=== PATIENT | female | born 1985 | race Caucasian/White ===

== ENCOUNTER 2016-08-28 07:33 | Emergency (ER) | payer BC, MEDICAID, OTHER ==
[2016-08-28] MEDS ORDERED: Sodium Chloride 0.9% 10 ML Syringe FLUSH PRN (08:15)
[2016-08-28] MEDS ORDERED: Pantoprazole 80 MG in Sodium Chloride 0.9% 100 ML IV ONE (08:16)
[2016-08-28] MEDS ORDERED: Ondansetron 4 MG/2 ML SDV IVPUSH ONE (08:20)
--- NOTE | 2016-08-28 08:27 | EDM.PDOC ---
ED HPI GI/ABDOMINAL - General Chief Complaint: Gastrointestinal Problem Stated Complaint: VOMITING BLOOD Time Seen by Provider: 08/28/16 08:00 Source: Reports: Patient, Old records History Limitations: Reports: No limitations - History of Present Illness INITIAL COMMENTS - FREE TEXT/NARRATIVE: Gladis comes in with a week long hx of persistent vomiting, associated with some epigastric pain. She has noted some minor streaks of BRB yesterday, and more BRB this am. There is a PMH of PUD, ETOHism, and smoking. Her last reported ETOH beverages were yesterday, although she smells of ETOH this am. She has been seen at [facility] for similar sxs in the past, most recent visit of June 05, 2016. - Related Data Allergies/ADRs: Allergies Allergy/AdvReac Type Severity Reaction Status Date / Time No Known Allergies Allergy Verified 08/28/16 08:18 Home Meds: Home Meds Pantoprazole Sodium [Protonix] 40 mg PO BID #20 [email or web address] 08/28/16 [Rx] Past Medical History - Past Health History Medical/Surgical History: Denies Medical/Surgical History Gastrointestinal History: Reports: [employer] History: Reports: Psychiatric History: Reports: Addiction, Anxiety - Infectious Disease History Infectious Disease History: Reports: Chicken pox - Past Surgical History GI Surgical History: Reports: Appendectomy Social & Family History - Tobacco Use Smoking Status *Q: Current Every Day Smoker Years of Tobacco use: 15 Packs/Tins Daily: 1 Used Tobacco, but Quit: No Second Hand Smoke Exposure: Yes - Caffeine Use Caffeine Use: Reports: Coffee - Alcohol Use Days Per Week of Alcohol Use: 7 Number of Drinks Per Day: 5 Total Drinks Per Week: 35 - Recreational Drug Use Recreational Drug Use: Yes Drug Use in Last 12 Months: Yes Recreational Drug Type: Reports: Marijuana/Hashish Recreational Drug Use Frequency: Weekly Recreational Drug Last Use: 06/03/16 ED ROS GENERAL - Review of Systems Review Of Systems: See Below Constitutional: Reports: malaise, decreased appetite HEENT: Reports: No symptoms Respiratory: Reports: No Symptoms Cardiovascular: Reports: No symptoms Endocrine: Reports: no symptoms GI/Abdominal: Reports: Abdominal pain, Decreased appetite, Hematemesis, Nausea, Vomiting Musculoskeletal: Reports: no symptoms Skin: Reports: no symptoms Neurological: Reports: No Symptoms Psychiatric: Reports: Anxiety Hematologic/Lymphatic: Reports: no symptoms Immunologic: Reports: no symptoms ED EXAM, GI/ABD - Physical Exam Exam: See Below Exam Limited By: No limitations General Appearance: alert, WD/WN, mild distress Eyes: bilateral: normal appearance, EOMI Ears: normal external exam Nose: normal inspection Throat/Mouth: Normal inspection, Normal oropharynx Head: normocephalic Neck: normal inspection, supple, non-tender, full range of motion Respiratory/Chest: lungs clear, normal breath sounds, no accessory muscle use, chest non-tender Cardiovascular: regular rate, rhythm, no murmur GI/Abdominal: normal bowel sounds, soft, no organomegaly, no distention, no mass , tenderness (epigastrium) (Female) Exam: Deferred Rectal (Female) Exam: Deferred Back Exam: normal inspection Extremities: normal inspection Neurological: alert, oriented, CN II-XII intact, normal cognition, normal gait, no motor/sensory deficits Psychiatric: anxious Skin Exam: Warm, Dry, Intact, Normal color Lymphatic: no adenopathy Course - Vital Signs Text/Narrative:: Following admission to the [facility] ED, an IV was placed in the RUE and 2L of NS was administered, with Protonix 80 mg IV and Zofran 8 mg IV for sx relief. Labs noted: CBC noting Hgb 14.9 gm, WBC 15,500, plts 315,000; amylase 66, se HCG neg , Na 137, K 3.1 Cl 98; BA 0.02, Canabis screen pos. She was markedly improved at time of discharge. Last Recorded V/S: Last Vital Signs Temp 36.6 C 08/28/16 07:35 Pulse 101 H 08/28/16 07:35 Resp 18 08/28/16 07:35 BP 142/95 H 08/28/16 07:35 Pulse Ox 97 08/28/16 07:35 - Orders/Labs/Meds Orders: Active Orders 24 hr Category Date Time Status Sodium Chloride 0.9% [Normal Saline] 1,000 ml Med 08/28/16 08:30 Active IV ASDIRECTED Sodium Chloride 0.9% [Normal Saline] 1,000 ml Med 08/28/16 10:30 Active IV ASDIRECTED Sodium Chloride 0.9% [Saline Flush] Med 08/28/16 08:15 Active 10 ml FLUSH ASDIRECTED PRN Peripheral IV Insertion Adult [OM.PC] Routine Oth 08/28/16 08:15 Ordered Medication Orders Sodium Chloride (Normal Saline) 1,000 mls @ 999 mls/hr IV ASDIRECTED SRINATH Last Admin: 08/28/16 09:14 Dose: 999 mls/hr Sodium Chloride (Normal Saline) 1,000 mls @ 999 mls/hr IV ASDIRECTED SRINATH Last Admin: 08/28/16 10:37 Dose: 999 mls/hr Sodium Chloride (Saline Flush) 10 ml FLUSH ASDIRECTED PRN PRN Reason: Keep Vein Open Labs: Laboratory Tests 08/28/16 08/28/16 08/28/16 Range/Units 08:22 08:22 08:38 WBC 15.5 H (4.5-12.0) X10-3/uL RBC 4.84 (3.23-5.20) x10(6)uL Hgb 14.9 (11.5-15.5) g/dL Hct 44.7 (30.0-51.3) % MCV 92.5 (80-96) fL MCH 30.7 (27.7-33.6) pg MCHC 33.2 (32.2-35.4) g/dL RDW 15.4 (11.5-15.5) % Plt Count 315 (125-369) X10(3)uL MPV 9.3 (7.4-10.4) fL Add Manual Diff Yes Neutrophils % (Manual) 83 H (46-82) % Lymphocytes % (Manual) 9 L (13-37) % Atypical Lymphs % 4 H (0-0) % Monocytes % (Manual) 4 (4-12) % Sodium (135-145) mmol/L Potassium (3.5-5.3) mmol/L Chloride (100-110) mmol/L Carbon Dioxide (23-29) mmol/L BUN (5-20) mg/dL Creatinine (0.6-1.3) mg/dL Est Cr Clr Drug Dosing Estimated GFR (MDRD) (>60) BUN/Creatinine Ratio (9-20) Glucose (80-116) mg/dL Calcium (8.6-10.2) mg/dL Total Bilirubin (0.1-1.3) mg/dL AST (5-27) IU/L ALT (14-26) IU/L Alkaline Phosphatase (56-112) IU/L Total Protein (6.0-8.0) g/dL Albumin (3.5-5.2) g/dL Globulin g/dL Albumin/Globulin Ratio Amylase (28-100) U/L HCG, Quant (2.0 - ) mIU/mL Urine Color Yellow (YELLOW) Urine Appearance Clear (CLEAR) Urine pH 8.0 H (5.0-6.5) Ur Specific [place] 1.015 (1.010-1.025) Urine Protein Negative (NEGATIVE) mg/dL Urine Glucose (UA) Normal (NEGATIVE) mg/dL Urine Ketones 15 H (NEGATIVE) mg/dL Urine Occult Blood Negative (NEGATIVE) Urine Nitrite Negative (NEGATIVE) Urine Bilirubin Negative (NEGATIVE) Urine Urobilinogen Normal (NEGATIVE) mg/dL Ur Leukocyte Esterase Negative (NEGATIVE) Urine RBC Not seen (0) Urine WBC Not seen (0) Ur Squamous Epith Cells Moderate H (NS,R,O) Urine Opiates Screen Negative (NEGATIVE) Ur Oxycodone Screen Negative (NEGATIVE) Ur Propoxyphene Screen Negative (NEGATIVE) Ur Barbituates Screen Negative (NEGATIVE) Ur Tricyclics Screen Negative (NEGATIVE) Ur Phencyclidine Scrn Negative (NEGATIVE) Ur Amphetamine Screen Negative (NEGATIVE) Urine MDMA Screen Negative (NEGATIVE) U Benzodiazepines Scrn Negative (NEGATIVE) U Cocaine Metab Screen Negative (NEGATIVE) U Marijuana (THC) Screen Positive H (NEGATIVE) Ethyl Alcohol (<0.01) % 08/28/16 08/28/16 08/28/16 Range/Units 08:38 08:38 08:38 WBC (4.5-12.0) X10-3/uL RBC (3.23-5.20) x10(6)uL Hgb (11.5-15.5) g/dL Hct (30.0-51.3) % MCV (80-96) fL MCH (27.7-33.6) pg MCHC (32.2-35.4) g/dL RDW (11.5-15.5) % Plt Count (125-369) X10(3)uL MPV (7.4-10.4) fL Add Manual Diff Neutrophils % (Manual) (46-82) % Lymphocytes % (Manual) (13-37) % Atypical Lymphs % (0-0) % Monocytes % (Manual) (4-12) % Sodium 137 (135-145) mmol/L Potassium 3.1 L (3.5-5.3) mmol/L Chloride 98 L D (100-110) mmol/L Carbon Dioxide 28 (23-29) mmol/L BUN 13 (5-20) mg/dL Creatinine 0.7 (0.6-1.3) mg/dL Est Cr Clr Drug Dosing TNP Estimated GFR (MDRD) > 60 (>60) BUN/Creatinine Ratio 18.6 (9-20) Glucose 115 (80-116) mg/dL Calcium 9.4 (8.6-10.2) mg/dL Total Bilirubin 0.2 (0.1-1.3) mg/dL AST 26 D (5-27) IU/L ALT 16 D (14-26) IU/L Alkaline Phosphatase 74 (56-112) IU/L Total Protein 8.3 H (6.0-8.0) g/dL Albumin 4.2 (3.5-5.2) g/dL Globulin 4.1 g/dL Albumin/Globulin Ratio 1.0 Amylase (28-100) U/L HCG, Quant < 2 L (2.0 - ) mIU/mL Urine Color (YELLOW) Urine Appearance (CLEAR) Urine pH (5.0-6.5) Ur Specific [place] (1.010-1.025) Urine Protein (NEGATIVE) mg/dL Urine Glucose (UA) (NEGATIVE) mg/dL Urine Ketones (NEGATIVE) mg/dL Urine Occult Blood (NEGATIVE) Urine Nitrite (NEGATIVE) Urine Bilirubin (NEGATIVE) Urine Urobilinogen (NEGATIVE) mg/dL Ur Leukocyte Esterase (NEGATIVE) Urine RBC (0) Urine WBC (0) Ur Squamous Epith Cells (NS,R,O) Urine Opiates Screen (NEGATIVE) Ur Oxycodone Screen (NEGATIVE) Ur Propoxyphene Screen (NEGATIVE) Ur Barbituates Screen (NEGATIVE) Ur Tricyclics Screen (NEGATIVE) Ur Phencyclidine Scrn (NEGATIVE) Ur Amphetamine Screen (NEGATIVE) Urine MDMA Screen (NEGATIVE) U Benzodiazepines Scrn (NEGATIVE) U Cocaine Metab Screen (NEGATIVE) U Marijuana (THC) Screen (NEGATIVE) Ethyl Alcohol 0.02 H (<0.01) % 08/28/16 Range/Units 08:38 WBC (4.5-12.0) X10-3/uL RBC (3.23-5.20) x10(6)uL Hgb (11.5-15.5) g/dL Hct (30.0-51.3) % MCV (80-96) fL MCH (27.7-33.6) pg MCHC (32.2-35.4) g/dL RDW (11.5-15.5) % Plt Count (125-369) X10(3)uL MPV (7.4-10.4) fL Add Manual Diff Neutrophils % (Manual) (46-82) % Lymphocytes % (Manual) (13-37) % Atypical Lymphs % (0-0) % Monocytes % (Manual) (4-12) % Sodium (135-145) mmol/L Potassium (3.5-5.3) mmol/L Chloride (100-110) mmol/L Carbon Dioxide (23-29) mmol/L BUN (5-20) mg/dL Creatinine (0.6-1.3) mg/dL Est Cr Clr Drug Dosing Estimated GFR (MDRD) (>60) BUN/Creatinine Ratio (9-20) Glucose (80-116) mg/dL Calcium (8.6-10.2) mg/dL Total Bilirubin (0.1-1.3) mg/dL AST (5-27) IU/L ALT (14-26) IU/L Alkaline Phosphatase (56-112) IU/L Total Protein (6.0-8.0) g/dL Albumin (3.5-5.2) g/dL Globulin g/dL Albumin/Globulin Ratio Amylase 66 (28-100) U/L HCG, Quant (2.0 - ) mIU/mL Urine Color (YELLOW) Urine Appearance (CLEAR) Urine pH (5.0-6.5) Ur Specific [place] (1.010-1.025) Urine Protein (NEGATIVE) mg/dL Urine Glucose (UA) (NEGATIVE) mg/dL Urine Ketones (NEGATIVE) mg/dL Urine Occult Blood (NEGATIVE) Urine Nitrite (NEGATIVE) Urine Bilirubin (NEGATIVE) Urine Urobilinogen (NEGATIVE) mg/dL Ur Leukocyte Esterase (NEGATIVE) Urine RBC (0) Urine WBC (0) Ur Squamous Epith Cells (NS,R,O) Urine Opiates Screen (NEGATIVE) Ur Oxycodone Screen (NEGATIVE) Ur Propoxyphene Screen (NEGATIVE) Ur Barbituates Screen (NEGATIVE) Ur Tricyclics Screen (NEGATIVE) Ur Phencyclidine Scrn (NEGATIVE) Ur Amphetamine Screen (NEGATIVE) Urine MDMA Screen (NEGATIVE) U Benzodiazepines Scrn (NEGATIVE) U Cocaine Metab Screen (NEGATIVE) U Marijuana (THC) Screen (NEGATIVE) Ethyl Alcohol (<0.01) % Meds: Medications Generic Name Dose Route Start Last Admin Trade Name Freq PRN Reason Stop Dose Admin Sodium Chloride 1,000 mls @ 999 mls/hr 08/28/16 08:30 08/28/16 09:14 Normal Saline IV 999 mls/hr ASDIRECTED SRINATH Administration Sodium Chloride 1,000 mls @ 999 mls/hr 08/28/16 10:30 08/28/16 10:37 Normal Saline IV 999 mls/hr ASDIRECTED SRINATH Administration Sodium Chloride 10 ml 08/28/16 08:15 Saline Flush FLUSH ASDIRECTED PRN Keep Vein Open Discontinued Medications Generic Name Dose Route Start Last Admin Trade Name Freq PRN Reason Stop Dose Admin Pantoprazole Sodium 80 mg/ 100 mls @ 200 mls/hr 08/28/16 08:16 08/28/16 09:15 Sodium Chloride IV 08/28/16 08:45 200 mls/hr .BOLUS ONE Administration Ondansetron HCl 8 mg 08/28/16 08:20 08/28/16 09:15 Zofran IVPUSH 08/28/16 08:21 8 mg ONETIME ONE Administration Departure - Departure Time of Disposition: 12:00 Disposition: Home, Self-Care 01 Condition: fair Clinical Impression: Acute erosive gastritis Forms: ED Department Discharge - Problem List & Annotations (1) Alcohol dependence SNOMED Code(s): 39162727 Code(s): F10.20 - ALCOHOL DEPENDENCE, UNCOMPLICATED Status: Acute Current Visit: No Annotation/Comment:: Needs outpatient ETOH treatment. Spoke with her about Campral (2) Acute erosive gastritis SNOMED Code(s): 788451344 Code(s): K29.00 - ACUTE GASTRITIS WITHOUT BLEEDING Status: Acute Current Visit: Yes Annotation/Comment:: Gladis would benefit from ETOH treatment. She needs to abstain, and medical complications affecting her health and prospects for healing require attention. I dispensed Protonix 40 mg bid and she will follow up with PCP. - Problem List Review Problem List Initiated/Reviewed/Updated: Yes - My Orders Last 24 Hours: My Active Orders 08/28/16 08:15 Sodium Chloride 0.9% [Saline Flush] 10 ml FLUSH ASDIRECTED PRN Peripheral IV Insertion Adult [OM.PC] Routine 08/28/16 08:30 Sodium Chloride 0.9% [Normal Saline] 1,000 ml IV ASDIRECTED 08/28/16 10:30 Sodium Chloride 0.9% [Normal Saline] 1,000 ml IV ASDIRECTED - Assessment/Plan Last 24 Hours: My Active Orders 08/28/16 08:15 Sodium Chloride 0.9% [Saline Flush] 10 ml FLUSH ASDIRECTED PRN Peripheral IV Insertion Adult [OM.PC] Routine 08/28/16 08:30 Sodium Chloride 0.9% [Normal Saline] 1,000 ml IV ASDIRECTED 08/28/16 10:30 Sodium Chloride 0.9% [Normal Saline] 1,000 ml IV ASDIRECTED Plan: Follow up with PCP, appt. provided for next week.
[2016-08-28] MEDS ORDERED: Sodium Chloride 0.9% 1,000 ML IV SCH ×2 (08:30→10:30)
[2016-08-28 08:32] VITALS: BP 142/95
== END 2016-08-28 12:00 | disposition home or self-care (01) ==
LOC: FB.ED 07:33
DX: K29.00 Acute gastritis without bleeding (principal); F41.9 Anxiety disorder, unspecified; F17.210 Nicotine dependence, cigarettes, uncomplicated; Z90.49 Acquired absence of other specified parts of digestive tract
CPT/HCPCS: 36415; 80053; 80305; 81001; 82150; 84702; 85025; 96361; 96365; 96375; 99284; C9113; G0480; J2405; J7030; J7040

== ENCOUNTER 2016-09-14 06:37 | Day surgery (SDC) | payer BC, MEDICAID, OTHER ==
[2016-09-14] MEDS ORDERED: Sodium Chloride 0.9% 10 ML Syringe FLUSH PRN (06:45)
[2016-09-14] MEDS ORDERED: Lactated Ringers 1,000 ML IV SCH (06:45)
[2016-09-14] MEDS ORDERED: Lidocaine 2% 100 MG/5 ML Syringe IVPUSH ONE (08:00)
[2016-09-14] MEDS ORDERED: Propofol 200 MG/20 ML SDV IV ONE (08:00)
[2016-09-14] MEDS ORDERED: Midazolam 1 MG/ML 2 ML SDV IV ONE (08:00)
--- NOTE | 2016-09-14 08:17 | PCM.OPNOTE ---
- General Post-Op/Procedure Note Date of Surgery/Procedure: 09/14/16 Operative Procedure(s): egd with bx Findings: retained food esophagitis gastritis Pre Op Diagnosis: nausea. hematemasis Post-Op Diagnosis: retained food. esophagitis. gastritis Anesthesia Technique: [facility] [place] Primary Surgeon: Connor Gandhi Anesthesia Provider: Veronique Delgado Pathology: stomach and esophagus Complications: None Condition: Good Free Text/Narrative:: see dictation
[2016-09-14 09:34] VITALS: BP 152/88
--- NOTE | 2016-09-14 20:18 | OR ---
DATE OF OPERATION: 09/14/2016 SURGEON: Connor Gandhi MD PROCEDURE PERFORMED: Esophagogastroduodenoscopy with cold forceps biopsy. PREOPERATIVE DIAGNOSIS: History of nausea and hematemesis. POSTOPERATIVE DIAGNOSIS: Delayed gastric emptying, esophagitis, and gastritis. INDICATIONS FOR PROCEDURE: This is a 31-year-old, white female, who has presented with a complaint of epigastric discomfort and hematemesis. She was offered and accepted an EGD. DESCRIPTION OF PROCEDURE: After an excellent IV sedation was administered, the bite block was inserted. Flexible endoscope was passed without difficulty down the patient's esophagus into the stomach. The stomach was insufflated. Scope was passed through the pylorus to the second portion of the duodenum and slowly withdrawn. The following findings were noted. Duodenum was essentially unremarkable. Stomach demonstrated some retained food. Marked gastritis was noted. The areas to irrigate and clear the food were unsuccessful but we did take some biopsies. GE junction measured approximately 38 cm, and the esophagus demonstrated marked esophagitis just above the GE junction and biopsies were taken as well. The stomach was deflated. The scope was removed. The patient tolerated the procedure well, was taken to recovery room in good condition. /[id number] /MODL
== END 2016-09-14 09:08 | disposition home or self-care (01) ==
LOC: FB.SDS 06:37
PROVIDERS: ATTEND Surgery
DX: K29.30 Chronic superficial gastritis without bleeding (principal); K20.9 Esophagitis, unspecified; K30 Functional dyspepsia; J45.909 Unspecified asthma, uncomplicated; G43.909 Migraine, unspecified, not intractable, without status migrainosus; F10.20 Alcohol dependence, uncomplicated; F17.210 Nicotine dependence, cigarettes, uncomplicated; Z79.899 Other long term (current) drug therapy; Z90.49 Acquired absence of other specified parts of digestive tract
CPT/HCPCS: 00740; 43239; 81025; 88305; 88342; J2250; J2704; J7120

== ENCOUNTER 2016-11-22 13:53 | Observation (INO) | payer BC, MEDICAID, OTHER ==
[2016-11-22] MEDS ORDERED: Sodium Chloride 0.9% 1,000 ML IV ONE (14:00)
[2016-11-22] MEDS ORDERED: Ondansetron 4 MG/2 ML SDV IVPUSH ONE (14:00)
[2016-11-22] MEDS ORDERED: Sodium Chloride 0.9% 10 ML Syringe FLUSH PRN ×2 (14:05→17:53)
[2016-11-22] MEDS ORDERED: Aluminum Hydroxide/Magnesium Hydroxide Susp 30 ML Cup PO STA (14:05)
--- NOTE | 2016-11-22 14:07 | EDM.PDOC ---
ED HPI GENERAL MEDICAL PROBLEM - General Chief Complaint: Gastrointestinal Problem Stated Complaint: VOMITING SINCE WEDNESDAY Time Seen by Provider: 11/22/16 13:53 Source of Information: Reports: Patient History Limitations: Reports: No Limitations - History of Present Illness INITIAL COMMENTS - FREE TEXT/NARRATIVE: 31 years old w f, smoker, found out on 10/10/2016 she is , came to the ed by PC due to N/V in the past few days. P stated, she is 9 weeks AB0. She is complaining of epigastric pain as well. No Dizziness. no C/P No other acute medical issues at this time. Onset: Unknown/Unsure Onset Date: 11/13/16 Onset Time: 08:00 Duration: Day(s):, Getting Worse Location: Reports: Abdomen Quality: Reports: Burning Severity: Moderate Improves with: Reports: Rest Worsens with: Reports: Movement Context: Reports: Other (Pt is , smokes) Associated Symptoms: Reports: Nausea/Vomiting, Weakness, Other (epigastric pain) Abdomen Pain Score (Numeric/FACES): 4 - Related Data Allergies Allergy/AdvReac Type Severity Reaction Status Date / Time No Known Allergies Allergy Verified 11/22/16 18:16 Home Meds: Home Meds Albuterol [Ventolin HFA] 2 puff PO Q4HR PRN 09/11/16 [History] Metoclopramide [Reglan] 5 mg PO TIDAC 11/22/16 [History] Omeprazole 40 mg PO 0730,21 11/22/16 [History] Past Medical History - Past Health History Medical/Surgical History: Denies Medical/Surgical History HEENT History: Reports: Allergic Rhinitis, Other (See Below) Other HEENT History: RHINORRHEA Respiratory History: Reports: Other (See Below) Other Respiratory History: SMOKER Gastrointestinal History: Reports: PUD 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) Other OB/BYN History: CERVICAL LYMPHADENOPATHY Neurological History: Reports: Migraines Psychiatric History: Reports: Addiction, Other (See Below) Other Psychiatric History: FATIGUE Immunologic History: - Infectious Disease History Infectious Disease History: Reports: Chicken Pox - Past Surgical History GI Surgical History: Reports: Appendectomy Social & Family History - Tobacco Use Smoking Status *Q: Current Every Day Smoker Years of Tobacco use: 15 Packs/Tins Daily: 1 Used Tobacco, but Quit: No Second Hand Smoke Exposure: Yes - Caffeine Use Caffeine Use: Reports: Energy Drinks, Soda - Alcohol Use Days Per Week of Alcohol Use: 7 Number of Drinks Per Day: 5 Total Drinks Per Week: 35 - Recreational Drug Use Recreational Drug Use: Yes Drug Use in Last 12 Months: Yes Recreational Drug Type: Reports: Marijuana/Hashish Recreational Drug Use Frequency: Weekly Recreational Drug Last Use: YESTERDAY ED ROS GENERAL - Review of Systems Review Of Systems: See Below Constitutional: Reports: Weakness HEENT: Reports: No Symptoms Respiratory: Reports: No Symptoms Cardiovascular: Reports: No Symptoms Endocrine: Reports: No Symptoms GI/Abdominal: Reports: Abdominal Pain : Reports: No Symptoms Musculoskeletal: Reports: No Symptoms Skin: Reports: No Symptoms Neurological: Reports: No Symptoms Psychiatric: Reports: No Symptoms Hematologic/Lymphatic: Reports: No Symptoms Immunologic: Reports: No Symptoms ED EXAM, GI/ABD - Physical Exam Exam: See Below Exam Limited By: No Limitations General Appearance: Alert, WD/WN, Mild Distress Eyes: Bilateral: Normal Appearance Ears: Normal External Exam Nose: No Blood Throat/Mouth: Normal Lips, Normal Voice, No Airway Compromise, Other (dry mucosal membrans) Head: Atraumatic, Normocephalic Neck: Normal Inspection, Supple, Non-Tender, Full Range of Motion Respiratory/Chest: No Respiratory Distress, Rhonchi Cardiovascular: Normal Peripheral Pulses, Regular Rate, Rhythm GI/Abdominal Exam: Rebound, Tender (epigastric) (Female) Exam: Deferred Rectal (Female) Exam: Deferred Back Exam: Normal Inspection, Full Range of Motion Extremities: Normal Inspection, Normal Range of Motion, Non-Tender, No Pedal Edema Neurological: Alert, Oriented, CN II-XII Intact, Normal Cognition, Normal Gait, No Motor/Sensory Deficits Psychiatric: Normal Affect, Normal Mood Skin Exam: Warm, Dry, Intact, Normal Color, No Rash Lymphatic: No Adenopathy EKG INTERPRETATION EKG Date: 11/22/16 Time: 14:40 Rhythm: NSR Rate (Beats/Min): 78 [place]: Normal P-Wave: Present QRS: Normal ST-T: Normal QT: Normal Comparison: NA - No Prior EKG Course - Vital Signs Text/Narrative:: 31 years old w f, smoker, found out on 10/10/2016 she is , came to the ed by PC due to N/V in the past few days. P stated, she is 9 weeks AB0. She is complaining of epigastric pain as well. No Dizziness. no C/P No other acute medical issues at this time. PE: WNWD wf, N/V epigastric pain. Labs: K 2.4, Mg 1.8, WBC 24k HCG [id number], Na 132 Cr 0.5 BUN 15, Glc 121 ECG: NSR Impression: Hypokalemia, Hyponatremia, Dehydration, New . Tx: K Dur 40meq po, Piotassium 20meq IV, Zofran, GI Cocktail. Reexam: Pt felt better but is still nauseated, Phenegen was given which improved her symptoms. K was 2.8. Plan: Admit to M/S tele. 12/24/2016: Pt received another 20 meq of potassium iv. This morning, her potassium was 3.7, WBC was 14 Last Recorded V/S: Last Vital Signs Temp 36.8 C 11/23/16 03:34 Pulse 70 11/23/16 03:34 Resp 16 11/23/16 03:34 BP 122/81 11/23/16 03:34 Pulse Ox 100 11/23/16 03:34 - Orders/Labs/Meds Orders: Active Orders 24 hr Category Date Time Status CULTURE BLOOD [BC] Urgent Lab 11/22/16 18:30 Received CULTURE BLOOD [BC] Urgent Lab 11/22/16 18:35 Received Sodium Chloride 0.9% [Saline Flush] Med 11/22/16 14:05 Active 10 ml FLUSH ASDIRECTED PRN Blood Culture x2 Reflex Set [OM.PC] Urgent Oth 11/22/16 17:47 Ordered Saline Lock Insert [OM.PC] Routine Oth 11/22/16 14:05 Ordered Medication Orders Albuterol (Ventolin Hfa) 0 gm INH Q4H PRN PRN Reason: Wheezing Potassium Chloride/Sodium Chloride (Normal Saline With 20 Meq Kcl) 1,000 mls @ 150 mls/hr IV ASDIRECTED SRINATH Last Admin: 11/22/16 21:00 Dose: 150 mls/hr Metoclopramide HCl (Reglan) 5 mg PO TIDAC SRINATH Ondansetron HCl (Zofran Odt) 4 mg PO Q6H PRN PRN Reason: Nausea/Vomiting Pantoprazole Sodium (Protonix) 40 mg PO BIDAC SRINATH Sodium Chloride (Saline Flush) 10 ml FLUSH ASDIRECTED PRN PRN Reason: Keep Vein Open Last Admin: 11/22/16 14:19 Dose: 10 ml Sodium Chloride (Saline Flush) 10 ml FLUSH ASDIRECTED PRN PRN Reason: Keep Vein Open Labs: Laboratory Tests 11/22/16 11/22/16 11/22/16 Range/Units 14:10 14:10 14:10 WBC 24.3 H (4.5-12.0) X10-3/uL RBC 4.97 (3.23-5.20) x10(6)uL Hgb 15.4 (11.5-15.5) g/dL Hct 45.3 (30.0-51.3) % MCV 91.1 (80-96) fL MCH 31.0 (27.7-33.6) pg MCHC 34.0 (32.2-35.4) g/dL RDW 14.4 (11.5-15.5) % Plt Count 286 (125-369) X10(3)uL MPV 8.9 (7.4-10.4) fL Add Manual Diff Yes Neutrophils % (Manual) 90 H (46-82) % Lymphocytes % (Manual) 5 L (13-37) % Monocytes % (Manual) 5 (4-12) % Sodium 132 L (135-145) mmol/L Potassium 2.4 L* (3.5-5.3) mmol/L Chloride 86 L* D (100-110) mmol/L Carbon Dioxide 34 H (23-29) mmol/L BUN 15 (5-20) mg/dL Creatinine 0.5 L (0.6-1.3) mg/dL Est Cr Clr Drug Dosing 123.02 mL/min Estimated GFR (MDRD) > 60 (>60) BUN/Creatinine Ratio 30.0 H (9-20) Glucose 121 H (80-116) mg/dL Calcium 9.7 (8.6-10.2) mg/dL Magnesium (1.8-2.5) mg/dL Total Bilirubin 0.7 (0.1-1.3) mg/dL Direct Bilirubin 0.2 (0.1-0.2) mg/dL AST 27 (5-27) IU/L ALT 22 D (14-26) IU/L Alkaline Phosphatase 65 (56-112) IU/L Total Protein 9.0 H (6.0-8.0) g/dL Albumin 4.5 (3.5-5.2) g/dL Amylase (28-100) U/L HCG, Quant 74111 (2.0 - ) mIU/mL Urine Color (YELLOW) Urine Appearance (CLEAR) Urine pH (5.0-6.5) Ur Specific [place] (1.010-1.025) Urine Protein (NEGATIVE) mg/dL Urine Glucose (UA) (NEGATIVE) mg/dL Urine Ketones (NEGATIVE) mg/dL Urine Occult Blood (NEGATIVE) Urine Nitrite (NEGATIVE) Urine Bilirubin (NEGATIVE) Urine Urobilinogen (NEGATIVE) mg/dL Ur Leukocyte Esterase (NEGATIVE) Urine RBC (0) Urine WBC (0) Ur Squamous Epith Cells (NS,R,O) Urine Bacteria (NS) Urine Mucus (NS) 11/22/16 11/22/16 11/22/16 Range/Units 14:10 14:10 17:05 WBC (4.5-12.0) X10-3/uL RBC (3.23-5.20) x10(6)uL Hgb (11.5-15.5) g/dL Hct (30.0-51.3) % MCV (80-96) fL MCH (27.7-33.6) pg MCHC (32.2-35.4) g/dL RDW (11.5-15.5) % Plt Count (125-369) X10(3)uL MPV (7.4-10.4) fL Add Manual Diff Neutrophils % (Manual) (46-82) % Lymphocytes % (Manual) (13-37) % Monocytes % (Manual) (4-12) % Sodium 134 L (135-145) mmol/L Potassium 2.8 L* (3.5-5.3) mmol/L Chloride 95 L D (100-110) mmol/L Carbon Dioxide 30 H (23-29) mmol/L BUN 11 (5-20) mg/dL Creatinine 0.4 L (0.6-1.3) mg/dL Est Cr Clr Drug Dosing 153.77 mL/min Estimated GFR (MDRD) > 60 (>60) BUN/Creatinine Ratio 27.5 H (9-20) Glucose 102 (80-116) mg/dL Calcium 8.1 L (8.6-10.2) mg/dL Magnesium (1.8-2.5) mg/dL Total Bilirubin (0.1-1.3) mg/dL Direct Bilirubin (0.1-0.2) mg/dL AST (5-27) IU/L ALT (14-26) IU/L Alkaline Phosphatase (56-112) IU/L Total Protein (6.0-8.0) g/dL Albumin (3.5-5.2) g/dL Amylase 64 (28-100) U/L HCG, Quant (2.0 - ) mIU/mL Urine Color Yellow (YELLOW) Urine Appearance Slightly cloudy (CLEAR) Urine pH 9.0 H (5.0-6.5) Ur Specific [place] 1.010 (1.010-1.025) Urine Protein Negative (NEGATIVE) mg/dL Urine Glucose (UA) Normal (NEGATIVE) mg/dL Urine Ketones 150 H (NEGATIVE) mg/dL Urine Occult Blood Negative (NEGATIVE) Urine Nitrite Negative (NEGATIVE) Urine Bilirubin Negative (NEGATIVE) Urine Urobilinogen 4 H (NEGATIVE) mg/dL Ur Leukocyte Esterase Small H (NEGATIVE) Urine RBC 0-5 (0) Urine WBC 0-5 (0) Ur Squamous Epith Cells Few H (NS,R,O) Urine Bacteria Few H (NS) Urine Mucus Moderate H (NS) 07/30/17 Range/Units 17:05 WBC (4.5-12.0) X10-3/uL RBC (3.23-5.20) x10(6)uL Hgb (11.5-15.5) g/dL Hct (30.0-51.3) % MCV (80-96) fL MCH (27.7-33.6) pg MCHC (32.2-35.4) g/dL RDW (11.5-15.5) % Plt Count (125-369) X10(3)uL MPV (7.4-10.4) fL Add Manual Diff Neutrophils % (Manual) (46-82) % Lymphocytes % (Manual) (13-37) % Monocytes % (Manual) (4-12) % Sodium (135-145) mmol/L Potassium (3.5-5.3) mmol/L Chloride (100-110) mmol/L Carbon Dioxide (23-29) mmol/L BUN (5-20) mg/dL Creatinine (0.6-1.3) mg/dL Est Cr Clr Drug Dosing mL/min Estimated GFR (MDRD) (>60) BUN/Creatinine Ratio (9-20) Glucose (80-116) mg/dL Calcium (8.6-10.2) mg/dL Magnesium 1.8 (1.8-2.5) mg/dL Total Bilirubin (0.1-1.3) mg/dL Direct Bilirubin (0.1-0.2) mg/dL AST (5-27) IU/L ALT (14-26) IU/L Alkaline Phosphatase (56-112) IU/L Total Protein (6.0-8.0) g/dL Albumin (3.5-5.2) g/dL Amylase (28-100) U/L HCG, Quant (2.0 - ) mIU/mL Urine Color (YELLOW) Urine Appearance (CLEAR) Urine pH (5.0-6.5) Ur Specific [place] (1.010-1.025) Urine Protein (NEGATIVE) mg/dL Urine Glucose (UA) (NEGATIVE) mg/dL Urine Ketones (NEGATIVE) mg/dL Urine Occult Blood (NEGATIVE) Urine Nitrite (NEGATIVE) Urine Bilirubin (NEGATIVE) Urine Urobilinogen (NEGATIVE) mg/dL Ur Leukocyte Esterase (NEGATIVE) Urine RBC (0) Urine WBC (0) Ur Squamous Epith Cells (NS,R,O) Urine Bacteria (NS) Urine Mucus (NS) Meds: Medications Generic Name Dose Route Start Last Admin Trade Name Freq PRN Reason Stop Dose Admin Albuterol 0 gm 11/23/16 08:09 Ventolin Hfa INH Q4H PRN Wheezing Potassium Chloride/Sodium Chloride 1,000 mls @ 150 mls/hr 11/22/16 21:00 21:00 Normal Saline With 20 Meq Kcl IV 150 mls/hr ASDIRECTED SRINATH Administration Metoclopramide HCl 5 mg 11/23/16 08:30 Reglan PO TIDAC SRINATH Ondansetron HCl 4 mg 11/23/16 08:08 Zofran Odt PO Q6H PRN Nausea/Vomiting Pantoprazole Sodium 40 mg 11/23/16 08:33 Protonix PO BIDAC SRINATH Sodium Chloride 10 ml 11/22/16 14:05 11/22/16 14:19 Saline Flush FLUSH 10 ml ASDIRECTED PRN Administration Keep Vein Open Sodium Chloride 10 ml 11/22/16 17:53 Saline Flush FLUSH ASDIRECTED PRN Keep Vein Open Discontinued Medications Generic Name Dose Route Start Last Admin Trade Name Freq PRN Reason Stop Dose Admin Al Hydroxide/Mg Hydroxide 30 ml 11/22/16 14:05 11/22/16 14:36 Mag-Al Susp PO 11/22/16 14:06 30 ml ONETIME STA Administration Sodium Chloride 1,000 mls @ 999 mls/hr 11/22/16 14:00 11/22/16 14:20 Normal Saline IV 11/22/16 15:00 999 mls/hr .BOLUS ONE Administration Potassium Chloride/Sodium Chloride 1,000 mls @ 500 mls/hr 11/22/16 14:45 20:50 Normal Saline With 20 Meq Kcl IV 500 mls/hr ASDIRECTED SRINATH Administration Promethazine HCl 12.5 mg/ 50.5 mls @ 200 mls/hr 11/22/16 17:08 11/22/16 17:30 Sodium Chloride IV 200 mls/hr Q6H PRN Administration Nausea/Vomiting Potassium Chloride 20 meq/ 100 mls @ 50 mls/hr 11/22/16 20:52 11/22/16 21:11 Premix IV 11/22/16 22:51 50 mls/hr ONETIME ONE Administration Nitrofurantoin Macrocrystals 100 mg 11/22/16 21:00 11/22/16 21:15 Macrobid PO 100 mg BID SRINATH Administration Omeprazole 40 mg 11/23/16 08:30 Omeprazole PO BIDAC SRINATH Ondansetron HCl 8 mg 11/22/16 14:00 11/22/16 14:24 Zofran IVPUSH 11/22/16 14:01 8 mg ONETIME ONE Administration Ondansetron HCl 4 mg 11/22/16 17:53 11/23/16 06:43 Zofran IV 4 mg Q4H PRN Administration Nausea/Vomiting Potassium Chloride 40 meq 11/22/16 14:31 11/22/16 14:36 Klor-Con M20 PO 11/22/16 14:32 40 meq ONETIME ONE Administration Departure - Departure Time of Disposition: 17:52 Disposition: Refer to Observation Condition: Fair Clinical Impression: Hypokalemia Leucocytosis Qualifiers: Leukocytosis type: other Qualified Code(s): D72.828 - Other elevated white blood cell count - Discharge Information - My Orders Last 24 Hours: My Active Orders 11/22/16 14:05 Sodium Chloride 0.9% [Saline Flush] 10 ml FLUSH ASDIRECTED PRN Saline Lock Insert [OM.PC] Routine 11/22/16 17:47 Blood Culture x2 Reflex Set [OM.PC] Urgent 11/22/16 18:30 CULTURE BLOOD [BC] Urgent 11/22/16 18:35 CULTURE BLOOD [BC] Urgent - Assessment/Plan Last 24 Hours: My Active Orders 11/22/16 14:05 Sodium Chloride 0.9% [Saline Flush] 10 ml FLUSH ASDIRECTED PRN Saline Lock Insert [OM.PC] Routine 11/22/16 17:47 Blood Culture x2 Reflex Set [OM.PC] Urgent 11/22/16 18:30 CULTURE BLOOD [BC] Urgent 11/22/16 18:35 CULTURE BLOOD [BC] Urgent
[2016-11-22] MEDS ORDERED: Potassium Chloride 20 MEQ Tab.ER PO ONE (14:31)
[2016-11-22] MEDS: NS + KCl 20mEq/L 1,000 ML IV SCH ×4 (14:48→21:00)
[2016-11-22] MEDS ORDERED: Promethazine 12.5 MG in Sodium Chloride 0.9% 50 ML IV PRN (17:08)
[2016-11-22] MEDS ORDERED: Ondansetron 4 MG/2 ML SDV IV PRN (17:53)
[2016-11-22] MEDS ORDERED: Potassium Chloride 20 MEQ in Premix Bag 1 BAG IV ONE (20:52)
[2016-11-22] MEDS ORDERED: Nitrofurantoin Monohydrate/Macrocrystalline 100 MG Cap PO SCH (21:00)
[2016-11-23] MEDS ORDERED: Ondansetron 4 MG Tab.DIS PO PRN (08:08)
[2016-11-23] MEDS ORDERED: Albuterol 8 GM Inhaler INH PRN (08:09)
[2016-11-23] MEDS ORDERED: Pantoprazole 40 MG Tab.CR PO SCH ×2 (08:30→08:33)
[2016-11-23] MEDS ORDERED: Omeprazole 40 MG Cap.CR PO SCH (08:30)
[2016-11-23] MEDS: Metoclopramide 5 MG Tab PO SCH ×2 (09:20→11:10)
--- NOTE | 2016-11-23 09:33 | PCM.HP ---
H&P History of Present Illness - General Date of Service: 11/23/16 Admit Problem/Dx: Admission Diagnosis/Problem Admission Diagnosis/Problem Hypokalemia Source of Information: Patient History Limitations: Reports: No Limitations - History of Present Illness Initial Comments - Free Text/Narative: This is a 31-year-old female patient who is currently 9 weeks comes in vomiting consistently for 5 days 7-8 times. She says she is very tired as fevers and chills. She was found to be hypokalemic and dehydrated and was admitted. She says the last year she's had intestinal issues this had a scope and she's seen people and [facility] in regards to this. She states she had some diarrhea and use some Lomotil and now she is constipated. She denies nasal congestion, ear pain, sore throat, cough, dysuria, pyuria, hematuria Abdomen Pain Score (Numeric/FACES): 4 - Related Data Allergies/Adverse Reactions: Allergies Allergy/AdvReac Type Severity Reaction Status Date / Time No Known Allergies Allergy Verified 11/22/16 18:16 Home Medications: Home Meds Albuterol [Ventolin HFA] 2 puff PO Q4HR PRN 09/11/16 [History] Metoclopramide [Reglan] 5 mg PO TIDAC 11/22/16 [History] Omeprazole 40 mg PO 0730,21 11/22/16 [History] Past Medical History - Past Health History Medical/Surgical History: Denies Medical/Surgical History HEENT History: Reports: Allergic Rhinitis, Other (See Below) Other HEENT History: RHINORRHEA Respiratory History: Reports: Other (See Below) Other Respiratory History: SMOKER Gastrointestinal History: Reports: PUD 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) Other OB/BYN History: CERVICAL LYMPHADENOPATHY Neurological History: Reports: Migraines Psychiatric History: Reports: Addiction, Other (See Below) Other Psychiatric History: FATIGUE Immunologic History: - Infectious Disease History Infectious Disease History: Reports: Chicken Pox - Past Surgical History GI Surgical History: Reports: Appendectomy Social & Family History - Family History Family Medical History: Noncontributory - Tobacco Use Smoking Status *Q: Current Every Day Smoker Years of Tobacco use: 15 Packs/Tins Daily: 1 Used Tobacco, but Quit: No Second Hand Smoke Exposure: Yes - Caffeine Use Caffeine Use: Reports: Energy Drinks, Soda - Alcohol Use Days Per Week of Alcohol Use: 7 Number of Drinks Per Day: 5 Total Drinks Per Week: 35 - Recreational Drug Use Recreational Drug Use: Yes Drug Use in Last 12 Months: Yes Recreational Drug Type: Reports: Marijuana/Hashish Other Recreational Drug Type: marijuana this morning Recreational Drug Use Frequency: Weekly Recreational Drug Last Use: YESTERDAY H&P Review of Systems - Review of Systems: Review Of Systems: See Below General: Reports: Fever, Chills, Malaise, Weakness, Decreased Appetite HEENT: Reports: No Symptoms Pulmonary: Reports: No Symptoms Cardiovascular: Reports: No Symptoms Gastrointestinal: Reports: Abdominal Pain, Diarrhea, Vomiting. Denies: Bloody Stool Genitourinary: Reports: No Symptoms Musculoskeletal: Reports: No Symptoms Skin: Reports: No Symptoms Psychiatric: Reports: No Symptoms Neurological: Reports: No Symptoms Hematologic/Lymphatic: Reports: No Symptoms Immunologic: Reports: No Symptoms Exam - Exam Exam: See Below - Vital Signs Vital Signs: Last Vital Signs Temp 98.3 F 11/23/16 03:34 Pulse 70 11/23/16 03:34 Resp 16 11/23/16 03:34 BP 122/81 11/23/16 03:34 Pulse Ox 100 11/23/16 03:34 Weight: 140 lb 9.6 oz - Exam General: Alert, Oriented, Cooperative HEENT: PERRLA, EACs Clear, EOMI, Hearing Intact, Mucosa Moist & [place], Nares Patent, Normal Nasal Septum, Posterior Pharynx Clear, TMs Clear Neck: Supple, Trachea Midline, 2 Lungs: Clear to Auscultation, Normal Respiratory Effort Cardiovascular: Regular Rate, Regular Rhythm. No: Systolic Murmur GI/Abdominal Exam: Normal Bowel Sounds, Soft, Non-Tender, No Distention, No Mass Back Exam: Normal Inspection Extremities: Normal Inspection, Normal Range of Motion, Non-Tender, No Pedal Edema, Normal Capillary Refill Skin: Warm, Dry, Intact Neuro Extensive - Mental Status: Alert, Oriented x3, Normal Mood/Affect, Normal Cognition - Patient Data Lab Results Last 24 hrs: Laboratory Results - last 24 hr 11/22/16 11/23/16 11/23/16 Range/Units 23:45 06:42 06:42 WBC 14.0 H (4.5-12.0) X10-3/uL RBC 4.05 (3.23-5.20) x10(6)uL Hgb 12.5 (11.5-15.5) g/dL Hct 37.4 (30.0-51.3) % MCV 92.3 (80-96) fL MCH 30.9 (27.7-33.6) pg MCHC 33.5 (32.2-35.4) g/dL RDW 14.4 (11.5-15.5) % Plt Count 221 (125-369) X10(3)uL MPV 9.6 (7.4-10.4) fL Neut % (Auto) 71.5 (46-82) % Lymph % (Auto) 21.8 (13-37) % [place] % (Auto) 5.8 (4-12) % Eos % (Auto) 1 (1.0-5.0) % Baso % (Auto) 0 (0-2) % Neut # (Auto) 10.0 H (1.6-8.3) # Lymph # (Auto) 3.0 (0.6-5.0) # [place] # (Auto) 0.8 (0.0-1.3) # Eos # (Auto) 0.1 (0.0-0.8) # Baso # (Auto) 0.1 (0.0-0.2) # Sodium 134 L 136 (135-145) mmol/L Potassium 3.8 D 3.7 (3.5-5.3) mmol/L Chloride 105 D 108 (100-110) mmol/L Carbon Dioxide 24 23 (23-29) mmol/L BUN 8 8 (5-20) mg/dL Creatinine 0.4 L 0.4 L (0.6-1.3) mg/dL Est Cr Clr Drug Dosing 153.77 153.77 mL/min Estimated GFR (MDRD) > 60 > 60 (>60) BUN/Creatinine Ratio 20.0 20.0 (9-20) Glucose 90 87 (80-116) mg/dL Calcium 7.7 L 7.9 L (8.6-10.2) mg/dL Result Diagrams: 11/23/16 06:42 11/23/16 06:42 *Q Meaningful Use (ADM) - VTE *Q VTE Criteria *Q: - Stroke *Q Stroke Criteria *Q: - AMI *Q AMI Criteria *Q: - Problem List (1) Hyperemesis gravidarum SNOMED Code(s): 95711754 ICD Code: O21.0 - MILD HYPEREMESIS GRAVIDARUM Status: Acute Current Visit : Yes (2) Hypokalemia SNOMED Code(s): 95061448 ICD Code: E87.6 - HYPOKALEMIA Status: Acute Current Visit: Yes (3) Dehydration SNOMED Code(s): 65113114 ICD Code: E86.0 - DEHYDRATION Status: Acute Current Visit: No Problem Details: Heplock IV,encourage oral as tolerated Problem List Initiated/Reviewed/Updated: Yes Orders Last 24hrs: Active Orders 24 hr Category Date Time Status Patient Status [ADT] Routine ADT 11/22/16 17:53 Active Oxygen Therapy [RC] PRN Care 11/22/16 17:53 Active Up With Assistance [RC] ASDIRECTED Care 11/22/16 17:53 Active Vital Signs [RC] 00,04,08,12,16,20 Care 11/22/16 17:53 Active Adult Diet [DIET] Diet 11/23/16 Breakfast Active Albuterol [Ventolin HFA] Med 11/23/16 08:09 Active 0 gm INH Q4H PRN Metoclopramide [Reglan] Med 11/23/16 08:30 Active 5 mg PO TIDAC NS + KCl 20mEq/L [Normal Saline with 20 mEq KCl] 1,000 Med 11/22/16 21:00 Active ml IV ASDIRECTED Ondansetron [Zofran ODT] Med 11/23/16 08:08 Active 4 mg PO Q6H PRN Pantoprazole [ProTONIX] Med 11/23/16 08:30 Active 40 mg PO BIDAC Sodium Chloride 0.9% [Saline Flush] Med 11/22/16 17:53 Active 10 ml FLUSH ASDIRECTED PRN Peripheral IV Insertion Adult [OM.PC] Routine Oth 11/22/16 17:53 Ordered Resuscitation Status Routine Resus Stat 11/22/16 17:53 Ordered Medication Orders Albuterol (Ventolin Hfa) 0 gm INH Q4H PRN PRN Reason: Wheezing Potassium Chloride/Sodium Chloride (Normal Saline With 20 Meq Kcl) 1,000 mls @ 150 mls/hr IV ASDIRECTED SRINATH Last Admin: 11/22/16 21:00 Dose: 150 mls/hr Metoclopramide HCl (Reglan) 5 mg PO TIDAC [facility] Last Admin: 11/23/16 09:20 Dose: 5 mg Ondansetron HCl (Zofran Odt) 4 mg PO Q6H PRN PRN Reason: Nausea/Vomiting Pantoprazole Sodium (Protonix) 40 mg PO BIDAC [facility] Last Admin: 11/23/16 09:23 Dose: 40 mg Sodium Chloride (Saline Flush) 10 ml FLUSH ASDIRECTED PRN PRN Reason: Keep Vein Open Last Admin: 11/22/16 14:19 Dose: 10 ml Sodium Chloride (Saline Flush) 10 ml FLUSH ASDIRECTED PRN PRN Reason: Keep Vein Open Assessment/Plan Comment:: 1. Admit for rehydration and antinausea medication. 2. We'll deficit diet and she seems to tolerate it. 3. Up ad anabela. 4. Labs reviewed and potassium is corrected today. DC potassium.
[2016-11-23] MEDS: NS + KCl 20mEq/L 1,000 ML IV SCH (10:58)
--- NOTE | 2016-11-23 12:46 | PCM.SN ---
- Free Text/Narrative Note: She feels much better. No nausea, vomiting per she tolerated her diet. We'll discharge to home.
--- NOTE | 2016-11-23 12:49 | PCM.DCSUM1 ---
Discharge Summary - Hospital Course Free Text/Narrative:: She was admitted and given Zofran IV fluids. By the morning she was much improved. Started a diet and she tolerated. Will discharge to home to see her primary doctor 1 week. Her potassium was low and was corrected by morning with by mouth and IV potassium. Brief History: This is a 31-year-old female patient who is currently 9 weeks comes in vomiting consistently for 5 days 7-8 times. She says she is very tired as fevers and chills. She was found to be hypokalemic and dehydrated and was admitted. She says the last year she's had intestinal issues this had a scope and she's seen people and [place] in regards to this. She states she had some diarrhea and use some Lomotil and now she is constipated. She denies nasal congestion, ear pain, sore throat, cough, dysuria, pyuria, hematuria - Discharge Data Discharge Date: 11/23/16 Discharge Disposition: Home, Self-Care 01 Condition: Good - Discharge Diagnosis/Problem(s) (1) Hyperemesis gravidarum SNOMED Code(s): 97733328 ICD Code: O21.0 - MILD HYPEREMESIS GRAVIDARUM Status: Acute Current Visit : Yes (2) Hypokalemia SNOMED Code(s): 59578440 ICD Code: E87.6 - HYPOKALEMIA Status: Acute Current Visit: Yes (3) Dehydration SNOMED Code(s): 63509784 ICD Code: E86.0 - DEHYDRATION Status: Acute Current Visit: No Problem Details: Heplock IV,encourage oral as tolerated - Patient Instructions Diet: Regular Diet as Tolerated Activity: As Tolerated Driving: May Drive Today Showering/Bathing: May Shower Notify Provider of: Fever, Increased Pain, Nausea and/or Vomiting Other/Special Instructions: 1. Recheck with Dr. Lynch in 1 week - Discharge Plan Prescriptions/Med Rec: Ondansetron [Zofran] 4 mg PO Q6H #30 tab Home Medications: Home Meds Albuterol [Ventolin HFA] 2 puff PO Q4HR PRN 09/11/16 [History] Metoclopramide [Reglan] 5 mg PO TIDAC 11/22/16 [History] Omeprazole 40 mg PO 0730,21 11/22/16 [History] Ondansetron [Zofran] 4 mg PO Q6H #30 tab 11/23/16 [Rx] Forms: ED Department Discharge Referrals: Ricardo Lynch MD [Primary Care Provider] - - Discharge Summary/Plan Comment DC Time >30 min.: No - Patient Data Vitals - Most Recent: Last Vital Signs Temp 98.3 F 11/23/16 03:34 Pulse 70 11/23/16 03:34 Resp 16 11/23/16 03:34 BP 122/81 11/23/16 03:34 Pulse Ox 100 11/23/16 03:34 Weight - Most Recent: 140 lb 9.6 oz I&O - Last 24 hours: Intake & Output 11/22/16 11/23/16 11/23/16 22:59 06:59 14:59 Intake Total 2618 270 Output Total 400 250 Balance 2218 20 Lab Results - Last 24 hrs: Laboratory Results - last 24 hr 11/22/16 11/23/16 11/23/16 Range/Units 23:45 06:42 06:42 WBC 14.0 H (4.5-12.0) X10-3/uL RBC 4.05 (3.23-5.20) x10(6)uL Hgb 12.5 (11.5-15.5) g/dL Hct 37.4 (30.0-51.3) % MCV 92.3 (80-96) fL MCH 30.9 (27.7-33.6) pg MCHC 33.5 (32.2-35.4) g/dL RDW 14.4 (11.5-15.5) % Plt Count 221 (125-369) X10(3)uL MPV 9.6 (7.4-10.4) fL Neut % (Auto) 71.5 (46-82) % Lymph % (Auto) 21.8 (13-37) % [place] % (Auto) 5.8 (4-12) % Eos % (Auto) 1 (1.0-5.0) % Baso % (Auto) 0 (0-2) % Neut # (Auto) 10.0 H (1.6-8.3) # Lymph # (Auto) 3.0 (0.6-5.0) # [place] # (Auto) 0.8 (0.0-1.3) # Eos # (Auto) 0.1 (0.0-0.8) # Baso # (Auto) 0.1 (0.0-0.2) # Sodium 134 L 136 (135-145) mmol/L Potassium 3.8 D 3.7 (3.5-5.3) mmol/L Chloride 105 D 108 (100-110) mmol/L Carbon Dioxide 24 23 (23-29) mmol/L BUN 8 8 (5-20) mg/dL Creatinine 0.4 L 0.4 L (0.6-1.3) mg/dL Est Cr Clr Drug Dosing 153.77 153.77 mL/min Estimated GFR (MDRD) > 60 > 60 (>60) BUN/Creatinine Ratio 20.0 20.0 (9-20) Glucose 90 87 (80-116) mg/dL Calcium 7.7 L 7.9 L (8.6-10.2) mg/dL Med Orders - Current: Current Medications Albuterol (Ventolin Hfa) 0 gm INH Q4H PRN PRN Reason: Wheezing Potassium Chloride/Sodium Chloride (Normal Saline With 20 Meq Kcl) 1,000 mls @ 150 mls/hr IV ASDIRECTED SRINATH Stop: 11/23/16 17:29 Last Admin: 11/23/16 10:58 Dose: 150 mls/hr Potassium Chloride/Sodium Chloride (Normal Saline With 20 Meq Kcl) 1,000 mls @ 150 mls/hr IV Q6H SRINATH Metoclopramide HCl (Reglan) 5 mg PO TIDAC [facility] Last Admin: 11/23/16 11:10 Dose: 5 mg Ondansetron HCl (Zofran Odt) 4 mg PO Q6H PRN PRN Reason: Nausea/Vomiting Pantoprazole Sodium (Protonix) 40 mg PO BIDAC [facility] Last Admin: 11/23/16 09:23 Dose: 40 mg Sodium Chloride (Saline Flush) 10 ml FLUSH ASDIRECTED PRN PRN Reason: Keep Vein Open Last Admin: 11/22/16 14:19 Dose: 10 ml Sodium Chloride (Saline Flush) 10 ml FLUSH ASDIRECTED PRN PRN Reason: Keep Vein Open Discontinued Medications Al Hydroxide/Mg Hydroxide (Mag-Al Susp) 30 ml PO ONETIME STA Stop: 11/22/16 14:06 Last Admin: 11/22/16 14:36 Dose: 30 ml Sodium Chloride (Normal Saline) 1,000 mls @ 999 mls/hr IV .BOLUS ONE Stop: 11/22/16 15:00 Last Admin: 11/22/16 14:20 Dose: 999 mls/hr Potassium Chloride/Sodium Chloride (Normal Saline With 20 Meq Kcl) 1,000 mls @ 500 mls/hr IV ASDIRECTED [facility] Last Admin: 11/22/16 20:50 Dose: 500 mls/hr Promethazine HCl 12.5 mg/ (Sodium Chloride) 50.5 mls @ 200 mls/hr IV Q6H PRN PRN Reason: Nausea/Vomiting Last Admin: 11/22/16 17:30 Dose: 200 mls/hr Potassium Chloride 20 meq/ (Premix) 100 mls @ 50 mls/hr IV ONETIME ONE Stop: 11/22/16 22:51 Last Admin: 11/22/16 21:11 Dose: 50 mls/hr Nitrofurantoin Macrocrystals (Macrobid) 100 mg PO BID [facility] Last Admin: 11/22/16 21:15 Dose: 100 mg Ondansetron HCl (Zofran) 8 mg IVPUSH ONETIME ONE Stop: 11/22/16 14:01 Last Admin: 11/22/16 14:24 Dose: 8 mg Ondansetron HCl (Zofran) 4 mg IV Q4H PRN PRN Reason: Nausea/Vomiting Last Admin: 11/23/16 06:43 Dose: 4 mg Potassium Chloride (Klor-Con M20) 40 meq PO ONETIME ONE Stop: 11/22/16 14:32 Last Admin: 11/22/16 14:36 Dose: 40 meq *Q Meaningful Use (DIS) - VTE *Q VTE Criteria *Q: - Stroke *Q Stroke Criteria *Q: - AMI *Q AMI Criteria *Q:
[2016-11-23 14:15] VITALS: BP 132/72
[2016-11-23] MEDS ORDERED: NS + KCl 20mEq/L 1,000 ML IV SCH (17:30)
== END 2016-11-23 13:20 | disposition home or self-care (01) ==
LOC: FB.ED 13:53 → FB.MS 17:50 → UNDOADMOB 17:50
PROVIDERS: ADMIT Family Medicine; ATTEND Family Medicine
DX: O21.1 Hyperemesis gravidarum with metabolic disturbance (principal); E86.0 Dehydration; Z79.899 Other long term (current) drug therapy; Z90.49 Acquired absence of other specified parts of digestive tract; F17.210 Nicotine dependence, cigarettes, uncomplicated; Z3A.01 Less than 8 weeks gestation of pregnancy
CPT/HCPCS: 36415; 80048; 80076; 81001; 82150; 83735; 84702; 85025; 87040; 93005; 96361; 96365; 96366; 96375; 99285; A9270; J2405; J2550; J3480; J7040; J7050; 96376; 99219; G0378

== ENCOUNTER 2017-01-14 07:54 | Emergency (ER) | payer BC, MEDICAID ==
--- NOTE | 2017-01-14 07:58 | EDM.PDOC ---
ED HPI GENERAL MEDICAL PROBLEM - General Stated Complaint: VOMITING Time Seen by Provider: 01/14/17 07:54 Source of Information: Reports: Patient History Limitations: Reports: No Limitations - History of Present Illness INITIAL COMMENTS - FREE TEXT/NARRATIVE: 31 years old w f, 17 weeks , came to the ed due N/V for 3 days and weakness. Pt was not abl eto keep any food down. She was taking Zofran, which did not help. Pt smokes, takes opiates and Marihuana. Denies trauma. Denies other acute medical issues. Onset: Unknown/Unsure Onset Date: 01/11/17 Onset Time: 10:00 Duration: Day(s):, Intermittent Location: Reports: Abdomen Quality: Reports: Burning, Throbbing Improves with: Reports: Medication Worsens with: Reports: None Context: Reports: Other (.) Associated Symptoms: Reports: Nausea/Vomiting, Weakness - Related Data Allergies Allergy/AdvReac Type Severity Reaction Status Date / Time No Known Allergies Allergy Verified 01/14/17 08:10 Home Meds: Home Meds Albuterol [Ventolin HFA] 2 puff PO Q4HR PRN 09/11/16 [History] Metoclopramide [Reglan] 5 mg PO TIDAC 11/22/16 [History] Omeprazole 40 mg PO 0730,21 11/22/16 [History] Ondansetron [Zofran] 4 mg PO Q6H #30 tab 11/23/16 [Rx] Past Medical History - Past Health History Medical/Surgical History: Denies Medical/Surgical History HEENT History: Reports: Allergic Rhinitis, Other (See Below) Other HEENT History: RHINORRHEA Respiratory History: Reports: Other (See Below) Other Respiratory History: SMOKER Gastrointestinal History: Reports: [employer] History: Reports: Other (See Below) Other OB/BYN History: CERVICAL LYMPHADENOPATHY Neurological History: Reports: Migraines Psychiatric History: Reports: Addiction, Other (See Below) Other Psychiatric History: FATIGUE Immunologic History: - Infectious Disease History Infectious Disease History: Reports: Chicken Pox - Past Surgical History GI Surgical History: Reports: Appendectomy Social & Family History - Family History Family Medical History: Noncontributory - Tobacco Use Smoking Status *Q: Current Every Day Smoker Years of Tobacco use: 15 Packs/Tins Daily: 1 Used Tobacco, but Quit: No Second Hand Smoke Exposure: Yes - Caffeine Use Caffeine Use: Reports: Energy Drinks, Soda - Alcohol Use Days Per Week of Alcohol Use: 7 Number of Drinks Per Day: 5 Total Drinks Per Week: 35 - Recreational Drug Use Recreational Drug Use: Yes Drug Use in Last 12 Months: Yes Recreational Drug Type: Reports: Marijuana/Hashish Other Recreational Drug Type: marijuana this morning Recreational Drug Use Frequency: Weekly Recreational Drug Last Use: YESTERDAY ED ROS GENERAL - Review of Systems Review Of Systems: See Below Constitutional: Reports: Weakness HEENT: Reports: No Symptoms Respiratory: Reports: No Symptoms Cardiovascular: Reports: No Symptoms Endocrine: Reports: No Symptoms GI/Abdominal: Reports: Nausea, Vomiting : Reports: No Symptoms Musculoskeletal: Reports: No Symptoms Skin: Reports: No Symptoms Neurological: Reports: No Symptoms Psychiatric: Reports: No Symptoms Hematologic/Lymphatic: Reports: No Symptoms Immunologic: Reports: No Symptoms ED EXAM, GI/ABD - Physical Exam Exam: See Below Exam Limited By: No Limitations General Appearance: Alert, WD/WN, Mild Distress, Thin Eyes: Bilateral: Normal Appearance Ears: Normal External Exam, Normal Canal Nose: Normal Inspection, Normal Mucosa, No Blood Throat/Mouth: Normal Lips, Other (dry mucosal membrane) Head: Atraumatic, Normocephalic Neck: Normal Inspection, Supple, Non-Tender, Full Range of Motion Respiratory/Chest: No Respiratory Distress, Lungs Clear, Normal Breath Sounds Cardiovascular: Normal Peripheral Pulses, Regular Rate, Rhythm, No Edema GI/Abdominal Exam: Soft, Tender (epigastric) (Female) Exam: Deferred Rectal (Female) Exam: Deferred Back Exam: Normal Inspection, Full Range of Motion Extremities: Normal Inspection, Normal Range of Motion, Non-Tender, No Pedal Edema Neurological: Alert, Oriented, CN II-XII Intact, Normal Cognition, Normal Gait Psychiatric: Normal Affect Skin Exam: Warm, Dry, Intact, Normal Color, No Rash Lymphatic: No Adenopathy Course - Vital Signs Text/Narrative:: 31 years old w f, 17 weeks , came to the ed due N/V for 3 days and weakness. Pt was not abl eto keep any food down. She was taking Zofran, which did not help. Pt smokes, takes opiates and Marihuana. Denies trauma. Denies other acute medical issues. PE: Thin 31 y.o.w.f, N/V dehydrated Labs: K 3.2 FHT 162 WBC 22K (pregn, N/V) UDS pos for THC and Opioids Impression: Hyperemesis gravidarum. hypokalemia, UDS pos. Dehydration, WBC elevated (Pregnent, N/V) Tx: NS. Zofran, Phenergen and Reglan, Reexam: Improved. pt was able to eat,drink and ambulate on D/C Plan: D/C with instructions. Last Recorded V/S: Last Vital Signs Temp 36.7 C 01/14/17 11:00 Pulse 94 01/14/17 11:00 Resp 16 01/14/17 11:00 BP 113/71 01/14/17 11:00 Pulse Ox 99 01/14/17 11:00 - Orders/Labs/Meds Orders: Active Orders 24 hr Category Date Time Status Blood Culture x2 Reflex Set [OM.PC] Urgent Oth 01/14/17 09:22 Ordered Doppler FHT [Doppler Heart Tones] [WOMSER] Stat Ot 01/14/17 10:49 Ordered Labs: Laboratory Tests 01/14/17 01/14/17 01/14/17 Range/Units 08:05 08:05 08:05 WBC 20.1 H (4.5-12.0) X10-3/uL RBC 4.25 (3.23-5.20) x10(6)uL Hgb 13.4 (11.5-15.5) g/dL Hct 38.8 (30.0-51.3) % MCV 91.2 (80-96) fL MCH 31.4 (27.7-33.6) pg MCHC 34.5 (32.2-35.4) g/dL RDW 14.2 (11.5-15.5) % Plt Count 290 (125-369) X10(3)uL MPV 8.1 (7.4-10.4) fL Add Manual Diff Yes Neutrophils % (Manual) 88 H (46-82) % Lymphocytes % (Manual) 9 L (13-37) % Monocytes % (Manual) 3 L (4-12) % Sodium 137 (135-145) mmol/L Potassium 3.2 L (3.5-5.3) mmol/L Chloride 98 L D (100-110) mmol/L Carbon Dioxide 26 (23-29) mmol/L BUN 10 (5-20) mg/dL Creatinine 0.5 L (0.6-1.3) mg/dL Est Cr Clr Drug Dosing TNP Estimated GFR (MDRD) > 60 (>60) BUN/Creatinine Ratio 20.0 (9-20) Glucose 146 H (80-116) mg/dL Calcium 8.3 L (8.6-10.2) mg/dL Total Bilirubin 0.5 (0.1-1.3) mg/dL Direct Bilirubin 0.2 (0.1-0.2) mg/dL AST 29 H (5-27) IU/L ALT 21 (14-26) IU/L Alkaline Phosphatase 69 (56-112) IU/L Total Protein 7.7 (6.0-8.0) g/dL Albumin 3.8 (3.5-5.2) g/dL Amylase 44 (28-100) U/L HCG, Quant 66798 (2.0 - ) mIU/mL Urine Opiates Screen (NEGATIVE) Ur Oxycodone Screen (NEGATIVE) Ur Propoxyphene Screen (NEGATIVE) Ur Barbituates Screen (NEGATIVE) Ur Tricyclics Screen (NEGATIVE) Ur Phencyclidine Scrn (NEGATIVE) Ur Amphetamine Screen (NEGATIVE) Urine MDMA Screen (NEGATIVE) U Benzodiazepines Scrn (NEGATIVE) U Cocaine Metab Screen (NEGATIVE) U Marijuana (THC) Screen (NEGATIVE) 01/14/17 Range/Units 08:20 WBC (4.5-12.0) X10-3/uL RBC (3.23-5.20) x10(6)uL Hgb (11.5-15.5) g/dL Hct (30.0-51.3) % MCV (80-96) fL MCH (27.7-33.6) pg MCHC (32.2-35.4) g/dL RDW (11.5-15.5) % Plt Count (125-369) X10(3)uL MPV (7.4-10.4) fL Add Manual Diff Neutrophils % (Manual) (46-82) % Lymphocytes % (Manual) (13-37) % Monocytes % (Manual) (4-12) % Sodium (135-145) mmol/L Potassium (3.5-5.3) mmol/L Chloride (100-110) mmol/L Carbon Dioxide (23-29) mmol/L BUN (5-20) mg/dL Creatinine (0.6-1.3) mg/dL Est Cr Clr Drug Dosing Estimated GFR (MDRD) (>60) BUN/Creatinine Ratio (9-20) Glucose (80-116) mg/dL Calcium (8.6-10.2) mg/dL Total Bilirubin (0.1-1.3) mg/dL Direct Bilirubin (0.1-0.2) mg/dL AST (5-27) IU/L ALT (14-26) IU/L Alkaline Phosphatase (56-112) IU/L Total Protein (6.0-8.0) g/dL Albumin (3.5-5.2) g/dL Amylase (28-100) U/L HCG, Quant (2.0 - ) mIU/mL Urine Opiates Screen Positive H (NEGATIVE) Ur Oxycodone Screen Negative (NEGATIVE) Ur Propoxyphene Screen Negative (NEGATIVE) Ur Barbituates Screen Negative (NEGATIVE) Ur Tricyclics Screen Negative (NEGATIVE) Ur Phencyclidine Scrn Negative (NEGATIVE) Ur Amphetamine Screen Negative (NEGATIVE) Urine MDMA Screen Negative (NEGATIVE) U Benzodiazepines Scrn Negative (NEGATIVE) U Cocaine Metab Screen Negative (NEGATIVE) U Marijuana (THC) Screen Positive H (NEGATIVE) Meds: Medications Discontinued Medications Generic Name Dose Route Start Last Admin Trade Name Freq PRN Reason Stop Dose Admin Sodium Chloride 1,000 mls @ 999 mls/hr 01/14/17 08:00 01/14/17 08:33 Normal Saline IV 01/14/17 09:00 999 mls/hr .BOLUS ONE Administration Promethazine HCl 12.5 mg/ 50.5 mls @ 200 mls/hr 01/14/17 09:20 01/14/17 09:47 Sodium Chloride IV 01/14/17 09:35 200 mls/hr ONETIME STA Administration Sodium Chloride 1,000 mls @ 999 mls/hr 01/14/17 09:21 01/14/17 09:45 Normal Saline IV 01/14/17 10:21 999 mls/hr .BOLUS ONE Administration Metoclopramide HCl 10 mg 01/14/17 11:34 01/14/17 11:51 Reglan IM 01/14/17 11:35 10 mg ONETIME ONE Administration Ondansetron HCl 8 mg 01/14/17 08:01 01/14/17 08:34 Zofran IVPUSH 01/14/17 08:02 8 mg ONETIME ONE Administration Potassium Chloride 40 meq 01/14/17 09:31 01/14/17 09:46 Klor-Con M20 PO 01/14/17 09:32 40 meq ONETIME ONE Administration Departure - Departure Time of Disposition: 12:34 Disposition: Home, Self-Care 01 Condition: Good Clinical Impression: Hyperemesis gravidarum, Hypokalemia, Dehydration, Positive urine drug screen - Discharge Information Instructions: Smoking Cessation, Tips for Success, Dehydration, Adult Referrals: Ricardo Lynch MD [Primary Care Provider] - Forms: ED Department Discharge, ED Return to Work/School Form Additional Instructions: Please take nausea meds as recommended, please increase water intake, please do not use any street drugs, please f/u with your PMD. Please come back if your symptoms get worse acutely - My Orders Last 24 Hours: My Active Orders 01/14/17 09:22 Blood Culture x2 Reflex Set [OM.PC] Urgent 01/14/17 10:49 Doppler FHT [Doppler Heart Tones] [WOMSER] Stat - Assessment/Plan Last 24 Hours: My Active Orders 01/14/17 09:22 Blood Culture x2 Reflex Set [OM.PC] Urgent 01/14/17 10:49 Doppler FHT [Doppler Heart Tones] [WOMSER] Stat
[2017-01-14] MEDS ORDERED: Sodium Chloride 0.9% 1,000 ML IV ONE ×2 (08:00→09:21)
[2017-01-14] MEDS ORDERED: Ondansetron 4 MG/2 ML SDV IVPUSH ONE (08:01)
[2017-01-14] MEDS ORDERED: Promethazine 12.5 MG in Sodium Chloride 0.9% 50 ML IV STA (09:20)
[2017-01-14] MEDS ORDERED: Potassium Chloride 20 MEQ Tab.ER PO ONE (09:31)
[2017-01-14] MEDS ORDERED: Metoclopramide 10 MG/2 ML SDV IM ONE (11:34)
[2017-01-14 12:16] VITALS: BP 113/71
== END 2017-01-14 13:06 | disposition home or self-care (01) ==
LOC: FB.ED 07:54
DX: O21.1 Hyperemesis gravidarum with metabolic disturbance (principal); E86.0 Dehydration; E87.6 Hypokalemia; O99.332 Smoking (tobacco) complicating pregnancy, second trimester; F17.210 Nicotine dependence, cigarettes, uncomplicated; Z90.49 Acquired absence of other specified parts of digestive tract; Z3A.17 17 weeks gestation of pregnancy
CPT/HCPCS: 36415; 80048; 80076; 80305; 82150; 84702; 85025; 96361; 96372; 96374; 96375; 99283; A9270; J2405; J2550; J2765; J7040; J7050

== ENCOUNTER 2017-06-01 10:27 | Inpatient (IN) | payer BC ==
[2017-06-01] MEDS ORDERED: Ampicillin 2 GM in Sodium Chloride 0.9% 100 ML IV ONE (10:51)
[2017-06-01] MEDS ORDERED: Ampicillin 2 GM Vial IVPUSH ONE (11:00)
[2017-06-01] MEDS: Lactated Ringers 1,000 ML IV SCH ×2 (11:08→16:17)
--- NOTE | 2017-06-01 14:29 | US ---
INDICATION: Check position of fetus. OB ULTRASOUND LIMITED: Multiple ultrasonic images were obtained 06/01/2017, and revealed a single longitudinally-lying, cephalic-presenting fetus with spine on the maternal left. Regular heart rate of 139 BPM was noted. The amount of amniotic fluid appears to be minimal, compatible with oligohydramnios. Placenta is anterior fundal, grade 1-2, without evidence of previa. MTDD
[2017-06-01] MEDS ORDERED: fentaNYL 100 MCG/2 ML SDV ITHECAL ONE (16:05)
[2017-06-01] MEDS ORDERED: Morphine PF 10 MG/10 ML SDV ONE (16:05)
[2017-06-01] MEDS ORDERED: Scopolamine 1.5 MG Transdermal Patch TRDERM ONE (16:15)
--- NOTE | 2017-06-01 16:28 | PN ---
DATE SEEN: 06/01/2017 SUBJECTIVE: The patient is having a contraction every 20 minute, she feels. The nurses cannot pick them up at all. Group B status is unknown. It was done today, but the results will not be done until tomorrow. OBJECTIVE: The baby's heart rate is 154 and reactive. Cervix is 7 cm, 100% effaced, and about 0 station. ASSESSMENT: [place] 37+ 1 weeks. History of marijuana use. Group B status unknown. In labor. PLAN: She had 1 dose of ampicillin. She will have another one in about 2-1/2 hours, so I am not going to rupture her membranes until I have another dose of ampicillin in, then we will have two. If she goes before that, we will just delivery her. So, vaginal delivery is the plan. /[id number] PE/MODL
[2017-06-01] MEDS ORDERED: Promethazine 12.5 MG in Sodium Chloride 0.9% 50 ML IV PRN (16:39)
[2017-06-01] MEDS ORDERED: diphenhydrAMINE 50 MG/ML SDV IV PRN (16:39)
[2017-06-01] MEDS ORDERED: Naloxone 0.4 MG/ML SDV IVPUSH PRN (16:39)
[2017-06-01] MEDS ORDERED: ePHEDrine 50 MG/ML SDV IVPUSH PRN (16:39)
[2017-06-01] MEDS ORDERED: diphenhydrAMINE 50 MG/ML SDV IVPUSH PRN (16:39)
[2017-06-01] MEDS ORDERED: Ondansetron 4 MG/2 ML SDV IVPUSH PRN (16:39)
[2017-06-01] MEDS ORDERED: Famotidine/Normal Saline 20 MG in Premix Bag 1 BAG IV PRN (16:39)
[2017-06-01] MEDS ORDERED: Naltrexone 50 MG Tab PO PRN (16:39)
[2017-06-01] MEDS ORDERED: Promethazine 6.25 MG in Sodium Chloride 0.9% 50 ML IV PRN (16:39)
[2017-06-01] MEDS ORDERED: Scopolamine 1.5 MG Transdermal Patch TOP ONE (16:39)
[2017-06-01] MEDS ORDERED: Nalbuphine 10 MG/1 ML Vial IVPUSH PRN (16:39)
[2017-06-01] MEDS ORDERED: Oxytocin/Normal Saline 10 UNIT/1,000 ML BAG IV SCH (16:45)
[2017-06-01] MEDS ORDERED: Lactated Ringers 500 ML IV SCH ×2 (16:45)
[2017-06-01] MEDS ORDERED: Lidocaine 1% 20 ML MDV INJECT ONE (17:50)
[2017-06-01] MEDS ORDERED: Acetaminophen/Codeine 300-30 MG Tab PO PRN (18:06)
--- NOTE | 2017-06-01 18:12 | PCM.DEL ---
L & D Note - General Info Date of Service: 06/01/17 - Delivery Note Labor: Augmented by ARM Delivery Outcome: Livebirth Presentation: Left Occiput Anterior (SULEIMAN) Nuchal Cord: None Anesthesia Type: Local, Intrathecal Anesthetic: Lidocaine (Xylocaine) 0.5% Plain Local Anesthetic Volume: 3cc Amniotic Fluid Description: No Fluid Seen Episiotomy Type: None Laceration: 1st Degree Suture type: Vicryl Suture size: 4-0 Placenta: Intact, Spontaneous Cord: 3 Vessels Resuscitation Needed: No [place]: Suctioned - General Info Date of Service: 06/01/17 Admission Dx/Problem (Free Text): 32-year-old 37 weeks and 1 day comes into the clinic and she's for centers comes over and had to be augmented a little and delivered a healthy 4 lbs. 10 oz. baby boy in the SULEIMAN position. - Patient Data Vitals - Most Recent: Last Vital Signs Temp 97.8 F 06/01/17 10:35 Pulse 83 06/01/17 17:10 Resp 20 06/01/17 10:35 BP 116/60 06/01/17 17:10 Pulse Ox 98 06/01/17 17:09 Weight - Most Recent: 167 lb Med Orders - Current: Current Medications Acetaminophen/Codeine Phosphate (Tylenol With Codeine No.3 300mg/30mg) 1 tab PO Q4H PRN PRN Reason: Pain (moderate 4-6) Ampicillin Sodium (Ampicillin) 1,000 mg IVPUSH Q4H SRINATH Last Admin: 06/01/17 14:56 Dose: 1,000 mg Diphenhydramine HCl (Benadryl) 25 mg IVPUSH ASDIRECTED PRN PRN Reason: EXTRAPYRAMIDAL SIDE EFFECTS Diphenhydramine HCl (Benadryl) 25 mg IV ASDIRECTED PRN PRN Reason: PRURITUS Ephedrine Sulfate (Ephedrine Sulfate) 0 mg IVPUSH ASDIRECTED PRN PRN Reason: Hypotension Lactated Ringer's (Ringers, Lactated) 1,000 mls @ 125 mls/hr IV ASDIRECTED SRINATH Last Admin: 06/01/17 16:17 Dose: 125 mls/hr Oxytocin/Sodium Chloride (Pitocin In Ns 10 Units/1,000 Ml) 10 unit in 1,000 mls @ 12 mls/hr IV TITRATE SRINATH; 2 MUNITS/MIN PRN Reason: Protocol Last Titration: 06/01/17 17:21 Dose: 6 munits/min, 36 mls/hr Famotidine 20 mg/ Premix 50 mls @ 100 mls/hr IV ONETIME PRN PRN Reason: PRURITIS Lactated Ringer's (Ringers, Lactated) 500 mls @ 999 mls/hr IV .SEECOMMENT SRINATH Lactated Ringer's (Ringers, Lactated) 500 mls @ 999 mls/hr IV .BOLUS SRINATH Promethazine HCl 6.25 mg/ (Sodium Chloride) 50.25 mls @ 200 mls/hr IV Q4H PRN PRN Reason: Nausea/Vomiting Ibuprofen (Motrin) 800 mg PO Q8H SRINATH Miscellaneous Information (Remove Patch) 1 ea TRDERM ONETIME ONE Stop: 06/04/17 16:31 Nalbuphine HCl (Nubain) 10 mg IVPUSH Q1H PRN PRN Reason: PRURITUS Naloxone HCl (Narcan) 0.1 mg IVPUSH ASDIRECTED PRN PRN Reason: Respiratory Depression Naltrexone HCl (Naltrexone) 25 mg PO ASDIRECTED PRN PRN Reason: REVERSAL Ondansetron HCl (Zofran) 4 mg IVPUSH Q4H PRN PRN Reason: Nausea/Vomiting Multivit/Folic Acid/Iron (-U) 1 each PO DAILY SRINATH Discontinued Medications Ampicillin Sodium (Ampicillin) 2 gm IVPUSH ONETIME ONE Stop: 06/01/17 11:01 Last Admin: 06/01/17 11:16 Dose: 2 gm Ampicillin Sodium 2 gm/ Sodium (Chloride) 100 mls @ 200 mls/hr IV ONETIME ONE Stop: 06/01/17 11:20 Scopolamine (Transderm-Scop) 1.5 mg TRDERM Q72H ONE Stop: 06/01/17 16:16 Scopolamine (Transderm-Scop) 1.5 mg TOP ONETIME ONE Stop: 06/01/17 16:40 - Problem List Review Problem List Initiated/Reviewed/Updated: Yes - My Orders Last 24 Hours: My Active Orders 06/01/17 11:00 Admission Status [Patient Status] [ADT] Routine Lactated Ringers [Ringers, Lactated] 1,000 ml IV ASDIRECTED 06/01/17 15:30 Ampicillin 1,000 mg IVPUSH Q4H 06/01/17 16:35 Communication Order [RC] ASDIRECTED Communication Order [RC] ASDIRECTED Communication Order [RC] ASDIRECTED Communication Order [RC] ASDIRECTED Notify Provider [RC] PRN Notify Provider [RC] STAT Vital Signs [RC] PER UNIT ROUTINE 06/01/17 16:45 Oxytocin/Normal Saline [Pitocin in NS 10 UNITS/1,000 ML] 10 unit in 1,000 ml IV TITRATE 06/01/17 18:06 Patient Status [ADT] Routine May Shower [RC] ASDIRECTED Up ad Vani [RC] ASDIRECTED Vital Signs [RC] PFP Acetaminophen/Codeine [Tylenol with Codeine No.3 300MG/30MG] 1 tab PO Q4H PRN Assess Lochia [WOMSER] Per Unit Routine Assess Uterine Involution [WOMSER] Per Unit Routine Breast Pump [WOMSER] Per Unit Routine Resuscitation Status Routine 06/01/17 18:07 Ice Therapy [OM.PC] Per Unit Routine Perineal Care [OM.PC] Per Unit Routine Peripheral IV Discontinue [OM.PC] Routine Sitz Bath [OM.PC] Per Unit Routine 06/01/17 18:15 Ibuprofen [Motrin] 800 mg PO Q8H 06/01/17 21:00 Ranitidine HCl [Ranitidine] 150 mg PO BID 06/01/17 Dinner Regular Diet [DIET] 06/02/17 05:11 HEMOGLOBIN/HEMATOCRIT,HH [HEME] AM 06/02/17 07:30 Metoclopramide [Reglan] 5 mg PO TIDAC 06/02/17 09:00 Vit/FA/Fe Fumarate [-U] 1 each PO DAILY - Plan Plan:: Patient's beta strep was unknown and the patient got 2 doses of ampicillin. Not sure when she rupture membranes is she had not intact here. Baby is small for gestational age there is a history of marijuana use. We will check the baby in I gave her morning of this and she is okay with it. Regular care.
[2017-06-01] MEDS: Ibuprofen 800 MG Tab PO SCH (19:28)
[2017-06-01] MEDS: Famotidine 20 MG Tab PO SCH (20:46)
[2017-06-02] MEDS: Ibuprofen 800 MG Tab PO SCH ×3 (03:42→19:14)
[2017-06-02] MEDS: Metoclopramide 5 MG Tab PO SCH ×3 (08:27→19:14)
[2017-06-02] MEDS: Famotidine 20 MG Tab PO SCH ×2 (08:27→21:27)
[2017-06-02] MEDS: Prenatal Multivitamin with Calcium/Folic Acid/Fe Fumarate Cap PO SCH (08:27)
--- NOTE | 2017-06-02 09:48 | PN ---
DATE SEEN: 06/02/2017 SUBJECTIVE: The patient is day one, doing well. Minimal bleeding. Pain is under control. No abdominal pain or leg swelling. OBJECTIVE: VITAL SIGNS: Stable. Afebrile. ABDOMEN: Uterus is gravid. EXTREMITIES: Legs, no swelling. LABORATORY DATA: Hemoglobin is 11.6, hematocrit is 33.9. ASSESSMENT: day 1. PLAN: Continue current cares. /[id number] PE/MODL
[2017-06-02 17:46] VITALS: BP 133/71
[2017-06-03] MEDS: Ibuprofen 800 MG Tab PO SCH ×2 (04:12→11:02)
[2017-06-03] MEDS: Famotidine 20 MG Tab PO SCH (10:30)
[2017-06-03] MEDS: Metoclopramide 5 MG Tab PO SCH ×2 (10:32→12:29)
[2017-06-03] MEDS: Prenatal Multivitamin with Calcium/Folic Acid/Fe Fumarate Cap PO SCH (10:33)
--- NOTE | 2017-06-03 11:25 | PN ---
DATE SEEN: 06/03/2017 SUBJECTIVE: The patient without concern. Bleeding is slowing. No abdominal pain. She is not using any pain medicine at this time. OBJECTIVE: VITAL SIGNS: Stable and afebrile. ABDOMEN: Fundus is firm. EXTREMITIES: Legs with no edema. ASSESSMENT: day #2. PLAN: Discharge to home. Recheck in 6 weeks for check. /[id number] PE/MODL
--- NOTE | 2017-06-04 00:52 | DISCH ---
DISCHARGE DATE: 06/03/2017 ADMITTING DIAGNOSES: A 37-week multip, G2, P1, in labor with a history of marijuana use, group B strep status unknown. DISCHARGE DIAGNOSES: Vaginal delivery, group B status unknown but treated, and history of marijuana use. REASON FOR HOSPITALIZATION: A 32-year-old, G2, P1, at 37 and 1 weeks, comes into the clinic. Cervix was 4 to 5 cm and then she was cb and sent over here. Beta strep was done there, but had not been done, so we put her in for observation to see if she has any change of cervix which she did. We gave her ampicillin, when she had 2 doses and delivered a healthy 4 pounds 10 ounces baby boy. HOSPITAL COURSE: See delivery note. Day #2, vital signs were stable. Afebrile. Hemoglobin of 11.6. Postop day #3, vital signs were stable. Afebrile. No complaints. Not using any pain medications. DISCHARGE INSTRUCTIONS: 1. Discharged to home. 2. Diet regular. 3. Recheck in 6 weeks. MEDICINES: 1. Reglan 5 mg t.i.d. p.r.n. 2. Loratadine 150 mg b.i.d. 3. Albuterol 2 puffs q.4 hours p.r.n. /[id number] CLEMENT/MODL
[2017-06-04] MEDS ORDERED: Remove TRANSDERM SCOP Patch TRDERM ONE (16:30)
== END 2017-06-03 16:30 | disposition home or self-care (01) | DRG 560 ==
LOC: FB.OB 10:27 → FB.OBCHECK 10:27 → FB.OB 11:00
PROVIDERS: ADMIT Family Medicine; ATTEND Family Medicine
PROC: 10E0XZZ Delivery of Products of Conception, External Approach (ICD-10-PCS; principal; 2017-06-01)
PROC: 0HQ9XZZ Repair Perineum Skin, External Approach (ICD-10-PCS; 2017-06-01)
PROC: 00HU33Z Insertion of Infusion Device into Spinal Canal, Percutaneous Approach (ICD-10-PCS; 2017-06-01)
DX: O36.5930 Maternal care for other known or suspected poor fetal growth, third trimester, not applicable or unspecified (principal); O70.0 First degree perineal laceration during delivery; O99.824 Streptococcus B carrier state complicating childbirth; O99.324 Drug use complicating childbirth; F12.90 Cannabis use, unspecified, uncomplicated; Z3A.37 37 weeks gestation of pregnancy; Z37.0 Single live birth
CPT/HCPCS: 36415; 59300; 59409; 76815; 85014; 85018; A9270-GY; J0290; J2270; J2590; J3010; J7120

== ENCOUNTER 2019-02-16 06:14 | Day surgery (SDC) | payer BC ==
[2019-02-16] MEDS ORDERED: Sugammadex Sodium 200 MG/2 ML VIAL IV ONE (06:15)
[2019-02-16] MEDS ORDERED: diphenhydrAMINE 50 MG/ML SDV IVPUSH ONE (06:15)
[2019-02-16] MEDS ORDERED: Midazolam 1 MG/ML 2 ML SDV IV ONE (06:15)
[2019-02-16] MEDS ORDERED: Rocuronium 100 MG/10 ML MDV IV ONE (06:15)
[2019-02-16] MEDS ORDERED: fentaNYL 100 MCG/2 ML SDV IV ONE (06:15)
[2019-02-16] MEDS ORDERED: Succinylcholine 200 MG/10 ML MDV IV ONE (06:15)
[2019-02-16] MEDS ORDERED: Ondansetron 4 MG/2 ML SDV IVPUSH ONE (06:15)
[2019-02-16] MEDS ORDERED: Dexmedetomidine 200 MCG/2 ML SDV IV ONE (06:15)
[2019-02-16] MEDS ORDERED: Ketorolac 30 MG/ML SDV IVPUSH ONE (06:15)
[2019-02-16] MEDS ORDERED: Lactated Ringers 1,000 ML IV ONE (06:15)
[2019-02-16] MEDS ORDERED: Propofol 200 MG/20 ML SDV IV ONE (06:15)
[2019-02-16] MEDS ORDERED: Labetalol 100 MG/20 ML MDV IV ONE (06:15)
[2019-02-16] MEDS ORDERED: Sodium Chloride 0.9% 10 ML Syringe FLUSH PRN (06:30)
[2019-02-16] MEDS ORDERED: Lactated Ringers 1,000 ML IV SCH (06:30)
--- NOTE | 2019-02-16 09:26 | PCM.HPR ---
H & P Addendum review - H & P Addendum Review Date of Original H & P: 02/02/19 Date Reviewed: 02/16/19 Time Reviewed: 08:00 Patient was Examined: No Changes
--- NOTE | 2019-02-16 09:28 | PCM.OPNOTE ---
- General Post-Op/Procedure Note Date of Surgery/Procedure: 02/16/19 Operative Procedure(s): Lap Petra Findings: Chronic cholecystitis Pre Op Diagnosis: Chronic cholecystitis Post-Op Diagnosis: Same Anesthesia Technique: General ET Tube Primary Surgeon: Alli Fowler Anesthesia Provider: Veronique Delgado EBL in mLs: 5 Complications: None Condition: Good
[2019-02-16 10:32] VITALS: BP 142/92; PULSE 79
--- NOTE | 2019-02-16 11:51 | OR ---
DATE OF OPERATION: 02/16/2019 SURGEON: Alli Fowler MD PREOPERATIVE DIAGNOSIS: Chronic cholecystitis. POSTOPERATIVE DIAGNOSIS: Chronic cholecystitis. PROCEDURE: Laparoscopic cholecystectomy. ANESTHESIA: General. PROCEDURE: Patient was brought to the operating room, where general endotracheal anesthesia was administered. The abdomen was prepped with ChloraPrep and draped sterilely. Time-out was performed. An infraumbilical incision was made and extended into the peritoneal cavity without difficulty. The Antoine cannulator was introduced and pneumoperitoneum obtained. The stomach was somewhat distended, so an orogastric tube was placed to decompress this. The remaining three 5 mm ports were placed in the usual positions. The patient was placed in reverse Trendelenburg position and rotated to the left. General exploration revealed the surface of the stomach, liver, peritoneum, omentum, and bowel surfaces to be normal. The gallbladder had omental adhesions to its undersurface. These were taken down with blunt dissection and electrocautery to completely expose the gallbladder. Cystic duct and cystic artery were dissected free without difficulty. The cystic artery was doubly clipped proximally and once distally and then transected. The cystic duct was further dissected and the lower portion of the gallbladder was clearly visualized and extending down to the common bile duct. Cystic duct was then doubly clipped proximally and once distally and then transected. The gallbladder was removed from the bed of the liver with minimal difficulty. There were some small vessels present that were clipped and cauterized along the way. Once the gallbladder was completely freed up, it was brought out through the umbilical incision and sent for pathology review. The right upper quadrant was inspected and irrigated and return was clear and hemostasis assured. The umbilical fascia was closed with [id number] #0 Vicryl. Skin was closed with #4-0 Vicryl subcuticular sutures. Benzoin and Steri-Strips were placed and Band-Aids applied. The patient tolerated the procedure well and returned to recovery in stable condition. ESTIMATED BLOOD LOSS: 5 mL. /[id number] JOSIANE/LEO
== END 2019-02-16 10:44 | disposition home or self-care (01) ==
LOC: FB.SDS 06:14
PROVIDERS: ATTEND Surgery
DX: K81.1 Chronic cholecystitis (principal); K82.8 Other specified diseases of gallbladder
CPT/HCPCS: 81025; 88304; 94150; J0330; J1200; J1885; J2250; J2405; J2704; J3010; J3490; J7120

== ENCOUNTER 2019-03-14 14:22 | Emergency (ER) | payer BC ==
[2019-03-14] MEDS ORDERED: Ondansetron 4 MG Tab.DIS PO ONE (14:23)
[2019-03-14] MEDS ORDERED: Acetaminophen/oxyCODONE 325-5 MG Tab PO ONE (14:23)
[2019-03-14] MEDS ORDERED: Sulfamethoxazole/Trimethoprim 800-160 MG Tab PO ONE (14:23)
[2019-03-14] MEDS ORDERED: Sodium Chloride 0.9% 1,000 ML IV ONE (15:01)
[2019-03-14] MEDS ORDERED: Ondansetron 4 MG/2 ML SDV IVPUSH ONE ×2 (15:01→17:49)
[2019-03-14] MEDS ORDERED: Morphine 2 MG/ML Syringe IVPUSH ONE ×2 (15:02→17:47)
[2019-03-14] MEDS ORDERED: Iopamidol 755 Mg/ML 100 ML Bottle IV ONE (15:55)
[2019-03-14] MEDS ORDERED: Ketorolac 30 MG/ML SDV IVPUSH ONE (17:48)
--- NOTE | 2019-03-14 17:54 | EDM.PDOC ---
ED HPI GENERAL MEDICAL PROBLEM - General Chief Complaint: Abdominal Pain Stated Complaint: ABD PAIN Time Seen by Provider: 03/14/19 14:30 Source of Information: Reports: Patient History Limitations: Reports: No Limitations - History of Present Illness INITIAL COMMENTS - FREE TEXT/NARRATIVE: Patient presented to the ED because of 1 week history of abdominal pain, RUQ, epigastric and LUQ area,11/02 with associated N/V. There is no associated fever or chills. Yesterday she started to have diarrhea,mostly watery. She had a cholecystectomy 1 month ago and had a recent follow up with her surgeon. Abdominal Pain Score (Numeric/FACES): 7 - Related Data Allergies Allergy/AdvReac Type Severity Reaction Status Date / Time No Known Allergies Allergy Verified 03/14/19 14:35 Home Meds: Home Meds Acetaminophen/oxyCODONE [Percocet 325-5 MG] 1 - 2 tab PO Q4H #15 tab 03/14/19 [ Rx] Omeprazole Magnesium [Prilosec Otc] 20 mg PO DAILY 03/14/19 [History] Past Medical History - Past Health History Medical/Surgical History: Denies Medical/Surgical History HEENT History: Reports: Allergic Rhinitis, Other (See Below) Other HEENT History: RHINORRHEA Respiratory History: Reports: Asthma, Other (See Below) Other Respiratory History: SMOKER Gastrointestinal History: Reports: PUD 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: , Other (See Below) Other VOUCHER CLERK History: CERVICAL LYMPHADENOPATHY, Musculoskeletal History: Reports: Fracture Other Musculoskeletal History: hx fx bilat rib fx Neurological History: Reports: Migraines Psychiatric History: Reports: Addiction, Other (See Below) Other Psychiatric History: FATIGUE Endocrine/Metabolic History: Reports: Obesity/BMI 30+ Hematologic History: Reports: None Immunologic History: Oncologic (Cancer) History: Reports: None Dermatologic History: Reports: None - Infectious Disease History Infectious Disease History: Reports: Chicken Pox - Past Surgical History Head Surgeries/Procedures: Reports: None HEENT Surgical History: Reports: None GI Surgical History: Reports: Appendectomy, Cholecystectomy Musculoskeletal Surgical History: Reports: None Social & Family History - Family History Family Medical History: Noncontributory - Tobacco Use Smoking Status *Q: Current Every Day Smoker Years of Tobacco use: 15 Packs/Tins Daily: 0.5 - Caffeine Use Caffeine Use: Reports: Soda - Alcohol Use Days Per Week of Alcohol Use: 4 Number of Drinks Per Day: 4 Total Drinks Per Week: 16 - Recreational Drug Use Recreational Drug Use: Yes Recreational Drug Type: Reports: Marijuana/Hashish Recreational Drug Use Frequency: Daily ED ROS GENERAL - Review of Systems Review Of Systems: See Below Constitutional: Reports: No Symptoms HEENT: Reports: No Symptoms Respiratory: Reports: No Symptoms Cardiovascular: Reports: No Symptoms Endocrine: Reports: No Symptoms GI/Abdominal: Reports: Abdominal Pain, Diarrhea, Nausea, Vomiting : Reports: No Symptoms Musculoskeletal: Reports: No Symptoms Skin: Reports: No Symptoms Neurological: Reports: No Symptoms Psychiatric: Reports: No Symptoms ED EXAM, GI/ABD - Physical Exam Exam: See Below Exam Limited By: No Limitations General Appearance: Alert, WD/WN, No Apparent Distress Ears: Normal External Exam, Normal Canal, Hearing Grossly Normal Nose: Normal Inspection, Normal Mucosa, No Blood Throat/Mouth: Normal Inspection, Normal Lips, Normal Teeth, Normal Gums Head: Atraumatic, Normocephalic Neck: Normal Inspection, Supple, Non-Tender, Full Range of Motion Respiratory/Chest: No Respiratory Distress Cardiovascular: Normal Peripheral Pulses, Regular Rate, Rhythm, No Edema, No Gallop, No JVD, No Murmur GI/Abdominal Exam: Tender, Abnormal Bowel Sounds Course - Vital Signs Text/Narrative:: labs,CT abd/pelvis results discussed with patient with full understanding NS 1 L bolus zofran 4 mg IV x1 dose Morphine 4 mg IV x1 dose Consult done with Dr Newton's and agreed for the patient to be discharge to home with non-fat diet,percocet,zofran and a follow up with him next week. Last Recorded V/S: Last Vital Signs Temp 36.4 C 03/14/19 18:52 Pulse 104 H 03/14/19 18:52 Resp 18 03/14/19 18:52 BP 148/88 H 03/14/19 18:52 Pulse Ox 99 03/14/19 18:52 - Orders/Labs/Meds Orders: Active Orders 24 hr Category Date Time Status Abdomen Pelvis w Cont [CT] Stat Exams 03/14/19 14:58 Taken CULTURE URINE [RM] Stat Lab 03/14/19 15:15 Received Saline Lock Insert [OM.PC] Routine Oth 03/14/19 14:58 Ordered Labs: Laboratory Tests 03/14/19 03/14/19 03/14/19 Range/Units 14:40 14:40 14:40 WBC 15.9 H (4.5-12.0) X10-3/uL RBC 5.08 (3.23-5.20) x10(6)uL Hgb 16.9 H (11.5-15.5) g/dL Hct 50.5 (30.0-51.3) % MCV 99.5 H (80-96) fL MCH 33.2 (27.7-33.6) pg MCHC 33.4 (32.2-35.4) g/dL RDW 16.4 H (11.5-15.5) % Plt Count 302 (125-369) X10(3)uL MPV 9.2 (7.4-10.4) fL Neut % (Auto) 77.6 (46-82) % Lymph % (Auto) 16.0 (13-37) % [place] % (Auto) 4.5 (4-12) % Eos % (Auto) 0 L (1.0-5.0) % Baso % (Auto) 2 (0-2) % Neut # (Auto) 12.4 H (1.6-8.3) # Lymph # (Auto) 2.5 (0.6-5.0) # Thayer # (Auto) 0.7 (0.0-1.3) # Eos # (Auto) 0.0 (0.0-0.8) # Baso # (Auto) 0.3 H (0.0-0.2) # Sodium 141 (135-145) mmol/L Potassium 3.4 L (3.5-5.3) mmol/L Chloride 103 (100-110) mmol/L Carbon Dioxide 29 (21-32) mmol/L BUN 10 (7-18) mg/dL Creatinine 0.6 (0.55-1.02) mg/dL Est Cr Clr Drug Dosing 100.63 mL/min Estimated GFR (MDRD) > 60 (>60) BUN/Creatinine Ratio 16.7 (9-20) Glucose 120 H (80-116) mg/dL Calcium 9.5 (8.6-10.2) mg/dL Total Bilirubin 0.8 (0.1-1.3) mg/dL AST 58 H D (5-25) IU/L ALT 53 H D (12-36) U/L Alkaline Phosphatase 113 H (56-112) IU/L Total Protein 7.5 (6.0-8.0) g/dL Albumin 3.4 L (3.5-5.2) g/dL Globulin 4.1 g/dL Albumin/Globulin Ratio 0.8 Amylase 94 (25-115) U/L Lipase 455 H (73-393) U/L HCG, Quant (<5) mIU/mL Urine Color (YELLOW) Urine Appearance (CLEAR) Urine pH (5.0-6.5) Ur Specific [place] (1.010-1.025) Urine Protein (NEGATIVE) mg/dL Urine Glucose (UA) (NORMAL) mg/dL Urine Ketones (NEGATIVE) mg/dL Urine Occult Blood (NEGATIVE) Urine Nitrite (NEGATIVE) Urine Bilirubin (NEGATIVE) Urine Urobilinogen (NEGATIVE) mg/dL Ur Leukocyte Esterase (NEGATIVE) Urine RBC (0-5) Urine WBC (0-5) Ur Squamous Epith Cells (NS,R,O) Urine Bacteria (NS) Urine Mucus (NS) Urine Opiates Screen (NEGATIVE) Ur Oxycodone Screen (NEGATIVE) Ur Propoxyphene Screen (NEGATIVE) Ur Barbituates Screen (NEGATIVE) Ur Tricyclics Screen (NEGATIVE) Ur Phencyclidine Scrn (NEGATIVE) Ur Amphetamine Screen (NEGATIVE) Urine MDMA Screen (NEGATIVE) U Benzodiazepines Scrn (NEGATIVE) U Cocaine Metab Screen (NEGATIVE) U Marijuana (THC) Screen (NEGATIVE) Ethyl Alcohol (<0.03) % 03/14/19 03/14/19 03/14/19 Range/Units 14:40 14:40 15:15 WBC (4.5-12.0) X10-3/uL RBC (3.23-5.20) x10(6)uL Hgb (11.5-15.5) g/dL Hct (30.0-51.3) % MCV (80-96) fL MCH (27.7-33.6) pg MCHC (32.2-35.4) g/dL RDW (11.5-15.5) % Plt Count (125-369) X10(3)uL MPV (7.4-10.4) fL Neut % (Auto) (46-82) % Lymph % (Auto) (13-37) % [place]ayer % (Auto) (4-12) % Eos % (Auto) (1.0-5.0) % Baso % (Auto) (0-2) % Neut # (Auto) (1.6-8.3) # Lymph # (Auto) (0.6-5.0) # Thayer # (Auto) (0.0-1.3) # Eos # (Auto) (0.0-0.8) # Baso # (Auto) (0.0-0.2) # Sodium (135-145) mmol/L Potassium (3.5-5.3) mmol/L Chloride (100-110) mmol/L Carbon Dioxide (21-32) mmol/L BUN (7-18) mg/dL Creatinine (0.55-1.02) mg/dL Est Cr Clr Drug Dosing mL/min Estimated GFR (MDRD) (>60) BUN/Creatinine Ratio (9-20) Glucose (80-116) mg/dL Calcium (8.6-10.2) mg/dL Total Bilirubin (0.1-1.3) mg/dL AST (5-25) IU/L ALT (12-36) U/L Alkaline Phosphatase (56-112) IU/L Total Protein (6.0-8.0) g/dL Albumin (3.5-5.2) g/dL Globulin g/dL Albumin/Globulin Ratio Amylase (25-115) U/L Lipase (73-393) U/L HCG, Quant < 5 L (<5) mIU/mL Urine Color Yellow (YELLOW) Urine Appearance Slightly cloudy (CLEAR) Urine pH 9.0 H (5.0-6.5) Ur Specific [place] 1.010 (1.010-1.025) Urine Protein Trace (NEGATIVE) mg/dL Urine Glucose (UA) Normal (NORMAL) mg/dL Urine Ketones 15 H (NEGATIVE) mg/dL Urine Occult Blood Moderate H (NEGATIVE) Urine Nitrite Negative (NEGATIVE) Urine Bilirubin Negative (NEGATIVE) Urine Urobilinogen Normal (NEGATIVE) mg/dL Ur Leukocyte Esterase Small H (NEGATIVE) Urine RBC 5-10 H (0-5) Urine WBC 0-5 (0-5) Ur Squamous Epith Cells Few H (NS,R,O) Urine Bacteria Many H (NS) Urine Mucus Few H (NS) Urine Opiates Screen (NEGATIVE) Ur Oxycodone Screen (NEGATIVE) Ur Propoxyphene Screen (NEGATIVE) Ur Barbituates Screen (NEGATIVE) Ur Tricyclics Screen (NEGATIVE) Ur Phencyclidine Scrn (NEGATIVE) Ur Amphetamine Screen (NEGATIVE) Urine MDMA Screen (NEGATIVE) U Benzodiazepines Scrn (NEGATIVE) U Cocaine Metab Screen (NEGATIVE) U Marijuana (THC) Screen (NEGATIVE) Ethyl Alcohol < 0.03 (<0.03) % 03/14/19 Range/Units 15:15 WBC (4.5-12.0) X10-3/uL RBC (3.23-5.20) x10(6)uL Hgb (11.5-15.5) g/dL Hct (30.0-51.3) % MCV (80-96) fL MCH (27.7-33.6) pg MCHC (32.2-35.4) g/dL RDW (11.5-15.5) % Plt Count (125-369) X10(3)uL MPV (7.4-10.4) fL Neut % (Auto) (46-82) % Lymph % (Auto) (13-37) % [place] % (Auto) (4-12) % Eos % (Auto) (1.0-5.0) % Baso % (Auto) (0-2) % Neut # (Auto) (1.6-8.3) # Lymph # (Auto) (0.6-5.0) # [place]ayer # (Auto) (0.0-1.3) # Eos # (Auto) (0.0-0.8) # Baso # (Auto) (0.0-0.2) # Sodium (135-145) mmol/L Potassium (3.5-5.3) mmol/L Chloride (100-110) mmol/L Carbon Dioxide (21-32) mmol/L BUN (7-18) mg/dL Creatinine (0.55-1.02) mg/dL Est Cr Clr Drug Dosing mL/min Estimated GFR (MDRD) (>60) BUN/Creatinine Ratio (9-20) Glucose (80-116) mg/dL Calcium (8.6-10.2) mg/dL Total Bilirubin (0.1-1.3) mg/dL AST (5-25) IU/L ALT (12-36) U/L Alkaline Phosphatase (56-112) IU/L Total Protein (6.0-8.0) g/dL Albumin (3.5-5.2) g/dL Globulin g/dL Albumin/Globulin Ratio Amylase (25-115) U/L Lipase (73-393) U/L HCG, Quant (<5) mIU/mL Urine Color (YELLOW) Urine Appearance (CLEAR) Urine pH (5.0-6.5) Ur Specific [place] (1.010-1.025) Urine Protein (NEGATIVE) mg/dL Urine Glucose (UA) (NORMAL) mg/dL Urine Ketones (NEGATIVE) mg/dL Urine Occult Blood (NEGATIVE) Urine Nitrite (NEGATIVE) Urine Bilirubin (NEGATIVE) Urine Urobilinogen (NEGATIVE) mg/dL Ur Leukocyte Esterase (NEGATIVE) Urine RBC (0-5) Urine WBC (0-5) Ur Squamous Epith Cells (NS,R,O) Urine Bacteria (NS) Urine Mucus (NS) Urine Opiates Screen Negative (NEGATIVE) Ur Oxycodone Screen Negative (NEGATIVE) Ur Propoxyphene Screen Negative (NEGATIVE) Ur Barbituates Screen Negative (NEGATIVE) Ur Tricyclics Screen Negative (NEGATIVE) Ur Phencyclidine Scrn Negative (NEGATIVE) Ur Amphetamine Screen Negative (NEGATIVE) Urine MDMA Screen Negative (NEGATIVE) U Benzodiazepines Scrn Negative (NEGATIVE) U Cocaine Metab Screen Negative (NEGATIVE) U Marijuana (THC) Screen Positive H (NEGATIVE) Ethyl Alcohol (<0.03) % Meds: Medications Discontinued Medications Generic Name Dose Route Start Last Admin Trade Name Mitesh PRN Reason Stop Dose Admin Sodium Chloride 1,000 mls @ 999 mls/hr 03/14/19 15:01 03/14/19 15:58 Normal Saline IV 03/14/19 16:01 999 mls/hr .BOLUS ONE Administration Iopamidol 87 ml 03/14/19 15:55 03/14/19 16:08 Isovue-370 (76%) IV 03/14/19 15:56 87 ml . DIRECTED ONE Administration Ketorolac Tromethamine 30 mg 03/14/19 17:48 03/14/19 18:04 Toradol IVPUSH 03/14/19 17:49 30 mg ONETIME ONE Administration Morphine Sulfate 2 mg 03/14/19 15:02 03/14/19 16:03 Morphine IVPUSH 03/14/19 15:03 2 mg ONETIME ONE Administration Morphine Sulfate 2 mg 03/14/19 17:47 03/14/19 18:09 Morphine IVPUSH 03/14/19 17:48 2 mg ONETIME ONE Administration Ondansetron HCl 4 mg 03/14/19 15:01 03/14/19 15:58 Zofran IVPUSH 03/14/19 15:02 4 mg ONETIME ONE Administration Ondansetron HCl 4 mg 03/14/19 17:49 03/14/19 18:00 Zofran IVPUSH 03/14/19 17:50 4 mg ONETIME ONE Administration Sodium Chloride 10 ml 03/14/19 14:58 03/14/19 18:10 Saline Flush FLUSH 10 ml ASDIRECTED PRN Administration Keep Vein Open Departure - Departure Time of Disposition: 15:50 Disposition: Home, Self-Care 01 Condition: Good Clinical Impression: Acute pancreatitis - Discharge Information Prescriptions: Acetaminophen/oxyCODONE [Percocet 325-5 MG] 1 - 2 tab PO Q4H #15 tab Instructions: Acetaminophen; Oxycodone capsules, Ketorolac injection, Acute Pancreatitis, [id number], Ondansetron injection, Urinary Tract Infection, Adult, Sulfamethoxazole; Trimethoprim, SMX-TMP tablets, Morphine injection solution Referrals: Harvey Simons MD [Primary Care Provider] - Forms: ED Department Discharge Additional Instructions: Please read discharge instructions on acute pancreatitis ( Inflammation of your pancreas) and UTI(bladder infection) Avoid greasy foods zofran ODT 4 mg every 4 hours as needed for nausea percocet 5/325, take 1-2 tablets every 4-6 hours as needed for pain Bactrim DS, take 1 tablet twice daily for 3 days follow up with Dr Fowler after a week - My Orders Last 24 Hours: My Active Orders 03/14/19 14:58 Abdomen Pelvis w Cont [CT] Stat Saline Lock Insert [OM.PC] Routine 03/14/19 15:15 CULTURE URINE [RM] Stat - Assessment/Plan Last 24 Hours: My Active Orders 03/14/19 14:58 Abdomen Pelvis w Cont [CT] Stat Saline Lock Insert [OM.PC] Routine 03/14/19 15:15 CULTURE URINE [RM] Stat
[2019-03-14] MEDS: Sodium Chloride 0.9% 10 ML Syringe FLUSH PRN ×4 (18:00→18:10)
[2019-03-14 18:53] VITALS: BP 148/88; PULSE 104
== END 2019-03-14 18:58 | disposition home or self-care (01) ==
LOC: FB.ED 14:22
DX: K85.90 Acute pancreatitis without necrosis or infection, unspecified (principal); J45.909 Unspecified asthma, uncomplicated; E66.9 Obesity, unspecified; Z68.32 Body mass index [BMI] 32.0-32.9, adult; F17.210 Nicotine dependence, cigarettes, uncomplicated
CPT/HCPCS: 36415; 74177; 80053; 80305; 80320; 81001; 82150; 83690; 84702; 85025; 87086; 96361; 96374; 96375; 96376; 99284; A9270; J1885; J2270; J2405; J7030; Q9967; G0480

== ENCOUNTER 2019-06-02 12:58 | Emergency (ER) | payer BC, OTHER ==
--- NOTE | 2019-06-02 13:31 | EDM.PDOC ---
ED HPI GENERAL MEDICAL PROBLEM - General Chief Complaint: Abdominal Pain Stated Complaint: ABD PAIN BACK PAIN Time Seen by Provider: 06/02/19 13:25 Source of Information: Reports: Patient History Limitations: Reports: No Limitations - History of Present Illness INITIAL COMMENTS - FREE TEXT/NARRATIVE: 34-year-old female with abdominal pain, diarrhea and vomiting. The abdominal pain and diarrhea began on 05/29/2019, Wednesday night and vomiting began Wednesday morning. Initially the abdominal pain was remittent and now it has become constant and steady. The pain is in her upper abdomen more on the right than the left and seems to radiate through to her back. The symptoms have progressively worsened with time. She has had vomiting 4 today with diarrhea 6. There is been no blood in either the vomiting or the diarrhea. She has not had much PO intake. The pain is currently a 6/10 but it has sharp spikes they go up to a 9-10/10. The pain now is an aching and throbbing pain. She is having persisting nausea. Beginning last evening she developed left flank and left lower quadrant abdominal pain with burning with urination. She has had no fevers or chills. She has had a history of recurring upper quadrant abdominal pain with vomiting and diarrhea. She had a cholecystectomy the end of this last year and that did not seem to stop her from having these episodes of abdominal pain and diarrhea and vomiting. She does intermittently smoke marijuana and she does drink half a pint or more of vodka every day. The abdominal pains are made worse with palpation. They are better at rest. There are no other associated signs or symptoms. There are no other modifying factors. 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) Right Upper Abdomen Pain Score (Numeric/FACES): 9 - Related Data Allergies Allergy/AdvReac Type Severity Reaction Status Date / Time No Known Allergies Allergy Verified 03/14/19 14:35 Home Meds: Home Meds Omeprazole Magnesium [Prilosec Otc] 20 mg PO DAILY 03/14/19 [History] Norgestimate-Ethinyl Estradiol [Mea-Ci-Vxzpxrxhn Tablet] 1 tab PO DAILY [History] Ondansetron [Zofran ODT] 4 mg PO Q6H PRN #10 tab.dis 06/02/19 [Rx] Sulfamethoxazole/Trimethoprim [Bactrim Ds Tablet] 1 each PO BID 7 Days #14 tablet 06/02/19 [Rx] predniSONE [Prednisone] 40 mg PO QAM 4 Days #8 tablet 06/02/19 [Rx] Past Medical History HEENT History: Reports: Allergic Rhinitis, Impaired Vision (Wears glasses) Respiratory History: Reports: Asthma Gastrointestinal History: Reports: PUD 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 (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 Below) 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 History: Musculoskeletal History: Reports: Fracture Other Musculoskeletal History: hx fx bilat rib fx Neurological History: Reports: Migraines Psychiatric History: Reports: Addiction (Alcohol abuse) Endocrine/Metabolic History: Reports: Obesity/BMI 30+ - Infectious Disease History Infectious Disease History: Reports: Chicken Pox - Past Surgical History GI Surgical History: Reports: Appendectomy, Cholecystectomy Musculoskeletal Surgical History: Reports: None Social & Family History - Tobacco Use Smoking Status *Q: Current Every Day Smoker Years of Tobacco use: 15 Packs/Tins Daily: 0.5 - Caffeine Use Caffeine Use: Reports: None - Alcohol Use Days Per Week of Alcohol Use: 7 Number of Drinks Per Day: 1 Total Drinks Per Week: 7 - Recreational Drug Use Recreational Drug Use: Yes Recreational Drug Type: Reports: Marijuana/Hashish - Living Situation & Occupation Occupation: Employed ED ROS GENERAL - Review of Systems Review Of Systems: See Below Constitutional: Reports: No Symptoms HEENT: Reports: No Symptoms Respiratory: Reports: No Symptoms Cardiovascular: Reports: No Symptoms GI/Abdominal: Reports: Abdominal Pain, Diarrhea, Nausea, Vomiting : Reports: Dysuria, Flank Pain, Other (Left lower quadrant) Musculoskeletal: Reports: Back Pain Skin: Reports: No Symptoms Neurological: Reports: No Symptoms Hematologic/Lymphatic: Reports: No Symptoms Immunologic: Reports: No Symptoms ED EXAM, GI/ABD - Physical Exam Exam: See Below Exam Limited By: No Limitations General Appearance: Alert, WD/WN, Moderate Distress Eyes: Bilateral: Normal Appearance, EOMI Ears: Normal External Exam, Hearing Grossly Normal Nose: Normal Inspection, Normal Mucosa, No Blood Throat/Mouth: Normal Voice, No Airway Compromise, Other (Dry mucous membranes) Head: Atraumatic, Normocephalic Neck: Normal Inspection, Supple, Non-Tender, Full Range of Motion Respiratory/Chest: No Respiratory Distress, Lungs Clear, Normal Breath Sounds, No Accessory Muscle Use, Chest Non-Tender Cardiovascular: Normal Peripheral Pulses, Regular Rate, Rhythm, No JVD GI/Abdominal Exam: Normal Bowel Sounds, Soft, No Organomegaly, No Mass, Tender ( Tender in the upper quadrant bilaterally with right greater than left also in the left lower quadrant and flank area.). No: Guarding, Rigid, Rebound Back Exam: Normal Inspection. No: CVA Tenderness (R), CVA Tenderness (L) Extremities: Normal Inspection, Normal Range of Motion, Non-Tender, No Pedal Edema, Normal Capillary Refill Neurological: Alert, Oriented, CN II-XII Intact, Normal Cognition, No Motor/ Sensory Deficits Skin Exam: Warm, Dry, Intact, Normal Color, No Rash Course - Vital Signs Last Recorded V/S: Last Vital Signs Temp 36.7 C 06/02/19 15:58 Pulse 92 06/02/19 15:58 Resp 16 06/02/19 15:58 BP 126/80 06/02/19 15:58 Pulse Ox 95 06/02/19 15:58 - Orders/Labs/Meds Orders: Active Orders 24 hr Category Date Time Status Abdomen Pelvis wo Cont [CT] Stat Exams 06/02/19 15:06 Taken CULTURE URINE [RM] Stat Lab 06/02/19 14:38 Received Sodium Chloride 0.9% [Normal Saline] 1,000 ml Med 06/02/19 13:45 Active IV ASDIRECTED Sodium Chloride 0.9% [Saline Flush] Med 06/02/19 13:43 Active 10 ml FLUSH ASDIRECTED PRN Peripheral IV Insertion Adult [OM.PC] Routine Oth 06/02/19 13:43 Ordered Medication Orders Sodium Chloride (Normal Saline) 1,000 mls @ 150 mls/hr IV ASDIRECTED SRINATH Last Admin: 06/02/19 15:26 Dose: 150 mls/hr Sodium Chloride (Saline Flush) 10 ml FLUSH ASDIRECTED PRN PRN Reason: Keep Vein Open Last Admin: 06/02/19 14:00 Dose: 10 ml Labs: Laboratory Tests 06/02/19 06/02/19 06/02/19 Range/Units 14:05 14:05 14:05 WBC 15.1 H (4.5-12.0) X10-3/uL RBC 5.07 (3.23-5.20) x10(6)uL Hgb 17.1 H (11.5-15.5) g/dL Hct 50.6 (30.0-51.3) % MCV 99.8 H (80-96) fL MCH 33.8 H (27.7-33.6) pg MCHC 33.8 (32.2-35.4) g/dL RDW 14.1 (11.5-15.5) % Plt Count 271 (125-369) X10(3)uL MPV 8.9 (7.4-10.4) fL Neut % (Auto) 74.8 (46-82) % Lymph % (Auto) 18.4 (13-37) % [place] % (Auto) 5.0 (4-12) % Eos % (Auto) 1 (1.0-5.0) % Baso % (Auto) 1 (0-2) % Neut # (Auto) 11.2 H (1.6-8.3) # Lymph # (Auto) 2.8 (0.6-5.0) # [place] # (Auto) 0.8 (0.0-1.3) # Eos # (Auto) 0.1 (0.0-0.8) # Baso # (Auto) 0.2 (0.0-0.2) # Sodium 143 (135-145) mmol/L Potassium 3.2 L (3.5-5.3) mmol/L Chloride 101 (100-110) mmol/L Carbon Dioxide 30 (21-32) mmol/L BUN 10 (7-18) mg/dL Creatinine 0.8 (0.55-1.02) mg/dL Est Cr Clr Drug Dosing 74.77 mL/min Estimated GFR (MDRD) > 60 (>60) BUN/Creatinine Ratio 12.5 (9-20) Glucose 97 (80-116) mg/dL Calcium 9.0 (8.6-10.2) mg/dL Magnesium 1.6 L (1.8-2.5) mg/dL Total Bilirubin 0.7 (0.1-1.3) mg/dL AST 39 H D (5-25) IU/L ALT 36 D (12-36) U/L Alkaline Phosphatase 103 (56-112) IU/L C-Reactive Protein < 0.2 L (0.5-0.9) mg/dL Total Protein 7.7 (6.0-8.0) g/dL Albumin 3.4 L (3.5-5.2) g/dL Globulin 4.3 g/dL Albumin/Globulin Ratio 0.8 Lipase 173 (73-393) U/L Urine Color (YELLOW) Urine Appearance (CLEAR) Urine pH (5.0-6.5) Ur Specific [place] (1.010-1.025) Urine Protein (NEGATIVE) mg/dL Urine Glucose (UA) (NORMAL) mg/dL Urine Ketones (NEGATIVE) mg/dL Urine Occult Blood (NEGATIVE) Urine Nitrite (NEGATIVE) Urine Bilirubin (NEGATIVE) Urine Urobilinogen (NEGATIVE) mg/dL Ur Leukocyte Esterase (NEGATIVE) Urine RBC (0-5) Urine WBC (0-5) Ur Squamous Epith Cells (NS,R,O) Urine Bacteria (NS) Urine Mucus (NS) Urine HCG, Qual (NEGATIVE) Ethyl Alcohol < 0.03 (<0.03) % 06/02/19 06/02/19 Range/Units 14:38 14:38 WBC (4.5-12.0) X10-3/uL RBC (3.23-5.20) x10(6)uL Hgb (11.5-15.5) g/dL Hct (30.0-51.3) % MCV (80-96) fL MCH (27.7-33.6) pg MCHC (32.2-35.4) g/dL RDW (11.5-15.5) % Plt Count (125-369) X10(3)uL MPV (7.4-10.4) fL Neut % (Auto) (46-82) % Lymph % (Auto) (13-37) % [place] % (Auto) (4-12) % Eos % (Auto) (1.0-5.0) % Baso % (Auto) (0-2) % Neut # (Auto) (1.6-8.3) # Lymph # (Auto) (0.6-5.0) # [place] # (Auto) (0.0-1.3) # Eos # (Auto) (0.0-0.8) # Baso # (Auto) (0.0-0.2) # Sodium (135-145) mmol/L Potassium (3.5-5.3) mmol/L Chloride (100-110) mmol/L Carbon Dioxide (21-32) mmol/L BUN (7-18) mg/dL Creatinine (0.55-1.02) mg/dL Est Cr Clr Drug Dosing mL/min Estimated GFR (MDRD) (>60) BUN/Creatinine Ratio (9-20) Glucose (80-116) mg/dL Calcium (8.6-10.2) mg/dL Magnesium (1.8-2.5) mg/dL Total Bilirubin (0.1-1.3) mg/dL AST (5-25) IU/L ALT (12-36) U/L Alkaline Phosphatase (56-112) IU/L C-Reactive Protein (0.5-0.9) mg/dL Total Protein (6.0-8.0) g/dL Albumin (3.5-5.2) g/dL Globulin g/dL Albumin/Globulin Ratio Lipase (73-393) U/L Urine Color [place] (YELLOW) Urine Appearance Clear (CLEAR) Urine pH 9.0 H (5.0-6.5) Ur Specific [place] 1.015 (1.010-1.025) Urine Protein Negative (NEGATIVE) mg/dL Urine Glucose (UA) Normal (NORMAL) mg/dL Urine Ketones 50 H (NEGATIVE) mg/dL Urine Occult Blood Large H (NEGATIVE) Urine Nitrite Negative (NEGATIVE) Urine Bilirubin Negative (NEGATIVE) Urine Urobilinogen 1 H (NEGATIVE) mg/dL Ur Leukocyte Esterase Moderate H (NEGATIVE) Urine RBC 30-40 H (0-5) Urine WBC 0-5 (0-5) Ur Squamous Epith Cells Few H (NS,R,O) Urine Bacteria Moderate H (NS) Urine Mucus Many H (NS) Urine HCG, Qual Negative (NEGATIVE) Ethyl Alcohol (<0.03) % Meds: Medications Generic Name Dose Route Start Last Admin Trade Name Freq PRN Reason Stop Dose Admin Sodium Chloride 1,000 mls @ 150 mls/hr 06/02/19 13:45 06/02/19 15:26 Normal Saline IV 150 mls/hr ASDIRECTED SRINATH Administration Sodium Chloride 10 ml 06/02/19 13:43 06/02/19 14:00 Saline Flush FLUSH 10 ml ASDIRECTED PRN Administration Keep Vein Open Discontinued Medications Generic Name Dose Route Start Last Admin Trade Name Rudolphq PRN Reason Stop Dose Admin Ceftriaxone Sodium 1 gm 06/02/19 16:18 Rocephin IVPUSH 06/02/19 16:19 ONETIME ONE Diphenhydramine HCl 50 mg 06/02/19 15:04 06/02/19 15:17 Benadryl IVPUSH 06/02/19 15:05 50 mg ONETIME ONE Administration Haloperidol Lactate 2.5 mg 06/02/19 15:04 06/02/19 15:19 Haldol IVPUSH 06/02/19 15:05 2.5 mg ONETIME ONE Administration Promethazine HCl 25 mg/ Sodium 51 mls @ 200 mls/hr 06/02/19 13:47 06/02/19 14 :00 Chloride IV 06/02/19 14:02 200 mls/hr ONETIME ONE Administration Sodium Chloride 1,000 mls @ 999 mls/hr 06/02/19 13:44 06/02/19 14:14 Normal Saline IV 06/02/19 14:44 999 mls/hr .BOLUS ONE Administration Magnesium Sulfate 2 gm/ Premix 50 mls @ 150 mls/hr 06/02/19 15:04 06/02/19 15 :24 IV 06/02/19 15:23 150 mls/hr ONETIME ONE Administration Ketorolac Tromethamine 30 mg 06/02/19 15:04 06/02/19 15:16 Toradol IVPUSH 06/02/19 15:05 30 mg ONETIME ONE Administration Methylprednisolone Sodium Succinate 125 mg 06/02/19 16:18 Solu-Medrol IVPUSH 06/02/19 16:19 ONETIME ONE - Radiology Interpretation Free Text/Narrative:: CT scan of abdomen and pelvis showed no evidence of kidney stone or ureteral stone. She does have some inflammatory changes in her transverse colon and distal colon that were consistent with ulcerative colitis per the radiologist. There was mild stranding around these areas. - Re-Assessments/Exams Free Text/Narrative Re-Assessment/Exam: 06/02/19 15:10: Her pulse rate and nausea are improved. She still has 4-5/10 level of discomfort in her abdomen. Her urine regnancy test was negative. White blood cell count was 15.1 and she does appear to be somewhat hemoconcentrated. Her serum electrolyte profile, BUN and creatinine and LFTs/lipase were all reassuringly normal. Her urinalysis did have a predominance of red cells. There were some bacteria but with the amount of blood that she has and the left lower quadrant and left flank pain, I am concerned about a kidney stone. I have ordered for her to have Toradol, Haldol and Benadryl IV. I am concerned that this recurring episodes of abdominal pain, vomiting and diarrhea may represent cannabis hyperemesis syndrome and the above medications have been helpful for treating this in the past. I will also be sending her over for CT scan of her abdomen and pelvis without IV contrast to rule in or out kidney stone. I have also ordered a culture on the urine. 06/02/19 15:57: Patient is resting comfortably now. No more vomiting. No more diarrhea. Her pain is down to a 1-2/10. We are awaiting results of her CT scan. 06/02/19 16:15: The CT scan showed some evidence of inflammation of the transverse and distal colon that the radiologist felt represented ulcerative colitis. I did call and discussed the patient's case with her primary physician Dr. Simons and he felt a short course of steroids would be in order (prednisone) . I will also treat the patient for a urinary tract infection (Bactrim DS). I will give the patient signing Medrol 125 mg IV in the emergency department and Rocephin 1 g IV prior to her discharge. I will also give her a prescription of Zofran 4 mg ODT. Departure - Departure Time of Disposition: 16:30 Disposition: Home, Self-Care 01 Condition: Good (Improved) Clinical Impression: Dehydration, moderate Ulcerative colitis Qualifiers: Ulcerative colitis location: unspecified ulcerative colitis location Digestive disease complication type: without complication Qualified Code(s): K51.90 - Ulcerative colitis, unspecified, without complications UTI (urinary tract infection) Qualifiers: Urinary tract infection type: site unspecified Hematuria presence: with hematuria Qualified Code(s): N39.0 - Urinary tract infection, site not specified - Discharge Information Prescriptions: Ondansetron [Zofran ODT] 4 mg PO Q6H PRN #10 tab.dis PRN Reason: Nausea/Vomiting predniSONE [Prednisone] 40 mg PO QAM 4 Days #8 tablet Sulfamethoxazole/Trimethoprim [Bactrim Ds Tablet] 1 each PO BID 7 Days #14 tablet Instructions: Nausea and Vomiting, Adult, [id number], Dehydration, Adult, [id number], Abdominal Pain, Adult, [id number] Referrals: Harvey Simons MD [Primary Care Provider] - Forms: ED Department Discharge, ED Return to Work/School Form Additional Instructions: Your blood tests showed evidence of dehydration and some inflammation. Your urine test did show some evidence of infection. The CT scan of your abdomen and pelvis showed evidence of inflammation of your colon and was felt to be ulcerative colitis by the radiologist. You were treated with an antibiotic in the emergency department to begin the treatment of your urine infection. You were also given a steroid or anti-inflammatory medication in the emergency department to treat your ulcerative colitis. I am also placing you on antibiotics at discharge (Bactrim DS) and an anti-inflammatory medication ( prednisone). You were also given nausea medication (Zofran 4 mg ODT). You should rest. You should drink plenty of fluids. No work until 06/05/2019. You are to follow-up with Dr. Simons at the [facility] in [place] at 3:30 PM on 06/05/2019. Back to the emergency department for high fever, marked increase in pain, unrelenting vomiting, blood in your stool or any other concerning sign or symptom. Sepsis Event Note - Evaluation Sepsis Screening Result: No Definite Risk - Focused Exam Vital Signs: Vital Signs Temp Pulse Resp BP Pulse Ox 06/02/19 15:58 36.7 C 92 16 126/80 95 06/02/19 14:45 82 18 149/98 H 96 06/02/19 13:04 36.4 C 122 H 18 152/102 H 98 Date Exam was Performed: 06/02/19 Time Exam was Performed: 16:33 - My Orders Last 24 Hours: My Active Orders 06/02/19 13:43 Sodium Chloride 0.9% [Saline Flush] 10 ml FLUSH ASDIRECTED PRN Peripheral IV Insertion Adult [OM.PC] Routine 06/02/19 13:45 Sodium Chloride 0.9% [Normal Saline] 1,000 ml IV ASDIRECTED 06/02/19 14:38 CULTURE URINE [RM] Stat 06/02/19 15:06 Abdomen Pelvis wo Cont [CT] Stat - Assessment/Plan Last 24 Hours: My Active Orders 06/02/19 13:43 Sodium Chloride 0.9% [Saline Flush] 10 ml FLUSH ASDIRECTED PRN Peripheral IV Insertion Adult [OM.PC] Routine 06/02/19 13:45 Sodium Chloride 0.9% [Normal Saline] 1,000 ml IV ASDIRECTED 06/02/19 14:38 CULTURE URINE [RM] Stat 06/02/19 15:06 Abdomen Pelvis wo Cont [CT] Stat
[2019-06-02] MEDS ORDERED: Sodium Chloride 0.9% 10 ML Syringe FLUSH PRN (13:43)
[2019-06-02] MEDS ORDERED: Sodium Chloride 0.9% 1,000 ML IV ONE (13:44)
[2019-06-02] MEDS ORDERED: Sodium Chloride 0.9% 1,000 ML IV SCH (13:45)
[2019-06-02] MEDS ORDERED: Promethazine 25 MG in Sodium Chloride 0.9% 50 ML IV ONE (13:47)
[2019-06-02] MEDS ORDERED: diphenhydrAMINE 50 MG/ML SDV IVPUSH ONE (15:04)
[2019-06-02] MEDS ORDERED: Ketorolac 30 MG/ML SDV IVPUSH ONE (15:04)
[2019-06-02] MEDS ORDERED: Haloperidol Lactate 5 MG/ML SDV IVPUSH ONE (15:04)
[2019-06-02] MEDS ORDERED: Magnesium Sulfate/Water 2 GM in Premix Bag 1 BAG IV ONE (15:04)
[2019-06-02] MEDS ORDERED: cefTRIAXone 2 GM Vial IVPUSH ONE (16:18)
[2019-06-02] MEDS ORDERED: methylPREDNISolone Sodium Succinate 125 MG/2 ML SDV IVPUSH ONE (16:18)
--- NOTE | 2019-06-02 16:36 | CT ---
INDICATION: Left flank and lower quadrant pain with hematuria, [address] ABDOMEN AND PELVIS WITHOUT CONTRAST: Spiral 2.5 mm axial sections were obtained through the abdomen and pelvis without contrast with sagittal and coronal reconstructions - renal calculus protocol 06/02/19 and compared with . Total exam DLP was 758.10 mGy-cm. The heart did not appear enlarged. No pericardial effusion was seen. There is some patchy infiltrative appearing densities at the left lower lobe which may represent atelectasis and possibly pneumonia, although fibrosis could also be present. These areas of possible infiltrate are new compared with the previous study which showed some areas of more medially located left lower lobe infiltrate which have resolved since the previous study compatible with resolution of pneumonia in that area. The right lower lung field showed only minimal scarring which was present previously. The gallbladder is absent with clips at the cystic duct compatible with cholecystectomy history. The liver had a normal appearance, as did the adrenal glands, kidneys, spleen and pancreas. No retroperitoneal mass was seen. There is some mild retroperitoneal lymphadenopathy which is again present and is nonspecific. The appendix is absent compatible with history of its removal as previously. No evidence of free air or bowel obstruction was seen. Urinary bladder was not distended, there may be slightly thickening of the wall - not a definite finding. No abdominal hernias are identified. The uterus and ovaries were grossly normal. No free fluid was noted in the posterior cul-de-sac. In general, there is no free intraperitoneal fluid and no organomegaly or mass lesions except for question of slight thickening of the wall of the urinary bladder as mentioned above. In the mid to distal transverse colon, descending colon, and sigmoid colon, there is a relatively tubular appearance raising question of a process such as ulcerative colitis, this carries into the rectal area. This should be correlated clinically. Colonoscopy may be warranted for confirmation. IMPRESSION: 1. No specific etiology for the patient's left flank pain with hematuria;. 2. Question possibility of ulcerative colitis - correlate clinically. 3. Post cholecystectomy. 4. Post appendectomy. If symptoms persist - if occult renal abnormality is suspected clinically, reexamination by CT with IV contrast and possibly with delays, may be helpful. Report was called to Dr. Ta at 1604 hours. [facility]
[2019-06-02 16:55] VITALS: BP 136/84; PULSE 79
== END 2019-06-02 16:54 | disposition home or self-care (01) ==
LOC: FB.ED 12:58
DX: K51.90 Ulcerative colitis, unspecified, without complications (principal); E86.0 Dehydration; N39.0 Urinary tract infection, site not specified; F17.210 Nicotine dependence, cigarettes, uncomplicated; J45.909 Unspecified asthma, uncomplicated; E66.9 Obesity, unspecified; Z68.33 Body mass index [BMI] 33.0-33.9, adult; Z79.899 Other long term (current) drug therapy
CPT/HCPCS: 36415; 74176; 80053; 80307; 81001; 81025; 83690; 83735; 85025; 86140; 87086; 96361; 96365; 96375; 99284; J0696; J1200; J1630; J1885; J2550; J2930; J3475; J7030; J7050

== ENCOUNTER 2019-12-21 12:46 | Emergency (ER) | payer OTHER ==
[2019-12-21] MEDS ORDERED: Lactated Ringers 1,000 ML IV ONE (13:05)
[2019-12-21] MEDS ORDERED: diphenhydrAMINE 50 MG/ML SDV IVPUSH ONE (13:07)
[2019-12-21] MEDS ORDERED: Prochlorperazine 10 MG/2 ML SDV IVPUSH ONE (13:07)
[2019-12-21] MEDS ORDERED: Thiamine 100 MG Tab PO ONE (13:10)
[2019-12-21] MEDS ORDERED: Alum Hydroxide/Mag Hydroxide 15 ML, Lidocaine 2% 15 ML PO ONE ×2 (13:13)
--- NOTE | 2019-12-21 13:19 | EDM.PDOC ---
ED HPI GENERAL MEDICAL PROBLEM - General Chief Complaint: Abdominal Pain Stated Complaint: SHARP PAINS IN UPPER ABD Time Seen by Provider: 12/21/19 13:05 Source of Information: Reports: Patient, Old Records, RN History Limitations: Reports: No Limitations - History of Present Illness INITIAL COMMENTS - FREE TEXT/NARRATIVE: 34 yo female presents with epigastric pain that began at the beginning of the week and has progressed. She has not contacted her provider at any point this week. She has associated nausea and diarrhea, but no vomiting, no melena, and no hematochezia. She is a daily smoker and drinks anywhere from a 1/2 to 1 pint of alcohol daily. She has had her gall bladder removed. Eating or drinking anything makes her pain worse. No fever. Had a swallow of alcohol this morning, otherwise none for about a day and a half. Thinks this feels different from the colitis she had this past May and different from the gastritis she had remotely. Onset: Gradual Onset Date: 12/17/19 Duration: Day(s):, Getting Worse, Waxing/Waning Location: Reports: Abdomen Quality: Reports: Pressure Severity: Moderate Improves with: Reports: Other (not eating/drinking) Worsens with: Reports: Eating (and drinking) Context: Reports: Other (See HPI) Associated Symptoms: Reports: Nausea/Vomiting (no vomiting), Other (diarrhea). Denies: Fever/Chills Treatments FIXED INTEREST DEALER: Reports: Other (see below) (none) Upper Abdomen Pain Score (Numeric/FACES): 9 - Related Data Allergies Allergy/AdvReac Type Severity Reaction Status Date / Time No Known Allergies Allergy Verified 03/14/19 14:35 Home Meds: Home Meds Omeprazole Magnesium [Prilosec Otc] 20 mg PO DAILY 03/14/19 [History] Ondansetron [Zofran ODT] 4 mg PO Q6H PRN #10 tab.dis 06/02/19 [Rx] Sulfamethoxazole/Trimethoprim [Bactrim Ds Tablet] 1 each PO BID 7 Days #14 tablet 06/02/19 [Rx] norgestimate-ethinyl estradioL [Cgb-Qz-Yslygqicg Tablet] 1 tab PO DAILY 06/02/19 [History] predniSONE [Prednisone] 40 mg PO QAM 4 Days #8 tablet 06/02/19 [Rx] Past Medical History - Past Health History Medical/Surgical History: Denies Medical/Surgical History HEENT History: Reports: Allergic Rhinitis, Impaired Vision (Wears glasses) Other HEENT History: RHINORRHEA Respiratory History: Reports: Asthma Other Respiratory History: SMOKER Gastrointestinal History: Reports: PUD AUTOMATION ENGINEERING MANAGER History: Reports: Other (See Below) Other AUTOMATION ENGINEERING MANAGER History: Musculoskeletal History: Reports: Fracture Other Musculoskeletal History: hx fx bilat rib fx Neurological History: Reports: Migraines Psychiatric History: Reports: Addiction (Alcohol abuse) Other Psychiatric History: FATIGUE Endocrine/Metabolic History: Reports: Obesity/BMI 30+ Hematologic History: Reports: None Immunologic History: Oncologic (Cancer) History: Reports: None Dermatologic History: Reports: None - Infectious Disease History Infectious Disease History: Reports: Chicken Pox - Past Surgical History GI Surgical History: Reports: Appendectomy, Cholecystectomy Musculoskeletal Surgical History: Reports: None Social & Family History - Family History Family Medical History: Noncontributory - Caffeine Use Caffeine Use: Reports: None - Living Situation & Occupation Occupation: Employed ED ROS GENERAL - Review of Systems Review Of Systems: See Below Constitutional: Reports: No Symptoms HEENT: Reports: No Symptoms Respiratory: Reports: No Symptoms Cardiovascular: Reports: No Symptoms Endocrine: Reports: No Symptoms GI/Abdominal: Reports: Abdominal Pain, Diarrhea, Nausea. Denies: Black Stool, Bloody Stool, Constipation, Distension, Flatus, Hematemesis, Hematochezia, Melena, Vomiting : Reports: No Symptoms Musculoskeletal: Reports: No Symptoms Skin: Reports: No Symptoms Neurological: Reports: No Symptoms Psychiatric: Reports: No Symptoms ED EXAM, GI/ABD - Physical Exam Exam: See Below Exam Limited By: No Limitations General Appearance: Alert, WD/WN, No Apparent Distress Eyes: Bilateral: Normal Appearance Ears: Normal External Exam, Normal Canal, Hearing Grossly Normal Nose: Normal Inspection, No Blood Throat/Mouth: Normal Inspection, Normal Lips, Normal Oropharynx, Normal Voice, No Airway Compromise Head: Atraumatic, Normocephalic Neck: Normal Inspection Respiratory/Chest: No Respiratory Distress, Lungs Clear, Normal Breath Sounds, No Accessory Muscle Use Cardiovascular: Regular Rate, Rhythm, No Edema, Tachycardia GI/Abdominal Exam: Normal Bowel Sounds, Soft, No Distention, Tender (some mild epigastric pain with deep palpation, more RUQ tenderness). No: Non-Tender, Distended, Guarding, Rigid, Rebound Back Exam: Normal Inspection. No: CVA Tenderness (R), CVA Tenderness (L) Extremities: Normal Inspection, Normal Range of Motion, Non-Tender, No Pedal Edema Neurological: Alert, Oriented, CN II-XII Intact, Normal Cognition, No Motor/Sensory Deficits Psychiatric: Normal Affect, Normal Mood Skin Exam: Warm, Dry, Intact, Normal Color, No Rash Course - Vital Signs Text/Narrative:: Called Dr. Simons @ 1934h Last Recorded V/S: Last Vital Signs Temp 36.9 C 12/21/19 13:00 Pulse 98 12/21/19 14:55 Resp 16 12/21/19 14:55 BP 155/95 H 12/21/19 14:55 Pulse Ox 99 12/21/19 14:55 - Orders/Labs/Meds Orders: Active Orders 24 hr Category Date Time Status Abdomen Pelvis w Cont [CT] Stat Exams 12/21/19 14:04 Taken Labs: Laboratory Tests 12/21/19 12/21/19 12/21/19 Range/Units 13:20 13:20 13:20 WBC 17.6 H (4.5-12.0) X10-3/uL RBC 4.95 (3.23-5.20) x10(6)uL Hgb 16.2 H (11.5-15.5) g/dL Hct 49.4 (30.0-51.3) % MCV 99.9 H (80-96) fL MCH 32.7 (27.7-33.6) pg MCHC 32.7 (32.2-35.4) g/dL RDW 14.3 (11.5-15.5) % Plt Count 338 (125-369) X10(3)uL Sodium 137 (135-145) mmol/L Potassium 3.2 L (3.5-5.3) mmol/L Chloride 101 (100-110) mmol/L Carbon Dioxide 26 (21-32) mmol/L BUN 7 (7-18) mg/dL Creatinine 0.6 (0.55-1.02) mg/dL Est Cr Clr Drug Dosing 99.69 mL/min Estimated GFR (MDRD) > 60 (>60) BUN/Creatinine Ratio 11.7 (9-20) Glucose 103 (80-116) mg/dL Calcium 8.8 (8.6-10.2) mg/dL Magnesium (1.8-2.5) mg/dL Total Bilirubin 0.8 (0.1-1.3) mg/dL AST 30 H D (5-25) IU/L ALT 28 D (12-36) U/L Alkaline Phosphatase 129 H (56-112) IU/L Total Protein 6.7 (6.0-8.0) g/dL Albumin 2.7 L (3.5-5.2) g/dL Globulin 4.0 g/dL Albumin/Globulin Ratio 0.7 Lipase 199 (73-393) U/L Urine HCG, Qual (NEGATIVE) Urine Opiates Screen (NEGATIVE) Ur Oxycodone Screen (NEGATIVE) Ur Propoxyphene Screen (NEGATIVE) Ur Barbituates Screen (NEGATIVE) Ur Tricyclics Screen (NEGATIVE) Ur Phencyclidine Scrn (NEGATIVE) Ur Amphetamine Screen (NEGATIVE) Urine MDMA Screen (NEGATIVE) U Benzodiazepines Scrn (NEGATIVE) U Cocaine Metab Screen (NEGATIVE) U Marijuana (THC) Screen (NEGATIVE) 12/21/19 12/21/19 12/21/19 Range/Units 13:20 13:35 13:35 WBC (4.5-12.0) X10-3/uL RBC (3.23-5.20) x10(6)uL Hgb (11.5-15.5) g/dL Hct (30.0-51.3) % MCV (80-96) fL MCH (27.7-33.6) pg MCHC (32.2-35.4) g/dL RDW (11.5-15.5) % Plt Count (125-369) X10(3)uL Sodium (135-145) mmol/L Potassium (3.5-5.3) mmol/L Chloride (100-110) mmol/L Carbon Dioxide (21-32) mmol/L BUN (7-18) mg/dL Creatinine (0.55-1.02) mg/dL Est Cr Clr Drug Dosing mL/min Estimated GFR (MDRD) (>60) BUN/Creatinine Ratio (9-20) Glucose (80-116) mg/dL Calcium (8.6-10.2) mg/dL Magnesium 1.7 L (1.8-2.5) mg/dL Total Bilirubin (0.1-1.3) mg/dL AST (5-25) IU/L ALT (12-36) U/L Alkaline Phosphatase (56-112) IU/L Total Protein (6.0-8.0) g/dL Albumin (3.5-5.2) g/dL Globulin g/dL Albumin/Globulin Ratio Lipase (73-393) U/L Urine HCG, Qual Negative (NEGATIVE) Urine Opiates Screen Negative (NEGATIVE) Ur Oxycodone Screen Negative (NEGATIVE) Ur Propoxyphene Screen Negative (NEGATIVE) Ur Barbituates Screen Negative (NEGATIVE) Ur Tricyclics Screen Positive H (NEGATIVE) Ur Phencyclidine Scrn Negative (NEGATIVE) Ur Amphetamine Screen Negative (NEGATIVE) Urine MDMA Screen Negative (NEGATIVE) U Benzodiazepines Scrn Negative (NEGATIVE) U Cocaine Metab Screen Negative (NEGATIVE) U Marijuana (THC) Screen Positive H (NEGATIVE) Meds: Medications Discontinued Medications Generic Name Dose Route Start Last Admin Trade Name Freq PRN Reason Stop Dose Admin Al Hydroxide/Mg Hydroxide 15 0 ml 12/21/19 13:13 12/21/19 13:31 ml/ Lidocaine HCl 15 ml PO 12/21/19 13:14 15 ml ONETIME ONE Administration Diphenhydramine HCl 50 mg 12/21/19 13:07 12/21/19 13:31 Benadryl IVPUSH 12/21/19 13:08 50 mg ONETIME ONE Administration Hydromorphone HCl 0.5 mg 12/21/19 13:58 12/21/19 14:23 Dilaudid IVPUSH 12/21/19 13:59 0.5 mg ONETIME ONE Administration Lactated Ringer's 1,000 mls @ 1,000 mls/hr 12/21/19 13:05 12/21/19 13:31 Ringers, Lactated IV 12/21/19 14:04 1,000 mls/hr BOLUS ONE Administration Iopamidol 100 ml 12/21/19 14:15 12/21/19 14:38 Isovue-370 (76%) IV 12/21/19 14:16 100 ml . DIRECTED ONE Administration Potassium Chloride 20 meq 12/21/19 14:00 12/21/19 14:45 Klor-Con 10 PO 12/21/19 14:01 20 meq ONETIME ONE Administration Prochlorperazine Edisylate 10 mg 12/21/19 13:07 12/21/19 13:30 Compazine IVPUSH 12/21/19 13:08 10 mg ONETIME ONE Administration Thiamine HCl 100 mg 12/21/19 13:10 12/21/19 13:31 Vitamin B-1 PO 12/21/19 13:11 100 mg ONETIME ONE Administration - Radiology Interpretation Free Text/Narrative:: CT abd/pelvis with IV contrast- CT Results Date: 12/21/19 - Re-Assessments/Exams Free Text/Narrative Re-Assessment/Exam: 12/21/19 13:59 No change in epigastric pain after GI cocktail po. Departure - Departure Time of Disposition: 15:25 Disposition: Home, Self-Care 01 Condition: Fair Clinical Impression: Ileocolitis, Hypokalemia Abdominal pain Qualifiers: Abdominal location: epigastric Qualified Code(s): R10.13 - Epigastric pain - Discharge Information *PRESCRIPTION DRUG MONITORING PROGRAM REVIEWED*: No *COPY OF PRESCRIPTION DRUG MONITORING REPORT IN PATIENT NARESH: No Instructions: Abdominal Pain, Adult, Alob-iq-[id number], Hypokalemia Referrals: Harvey Simons MD [Primary Care Provider] - Forms: ED Department Discharge Additional Instructions: Use Zofran every 6 hrs for nausea control as needed. Take Quinby as directed for pain relief. Use Peptobismol 30 ml every 6 hrs for diarrhea control and for gastritis, be aware that this product will turn your stools dark. No alcohol. Rest. Avoid carbonated beverages, ibuprofen, Aleve, aspirin, or caffeine containing beverages. Dr. Simons's office will call you tomorrow to check on you. Return as needed. Take potassium as directed. Sepsis Event Note (ED) - Evaluation Sepsis Screening Result: No Definite Risk - Focused Exam Vital Signs: Vital Signs Temp Pulse Resp BP Pulse Ox 12/21/19 14:55 98 16 155/95 H 99 12/21/19 13:00 36.9 C 104 H 16 152/100 H 95 - My Orders Last 24 Hours: My Active Orders 12/21/19 14:04 Abdomen Pelvis w Cont [CT] Stat - Assessment/Plan Last 24 Hours: My Active Orders 12/21/19 14:04 Abdomen Pelvis w Cont [CT] Stat
[2019-12-21] MEDS ORDERED: HYDROmorphone 2 MG/ML SDV IVPUSH ONE (13:58)
[2019-12-21] MEDS ORDERED: Potassium Chloride 10 MEQ Tab.ER PO ONE (14:00)
[2019-12-21] MEDS ORDERED: Iopamidol 755 Mg/ML 100 ML Bottle IV ONE (14:15)
[2019-12-21 14:55] VITALS: BP 155/95; PULSE 98
--- NOTE | 2019-12-21 15:43 | CT ---
INDICATION: Epigastric pain, history of colitis and gastritis. No oral contrast per ER provider. CT ABDOMEN AND PELVIS WITH CONTRAST: Spiral 3.75 mm axial sections were obtained through the abdomen and pelvis with 100 mL Isovue-370 at 1.5 mL per second, with sagittal and coronal reconstructions 12/21/19 and compared with 06/02/19. Total exam DLP was 518.24 mGy-cm. There are some atelectatic and/or fibrotic changes noted at both lower lobes, left greater than right - minimal patchy bronchopneumonia is difficult to entirely exclude but is felt to be less likely. The gallbladder is absent compatible with history of its removal. The liver appeared grossly normal. The common bile duct is normal in caliber for post cholecystectomy patient. The adrenal glands and kidneys appeared normal. The spleen and pancreas appeared normal. No retroperitoneal masses were identified. The appendix is absent compatible with history of its removal. No evidence of free air or definite bowel obstruction was identified. There are multiple fluid-filled loops of small bowel with some air-fluid levels, but no gross distention to strongly suggest a mechanically obstructive process. A process such as gastroenteritis would be a consideration. What appears to be a follicular cyst is noted at the right ovary measuring approximately 27 mm. Additional follicles are noted at the right ovary and also at the left ovary. The urinary bladder was unremarkable. Surgery is noted at the right uterine horn-ovary. No additional mass lesions, organomegaly, or free fluid collections were identified in the abdomen or pelvis. There is thickening of the wall of the duodenum, including the horizontal portion which could be on the basis of peptic ulcer disease, but should be correlated clinically. There appears to be some thickening of the wall of the ascending colon which could be on the basis of colitis, but should be correlated clinically. Likewise, some thickening of the wall may be present at the transverse colon. IMPRESSION: 1. Thickening of the wall of the duodenum could represent an inflammatory process, either peptic ulcer disease or possibly infection. Multiple loops of fluid-filled small bowel with some air-fluid levels raise question of gastroenteritis. 2. Thickening of the wall of the ascending and transverse colon suggested which could be on the basis of colitis, but should be correlated clinically. 3. Post cholecystectomy. 4. Post appendectomy. 5. Post surgical change at the right ovary. 6. Probable follicular cyst of right ovary measuring almost 3 cm. Report was called to Dr. Yee at approximately 1509 hours. MTDD
== END 2019-12-21 15:39 | disposition home or self-care (01) ==
LOC: FB.ED 12:46
DX: K52.9 Noninfective gastroenteritis and colitis, unspecified (principal); E87.6 Hypokalemia; R10.13 Epigastric pain; J45.909 Unspecified asthma, uncomplicated; E66.9 Obesity, unspecified; Z79.899 Other long term (current) drug therapy; Z68.30 Body mass index [BMI] 30.0-30.9, adult
CPT/HCPCS: 36415; 74177; 80053; 80305; 81025; 83690; 83735; 85027; 96361; 96374; 96375; 99284; A9270; J0780; J1170; J1200; J7120; Q9967; 99283

== ENCOUNTER 2020-02-26 06:50 | Day surgery (SDC) | payer OTHER ==
[~2020-02-26 06:50] MED LIST: Lactated Ringers 1,000 ML IV SCH; Sodium Chloride 0.9% 10 ML Syringe FLUSH PRN
[2020-02-26] MEDS ORDERED: Lidocaine 1% PF 2 ML SDV INJECT ONE (06:51)
[2020-02-26] MEDS ORDERED: Propofol 200 MG/20 ML SDV IV ONE (06:51)
--- NOTE | 2020-02-26 08:29 | PCM.OPNOTE ---
- General Post-Op/Procedure Note Date of Surgery/Procedure: 02/26/20 Operative Procedure(s): c scope with random biopsy Findings: grossly normal exam Pre Op Diagnosis: abd pain bloody diarrhea Post-Op Diagnosis: nl colonoscopy Anesthesia Technique: MAC Primary Surgeon: Connor Gandhi Anesthesia Provider: Demarco Acosta Pathology: random colon biopsies Complications: None Condition: Good Free Text/Narrative:: see dictation [id number]
[2020-02-26 08:49] VITALS: BP 145/92; PULSE 89
--- NOTE | 2020-02-27 07:03 | OR ---
DATE OF OPERATION: 02/26/2020 SURGEON: Connor Gandhi MD PROCEDURE PERFORMED: Colonoscopy with random forceps biopsies. PREOPERATIVE DIAGNOSIS: History of crampy abdominal pain with bloody diarrhea. POSTOPERATIVE DIAGNOSIS: Normal exam. INDICATIONS FOR PROCEDURE: This is a 34-year-old white female who has a history of abdominal pain. This has been going on for some months. She did have a flex sig to evaluate what appeared to be an abnormal area on her CT scan of the left side of her colon. This was grossly and histologically normal on microscopic exam. Her pain has persisted, and now, she notes diarrhea which is bloody. She was offered and accepted a colonoscopy. DESCRIPTION OF PROCEDURE: After an excellent IV sedation was administered, digital rectal exam was performed. No marked abnormality was noted. Flexible colonoscope was inserted and advanced without difficulty to the cecum. The prep was excellent. The following findings are noted: 1. Attempts to intubate the terminal ileum were not successful. 2. Ascending colon, unremarkable. Random biopsies were taken. Transverse colon, unremarkable. Random biopsies were taken. Descending colon, unremarkable. Random biopsies were taken. Sigmoid unremarkable, random biopsies taken. Rectum unremarkable, random biopsies were taken. On retroflexing the scope, she really did not have any marked evidence of any hemorrhoids to explain her bleeding. We will be sending her results by letter. I have noted that she is on Reglan and we will be stopping this as it does not help her diarrhea. Further workup and treatment on the basis of her pathology report. /[id number] /MODL
--- NOTE | 2020-02-27 07:03 | PREOP ---
ADMISSION DATE: 02/26/2020 CHIEF COMPLAINT: Abdominal pain and diarrhea. HISTORY OF PRESENT ILLNESS: This is a 34-year-old white female who had a flexible sigmoidoscopy in May or earlier this year for some diarrhea and abdominal pain. CT scan was abnormal, demonstrated some localized colitis in that area. The flexible sigmoidoscopy and the biopsies of this area were negative. She continues to experience abdominal pain and bloating, loose stools, had a repeat scan that was abnormal as well. Results were not available for review. She notes that she is now currently passing blood. ALLERGIES: She has no known drug allergies. PAST MEDICAL HISTORY: Significant for smoking, allergic rhinitis, migraine, cervical lymphadenopathy, fatigue, uncomplicated alcohol dependence. PAST SURGICAL HISTORY: Significant for appendectomy and cholecystectomy. MEDICATIONS AT THE TIME OF EVALUATION: Demonstrate that she is on: 1. Omeprazole 20 mg a day. 2. Lactobacillus 2 tablets 1 time per day. 3. Albuterol HFA inhaler 2 puffs every 4 hours as needed. 4. Zofran 4 mg 3 times a day as needed for nausea and vomiting. 5. Flexeril 10 mg 3 times a day as needed. 6. Pepcid 20 mg 2 times a day. 7. Reglan 5 mg 3 times a day before meals. 8. Tri-Estarylla 1 tablet once per day. REVIEW OF SYSTEMS: HEENT: The patient essentially denies any HEENT exams. GASTROINTESTINAL: Her only positive finding is gastrointestinal. Positive for abdominal distention, blood in stool, and diarrhea. MUSCULOSKELETAL: Positive for back pain. Denies any neurologic or allergic issues. PHYSICAL EXAMINATION: GENERAL: This is a well-developed, well-nourished female, appearing in no acute distress. HEENT: Grossly within normal limits. LUNGS: Clear to auscultation. HEART: Had a regular rate and rhythm. ABDOMEN: Soft with some mild epigastric tenderness. ASSESSMENT: Abdominal pain with bloody diarrhea. PLAN: Colonoscopy. Procedure and risks explained to the patient, and the risks were reviewed as had been mentioned on her initial visit on January 03. These include bleeding, perforation, and infection. She expresses understanding. She asked us to proceed. /[id number] /MODL
== END 2020-02-26 09:00 | disposition home or self-care (01) ==
LOC: FB.SDS 06:50
PROVIDERS: ATTEND Surgery
DX: K92.1 Melena (principal); R10.9 Unspecified abdominal pain; F17.200 Nicotine dependence, unspecified, uncomplicated; Z90.49 Acquired absence of other specified parts of digestive tract; Z87.19 Personal history of other diseases of the digestive system; Z98.890 Other specified postprocedural states
CPT/HCPCS: 00811-QZ; 81025; 88305; J2001; J2704; J7120

== ENCOUNTER 2020-03-03 18:00 | Emergency (ER) | payer OTHER ==
[2020-03-03] MEDS ORDERED: Ondansetron 4 MG/2 ML SDV IVPUSH SCH (18:30)
[2020-03-03] MEDS ORDERED: Metoclopramide 10 MG/2 ML SDV IVPUSH ONE (18:30)
[2020-03-03] MEDS ORDERED: Simethicone 80 MG Tab.Chew PO STA (18:38)
[2020-03-03] MEDS ORDERED: Ondansetron 4 MG/2 ML SDV IVPUSH ONE (18:39)
[2020-03-03] MEDS ORDERED: Pantoprazole 40 MG Vial IVPUSH ONE (18:39)
[2020-03-03] MEDS ORDERED: Simethicone 80 MG Tab.Chew ONE (18:52)
--- NOTE | 2020-03-03 18:54 | EDM.PDOC ---
ED HPI GENERAL MEDICAL PROBLEM - General Chief Complaint: Abdominal Pain Stated Complaint: ASAD Time Seen by Provider: 03/03/20 18:30 Source of Information: Reports: Patient History Limitations: Reports: No Limitations - History of Present Illness INITIAL COMMENTS - FREE TEXT/NARRATIVE: pt had colonoscopy about 6 days ago Presents with nausea and not being able to keep any food down has had history of nausea and vomiting and not being able to keep any food down has epigastric pain : states the pain is chronic with the nausea and loss of appetite no diarrhea no fever or chills no cough last EGD was 2 yrs ago Colonoscopy was inconclusive mid abd Pain Score (Numeric/FACES): 6 - Related Data Allergies Allergy/AdvReac Type Severity Reaction Status Date / Time No Known Allergies Allergy Verified 02/22/20 13:54 Home Meds: Home Meds Omeprazole Magnesium [Prilosec Otc] 20 mg PO DAILY 03/14/19 [History] Albuterol Sulfate [Albuterol Sulfate Hfa] 2 puff IH Q4H PRN 01/11/20 [History] Lactobacillus Acidophilus [Acidophilus Probiotic] 2 tab PO DAILY 01/11/20 [History] Ondansetron [Zofran ODT] 4 mg PO TID 01/11/20 [History] norgestimate-ethinyl estradioL [Nwj-Te-Ciabppyzo Tablet] 1 each PO DAILY 01/11/20 [History] Cyclobenzaprine [Flexeril] 10 mg PO TID 02/22/20 [History] Famotidine 20 mg PO BID 02/22/20 [History] Metoclopramide HCl [Reglan] 10 mg PO Q6HR PRN #30 tablet 03/03/20 [Rx] Saccharomyces Boulardii [Florastor] 250 mg PO BID #60 cap 03/03/20 [Rx] Simethicone [Gas Relief] 180 mg PO BID #60 capsule 03/03/20 [Rx] Past Medical History - Past Health History Medical/Surgical History: Denies Medical/Surgical History HEENT History: Reports: Allergic Rhinitis, Impaired Vision Other HEENT History: RHINORRHEA, MIGRAINE Respiratory History: Reports: Asthma Other Respiratory History: SMOKER Gastrointestinal History: Reports: PUD FEEDER ASSOCIATE History: Reports: Other (See Below) Other FEEDER ASSOCIATE History: Musculoskeletal History: Reports: Fracture Other Musculoskeletal History: hx fx bilat rib fx Neurological History: Reports: Migraines Other Neuro History: CERVICAL LYMPHADENOPATHY Psychiatric History: Reports: Addiction Other Psychiatric History: FATIGUE Endocrine/Metabolic History: Reports: Obesity/BMI 30+ Hematologic History: Reports: None Immunologic History: Oncologic (Cancer) History: Reports: Cervix Dermatologic History: Reports: None - Infectious Disease History Infectious Disease History: Reports: Chicken Pox - Past Surgical History Head Surgeries/Procedures: Reports: None HEENT Surgical History: Reports: None GI Surgical History: Reports: Appendectomy, Cholecystectomy Musculoskeletal Surgical History: Reports: None Social & Family History - Family History Family Medical History: Noncontributory - Tobacco Use Tobacco Use Status *Q: Current Every Day Tobacco User Years of Tobacco use: 17 Packs/Tins Daily: 1 - Caffeine Use Caffeine Use: Reports: None - Living Situation & Occupation Occupation: Employed ED ROS GENERAL - Review of Systems Review Of Systems: See Below Constitutional: Reports: Malaise, Weakness, Fatigue HEENT: Reports: No Symptoms Respiratory: Reports: No Symptoms Cardiovascular: Reports: No Symptoms Endocrine: Reports: No Symptoms GI/Abdominal: Reports: Abdominal Pain (epigastrc pain), Anorexia Skin: Reports: No Symptoms Neurological: Reports: No Symptoms Psychiatric: Reports: No Symptoms ED EXAM, GI/ABD - Physical Exam Exam: See Below Exam Limited By: No Limitations General Appearance: Alert, WD/WN, No Apparent Distress Throat/Mouth: Normal Inspection, Normal Oropharynx Head: Atraumatic, Normocephalic Neck: Supple, Non-Tender Respiratory/Chest: Lungs Clear Cardiovascular: Regular Rate, Rhythm GI/Abdominal Exam: Soft, Distended, Tender (in the epigastrium). No: Guarding, Rigid Extremities: Normal Inspection, Normal Range of Motion Neurological: Alert, Oriented, CN II-XII Intact Course - Vital Signs Last Recorded V/S: Last Vital Signs Temp 36.6 C 03/03/20 20:05 Pulse 96 03/03/20 20:05 Resp 16 03/03/20 20:05 BP 149/98 H 03/03/20 20:05 Pulse Ox 95 03/03/20 20:05 - Orders/Labs/Meds Meds: Medications Discontinued Medications Generic Name Dose Route Start Last Admin Trade Name Freq PRN Reason Stop Dose Admin Sodium Chloride 1,000 mls @ 999 mls/hr 03/03/20 19:00 03/03/20 18:54 Normal Saline IV 999 mls/hr ASDIRECTED SRINATH Administration Metoclopramide HCl 10 mg 03/03/20 18:30 03/03/20 18:37 Reglan IVPUSH 03/03/20 18:31 10 mg ONETIME ONE Administration Ondansetron HCl 4 mg 03/03/20 18:30 03/03/20 18:37 Zofran IVPUSH 4 mg Q8H SRINATH Administration Ondansetron HCl 4 mg 03/03/20 18:39 03/03/20 18:53 Zofran IVPUSH 03/03/20 18:40 Not Given ONETIME ONE Pantoprazole Sodium 40 mg 03/03/20 18:39 03/03/20 18:53 Protonix Iv IVPUSH 03/03/20 18:40 40 mg ONETIME ONE Administration Simethicone 160 mg 03/03/20 18:38 03/03/20 18:53 Simethicone PO 03/03/20 18:39 160 mg NOW STA Administration Simethicone Confirm 03/03/20 18:52 03/03/20 19:02 Simethicone Administered 03/03/20 18:53 Not Given Dose 80 mg .[facility] - Re-Assessments/Exams Free Text/Narrative Re-Assessment/Exam: 03/03/20 18:56 pt had reglan , IVF and simethicone pt requesting for IVF Departure - Departure Time of Disposition: 20:10 Disposition: Home, Self-Care 01 Condition: Fair Clinical Impression: Upper abdominal pain, Delayed gastric emptying, Acute erosive gastritis - Discharge Information *PRESCRIPTION DRUG MONITORING PROGRAM REVIEWED*: Not Applicable *COPY OF PRESCRIPTION DRUG MONITORING REPORT IN PATIENT NARESH: Not Applicable Prescriptions: Saccharomyces Boulardii [Florastor] 250 mg PO BID #60 cap Simethicone [Gas Relief] 180 mg PO BID #60 capsule Metoclopramide HCl [Reglan] 10 mg PO Q6HR PRN #30 tablet PRN Reason: Nausea/Vomiting Instructions: Nausea and Vomiting, Adult, [id number], Abdominal Pain, Adult, [id number] Referrals: PCP,None [Primary Care Provider] - Forms: ED Department Discharge Additional Instructions: 1) Ok to take Zofran and reglan for nausea as needed 2) make appointment to see your doctor if abdominal pain still persists 3) Adjust diet to high protein low carbs for now 4) Call with any concerns Sepsis Event Note (ED) - Evaluation Sepsis Screening Result: No Definite Risk
[2020-03-03] MEDS ORDERED: Sodium Chloride 0.9% 1,000 ML IV SCH (19:00)
[2020-03-04 06:55] VITALS: BP 149/98; PULSE 96
== END 2020-03-03 20:10 | disposition home or self-care (01) ==
LOC: FB.ED 18:00
DX: K29.00 Acute gastritis without bleeding (principal); K30 Functional dyspepsia; J45.909 Unspecified asthma, uncomplicated; E66.9 Obesity, unspecified; Z68.27 Body mass index [BMI] 27.0-27.9, adult; F17.210 Nicotine dependence, cigarettes, uncomplicated; Z79.899 Other long term (current) drug therapy
CPT/HCPCS: 96374; 96375; 99283; A9270; C9113; J2405; J2765; J7030

== ENCOUNTER 2020-05-24 20:55 | Emergency (ER) | payer OTHER ==
[2020-05-24] MEDS ORDERED: Ketorolac 30 MG/ML SDV IVPUSH ONE (21:27)
[2020-05-24] MEDS ORDERED: Ondansetron 4 MG/2 ML SDV IVPUSH ONE (21:28)
[2020-05-24] MEDS ORDERED: Sodium Chloride 0.9% 1,000 ML IV SCH (21:30)
[2020-05-24] MEDS ORDERED: Ciprofloxacin in D5W 400 MG in Premix Bag 1 BAG IV ONE ×2 (21:34)
--- NOTE | 2020-05-24 21:34 | EDM.PDOC ---
ED HPI GENERAL MEDICAL PROBLEM - General Chief Complaint: General Stated Complaint: BACK PAIN; ABDOMINAL PAIN Time Seen by Provider: 05/24/20 21:00 Source of Information: Reports: Patient History Limitations: Reports: No Limitations - History of Present Illness INITIAL COMMENTS - FREE TEXT/NARRATIVE: epigastric pain for about 2 weeks got worse this am and she drank more liquer hoping it would take pain away but pain got worse ( drinks 1/2 a pint daily) smokes cigarettes has productive cough Onset: Today Onset Date: 05/24/20 Duration: Day(s):, Getting Worse Location: Reports: Chest, Abdomen Quality: Reports: Ache, Burning, Same as Previous Episode Severity: Moderate Improves with: Reports: None Worsens with: Reports: Eating, Movement Associated Symptoms: Reports: Loss of Appetite, Malaise, Nausea/Vomiting - Related Data Allergies Allergy/AdvReac Type Severity Reaction Status Date / Time No Known Allergies Allergy Verified 02/22/20 13:54 Home Meds: Home Meds Omeprazole Magnesium [Prilosec Otc] 20 mg PO DAILY 03/14/19 [History] Albuterol Sulfate [Albuterol Sulfate Hfa] 2 puff IH Q4H PRN 01/11/20 [History] Lactobacillus Acidophilus [Acidophilus Probiotic] 2 tab PO DAILY 01/11/20 [History] Ondansetron [Zofran ODT] 4 mg PO TID 01/11/20 [History] norgestimate-ethinyl estradioL [Qqf-Lx-Arldiqjuf Tablet] 1 each PO DAILY 01/11/20 [History] Cyclobenzaprine [Flexeril] 10 mg PO TID 02/22/20 [History] Famotidine 20 mg PO BID 02/22/20 [History] Metoclopramide HCl [Reglan] 10 mg PO Q6HR PRN #30 tablet 03/03/20 [Rx] Saccharomyces Boulardii [Florastor] 250 mg PO BID #60 cap 03/03/20 [Rx] Simethicone [Gas Relief] 180 mg PO BID #60 capsule 03/03/20 [Rx] Ciprofloxacin [Ciprofloxacin HCl] 500 mg PO BID #30 tab 05/25/20 [Rx] traMADol [Ultram] 50 mg PO Q6H PRN #10 tab 05/25/20 [Rx] Past Medical History - Past Health History Medical/Surgical History: Denies Medical/Surgical History HEENT History: Reports: Allergic Rhinitis, Impaired Vision Other HEENT History: RHINORRHEA, MIGRAINE Respiratory History: Reports: Asthma Other Respiratory History: SMOKER Gastrointestinal History: Reports: PUD [employer]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: Musculoskeletal History: Reports: Fracture Other Musculoskeletal History: hx fx bilat rib fx Neurological History: Reports: Migraines Other Neuro History: CERVICAL LYMPHADENOPATHY Psychiatric History: Reports: Addiction Other Psychiatric History: FATIGUE Endocrine/Metabolic History: Reports: Obesity/BMI 30+ Hematologic History: Reports: None Immunologic History: Oncologic (Cancer) History: Reports: Cervix Dermatologic History: Reports: None - Infectious Disease History Infectious Disease History: Reports: Chicken Pox - Past Surgical History Head Surgeries/Procedures: Reports: None HEENT Surgical History: Reports: None GI Surgical History: Reports: Appendectomy, Cholecystectomy Musculoskeletal Surgical History: Reports: None Social & Family History - Family History Family Medical History: No Pertinent Family History - Tobacco Use Tobacco Use Status *Q: Current Every Day Tobacco User Years of Tobacco use: 20 Packs/Tins Daily: 1 - Caffeine Use Caffeine Use: Reports: None - Alcohol Use Days Per Week of Alcohol Use: 7 Number of Drinks Per Day: 6 Total Drinks Per Week: 42 - Recreational Drug Use Recreational Drug Use: Yes Recreational Drug Type: Reports: Marijuana/Hashish - Living Situation & Occupation Occupation: Employed ED ROS GENERAL - Review of Systems Review Of Systems: Comprehensive ROS is negative, except as noted in HPI. ED EXAM, GENERAL - Physical Exam Exam: See Below Exam Limited By: No Limitations General Appearance: Alert, WD/WN, No Apparent Distress Eye Exam: Bilateral Eye: EOMI Ears: Normal External Exam, Normal TMs Nose: Normal Inspection Throat/Mouth: Normal Oropharynx (dry mucous membranes) Head: Atraumatic, Normocephalic Neck: Supple, Non-Tender Respiratory/Chest: No Respiratory Distress, Lungs Clear, Normal Breath Sounds Cardiovascular: Normal Peripheral Pulses, Regular Rate, Rhythm GI/Abdominal: Soft, Non-Tender Back Exam: CVA Tenderness (R), CVA Tenderness (L) Extremities: Normal Inspection, Normal Range of Motion Neurological: Alert, Oriented, CN II-XII Intact Psychiatric: Normal Affect, Normal Mood Skin Exam: Warm, Intact Course - Vital Signs Last Recorded V/S: Last Vital Signs Temp 36.6 C 05/25/20 01:50 Pulse 83 05/25/20 01:50 Resp 18 05/25/20 01:50 BP 156/109 H 05/25/20 01:50 Pulse Ox 96 05/25/20 01:50 - Orders/Labs/Meds Orders: Active Orders 24 hr Category Date Time Status CULTURE URINE [RM] Stat Lab 05/24/20 21:05 Received NS + KCl 20mEq/L [Normal Saline with 20 mEq KCl] 1,000 Med 05/24/20 23:30 Active ml IV ASDIRECTED Sodium Chloride 0.9% [Normal Saline] 1,000 ml Med 05/24/20 21:30 Active IV ASDIRECTED Medication Orders Sodium Chloride (Normal Saline) 1,000 mls @ 999 mls/hr IV ASDIRECTED SRINATH Last Admin: 05/24/20 21:37 Dose: 999 mls/hr Documented by: GERRY Potassium Chloride/Sodium Chloride (Normal Saline With 20 Meq Kcl) 1,000 mls @ 999 mls/hr IV ASDIRECTED SRINATH Last Admin: 05/24/20 23:42 Dose: 999 mls/hr Documented by: GERRY Labs: Laboratory Tests 05/24/20 05/24/20 05/24/20 Range/Units 21:05 21:35 21:35 WBC 15.8 H (3.0-10.3) x10-3/uL RBC 4.84 (3.60-5.20) x10(6)uL Hgb 15.8 H (11.4-15.5) g/dL Hct 48.5 H (34.2-48.2) % MCV 100.2 (76.7-100.5) fL MCH 32.7 (23.9-33.9) pg MCHC 32.6 (31.9-34.8) g/dL RDW 17.0 H (12.3-16.5) % Plt Count 328 (151-488) x10(3)uL MPV 8.6 (7.1-12.4) fL Add Manual Diff Yes Neutrophils % (Manual) 74 (46-82) % Band Neutrophils % 4 (0-6) % Lymphocytes % (Manual) 15 (13-37) % Monocytes % (Manual) 7 (4-12) % Sodium 139 (135-145) mmol/L Potassium 2.9 L (3.5-5.3) mmol/L Chloride 100 (100-110) mmol/L Carbon Dioxide 28 (21-32) mmol/L BUN 8 (7-18) mg/dL Creatinine 0.6 (0.55-1.02) mg/dL Est Cr Clr Drug Dosing TNP Estimated GFR (MDRD) > 60 (>60) BUN/Creatinine Ratio 13.3 (9-20) Glucose 134 H (80-116) mg/dL Calcium 8.9 (8.6-10.2) mg/dL Total Bilirubin 1.1 (0.1-1.3) mg/dL AST 48 H D (5-25) IU/L ALT 32 D (12-36) U/L Alkaline Phosphatase 118 H (56-112) IU/L Total Protein 7.0 (6.0-8.0) g/dL Albumin 2.8 L (3.5-5.2) g/dL Globulin 4.2 g/dL Albumin/Globulin Ratio 0.7 Amylase (25-115) U/L Lipase (73-393) U/L Urine Color Red (YELLOW) Urine Appearance Slightly cloudy (CLEAR) Urine pH 5.0 (5.0-6.5) Ur Specific [place] 1.025 (1.010-1.025) Urine Protein 100 H (NEGATIVE) mg/dL Urine Glucose (UA) Normal (NORMAL) mg/dL Urine Ketones 15 H (NEGATIVE) mg/dL Urine Occult Blood Large H (NEGATIVE) Urine Nitrite Negative (NEGATIVE) Urine Bilirubin Small H (NEGATIVE) Urine Urobilinogen 4 H (NEGATIVE) mg/dL Ur Leukocyte Esterase Moderate H (NEGATIVE) Urine RBC >100 H (0-5) Urine WBC 10-20 H (0-5) Ur Squamous Epith Cells Moderate H (NS,R,O) Urine Bacteria Moderate H (NS) 05/24/20 05/24/20 05/25/20 Range/Units 21:35 21:35 01:05 WBC (3.0-10.3) x10-3/uL RBC (3.60-5.20) x10(6)uL Hgb (11.4-15.5) g/dL Hct (34.2-48.2) % MCV (76.7-100.5) fL MCH (23.9-33.9) pg MCHC (31.9-34.8) g/dL RDW (12.3-16.5) % Plt Count (151-488) x10(3)uL MPV (7.1-12.4) fL Add Manual Diff Neutrophils % (Manual) (46-82) % Band Neutrophils % (0-6) % Lymphocytes % (Manual) (13-37) % Monocytes % (Manual) (4-12) % Sodium (135-145) mmol/L Potassium 4.1 D (3.5-5.3) mmol/L Chloride (100-110) mmol/L Carbon Dioxide (21-32) mmol/L BUN (7-18) mg/dL Creatinine (0.55-1.02) mg/dL Est Cr Clr Drug Dosing Estimated GFR (MDRD) (>60) BUN/Creatinine Ratio (9-20) Glucose (80-116) mg/dL Calcium (8.6-10.2) mg/dL Total Bilirubin (0.1-1.3) mg/dL AST (5-25) IU/L ALT (12-36) U/L Alkaline Phosphatase (56-112) IU/L Total Protein (6.0-8.0) g/dL Albumin (3.5-5.2) g/dL Globulin g/dL Albumin/Globulin Ratio Amylase 137 H (25-115) U/L Lipase 701 H (73-393) U/L Urine Color (YELLOW) Urine Appearance (CLEAR) Urine pH (5.0-6.5) Ur Specific [place] (1.010-1.025) Urine Protein (NEGATIVE) mg/dL Urine Glucose (UA) (NORMAL) mg/dL Urine Ketones (NEGATIVE) mg/dL Urine Occult Blood (NEGATIVE) Urine Nitrite (NEGATIVE) Urine Bilirubin (NEGATIVE) Urine Urobilinogen (NEGATIVE) mg/dL Ur Leukocyte Esterase (NEGATIVE) Urine RBC (0-5) Urine WBC (0-5) Ur Squamous Epith Cells (NS,R,O) Urine Bacteria (NS) Meds: Medications Generic Name Dose Route Start Last Admin Trade Name Freq PRN Reason Stop Dose Admin Sodium Chloride 1,000 mls @ 999 mls/hr 05/24/20 21:30 05/24/20 21:37 Normal Saline IV 999 mls/hr ASDIRECTED SRINATH Administration Potassium Chloride/Sodium Chloride 1,000 mls @ 999 mls/hr 05/24/20 23:30 05/24/20 23:42 Normal Saline With 20 Meq Kcl IV 999 mls/hr ASDIRECTED SRINATH Administration Discontinued Medications Generic Name Dose Route Start Last Admin Trade Name Mitesh PRN Reason Stop Dose Admin Hydrocodone Bitart/Acetaminophen 1 tab 05/25/20 01:54 05/25/20 01:59 [place] 325-5 Mg PO 05/25/20 01:55 1 tab ONETIME ONE Administration Ciprofloxacin/Dextrose 400 mg/ 200 mls @ 200 mls/hr 05/24/20 21:34 05/24/20 21:56 Premix IV 05/24/20 22:33 200 mls/hr ONETIME ONE Administration Ketorolac Tromethamine 30 mg 05/24/20 21:27 05/24/20 21:52 Toradol IVPUSH 05/24/20 21:28 30 mg ONETIME ONE Administration Ondansetron HCl 8 mg 05/24/20 21:28 05/24/20 21:43 Zofran IVPUSH 05/24/20 21:29 8 mg ONETIME ONE Administration Potassium Chloride 40 meq 05/24/20 23:26 05/24/20 23:42 Klor-Con M20 PO 05/24/20 23:27 40 meq ONETIME ONE Administration - Re-Assessments/Exams Free Text/Narrative Re-Assessment/Exam: 05/25/20 01:56 pt did feel better after toradol and iv fluids, but pain started increasng again. Discussed with pt that it is pancreatitis She needs to watch what she eats in the next one week 05/25/20 01:58 potassium level returned to normal before discharge Departure - Departure Time of Disposition: 02:10 Disposition: Home, Self-Care 01 Clinical Impression: Pancreatitis, alcoholic, acute, Hypokalemia, Alcohol dependence, Dehydration, moderate UTI (urinary tract infection) Qualifiers: Urinary tract infection type: site unspecified Hematuria presence: with hematuria Qualified Code(s): N39.0 - Urinary tract infection, site not specified Abdominal pain Qualifiers: Abdominal location: epigastric Qualified Code(s): R10.13 - Epigastric pain - Discharge Information *PRESCRIPTION DRUG MONITORING PROGRAM REVIEWED*: Not Applicable *COPY OF PRESCRIPTION DRUG MONITORING REPORT IN PATIENT NARESH: Not Applicable Prescriptions: Ciprofloxacin [Ciprofloxacin HCl] 500 mg PO BID #30 tab traMADol [Ultram] 50 mg PO Q6H PRN #10 tab PRN Reason: Pain (Severe 7-10) Instructions: Acute Pancreatitis, [id number], Pancreatitis Eating Plan Referrals: Harvey Simons MD [Primary Care Provider] - Forms: ED Department Discharge Additional Instructions: 1) Increase fluid diet 2) Pancreatic diet : high protein 3)STOP ALCOHOL INTAKE 4) Make appointment to see your doctor Sepsis Event Note (ED) - Evaluation Sepsis Screening Result: No Definite Risk - Focused Exam Vital Signs: Vital Signs Temp Pulse Resp BP Pulse Ox 05/25/20 01:50 36.6 C 83 18 156/109 H 96 05/24/20 21:00 36.6 C 109 H 18 176/109 H 96 - My Orders Last 24 Hours: My Active Orders 05/24/20 21:05 CULTURE URINE [RM] Stat 05/24/20 21:30 Sodium Chloride 0.9% [Normal Saline] 1,000 ml IV ASDIRECTED 05/24/20 23:30 NS + KCl 20mEq/L [Normal Saline with 20 mEq KCl] 1,000 ml IV ASDIRECTED - Assessment/Plan Last 24 Hours: My Active Orders 05/24/20 21:05 CULTURE URINE [RM] Stat 05/24/20 21:30 Sodium Chloride 0.9% [Normal Saline] 1,000 ml IV ASDIRECTED 05/24/20 23:30 NS + KCl 20mEq/L [Normal Saline with 20 mEq KCl] 1,000 ml IV ASDIRECTED
[2020-05-24] MEDS ORDERED: Potassium Chloride 20 MEQ Tab.ER PO ONE (23:26)
[2020-05-24] MEDS ORDERED: NS + KCl 20mEq/L 1,000 ML IV SCH (23:30)
[2020-05-25] MEDS ORDERED: Acetaminophen/HYDROcodone 325-5 MG Tab PO ONE (01:54)
[2020-05-25 01:55] VITALS: BP 156/109; PULSE 83
== END 2020-05-25 02:20 | disposition home or self-care (01) ==
LOC: FB.ED 20:55
DX: K85.20 Alcohol induced acute pancreatitis without necrosis or infection (principal); N39.0 Urinary tract infection, site not specified; E87.6 Hypokalemia; F10.20 Alcohol dependence, uncomplicated; E86.0 Dehydration; J45.909 Unspecified asthma, uncomplicated; F17.200 Nicotine dependence, unspecified, uncomplicated; E66.9 Obesity, unspecified; Z79.899 Other long term (current) drug therapy; Z68.26 Body mass index [BMI] 26.0-26.9, adult
CPT/HCPCS: 36415; 80053; 81001; 82150; 83690; 84132; 85025; 87086; 96365; 96367; 96375; 99284; 99284-25; A9270-GY; J0744; J1885; J2405; J3480; J7030

== ENCOUNTER 2020-05-26 15:10 | Inpatient (IN) | payer OTHER ==
[2020-05-26] MEDS ORDERED: Ketorolac 30 MG/ML SDV IVPUSH ONE (15:20)
--- NOTE | 2020-05-26 15:24 | EDM.PDOC ---
ED HPI GENERAL MEDICAL PROBLEM - General Chief Complaint: Abdominal Pain Stated Complaint: abd pain Time Seen by Provider: 05/26/20 15:30 Source of Information: Reports: Patient History Limitations: Reports: No Limitations - History of Present Illness INITIAL COMMENTS - FREE TEXT/NARRATIVE: presents with epigastric pain states has continued since she was discharge on Wednesday Denies drinking more alcohol and also denies drug us e, States she is not having withdrawal symptoms. Last alcohol use , states is on Wednesday am Onset: Today, Gradual Onset Date: 05/26/20 Duration: Getting Worse Location: Reports: Abdomen Quality: Reports: Ache, Dull, Stabbing Improves with: Reports: None Worsens with: Reports: Eating, Movement Context: Reports: Activity Associated Symptoms: Reports: Loss of Appetite, Malaise, Nausea/Vomiting generalized abd Pain Score (Numeric/FACES): 10 - Related Data Allergies Allergy/AdvReac Type Severity Reaction Status Date / Time No Known Allergies Allergy Verified 05/25/20 04:34 Home Meds: Home Meds Omeprazole Magnesium [Prilosec Otc] 20 mg PO DAILY 03/14/19 [History] Past Medical History - Past Health History Medical/Surgical History: Denies Medical/Surgical History HEENT History: Reports: Allergic Rhinitis, Impaired Vision Other HEENT History: Rhinorrhea, migraine. Respiratory History: Reports: Asthma Other Respiratory History: Smoker. 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 Neurological History: Reports: Migraines Other Neuro History: Cervical lymphadenopathy. Psychiatric History: Reports: Addiction, Other (See Below) Other Psychiatric History: Fatigue. Endocrine/Metabolic History: Reports: Obesity/BMI 30+ Hematologic History: Reports: None Immunologic History: Oncologic (Cancer) History: Reports: Cervix Dermatologic History: Reports: None - Infectious Disease History Infectious Disease History: Reports: Chicken Pox - Past Surgical History Head Surgeries/Procedures: Reports: None HEENT Surgical History: Reports: None GI Surgical History: Reports: Appendectomy, Cholecystectomy Musculoskeletal Surgical History: Reports: None Social & Family History - Family History Family Medical History: No Pertinent Family History - Caffeine Use Caffeine Use: Reports: None - Living Situation & Occupation Occupation: Employed ED ROS GENERAL - Review of Systems Review Of Systems: See Below Constitutional: Reports: Malaise, Weakness, Fatigue HEENT: Reports: No Symptoms Respiratory: Reports: Cough, Sputum Cardiovascular: Reports: No Symptoms Endocrine: Reports: Fatigue GI/Abdominal: Reports: Abdominal Pain, Anorexia, Decreased Appetite, Distension, Nausea, Vomiting : Reports: No Symptoms Musculoskeletal: Reports: No Symptoms Skin: Reports: No Symptoms Neurological: Reports: Dizziness, Headache Psychiatric: Reports: No Symptoms Hematologic/Lymphatic: Reports: No Symptoms Immunologic: Reports: No Symptoms ED EXAM, GI/ABD - Physical Exam Exam: See Below Exam Limited By: No Limitations General Appearance: Alert, WD/WN, Mild Distress Eyes: Bilateral: EOMI Ears: Normal External Exam Nose: Normal Inspection Throat/Mouth: Normal Oropharynx (dry mucous membranes) Head: Atraumatic, Normocephalic Neck: Supple, Non-Tender Respiratory/Chest: Lungs Clear, Normal Breath Sounds Cardiovascular: Normal Peripheral Pulses, Regular Rate, Rhythm GI/Abdominal Exam: Soft, Tender (epigastrium). No: Guarding, Rigid, Hepatomegaly, Splenomegaly Back Exam: Full Range of Motion Extremities: Normal Range of Motion, Non-Tender Neurological: Alert, Oriented, CN II-XII Intact, Normal Cognition Psychiatric: Normal Affect, Anxious Skin Exam: Warm, Dry, Intact Lymphatic: No Adenopathy Course - Vital Signs Last Recorded V/S: Last Vital Signs Temp 36.9 C 05/26/20 20:15 Pulse 114 H 05/26/20 20:15 Resp 18 05/26/20 20:15 BP 165/99 H 05/26/20 20:15 Pulse Ox 97 05/26/20 20:15 - Orders/Labs/Meds Orders: Active Orders 24 hr Category Date Time Status Patient Status [ADT] Routine ADT 05/26/20 19:56 Active Ambulate [RC] PER UNIT ROUTINE Care 05/26/20 19:56 Active Antiembolic Devices [RC] .Routine Care 05/26/20 19:57 Active Height and Weight [RC] DAILY Care 05/26/20 19:56 Active Intake and Output [RC] QSHIFT Care 05/26/20 19:58 Active Pulse Oximetry [RC] PRN Care 05/26/20 19:56 Active Up ad Vani [RC] ASDIRECTED Care 05/26/20 19:56 Active VTE/DVT Education [RC] Click to Edit Care 05/26/20 19:57 Active Vital Signs [RC] Q4H Care 05/26/20 19:56 Active Full Liquid Diet [DIET] Diet 05/27/20 Breakfast Ordered Abdomen Pelvis w Cont [CT] Stat Exams 05/26/20 18:07 Taken BASIC METABOLIC PANEL,BMP [CHEM] AM Lab 05/27/20 05:11 Ordered CBC WITH AUTO DIFF [HEME] AM Lab 05/27/20 05:11 Ordered CBC WITH AUTO DIFF [HEME] Stat Lab 05/26/20 15:25 Received INR,PT,PROTHROMBIN TIME [COAG] AM Lab 05/27/20 05:11 Ordered Acetaminophen [TylenoL] Med 05/26/20 19:56 Active 650 mg PO Q4H PRN Magnesium Hydroxide [Milk of Magnesia] Med 05/26/20 19:56 Active 30 ml PO BID PRN Nicotine [Habitrol] Med 05/26/20 20:00 Active 14 mg TRDERM DAILY Sodium Chloride 0.9% [Normal Saline] 1,000 ml Med 05/26/20 18:15 Active IV ASDIRECTED DVT/VTE Prophylaxis Reflex [OM.PC] Per Unit Routine Oth 05/26/20 19:56 Ordered Medication Discontinuation Instructions [OM.PC] Per Oth 05/26/20 19:58 Ordered Unit Routine Resuscitation Status Routine Resus Stat 05/26/20 19:56 Ordered Medication Orders Acetaminophen (Tylenol) 650 mg PO Q4H PRN PRN Reason: analgesia/fever Sodium Chloride (Normal Saline) 1,000 mls @ 125 mls/hr IV ASDIRECTED [facility] Last Admin: 05/26/20 18:15 Dose: 125 mls/hr Documented by: LOUISE Levofloxacin/Dextrose 500 mg/ (Premix) 100 mls @ 100 mls/hr IV Q24H [facility] Multivitamins/Minerals 10 ml/Thiamine HCl 100 mg/ Folic Acid 1 mg/ Magnesium Sulfate 3 gm/ Sodium Chloride 1,017.2 mls @ 250 mls/hr IV ASDIRECTED [facility] Ketorolac Tromethamine (Toradol) 30 mg IVPUSH Q6H [facility] Stop: 05/31/20 20:21 Magnesium Hydroxide (Milk Of Magnesia) 30 ml PO BID PRN PRN Reason: Constipation Nicotine (Habitrol) 14 mg TRDERM DAILY [facility] Ondansetron HCl (Zofran) 4 mg IVPUSH Q4H PRN PRN Reason: Nausea/Vomiting Pantoprazole Sodium (Protonix Iv) 40 mg IV Q12H [facility] Propranolol HCl (Inderal) 40 mg PO BID [facility] Labs: Laboratory Tests 05/26/20 05/26/20 05/26/20 Range/Units 15:25 15:25 15:25 Sodium (135-145) mmol/L Potassium (3.5-5.3) mmol/L Chloride (100-110) mmol/L Carbon Dioxide (21-32) mmol/L BUN (7-18) mg/dL Creatinine (0.55-1.02) mg/dL Est Cr Clr Drug Dosing Estimated GFR (MDRD) (>60) BUN/Creatinine Ratio (9-20) Glucose (80-116) mg/dL Calcium (8.6-10.2) mg/dL Total Bilirubin (0.1-1.3) mg/dL AST (5-25) IU/L ALT (12-36) U/L Alkaline Phosphatase (56-112) IU/L Total Protein (6.0-8.0) g/dL Albumin (3.5-5.2) g/dL Globulin g/dL Albumin/Globulin Ratio Amylase 396 H* (25-115) U/L Lipase > 1500 H (73-393) U/L Urine Opiates Screen (NEGATIVE) Ur Oxycodone Screen (NEGATIVE) Ur Propoxyphene Screen (NEGATIVE) Ur Barbituates Screen (NEGATIVE) Ur Tricyclics Screen (NEGATIVE) Ur Phencyclidine Scrn (NEGATIVE) Ur Amphetamine Screen (NEGATIVE) Urine MDMA Screen (NEGATIVE) U Benzodiazepines Scrn (NEGATIVE) U Cocaine Metab Screen (NEGATIVE) U Marijuana (THC) Screen (NEGATIVE) Ethyl Alcohol < 0.03 (<0.03) % 05/26/20 05/26/20 Range/Units 15:25 15:40 Sodium 139 (135-145) mmol/L Potassium 3.4 L (3.5-5.3) mmol/L Chloride 99 L (100-110) mmol/L Carbon Dioxide 25 (21-32) mmol/L BUN 8 (7-18) mg/dL Creatinine 0.8 (0.55-1.02) mg/dL Est Cr Clr Drug Dosing TNP Estimated GFR (MDRD) > 60 (>60) BUN/Creatinine Ratio 10.0 (9-20) Glucose 120 H (80-116) mg/dL Calcium 9.0 (8.6-10.2) mg/dL Total Bilirubin 0.9 (0.1-1.3) mg/dL AST 27 H D (5-25) IU/L ALT 23 D (12-36) U/L Alkaline Phosphatase 113 H (56-112) IU/L Total Protein 7.2 (6.0-8.0) g/dL Albumin 2.9 L (3.5-5.2) g/dL Globulin 4.3 g/dL Albumin/Globulin Ratio 0.7 Amylase (25-115) U/L Lipase (73-393) U/L Urine Opiates Screen Negative (NEGATIVE) Ur Oxycodone Screen Negative (NEGATIVE) Ur Propoxyphene Screen Negative (NEGATIVE) Ur Barbituates Screen Negative (NEGATIVE) Ur Tricyclics Screen Positive H (NEGATIVE) Ur Phencyclidine Scrn Negative (NEGATIVE) Ur Amphetamine Screen Positive H (NEGATIVE) Urine MDMA Screen Negative (NEGATIVE) U Benzodiazepines Scrn Negative (NEGATIVE) U Cocaine Metab Screen Negative (NEGATIVE) U Marijuana (THC) Screen Positive H (NEGATIVE) Ethyl Alcohol (<0.03) % Meds: Medications Generic Name Dose Route Start Last Admin Trade Name Freq PRN Reason Stop Dose Admin Acetaminophen 650 mg 05/26/20 19:56 Tylenol PO Q4H PRN analgesia/fever Sodium Chloride 1,000 mls @ 125 mls/hr 05/26/20 18:15 05/26/20 18:15 Normal Saline IV 125 mls/hr ASDIRECTED [facility] Administration Levofloxacin/Dextrose 500 mg/ 100 mls @ 100 mls/hr 05/26/20 20:30 Premix IV Q24H [facility] Multivitamins/Minerals 10 ml/ 1,017.2 mls @ 250 mls/hr 05/26/20 20:30 Thiamine HCl 100 mg/ Folic IV Acid 1 mg/ Magnesium Sulfate 3 ASDIRECTED [facility] gm/ Sodium Chloride Ketorolac Tromethamine 30 mg 05/26/20 20:30 Toradol IVPUSH 05/31/20 20:21 Q6H [facility] Magnesium Hydroxide 30 ml 05/26/20 19:56 Milk Of Magnesia PO BID PRN Constipation Nicotine 14 mg 05/26/20 20:00 Habitrol TRDERM DAILY [facility] Ondansetron HCl 4 mg 05/26/20 20:21 Zofran IVPUSH Q4H PRN Nausea/Vomiting Pantoprazole Sodium 40 mg 05/26/20 20:45 Protonix Iv IV Q12H [facility] Propranolol HCl 40 mg 05/26/20 21:00 Inderal PO BID [facility]IN[facility] Discontinued Medications Generic Name Dose Route Start Last Admin Trade Name Freq PRN Reason Stop Dose Admin Sodium Chloride 1,000 mls @ 125 mls/hr 05/26/20 15:30 05/26/20 16:11 Normal Saline IV 999 mls/hr ASDIRECTED [facility] Infusion Sodium Chloride 1,000 mls @ 999 mls/hr 05/26/20 16:45 05/26/20 17:10 Normal Saline IV 999 mls/hr ASDIRECTED [facility] Administration Iopamidol 100 ml 05/26/20 18:31 05/26/20 18:50 Isovue-370 (76%) IV 05/26/20 18:32 75 ml . DIRECTED ONE Administration Ketorolac Tromethamine 30 mg 05/26/20 15:20 05/26/20 15:29 Toradol IVPUSH 05/26/20 15:21 30 mg ONETIME ONE Administration Ondansetron HCl 4 mg 05/26/20 15:35 05/26/20 15:40 Zofran IVPUSH 05/26/20 15:36 4 mg ONETIME ONE Administration Potassium Chloride 40 meq 05/26/20 18:04 05/26/20 18:16 Klor-Con M20 PO 05/26/20 18:05 40 meq ONETIME ONE Administration Departure - Departure Time of Disposition: 20:30 Disposition: Admitted As Inpatient 66 Condition: Fair Clinical Impression: Epigastric abdominal pain, Pancreatitis, Alcohol dependence, Hypokalemia, Dehydration, moderate, Pancreatitis, alcoholic, acute, Hypokalemia, Vomiting - Discharge Information *PRESCRIPTION DRUG MONITORING PROGRAM REVIEWED*: Not Applicable *COPY OF PRESCRIPTION DRUG MONITORING REPORT IN PATIENT NARESH: Not Applicable Sepsis Event Note (ED) - Focused Exam Vital Signs: Vital Signs Temp Pulse Resp BP Pulse Ox 05/26/20 15:10 36.7 C 119 H 20 172/113 H 100 - My Orders Last 24 Hours: My Active Orders 05/26/20 15:25 CBC WITH AUTO DIFF [HEME] Stat 05/26/20 18:07 Abdomen Pelvis w Cont [CT] Stat 05/26/20 18:15 Sodium Chloride 0.9% [Normal Saline] 1,000 ml IV ASDIRECTED 05/26/20 19:56 Patient Status [ADT] Routine Ambulate [RC] PER UNIT ROUTINE Height and Weight [RC] DAILY Pulse Oximetry [RC] PRN Up ad Vani [RC] ASDIRECTED Vital Signs [RC] Q4H Acetaminophen [TylenoL] 650 mg PO Q4H PRN Magnesium Hydroxide [Milk of Magnesia] 30 ml PO BID PRN DVT/VTE Prophylaxis Reflex [OM.PC] Per Unit Routine Resuscitation Status Routine 05/26/20 19:57 Antiembolic Devices [RC] .Routine VTE/DVT Education [RC] Click to Edit 05/26/20 19:58 Intake and Output [RC] QSHIFT Medication Discontinuation Instructions [OM.PC] Per Unit Routine 05/26/20 20:00 Nicotine [Habitrol] 14 mg TRDERM DAILY 05/27/20 05:11 BASIC METABOLIC PANEL,BMP [CHEM] AM CBC WITH AUTO DIFF [HEME] AM INR,PT,PROTHROMBIN TIME [COAG] AM 05/27/20 Breakfast Full Liquid Diet [DIET] - Assessment/Plan Last 24 Hours: My Active Orders 05/26/20 15:25 CBC WITH AUTO DIFF [HEME] Stat 05/26/20 18:07 Abdomen Pelvis w Cont [CT] Stat 05/26/20 18:15 Sodium Chloride 0.9% [Normal Saline] 1,000 ml IV ASDIRECTED 05/26/20 19:56 Patient Status [ADT] Routine Ambulate [RC] PER UNIT ROUTINE Height and Weight [RC] DAILY Pulse Oximetry [RC] PRN Up ad Vani [RC] ASDIRECTED Vital Signs [RC] Q4H Acetaminophen [TylenoL] 650 mg PO Q4H PRN Magnesium Hydroxide [Milk of Magnesia] 30 ml PO BID PRN DVT/VTE Prophylaxis Reflex [OM.PC] Per Unit Routine Resuscitation Status Routine 05/26/20 19:57 Antiembolic Devices [RC] .Routine VTE/DVT Education [RC] Click to Edit 05/26/20 19:58 Intake and Output [RC] QSHIFT Medication Discontinuation Instructions [OM.PC] Per Unit Routine 05/26/20 20:00 Nicotine [Habitrol] 14 mg TRDERM DAILY 05/27/20 05:11 BASIC METABOLIC PANEL,BMP [CHEM] AM CBC WITH AUTO DIFF [HEME] AM INR,PT,PROTHROMBIN TIME [COAG] AM 05/27/20 Breakfast Full Liquid Diet [DIET]
[2020-05-26] MEDS ORDERED: Sodium Chloride 0.9% 1,000 ML IV SCH ×2 (15:30→16:45)
[2020-05-26] MEDS ORDERED: Ondansetron 4 MG/2 ML SDV IVPUSH ONE (15:35)
[2020-05-26] MEDS ORDERED: Potassium Chloride 20 MEQ Tab.ER PO ONE (18:04)
[2020-05-26] MEDS: Sodium Chloride 0.9% 1,000 ML IV SCH (18:15)
[2020-05-26] MEDS ORDERED: Iopamidol 755 Mg/ML 100 ML Bottle IV ONE (18:31)
[2020-05-26] MEDS ORDERED: Acetaminophen 325 MG Tab PO PRN (19:56)
[2020-05-26] MEDS ORDERED: Magnesium Hydroxide 400 MG/5 ML Susp 30 ML Cup PO PRN (19:56)
[2020-05-26] MEDS ORDERED: Nicotine 14 MG/24 Hr Patch TRDERM SCH (20:00)
[2020-05-26] MEDS ORDERED: MVI, Adult with Vitamin K 10 ML, Thiamine 100 MG, Folic Acid 1 MG, Magnesium Sulfate 3 ... IV SCH ×5 (20:30)
[2020-05-26] MEDS: Ketorolac 30 MG/ML SDV IVPUSH SCH (21:02)
[2020-05-26] MEDS: Pantoprazole 40 MG Vial IV SCH (21:05)
[2020-05-26] MEDS: Levofloxacin/Dextrose 5%-Water 500 MG in Premix Bag 1 BAG IV SCH (21:09)
[2020-05-26] MEDS: Propranolol 40 MG Tab PO SCH (21:17)
[2020-05-26] MEDS: Ondansetron 4 MG/2 ML SDV IVPUSH PRN (22:46)
[2020-05-27] MEDS: Ketorolac 30 MG/ML SDV IVPUSH SCH ×2 (02:26→07:50)
[2020-05-27] MEDS: Sodium Chloride 0.9% 10 ML Syringe FLUSH PRN (02:28)
[2020-05-27] MEDS: Propranolol 40 MG Tab PO SCH ×3 (06:43→20:13)
[2020-05-27] MEDS: Sodium Chloride 0.9% 1,000 ML IV SCH ×3 (07:53→19:52)
[2020-05-27] MEDS: Pantoprazole 40 MG Vial IV SCH ×2 (08:30→20:11)
--- NOTE | 2020-05-27 09:20 | PCM.HP.2 ---
H&P History of Present Illness - General Date of Service: 05/27/20 Admit Problem/Dx: Admission Diagnosis/Problem Admission Diagnosis/Problem Pancreatitis Source of Information: Patient, Old Records History Limitations: Reports: No Limitations - History of Present Illness Initial Comments - Free Text/Narative: 35-year-old lady with a past medical history significant for alcohol abuse came to the hospital for the second time in 2 days for evaluation of abdominal pain, nausea, vomiting, diarrhea. She states that she has a history of daily alcohol use of up to 1 pint per day. She also smokes marijuana regularly and smokes cigarettes daily. She states that she has not had pancreatitis in the past but has had nagging stomach pain stomach problems for several months. She has tried to reduce her alcohol dependence in the past and has even attended alcoholics anonymous. She states that her father was also an alcoholic. Onset of Symptoms: Reports: Sudden Duration of Symptoms: Reports: Chronic Location: Reports: Abdomen Quality: Reports: Ache, Burning, Pressure, Sharp Severity: Severe Improves with: Reports: None Worsens with: Reports: Eating, Movement Associated Symptoms: Reports: Loss of Appetite, Malaise, Nausea/Vomiting generalized abd Pain Score (Numeric/FACES): 10 - Related Data Allergies/Adverse Reactions: Allergies Allergy/AdvReac Type Severity Reaction Status Date / Time No Known Allergies Allergy Verified 05/25/20 04:34 Home Medications: Home Meds Omeprazole Magnesium [Prilosec Otc] 20 mg PO DAILY 03/14/19 [History] Ciprofloxacin [Ciprofloxacin HCl] 500 mg PO BID 05/26/20 [History] Dicyclomine [Bentyl] 10 cap OP Q6HR PRN 05/26/20 [History] traMADol [Ultram] 50 mg PO Q6H PRN 05/26/20 [History] Past Medical History - Past Health History Medical/Surgical History: Denies Medical/Surgical History HEENT History: Reports: Allergic Rhinitis, Impaired Vision Other HEENT History: Rhinorrhea, migraine. Respiratory History: Reports: Asthma Other Respiratory History: Smoker. 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 Neurological History: Reports: Migraines Other Neuro History: Cervical lymphadenopathy. Psychiatric History: Reports: Addiction, Other (See Below) Other Psychiatric History: Fatigue. Endocrine/Metabolic History: Reports: Obesity/BMI 30+ Hematologic History: Reports: None Immunologic History: Oncologic (Cancer) History: Reports: Cervix Dermatologic History: Reports: None - Infectious Disease History Infectious Disease History: Reports: Chicken Pox - Past Surgical History Head Surgeries/Procedures: Reports: None HEENT Surgical History: Reports: None GI Surgical History: Reports: Appendectomy, Cholecystectomy Musculoskeletal Surgical History: Reports: None Social & Family History - Family History Family Medical History: No Pertinent Family History Respiratory: Reports: Asthma - Tobacco Use Tobacco Use Status *Q: Current Every Day Tobacco User Years of Tobacco use: 16 Packs/Tins Daily: 1 Second Hand Smoke Exposure: Yes - Caffeine Use Caffeine Use: Reports: None - Alcohol Use Days Per Week of Alcohol Use: 7 Number of Drinks Per Day: 5 Total Drinks Per Week: 35 Date of Last Drink: 05/24/20 Time of Last Drink: 11:00 - Recreational Drug Use Recreational Drug Use: Yes Drug Use in Last 12 Months: Yes Recreational Drug Type: Reports: Marijuana/Hashish Recreational Drug Use Frequency: Weekly - Living Situation & Occupation Occupation: Employed H&P Review of Systems - Review of Systems: Review Of Systems: See Below General: Reports: Malaise, Weakness, Fatigue, Decreased Appetite HEENT: Reports: No Symptoms Pulmonary: Reports: No Symptoms Cardiovascular: Reports: No Symptoms Gastrointestinal: Reports: Abdominal Pain, Diarrhea, Decreased Appetite, Distension, Nausea, Vomiting Genitourinary: Reports: No Symptoms Musculoskeletal: Reports: No Symptoms Skin: Reports: No Symptoms Psychiatric: Reports: Depression, Anxiety Neurological: Reports: No Symptoms Hematologic/Lymphatic: Reports: No Symptoms Immunologic: Reports: No Symptoms Exam - Exam Exam: See Below - Vital Signs Vital Signs: Last Vital Signs Temp 36.4 C 05/27/20 08:48 Pulse 78 05/27/20 08:48 Resp 16 05/27/20 08:48 BP 168/109 H 05/27/20 08:48 Pulse Ox 99 05/27/20 08:48 Weight: 62.709 kg - Exam Quality Assessment: Supplemental Oxygen, DVT Prophylaxis General: Alert, Oriented, Cooperative, Mild Distress HEENT: Conjunctiva Clear, EOMI, Hearing Intact, Mucosa Moist & Jaconita Neck: Supple Lungs: Clear to Auscultation Cardiovascular: Regular Rate, Regular Rhythm GI/Abdominal Exam: Guarding, Tender, Abnormal Bowel Sounds Back Exam: Normal Inspection Extremities: Normal Inspection Peripheral Pulses: 2+: Radial (L), Radial (R), Dorsalis Pedis (L), Dorsalis Pedis (R) Skin: Warm, Dry Neurological: No: Focal Deficit Neuro Extensive - Mental Status: Alert, Oriented x3, Normal Cognition Psychiatric: Alert, Labile Mood - Patient Data Lab Results Last 24 hrs: Laboratory Results - last 24 hr 05/26/20 05/26/20 05/26/20 Range/Units 15:25 15:25 15:25 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 PT (9.0-11.1) sec INR (1.00-1.24) Sodium (135-145) mmol/L Potassium (3.5-5.3) mmol/L Chloride (100-110) mmol/L Carbon Dioxide (21-32) mmol/L BUN (7-18) mg/dL Creatinine (0.55-1.02) mg/dL Est Cr Clr Drug Dosing Estimated GFR (MDRD) (>60) BUN/Creatinine Ratio (9-20) Glucose (80-116) mg/dL Calcium (8.6-10.2) mg/dL Total Bilirubin (0.1-1.3) mg/dL AST (5-25) IU/L ALT (12-36) U/L Alkaline Phosphatase (56-112) IU/L Total Protein (6.0-8.0) g/dL Albumin (3.5-5.2) g/dL Globulin g/dL Albumin/Globulin Ratio Amylase 396 H* (25-115) U/L Lipase > 1500 H (73-393) U/L Urine Opiates Screen (NEGATIVE) Ur Oxycodone Screen (NEGATIVE) Ur Propoxyphene Screen (NEGATIVE) Ur Barbituates Screen (NEGATIVE) Ur Tricyclics Screen (NEGATIVE) Ur Phencyclidine Scrn (NEGATIVE) Ur Amphetamine Screen (NEGATIVE) Urine MDMA Screen (NEGATIVE) U Benzodiazepines Scrn (NEGATIVE) U Cocaine Metab Screen (NEGATIVE) U Marijuana (THC) Screen (NEGATIVE) Ethyl Alcohol (<0.03) % SARS-CoV-2 RNA (JAVIER) (NEGATIVE) 05/26/20 05/26/20 05/26/20 Range/Units 15:25 15:25 15:40 WBC PT (9.0-11.1) sec INR (1.00-1.24) Sodium 139 (135-145) mmol/L Potassium 3.4 L (3.5-5.3) mmol/L Chloride 99 L (100-110) mmol/L Carbon Dioxide 25 (21-32) mmol/L BUN 8 (7-18) mg/dL Creatinine 0.8 (0.55-1.02) mg/dL Est Cr Clr Drug Dosing TNP Estimated GFR (MDRD) > 60 (>60) BUN/Creatinine Ratio 10.0 (9-20) Glucose 120 H (80-116) mg/dL Calcium 9.0 (8.6-10.2) mg/dL Total Bilirubin 0.9 (0.1-1.3) mg/dL AST 27 H D (5-25) IU/L ALT 23 D (12-36) U/L Alkaline Phosphatase 113 H (56-112) IU/L Total Protein 7.2 (6.0-8.0) g/dL Albumin 2.9 L (3.5-5.2) g/dL Globulin 4.3 g/dL Albumin/Globulin Ratio 0.7 Amylase (25-115) U/L Lipase (73-393) U/L Urine Opiates Screen Negative (NEGATIVE) Ur Oxycodone Screen Negative (NEGATIVE) Ur Propoxyphene Screen Negative (NEGATIVE) Ur Barbituates Screen Negative (NEGATIVE) Ur Tricyclics Screen Positive H (NEGATIVE) Ur Phencyclidine Scrn Negative (NEGATIVE) Ur Amphetamine Screen Positive H (NEGATIVE) Urine MDMA Screen Negative (NEGATIVE) U Benzodiazepines Scrn Negative (NEGATIVE) U Cocaine Metab Screen Negative (NEGATIVE) U Marijuana (THC) Screen Positive H (NEGATIVE) Ethyl Alcohol < 0.03 (<0.03) % SARS-CoV-2 RNA (JAVIER) (NEGATIVE) 05/26/20 05/27/20 05/27/20 Range/Units 23:30 06:30 06:30 WBC PT 10.4 (9.0-11.1) sec INR 0.96 L (1.00-1.24) Sodium 137 (135-145) mmol/L Potassium 3.9 (3.5-5.3) mmol/L Chloride 103 (100-110) mmol/L Carbon Dioxide 23 (21-32) mmol/L BUN 4 L (7-18) mg/dL Creatinine 0.6 (0.55-1.02) mg/dL Est Cr Clr Drug Dosing 98.75 Estimated GFR (MDRD) > 60 (>60) BUN/Creatinine Ratio 6.7 L (9-20) Glucose 88 (80-116) mg/dL Calcium 7.8 L (8.6-10.2) mg/dL Total Bilirubin (0.1-1.3) mg/dL AST (5-25) IU/L ALT (12-36) U/L Alkaline Phosphatase (56-112) IU/L Total Protein (6.0-8.0) g/dL Albumin (3.5-5.2) g/dL Globulin g/dL Albumin/Globulin Ratio Amylase (25-115) U/L Lipase (73-393) U/L Urine Opiates Screen (NEGATIVE) Ur Oxycodone Screen (NEGATIVE) Ur Propoxyphene Screen (NEGATIVE) Ur Barbituates Screen (NEGATIVE) Ur Tricyclics Screen (NEGATIVE) Ur Phencyclidine Scrn (NEGATIVE) Ur Amphetamine Screen (NEGATIVE) Urine MDMA Screen (NEGATIVE) U Benzodiazepines Scrn (NEGATIVE) U Cocaine Metab Screen (NEGATIVE) U Marijuana (THC) Screen (NEGATIVE) Ethyl Alcohol (<0.03) % SARS-CoV-2 RNA (JAVIER) Negative (NEGATIVE) Result Diagrams: 05/26/20 15:25 05/27/20 06:30 Sepsis Event Note - Evaluation Sepsis Screening Result: No Definite Risk - Focused Exam Vital Signs: Vital Signs Temp Pulse Resp BP Pulse Ox 05/27/20 08:48 36.4 C 78 16 168/109 H 99 05/27/20 06:00 36.4 C 75 18 155/104 H 98 05/27/20 02:45 36.6 C 81 18 158/108 H 97 05/27/20 01:00 36.4 C 78 18 152/104 H 94 L 05/26/20 23:00 91 18 156/102 H 95 05/26/20 22:00 89 18 156/102 H 95 05/26/20 21:30 95 - Problem List (1) Obesity (BMI 30-39.9) SNOMED Code(s): 341264403, 211237562 ICD Code: E66.9 - OBESITY, UNSPECIFIED Status: Acute Current Visit: Yes (2) Marijuana abuse SNOMED Code(s): 06351613 ICD Code: F12.10 - CANNABIS ABUSE, UNCOMPLICATED Status: Acute Current Visit: Yes (3) Alcohol abuse SNOMED Code(s): 36867289 ICD Code: F10.10 - ALCOHOL ABUSE, UNCOMPLICATED Status: Acute Current Visit: Yes (4) Upper abdominal pain SNOMED Code(s): 39865478 ICD Code: R10.10 - UPPER ABDOMINAL PAIN, UNSPECIFIED Status: Acute Curr ent Visit: No (5) Leukocytosis SNOMED Code(s): 037562546 ICD Code: D72.829 - ELEVATED WHITE BLOOD CELL COUNT, UNSPECIFIED Status: Acute Current Visit: No (6) Hypokalemia SNOMED Code(s): 53638311 ICD Code: E87.6 - HYPOKALEMIA Status: Acute Current Visit: Yes Problem Details: Replace IV potasium (7) Alcohol dependence SNOMED Code(s): 81985233 ICD Code: F10.20 - ALCOHOL DEPENDENCE, UNCOMPLICATED Status: Acute Current Visit: No Problem Details: Needs outpatient ETOH treatment. Spoke with her about Campral (8) Gastroenteritis SNOMED Code(s): 49728484 ICD Code: K52.9 - NONINFECTIVE GASTROENTERITIS AND COLITIS, UNSPECIFIED Status: Acute Current Visit: No Problem Details: Zofran (9) Dehydration SNOMED Code(s): 33226228 ICD Code: E86.0 - DEHYDRATION Status: Acute Current Visit: No Problem Details: Heplock IV,encourage oral as tolerated (10) Diarrhea SNOMED Code(s): 43204884 ICD Code: R19.7 - DIARRHEA, UNSPECIFIED Status: Acute Current Visit: No (11) Vomiting SNOMED Code(s): 349482728 ICD Code: R11.10 - VOMITING, UNSPECIFIED Status: Acute Current Visit: Yes (12) Acute pancreatitis SNOMED Code(s): 007688467 ICD Code: K85.90 - ACUTE PANCREATITIS WITHOUT NECROSIS OR INFECTION, UNSP Status: Acute Current Visit: No Problem List Initiated/Reviewed/Updated: Yes Orders Last 24hrs: Active Orders 24 hr Category Date Time Status Patient Status [ADT] Routine ADT 05/26/20 19:56 Active Ambulate [RC] PER UNIT ROUTINE Care 05/26/20 19:56 Active Antiembolic Devices [RC] .Routine Care 05/26/20 19:57 Active Height and Weight [RC] DAILY Care 05/26/20 19:56 Active Intake and Output [RC] 06,14,22 Care 05/26/20 19:58 Active Pulse Oximetry [RC] PRN Care 05/26/20 19:56 Active Up ad Vani [RC] ASDIRECTED Care 05/26/20 19:56 Active VTE/DVT Education [RC] Click to Edit Care 05/26/20 19:57 Active Vital Signs [RC] Q4H Care 05/26/20 19:56 Active Full Liquid Diet [DIET] Diet 05/27/20 Breakfast Ordered Abdomen Pelvis w Cont [CT] Stat Exams 05/26/20 18:07 Taken CBC WITH AUTO DIFF [HEME] AM Lab 05/27/20 06:30 Received Acetaminophen [TylenoL] Med 05/26/20 19:56 Active 650 mg PO Q4H PRN Ketorolac [Toradol] Med 05/26/20 20:30 Active 30 mg IVPUSH Q6H Levofloxacin/Dextrose 5%-Water [Levaquin in D5W 500 MG/ Med 05/26/20 20:30 Active 100 ML] 500 mg Premix Bag 1 bag IV Q24H MVI, Adult with Vitamin K [Infuvite Adult] 10 ml Med 05/26/20 20:30 Active Thiamine [Vitamin B-1] 100 mg Folic Acid 1 mg Magnesium Sulfate [Magnesium Sulfate 50%] 3 gm Sodium Chloride 0.9% [Normal Saline] 1,000 ml IV ASDIRECTED Magnesium Hydroxide [Milk of Magnesia] Med 05/26/20 19:56 Active 30 ml PO BID PRN Nicotine [Habitrol] Med 05/27/20 21:00 Active 14 mg TRDERM BEDTIME Ondansetron [Zofran] Med 05/26/20 20:21 Active 4 mg IVPUSH Q4H PRN Pantoprazole [ProTONIX IV] Med 05/26/20 20:45 Active 40 mg IV Q12H Propranolol [Inderal] Med 05/26/20 21:00 Active 40 mg PO BID Sodium Chloride 0.9% [Normal Saline] 1,000 ml Med 05/26/20 18:15 Active IV ASDIRECTED Sodium Chloride 0.9% [Saline Flush] Med 05/26/20 21:44 Active 10 ml FLUSH ASDIRECTED PRN DVT/VTE Prophylaxis Reflex [OM.PC] Per Unit Routine Oth 05/26/20 19:56 Ordered Medication Discontinuation Instructions [OM.PC] Per Oth 05/26/20 19:58 Ordered Unit Routine Resuscitation Status Routine Resus Stat 05/26/20 19:56 Ordered Medication Orders Acetaminophen (Tylenol) 650 mg PO Q4H PRN PRN Reason: analgesia/fever Sodium Chloride (Normal Saline) 1,000 mls @ 125 mls/hr IV ASDIRECTED [facility] Last Admin: 05/27/20 07:53 Dose: 125 mls/hr Documented by: Infusion: 05/27/20 02:15 Dose: 125 mls/hr Documented by: Admin: 05/26/20 18:15 Dose: 125 mls/hr Documented by: LOUISE Levofloxacin/Dextrose 500 mg/ (Premix) 100 mls @ 100 mls/hr IV Q24H [facility] Last Admin: 05/26/20 21:09 Dose: 100 mls/hr Documented by: CASS Multivitamins/Minerals 10 ml/Thiamine HCl 100 mg/ Folic Acid 1 mg/ Magnesium Sulfate 3 gm/ Sodium Chloride 1,017.2 mls @ 250 mls/hr IV ASDIRECTED [facility] Last Admin: 05/26/20 22:00 Dose: 250 mls/hr Documented by: CASS Ketorolac Tromethamine (Toradol) 30 mg IVPUSH Q6H [facility] Stop: 05/31/20 20:21 Last Admin: 05/27/20 07:50 Dose: 30 mg Documented by: Admin: 05/27/20 02:26 Dose: 30 mg Documented by: Admin: 05/26/20 21:02 Dose: 30 mg Documented by: CASS Magnesium Hydroxide (Milk Of Magnesia) 30 ml PO BID PRN PRN Reason: Constipation Nicotine (Habitrol) 14 mg TRDERM BEDTIME [facility] Ondansetron HCl (Zofran) 4 mg IVPUSH Q4H PRN PRN Reason: Nausea/Vomiting Pantoprazole Sodium (Protonix Iv) 40 mg IV Q12H [facility] Last Admin: 05/27/20 08:30 Dose: 40 mg Documented by: Admin: 05/26/20 21:05 Dose: 40 mg Documented by: CASS Propranolol HCl (Inderal) 40 mg PO BID [facility] Last Admin: 05/27/20 08:21 Dose: Not Given Documented by: Admin: 05/27/20 06:43 Dose: 40 mg Documented by: Admin: 05/26/20 21:17 Dose: 40 mg Documented by: CASS Sodium Chloride (Saline Flush) 10 ml FLUSH ASDIRECTED PRN PRN Reason: Keep Vein Open Last Admin: 05/27/20 02:28 Dose: 10 ml Documented by: CASS Assessment/Plan Comment:: Patient has never given history of alcohol abuse and drinks as much is 1 pint of hard liquor daily. Patient has had symptoms in the past. Patient will be monitored for withdrawal symptoms and treated with Ativan per protocol. Pain control with Dilaudid. Patient has tried eating but continues to have nausea. If the patient does not tolerate p.o. within 3 days we will consider nasoduodenal feeding. Continue fluid replenishment with normal saline and we will consider daily banana bag if the patient is not tolerating p.o. I discussed the risks of continued alcohol intake including pancreatic cancer and . Patient states that she is interested in pursuing pharmacological help to quit drinking. Hope unit consult.
[2020-05-27] MEDS ORDERED: LORazepam 2 MG/ML SDV IV SCH (10:30)
[2020-05-27] MEDS: HYDROmorphone 2 MG/ML SDV IVPUSH PRN (15:34)
[2020-05-27] MEDS: Ketorolac 30 MG/ML SDV IVPUSH PRN (19:02)
[2020-05-27] MEDS: Nicotine 14 MG/24 Hr Patch TRDERM SCH (20:12)
[2020-05-27] MEDS: Levofloxacin/Dextrose 5%-Water 500 MG in Premix Bag 1 BAG IV SCH (20:20)
[2020-05-27] MEDS: Acetaminophen 325 MG Tab PO PRN (20:55)
[2020-05-28] MEDS: Sodium Chloride 0.9% 1,000 ML IV SCH ×5 (01:59→23:01)
[2020-05-28] MEDS: Ketorolac 30 MG/ML SDV IVPUSH PRN ×3 (03:57→21:03)
[2020-05-28] MEDS: Acetaminophen 325 MG Tab PO PRN ×3 (03:58→21:09)
[2020-05-28] MEDS ORDERED: Lisinopril 10 MG Tab PO SCH (09:00)
[2020-05-28] MEDS: Propranolol 40 MG Tab PO SCH ×2 (09:03→20:25)
[2020-05-28] MEDS: HYDROmorphone 2 MG/ML SDV IVPUSH PRN ×2 (09:15→18:13)
[2020-05-28] MEDS: Pantoprazole 40 MG Vial IV SCH ×2 (09:16→20:23)
[2020-05-28] MEDS: Lisinopril 10 MG Tab PO SCH (09:27)
--- NOTE | 2020-05-28 10:05 | PCM.PN ---
- General Info Date of Service: 05/28/20 Admission Dx/Problem (Free Text): Admission Diagnosis/Problem Admission Diagnosis/Problem Pancreatitis Functional Status: Reports: Pain Controlled, Tolerating Diet, Ambulating, Urinating - Review of Systems General: Reports: Fatigue (Reports feeling hungry) HEENT: Reports: No Symptoms Pulmonary: Reports: No Symptoms Cardiovascular: Reports: No Symptoms Gastrointestinal: Reports: Abdominal Pain. Denies: Nausea, Vomiting Genitourinary: Reports: No Symptoms Musculoskeletal: Reports: No Symptoms Skin: Reports: No Symptoms Neurological: Reports: No Symptoms Psychiatric: Reports: No Symptoms - Patient Data Vitals - Most Recent: Last Vital Signs Temp 36.9 C 05/28/20 04:00 Pulse 76 05/28/20 04:00 Resp 18 05/28/20 04:00 BP 176/116 H 05/28/20 09:27 Pulse Ox 98 05/28/20 04:00 Weight - Most Recent: 62.709 kg I&O - Last 24 Hours: Intake & Output 05/27/20 05/28/20 05/28/20 22:59 06:59 14:59 Intake Total 350 300 Output Total 350 350 Balance 0 -50 Lab Results Last 24 Hours: Laboratory Results - last 24 hr 05/28/20 05/28/20 05/28/20 Range/Units 06:45 06:45 06:45 WBC 13.9 H (3.0-10.3) x10-3/uL RBC 4.30 (3.60-5.20) x10(6)uL Hgb 14.1 (11.4-15.5) g/dL Hct 44.2 (34.2-48.2) % MCV 102.9 H (76.7-100.5) fL MCH 32.9 (23.9-33.9) pg MCHC 32.0 (31.9-34.8) g/dL RDW 16.2 (12.3-16.5) % Plt Count 269 (151-488) x10(3)uL MPV 9.0 (7.1-12.4) fL Neut % (Auto) 75.6 (30.8-76.2) % Lymph % (Auto) 16.1 L (18.4-52.1) % [place] % (Auto) 5.6 (4.4-15.7) % Eos % (Auto) 2.2 (0.6-8.1) % Baso % (Auto) 0.5 (0.2-1.5) % Neut # (Auto) 10.5 H (1.5-6.3) x10-3/uL Lymph # (Auto) 2.2 (1.0-4.4) x10-3/uL [place] # (Auto) 0.8 (0.3-1.0) x10-3/uL Eos # (Auto) 0.3 (0.0-0.8) x10-3/uL Baso # (Auto) 0.1 (0.0-0.1) x10-3/uL Sodium 140 (135-145) mmol/L Potassium 3.8 (3.5-5.3) mmol/L Chloride 105 (100-110) mmol/L Carbon Dioxide 23 (21-32) mmol/L BUN 2 L (7-18) mg/dL Creatinine 0.5 L (0.55-1.02) mg/dL Est Cr Clr Drug Dosing 118.50 mL/min Estimated GFR (MDRD) > 60 (>60) BUN/Creatinine Ratio 4.0 L (9-20) Glucose 78 L (80-116) mg/dL Calcium 7.9 L (8.6-10.2) mg/dL Total Bilirubin 0.5 (0.1-1.3) mg/dL AST 17 D (5-25) IU/L ALT 16 D (12-36) U/L Alkaline Phosphatase 78 (56-112) IU/L Total Protein 5.9 L (6.0-8.0) g/dL Albumin 2.3 L (3.5-5.2) g/dL Globulin 3.6 g/dL Albumin/Globulin Ratio 0.6 Amylase 251 H (25-115) U/L Lipase (73-393) U/L 05/28/20 Range/Units 06:45 WBC (3.0-10.3) x10-3/uL RBC (3.60-5.20) x10(6)uL Hgb (11.4-15.5) g/dL Hct (34.2-48.2) % MCV (76.7-100.5) fL MCH (23.9-33.9) pg MCHC (31.9-34.8) g/dL RDW (12.3-16.5) % Plt Count (151-488) x10(3)uL MPV (7.1-12.4) fL Neut % (Auto) (30.8-76.2) % Lymph % (Auto) (18.4-52.1) % [place] % (Auto) (4.4-15.7) % Eos % (Auto) (0.6-8.1) % Baso % (Auto) (0.2-1.5) % Neut # (Auto) (1.5-6.3) x10-3/uL Lymph # (Auto) (1.0-4.4) x10-3/uL [place] # (Auto) (0.3-1.0) x10-3/uL Eos # (Auto) (0.0-0.8) x10-3/uL Baso # (Auto) (0.0-0.1) x10-3/uL Sodium (135-145) mmol/L Potassium (3.5-5.3) mmol/L Chloride (100-110) mmol/L Carbon Dioxide (21-32) mmol/L BUN (7-18) mg/dL Creatinine (0.55-1.02) mg/dL Est Cr Clr Drug Dosing mL/min Estimated GFR (MDRD) (>60) BUN/Creatinine Ratio (9-20) Glucose (80-116) mg/dL Calcium (8.6-10.2) mg/dL Total Bilirubin (0.1-1.3) mg/dL AST (5-25) IU/L ALT (12-36) U/L Alkaline Phosphatase (56-112) IU/L Total Protein (6.0-8.0) g/dL Albumin (3.5-5.2) g/dL Globulin g/dL Albumin/Globulin Ratio Amylase (25-115) U/L Lipase > 1500 H (73-393) U/L Med Orders - Current: Current Medications Acetaminophen (Tylenol) 650 mg PO Q6H PRN PRN Reason: Abdominal Pain Last Admin: 05/28/20 03:58 Dose: 650 mg Documented by: Folic Acid/Cyanocobalamin/pyridoxin (Folbic Tablet) 1 tab PO DAILY [facility] Hydromorphone HCl (Dilaudid) 0.5 mg IVPUSH Q2H PRN PRN Reason: Abdominal Pain Last Admin: 05/28/20 09:15 Dose: 0.5 mg Documented by: Sodium Chloride (Normal Saline) 1,000 mls @ 200 mls/hr IV ASDIRECTED [facility] Last Admin: 05/28/20 07:05 Dose: 200 mls/hr Documented by: Levofloxacin/Dextrose 500 mg/ (Premix) 100 mls @ 100 mls/hr IV Q24H [facility] Last Admin: 05/27/20 20:20 Dose: 100 mls/hr Documented by: Ketorolac Tromethamine (Toradol) 30 mg IVPUSH Q8H PRN PRN Reason: Abdominal Pain Stop: 06/01/20 18:46 Last Admin: 05/28/20 03:57 Dose: 30 mg Documented by: Lisinopril (Prinivil) 10 mg PO DAILY [facility] Last Admin: 05/28/20 09:27 Dose: 10 mg Documented by: Lorazepam (Ativan) 0 mg IV ASDIRECTED [facility]; Protocol Lorazepam (Ativan) 0 mg PO ASDIRECTED [facility]; Protocol Magnesium Hydroxide (Milk Of Magnesia) 30 ml PO BID PRN PRN Reason: Constipation Nicotine (Habitrol) 14 mg TRDERM BEDTIME [facility] Last Admin: 05/27/20 20:12 Dose: 14 mg Documented by: Ondansetron HCl (Zofran) 4 mg IVPUSH Q4H PRN PRN Reason: Nausea/Vomiting Pantoprazole Sodium (Protonix Iv) 40 mg IV Q12H [facility] Last Admin: 05/28/20 09:16 Dose: 40 mg Documented by: Propranolol HCl (Inderal) 40 mg PO BID [facility] Last Admin: 05/28/20 09:03 Dose: 40 mg Documented by: Sodium Chloride (Saline Flush) 10 ml FLUSH ASDIRECTED PRN PRN Reason: Keep Vein Open Last Admin: 05/27/20 02:28 Dose: 10 ml Documented by: Thiamine HCl (Vitamin B-1) 100 mg PO BEDTIME [facility] Discontinued Medications Acetaminophen (Tylenol) 650 mg PO Q4H PRN PRN Reason: analgesia/fever Last Admin: 05/27/20 09:37 Dose: 650 mg Documented by: Sodium Chloride (Normal Saline) 1,000 mls @ 125 mls/hr IV ASDIRECTED [facility] Last Infusion: 05/26/20 16:11 Dose: 999 mls/hr Documented by: Sodium Chloride (Normal Saline) 1,000 mls @ 999 mls/hr IV ASDIRECTED [facility] Last Admin: 05/26/20 17:10 Dose: 999 mls/hr Documented by: Multivitamins/Minerals 10 ml/Thiamine HCl 100 mg/ Folic Acid 1 mg/ Magnesium Sulfate 3 gm/ Sodium Chloride 1,017.2 mls @ 250 mls/hr IV ASDIRECTED [facility] Last Admin: 05/26/20 22:00 Dose: 250 mls/hr Documented by: Iopamidol (Isovue-370 (76%)) 100 ml IV . DIRECTED ONE Stop: 05/26/20 18:32 Last Admin: 05/26/20 18:50 Dose: 75 ml Documented by: Ketorolac Tromethamine (Toradol) 30 mg IVPUSH ONETIME ONE Stop: 05/26/20 15:21 Last Admin: 05/26/20 15:29 Dose: 30 mg Documented by: Ketorolac Tromethamine (Toradol) 30 mg IVPUSH Q6H [facility] Stop: 05/31/20 20:21 Last Admin: 05/27/20 07:50 Dose: 30 mg Documented by: Lisinopril (Prinivil) 10 mg PO DAILY [facility] Nicotine (Habitrol) 14 mg TRDERM DAILY [facility] Last Admin: 05/27/20 00:54 Dose: Not Given Documented by: Ondansetron HCl (Zofran) 4 mg IVPUSH ONETIME ONE Stop: 05/26/20 15:36 Last Admin: 05/26/20 15:40 Dose: 4 mg Documented by: Potassium Chloride (Klor-Con M20) 40 meq PO ONETIME ONE Stop: 05/26/20 18:05 Last Admin: 05/26/20 18:16 Dose: 40 meq Documented by: - Exam General: Alert, Oriented, Cooperative, No Acute Distress Neck: Supple, No Thyromegaly Lungs: Clear to Auscultation, Normal Respiratory Effort Cardiovascular: Regular Rate, Regular Rhythm GI/Abdominal Exam: Normal Bowel Sounds, Soft, Tender Back Exam: Normal Inspection Extremities: Normal Inspection Peripheral Pulses: 2+: Radial (L), Radial (R), Dorsalis Pedis (L), Dorsalis Pedis (R) Skin: Warm, Dry Neurological: No New Focal Deficit Psy/Mental Status: Alert, Normal Affect, Normal Mood Sepsis Event Note - Evaluation Sepsis Screening Result: No Definite Risk - Focused Exam Vital Signs: Vital Signs Temp Pulse Resp BP BP Pulse Ox 05/28/20 09:27 176/116 H 05/28/20 04:00 36.9 C 76 18 158/106 H 98 05/28/20 00:00 36.7 C 78 18 160/114 H 98 - Problem List & Annotations (1) Obesity (BMI 30-39.9) SNOMED Code(s): 783258042, 339586959 Code(s): E66.9 - OBESITY, UNSPECIFIED Status: Acute Current Visit: Yes (2) Marijuana abuse SNOMED Code(s): 93320701 Code(s): F12.10 - CANNABIS ABUSE, UNCOMPLICATED Status: Acute Current Visit: Yes (3) Alcohol abuse SNOMED Code(s): 52891701 Code(s): F10.10 - ALCOHOL ABUSE, UNCOMPLICATED Status: Acute Current Visit: Yes (4) Upper abdominal pain SNOMED Code(s): 00452484 Code(s): R10.10 - UPPER ABDOMINAL PAIN, UNSPECIFIED Status: Acute Current Visit: No (5) Leukocytosis SNOMED Code(s): 137230740 Code(s): D72.829 - ELEVATED WHITE BLOOD CELL COUNT, UNSPECIFIED Status: Acute Current Visit: No (6) Hypokalemia SNOMED Code(s): 28083853 Code(s): E87.6 - HYPOKALEMIA Status: Acute Current Visit: Yes Annotation/Comment:: Replace IV potasium (7) Alcohol dependence SNOMED Code(s): 74666700 Code(s): F10.20 - ALCOHOL DEPENDENCE, UNCOMPLICATED Status: Acute Current Visit: No Annotation/Comment:: Needs outpatient ETOH treatment. Spoke with her about Campral (8) Gastroenteritis SNOMED Code(s): 33815252 Code(s): K52.9 - NONINFECTIVE GASTROENTERITIS AND COLITIS, UNSPECIFIED Status: Acute Current Visit: No Annotation/Comment:: Zofran (9) Dehydration SNOMED Code(s): 49251171 Code(s): E86.0 - DEHYDRATION Status: Acute Current Visit: No Annotation/Comment:: Heplock IV,encourage oral as tolerated (10) Diarrhea SNOMED Code(s): 76861493 Code(s): R19.7 - DIARRHEA, UNSPECIFIED Status: Acute Current Visit: No (11) Vomiting SNOMED Code(s): 566356653 Code(s): R11.10 - VOMITING, UNSPECIFIED Status: Acute Current Visit: Yes (12) Acute pancreatitis SNOMED Code(s): 859982048 Code(s): K85.90 - ACUTE PANCREATITIS WITHOUT NECROSIS OR INFECTION, UNSP Status: Acute Current Visit: No - Problem List Review Problem List Initiated/Reviewed/Updated: Yes - My Orders Last 24 Hours: My Active Orders 05/27/20 10:07 HYDROmorphone [Dilaudid] 0.5 mg IVPUSH Q2H PRN 05/27/20 10:19 CIWAA Assessment [RC] Q4H 05/27/20 10:22 Notify Provider [RC] PRN Anticoagulation Contraindications VTE [AST] Routine 05/27/20 10:30 LORazepam [Ativan] See Protocol IV ASDIRECTED LORazepam [Ativan] See Protocol PO ASDIRECTED 05/27/20 18:45 Ketorolac [Toradol] 30 mg IVPUSH Q8H PRN 05/27/20 18:47 Acetaminophen [TylenoL] 650 mg PO Q6H PRN 05/28/20 09:30 lisinopriL [Prinivil] 10 mg PO DAILY 05/28/20 10:00 Cyanocobalamin/FA/Pyridoxine [Folbic Tablet] 1 tab PO DAILY 05/28/20 Lunch Low Fat Diet [DIET] 05/28/20 21:00 Thiamine [Vitamin B-1] 100 mg PO BEDTIME - Plan Plan:: Patient expressed that she has an appetite and would like to try to eat. Her pain seems well controlled but is episodic. She is concerned about her hypertension. Laboratory also reviewed and show improvement in amylase, lipase. Renal function is normal for fluid resuscitation at this time. We will add supplemental vitamins secondary to history of alcohol abuse and macrocytosis. Patient continues to improve and tolerates a full diet we will consider discharge tomorrow.
[2020-05-28] MEDS: Cyanocobalamin (Vitamin B12) 1,000 MCG Tab PO SCH (11:19)
[2020-05-28] MEDS: Folic Acid 1 MG Tab PO SCH (11:19)
[2020-05-28] MEDS: cloNIDine 0.1 MG Tab PO SCH ×2 (11:44→22:59)
[2020-05-28] MEDS: LORazepam 1 MG Tab PO SCH (11:47)
[2020-05-28] MEDS: hydrALAZINE 10 MG Tab PO PRN (18:18)
[2020-05-28] MEDS: Thiamine 100 MG Tab PO SCH (20:25)
[2020-05-28] MEDS: Levofloxacin/Dextrose 5%-Water 500 MG in Premix Bag 1 BAG IV SCH (20:26)
[2020-05-28] MEDS: Nicotine 14 MG/24 Hr Patch TRDERM SCH (20:30)
[2020-05-28] MEDS: Sodium Chloride 0.9% 10 ML Syringe FLUSH PRN (21:06)
[2020-05-29] MEDS: Sodium Chloride 0.9% 1,000 ML IV SCH ×3 (03:57→18:23)
[2020-05-29] MEDS: Ketorolac 30 MG/ML SDV IVPUSH PRN ×3 (05:12→21:33)
[2020-05-29] MEDS: Acetaminophen 325 MG Tab PO PRN ×3 (05:15→21:32)
[2020-05-29] MEDS: Pantoprazole 40 MG Vial IV SCH ×2 (09:03→20:11)
[2020-05-29] MEDS: Cyanocobalamin (Vitamin B12) 1,000 MCG Tab PO SCH (09:03)
[2020-05-29] MEDS: Folic Acid 1 MG Tab PO SCH (09:03)
[2020-05-29] MEDS: Lisinopril 10 MG Tab PO SCH (09:03)
[2020-05-29] MEDS: Propranolol 40 MG Tab PO SCH ×2 (09:03→20:18)
--- NOTE | 2020-05-29 09:29 | PCM.PN ---
- General Info Date of Service: 05/29/20 Admission Dx/Problem (Free Text): Admission Diagnosis/Problem Admission Diagnosis/Problem Pancreatitis Subjective Update: Patient states that she is feeling better and that her appetite is better but she still has postprandial abdominal pain. She denies diarrhea but complains that she may have a little bit of constipation. She states that she feels that she is not ready to go home at this time. She does state that she is feeling better and is sleeping better. Functional Status: Reports: Pain Controlled, Tolerating Diet - Review of Systems General: Reports: Weakness, Fatigue HEENT: Reports: No Symptoms Pulmonary: Reports: No Symptoms Cardiovascular: Reports: No Symptoms Gastrointestinal: Reports: Constipation Genitourinary: Reports: No Symptoms Musculoskeletal: Reports: No Symptoms Skin: Reports: No Symptoms Neurological: Reports: No Symptoms Psychiatric: Reports: No Symptoms - Patient Data Vitals - Most Recent: Last Vital Signs Temp 36.6 C 05/29/20 07:53 Pulse 72 05/29/20 07:53 Resp 18 05/29/20 07:53 BP 163/112 H 05/29/20 09:03 Pulse Ox 99 05/29/20 07:53 Weight - Most Recent: 62.709 kg I&O - Last 24 Hours: Intake & Output 05/28/20 05/29/20 05/29/20 22:59 06:59 14:59 Intake Total 400 2969 Output Total 1100 1200 Balance -700 1769 Lab Results Last 24 Hours: Laboratory Results - last 24 hr 05/29/20 05/29/20 Range/Units 06:30 06:30 Amylase 279 H (25-115) U/L Lipase > 1500 H (73-393) U/L Med Orders - Current: Current Medications Acetaminophen (Tylenol) 650 mg PO Q6H PRN PRN Reason: Abdominal Pain Last Admin: 05/29/20 05:15 Dose: 650 mg Documented by: Clonidine HCl (Catapres) 0.1 mg PO Q12H [facility] Last Admin: 05/28/20 22:59 Dose: 0.1 mg Documented by: Cyanocobalamin (Vitamin B12) 1,000 mcg PO DAILY [facility] Last Admin: 05/29/20 09:03 Dose: 1,000 mcg Documented by: Folic Acid (Folic Acid) 1 mg PO DAILY [facility] Last Admin: 05/29/20 09:03 Dose: 1 mg Documented by: Hydralazine HCl (Apresoline) 10 mg PO Q6H PRN PRN Reason: Hypertension Last Admin: 05/28/20 18:18 Dose: 10 mg Documented by: Hydromorphone HCl (Dilaudid) 0.5 mg IVPUSH Q2H PRN PRN Reason: Abdominal Pain Last Admin: 05/28/20 18:13 Dose: 0.5 mg Documented by: Levofloxacin/Dextrose 500 mg/ (Premix) 100 mls @ 100 mls/hr IV Q24H [facility] Last Admin: 05/28/20 20:26 Dose: 100 mls/hr Documented by: Sodium Chloride (Normal Saline) 1,000 mls @ 125 mls/hr IV ASDIRECTED [facility] Last Admin: 05/29/20 09:17 Dose: 125 mls/hr Documented by: Ketorolac Tromethamine (Toradol) 30 mg IVPUSH Q8H PRN PRN Reason: Abdominal Pain Stop: 06/01/20 18:46 Last Admin: 05/29/20 05:12 Dose: 30 mg Documented by: Lisinopril (Prinivil) 10 mg PO DAILY [facility] Last Admin: 05/29/20 09:03 Dose: 10 mg Documented by: Lorazepam (Ativan) 0 mg IV ASDIRECTED [facility]; Protocol Lorazepam (Ativan) 0 mg PO ASDIRECTED [facility]; Protocol Last Admin: 05/28/20 11:47 Dose: 1 mg Documented by: Magnesium Hydroxide (Milk Of Magnesia) 30 ml PO BID PRN PRN Reason: Constipation Nicotine (Habitrol) 14 mg TRDERM BEDTIME [facility] Last Admin: 05/28/20 20:30 Dose: 14 mg Documented by: Ondansetron HCl (Zofran) 4 mg IVPUSH Q4H PRN PRN Reason: Nausea/Vomiting Pantoprazole Sodium (Protonix Iv) 40 mg IV Q12H [facility] Last Admin: 05/29/20 09:03 Dose: 40 mg Documented by: Propranolol HCl (Inderal) 40 mg PO BID [facility] Last Admin: 05/29/20 09:03 Dose: 40 mg Documented by: Sodium Chloride (Saline Flush) 10 ml FLUSH ASDIRECTED PRN PRN Reason: Keep Vein Open Last Admin: 05/28/20 21:06 Dose: 10 ml Documented by: Thiamine HCl (Vitamin B-1) 100 mg PO BEDTIME [facility] Last Admin: 05/28/20 20:25 Dose: 100 mg Documented by: Discontinued Medications Acetaminophen (Tylenol) 650 mg PO Q4H PRN PRN Reason: analgesia/fever Last Admin: 05/27/20 09:37 Dose: 650 mg Documented by: Sodium Chloride (Normal Saline) 1,000 mls @ 125 mls/hr IV ASDIRECTED [facility] Last Infusion: 05/26/20 16:11 Dose: 999 mls/hr Documented by: Sodium Chloride (Normal Saline) 1,000 mls @ 999 mls/hr IV ASDIRECTED [facility] Last Admin: 05/26/20 17:10 Dose: 999 mls/hr Documented by: Sodium Chloride (Normal Saline) 1,000 mls @ 200 mls/hr IV ASDIRECTED [facility] Last Infusion: 05/29/20 07:53 Dose: 125 mls/hr Documented by: Multivitamins/Minerals 10 ml/Thiamine HCl 100 mg/ Folic Acid 1 mg/ Magnesium Sulfate 3 gm/ Sodium Chloride 1,017.2 mls @ 250 mls/hr IV ASDIRECTED [facility] Last Admin: 05/26/20 22:00 Dose: 250 mls/hr Documented by: Iopamidol (Isovue-370 (76%)) 100 ml IV . DIRECTED ONE Stop: 05/26/20 18:32 Last Admin: 05/26/20 18:50 Dose: 75 ml Documented by: Ketorolac Tromethamine (Toradol) 30 mg IVPUSH ONETIME ONE Stop: 05/26/20 15:21 Last Admin: 05/26/20 15:29 Dose: 30 mg Documented by: Ketorolac Tromethamine (Toradol) 30 mg IVPUSH Q6H [facility] Stop: 05/31/20 20:21 Last Admin: 05/27/20 07:50 Dose: 30 mg Documented by: Lisinopril (Prinivil) 10 mg PO DAILY [facility] Nicotine (Habitrol) 14 mg TRDERM DAILY [facility] Last Admin: 05/27/20 00:54 Dose: Not Given Documented by: Ondansetron HCl (Zofran) 4 mg IVPUSH ONETIME ONE Stop: 05/26/20 15:36 Last Admin: 05/26/20 15:40 Dose: 4 mg Documented by: Potassium Chloride (Klor-Con M20) 40 meq PO ONETIME ONE Stop: 05/26/20 18:05 Last Admin: 05/26/20 18:16 Dose: 40 meq Documented by: - Exam Quality Assessment: Supplemental Oxygen, DVT Prophylaxis General: Alert, Oriented, Cooperative, No Acute Distress Neck: Supple Lungs: Clear to Auscultation, Normal Respiratory Effort Cardiovascular: Regular Rate, Regular Rhythm GI/Abdominal Exam: Normal Bowel Sounds, Tender (Bowel sounds are active, no obvious high-pitched bowel sounds) Back Exam: Normal Inspection. No: CVA Tenderness (R), CVA Tenderness (L) Extremities: Normal Inspection Peripheral Pulses: 2+: Radial (L), Radial (R), Dorsalis Pedis (L), Dorsalis Pedis (R) Skin: Warm, Dry Neurological: No New Focal Deficit Psy/Mental Status: Alert, Normal Affect, Normal Mood Sepsis Event Note - Evaluation Sepsis Screening Result: No Definite Risk - Focused Exam Vital Signs: Vital Signs Temp Pulse Pulse Resp BP BP Pulse Ox 05/29/20 09:03 163/112 H 05/29/20 07:53 36.6 C 72 18 163/112 H 99 05/29/20 04:00 36.4 C 78 18 147/104 H 95 05/29/20 00:00 36.3 C 82 18 146/96 H 98 05/28/20 22:59 146/96 H - Problem List & Annotations (1) Obesity (BMI 30-39.9) SNOMED Code(s): 500585913, 222258034 Code(s): E66.9 - OBESITY, UNSPECIFIED Status: Acute Current Visit: Yes (2) Marijuana abuse SNOMED Code(s): 25213751 Code(s): F12.10 - CANNABIS ABUSE, UNCOMPLICATED Status: Acute Current Visit: Yes (3) Alcohol abuse SNOMED Code(s): 32377455 Code(s): F10.10 - ALCOHOL ABUSE, UNCOMPLICATED Status: Acute Current Visit: Yes (4) Upper abdominal pain SNOMED Code(s): 67885377 Code(s): R10.10 - UPPER ABDOMINAL PAIN, UNSPECIFIED Status: Acute Current Visit: No (5) Leukocytosis SNOMED Code(s): 065959859 Code(s): D72.829 - ELEVATED WHITE BLOOD CELL COUNT, UNSPECIFIED Status: Acute Current Visit: No (6) Hypokalemia SNOMED Code(s): 31580240 Code(s): E87.6 - HYPOKALEMIA Status: Acute Current Visit: Yes Annotation/Comment:: Replace IV potasium (7) Alcohol dependence SNOMED Code(s): 29630480 Code(s): F10.20 - ALCOHOL DEPENDENCE, UNCOMPLICATED Status: Acute Current Visit: No Annotation/Comment:: Needs outpatient ETOH treatment. Spoke with her about Campral (8) Gastroenteritis SNOMED Code(s): 09266310 Code(s): K52.9 - NONINFECTIVE GASTROENTERITIS AND COLITIS, UNSPECIFIED Status: Acute Current Visit: No Annotation/Comment:: Zofran (9) Dehydration SNOMED Code(s): 83015288 Code(s): E86.0 - DEHYDRATION Status: Acute Current Visit: No Annotation/Comment:: Heplock IV,encourage oral as tolerated (10) Diarrhea SNOMED Code(s): 90501376 Code(s): R19.7 - DIARRHEA, UNSPECIFIED Status: Acute Current Visit: No (11) Vomiting SNOMED Code(s): 045333834 Code(s): R11.10 - VOMITING, UNSPECIFIED Status: Acute Current Visit: Yes (12) Acute pancreatitis SNOMED Code(s): 682795693 Code(s): K85.90 - ACUTE PANCREATITIS WITHOUT NECROSIS OR INFECTION, UNSP Status: Acute Current Visit: No - Problem List Review Problem List Initiated/Reviewed/Updated: Yes - My Orders Last 24 Hours: My Active Orders 05/28/20 09:30 lisinopriL [Prinivil] 10 mg PO DAILY 05/28/20 Lunch Low Fat Diet [DIET] Cyanocobalamin (Vitamin B12) [Vitamin B12] 1,000 mcg PO DAILY Folic Acid 1 mg PO DAILY 05/28/20 11:30 cloNIDine [Catapres] 0.1 mg PO Q12H 05/28/20 18:05 hydrALAZINE [Apresoline] 10 mg PO Q6H PRN 05/28/20 21:00 Thiamine [Vitamin B-1] 100 mg PO BEDTIME 05/29/20 08:00 Sodium Chloride 0.9% [Normal Saline] 1,000 ml IV ASDIRECTED - Plan Plan:: Decreased fluids from 200 mL/h to 125 mL/h. Hopefully this will help encourage the patient to eat more. Laboratory results today show no improvement in amylase or lipase and the patient continues to have postprandial pain. We will continue to treat the patient inpatient for at least 1 more day. Add MiraLAX to help the patient have soft, well-formed bowel movements. CBC, CMP, amylase, l ipase for tomorrow morning.
[2020-05-29] MEDS: Polyethylene Glycol 3350 Powder 17 GM Packet PO SCH (11:30)
[2020-05-29] MEDS: cloNIDine 0.1 MG Tab PO SCH ×2 (11:30→23:38)
[2020-05-29] MEDS: HYDROmorphone 2 MG/ML SDV IVPUSH PRN (11:34)
[2020-05-29] MEDS: hydrALAZINE 10 MG Tab PO PRN ×2 (11:37→17:35)
[2020-05-29] MEDS ORDERED: hydrALAZINE 10 MG Tab PO ONE (19:00)
[2020-05-29] MEDS: Levofloxacin/Dextrose 5%-Water 500 MG in Premix Bag 1 BAG IV SCH (20:08)
[2020-05-29] MEDS: Nicotine 14 MG/24 Hr Patch TRDERM SCH (20:18)
[2020-05-29] MEDS: Thiamine 100 MG Tab PO SCH (20:18)
[2020-05-29] MEDS: LORazepam 1 MG Tab PO SCH (20:28)
[2020-05-30] MEDS: Sodium Chloride 0.9% 1,000 ML IV SCH ×3 (01:48→18:55)
[2020-05-30] MEDS: Ketorolac 30 MG/ML SDV IVPUSH PRN (06:49)
[2020-05-30] MEDS: hydrALAZINE 10 MG Tab PO PRN ×2 (06:50→20:39)
[2020-05-30] MEDS: Acetaminophen 325 MG Tab PO PRN (06:50)
[2020-05-30] MEDS: Cyanocobalamin (Vitamin B12) 1,000 MCG Tab PO SCH (08:15)
[2020-05-30] MEDS: Propranolol 40 MG Tab PO SCH ×2 (08:15→20:41)
[2020-05-30] MEDS: Folic Acid 1 MG Tab PO SCH (08:15)
[2020-05-30] MEDS: Polyethylene Glycol 3350 Powder 17 GM Packet PO SCH (08:15)
[2020-05-30] MEDS: Pantoprazole 40 MG Vial IV SCH ×2 (08:16→20:29)
[2020-05-30] MEDS: Lisinopril 10 MG Tab PO SCH (08:18)
--- NOTE | 2020-05-30 08:38 | PCM.PN ---
- General Info Date of Service: 05/30/20 Admission Dx/Problem (Free Text): Admission Diagnosis/Problem Admission Diagnosis/Problem Pancreatitis Subjective Update: Patient states that overall she feels better than when she was admitted but she does not think that she feels any better or worse than she has over the last 2 days. She states that she still has some abdominal pain after eating. She was able to have a bowel movement yesterday after taking MiraLAX but there was no change in her abdominal symptoms after her bowel movement. She states that she gets up and walks around the room quite often. Functional Status: Reports: Pain Controlled, Tolerating Diet, Ambulating, Urinating - Review of Systems General: Reports: No Symptoms HEENT: Reports: No Symptoms Pulmonary: Reports: No Symptoms Cardiovascular: Reports: No Symptoms Gastrointestinal: Reports: Abdominal Pain. Denies: Hematochezia, Nausea, Vomiting Genitourinary: Reports: No Symptoms Musculoskeletal: Reports: No Symptoms Skin: Reports: No Symptoms Neurological: Reports: No Symptoms Psychiatric: Reports: No Symptoms - Patient Data Vitals - Most Recent: Last Vital Signs Temp 36.6 C 05/29/20 23:57 Pulse 81 05/30/20 06:00 Resp 16 05/30/20 06:00 BP 147/101 H 05/30/20 08:18 Pulse Ox 96 05/30/20 06:00 Weight - Most Recent: 62.709 kg I&O - Last 24 Hours: Intake & Output 05/29/20 05/30/20 05/30/20 22:59 06:59 14:59 Intake Total 300 1335 Output Total 1100 Balance 300 235 Lab Results Last 24 Hours: Laboratory Results - last 24 hr 05/30/20 05/30/20 05/30/20 Range/Units 06:30 06:30 06:30 WBC 14.3 H (3.0-10.3) x10-3/uL RBC 3.97 (3.60-5.20) x10(6)uL Hgb 13.1 (11.4-15.5) g/dL Hct 40.4 (34.2-48.2) % MCV 101.9 H (76.7-100.5) fL MCH 33.0 (23.9-33.9) pg MCHC 32.4 (31.9-34.8) g/dL RDW 16.3 (12.3-16.5) % Plt Count 261 (151-488) x10(3)uL MPV 9.1 (7.1-12.4) fL Neut % (Auto) 77.7 H (30.8-76.2) % Lymph % (Auto) 13.4 L (18.4-52.1) % Pierce % (Auto) 6.4 (4.4-15.7) % Eos % (Auto) 1.8 (0.6-8.1) % Baso % (Auto) 0.7 (0.2-1.5) % Neut # (Auto) 11.1 H (1.5-6.3) x10-3/uL Lymph # (Auto) 1.9 (1.0-4.4) x10-3/uL Pierce # (Auto) 0.9 (0.3-1.0) x10-3/uL Eos # (Auto) 0.2 (0.0-0.8) x10-3/uL Baso # (Auto) 0.1 (0.0-0.1) x10-3/uL Sodium 140 (135-145) mmol/L Potassium 3.4 L (3.5-5.3) mmol/L Chloride 105 (100-110) mmol/L Carbon Dioxide 26 (21-32) mmol/L BUN 2 L (7-18) mg/dL Creatinine 0.6 (0.55-1.02) mg/dL Est Cr Clr Drug Dosing 98.75 mL/min Estimated GFR (MDRD) > 60 (>60) BUN/Creatinine Ratio 3.3 L (9-20) Glucose 103 (80-116) mg/dL Calcium 7.7 L (8.6-10.2) mg/dL Total Bilirubin 0.4 (0.1-1.3) mg/dL Direct Bilirubin 0.20 (0.10-0.20) mg/dL Indirect Bilirubin 0.2 (0.0-1.0) mg/dL AST 15 D (5-25) IU/L ALT 14 D (12-36) U/L Alkaline Phosphatase 68 (56-112) IU/L Total Protein 5.6 L (6.0-8.0) g/dL Albumin 2.1 L (3.5-5.2) g/dL Globulin 3.5 g/dL Albumin/Globulin Ratio 0.6 Amylase 1957 H* (25-115) U/L Lipase 53707 H (73-393) U/L Med Orders - Current: Current Medications Acetaminophen (Tylenol) 650 mg PO Q6H PRN PRN Reason: Abdominal Pain Last Admin: 05/30/20 06:50 Dose: 650 mg Documented by: Clonidine HCl (Catapres) 0.1 mg PO Q12H [facility] Last Admin: 05/29/20 23:38 Dose: 0.1 mg Documented by: Cyanocobalamin (Vitamin B12) 1,000 mcg PO DAILY [facility] Last Admin: 05/30/20 08:15 Dose: 1,000 mcg Documented by: Folic Acid (Folic Acid) 1 mg PO DAILY [facility] Last Admin: 05/30/20 08:15 Dose: 1 mg Documented by: Hydralazine HCl (Apresoline) 20 mg PO Q6H PRN PRN Reason: Hypertension Last Admin: 05/30/20 06:50 Dose: 20 mg Documented by: Hydromorphone HCl (Dilaudid) 1 mg IVPUSH Q2H PRN PRN Reason: Abdominal Pain Sodium Chloride (Normal Saline) 1,000 mls @ 125 mls/hr IV ASDIRECTED [facility] Last Admin: 05/30/20 01:48 Dose: 125 mls/hr Documented by: Ketorolac Tromethamine (Toradol) 30 mg IVPUSH Q8H PRN PRN Reason: Abdominal Pain Stop: 06/01/20 18:46 Last Admin: 05/30/20 06:49 Dose: 30 mg Documented by: Lisinopril (Prinivil) 10 mg PO DAILY [facility] Last Admin: 05/30/20 08:18 Dose: 10 mg Documented by: Lorazepam (Ativan) 0 mg IV ASDIRECTED [facility]; Protocol Lorazepam (Ativan) 0 mg PO ASDIRECTED [facility]; Protocol Last Admin: 05/29/20 20:28 Dose: 1 mg Documented by: Magnesium Hydroxide (Milk Of Magnesia) 30 ml PO BID PRN PRN Reason: Constipation Meropenem (Merrem) 1 gm IVPUSH Q8H [facility] Nicotine (Habitrol) 14 mg TRDERM BEDTIME [facility] Last Admin: 05/29/20 20:18 Dose: 14 mg Documented by: Ondansetron HCl (Zofran) 4 mg IVPUSH Q4H PRN PRN Reason: Nausea/Vomiting Pantoprazole Sodium (Protonix Iv) 40 mg IV Q12H [facility] Last Admin: 05/30/20 08:16 Dose: 40 mg Documented by: Polyethylene Glycol (Miralax) 17 gm PO DAILY [facility] Last Admin: 05/30/20 08:15 Dose: 17 gm Documented by: Propranolol HCl (Inderal) 40 mg PO BID [facility] Last Admin: 05/30/20 08:15 Dose: 40 mg Documented by: Sodium Chloride (Saline Flush) 10 ml FLUSH ASDIRECTED PRN PRN Reason: Keep Vein Open Last Admin: 05/28/20 21:06 Dose: 10 ml Documented by: Thiamine HCl (Vitamin B-1) 100 mg PO BEDTIME [facility] Last Admin: 05/29/20 20:18 Dose: 100 mg Documented by: Discontinued Medications Acetaminophen (Tylenol) 650 mg PO Q4H PRN PRN Reason: analgesia/fever Last Admin: 05/27/20 09:37 Dose: 650 mg Documented by: Hydralazine HCl (Apresoline) 10 mg PO Q6H PRN PRN Reason: Hypertension Last Admin: 05/29/20 17:35 Dose: 10 mg Documented by: Hydralazine HCl (Apresoline) 10 mg PO ONETIME ONE Stop: 05/29/20 19:01 Last Admin: 05/29/20 19:24 Dose: 10 mg Documented by: Hydromorphone HCl (Dilaudid) 0.5 mg IVPUSH Q2H PRN PRN Reason: Abdominal Pain Last Admin: 05/29/20 11:34 Dose: 0.5 mg Documented by: Sodium Chloride (Normal Saline) 1,000 mls @ 125 mls/hr IV ASDIRECTED [facility] Last Infusion: 05/26/20 16:11 Dose: 999 mls/hr Documented by: Sodium Chloride (Normal Saline) 1,000 mls @ 999 mls/hr IV ASDIRECTED [facility] Last Admin: 05/26/20 17:10 Dose: 999 mls/hr Documented by: Sodium Chloride (Normal Saline) 1,000 mls @ 200 mls/hr IV ASDIRECTED [facility] Last Infusion: 05/29/20 07:53 Dose: 125 mls/hr Documented by: Levofloxacin/Dextrose 500 mg/ (Premix) 100 mls @ 100 mls/hr IV Q24H [facility] Last Admin: 05/29/20 20:08 Dose: 100 mls/hr Documented by: Multivitamins/Minerals 10 ml/Thiamine HCl 100 mg/ Folic Acid 1 mg/ Magnesium Sulfate 3 gm/ Sodium Chloride 1,017.2 mls @ 250 mls/hr IV ASDIRECTED [facility] Last Admin: 05/26/20 22:00 Dose: 250 mls/hr Documented by: Iopamidol (Isovue-370 (76%)) 100 ml IV . DIRECTED ONE Stop: 05/26/20 18:32 Last Admin: 05/26/20 18:50 Dose: 75 ml Documented by: Ketorolac Tromethamine (Toradol) 30 mg IVPUSH ONETIME ONE Stop: 05/26/20 15:21 Last Admin: 05/26/20 15:29 Dose: 30 mg Documented by: Ketorolac Tromethamine (Toradol) 30 mg IVPUSH Q6H [facility] Stop: 05/31/20 20:21 Last Admin: 05/27/20 07:50 Dose: 30 mg Documented by: Lisinopril (Prinivil) 10 mg PO DAILY [facility] Nicotine (Habitrol) 14 mg TRDERM DAILY [facility] Last Admin: 05/27/20 00:54 Dose: Not Given Documented by: Ondansetron HCl (Zofran) 4 mg IVPUSH ONETIME ONE Stop: 05/26/20 15:36 Last Admin: 05/26/20 15:40 Dose: 4 mg Documented by: Potassium Chloride (Klor-Con M20) 40 meq PO ONETIME ONE Stop: 05/26/20 18:05 Last Admin: 05/26/20 18:16 Dose: 40 meq Documented by: - Exam General: Alert, Oriented, Cooperative, No Acute Distress Lungs: Clear to Auscultation, Normal Respiratory Effort Cardiovascular: Regular Rate, Regular Rhythm GI/Abdominal Exam: Tender, Abnormal Bowel Sounds (Bowel sounds are hyperactive) Back Exam: Normal Inspection. No: CVA Tenderness (R), CVA Tenderness (L), Paraspinal Tenderness, Vertebral Tenderness Extremities: Normal Inspection Peripheral Pulses: 2+: Radial (L), Radial (R), Dorsalis Pedis (L), Dorsalis Pedis (R) Skin: Warm, Dry Neurological: No New Focal Deficit Psy/Mental Status: Alert, Normal Affect, Normal Mood Sepsis Event Note - Evaluation Sepsis Screening Result: No Definite Risk - Focused Exam Vital Signs: Vital Signs Temp Pulse Pulse Resp BP BP Pulse Ox 05/30/20 08:18 147/101 H 05/30/20 06:50 153/103 H 05/30/20 06:00 81 16 153/103 H 96 05/30/20 01:50 79 16 149/94 H 98 05/29/20 23:57 36.6 C 82 18 139/92 H 94 L 05/29/20 23:38 139/92 H 05/29/20 21:30 161/110 H - Problem List & Annotations (1) Obesity (BMI 30-39.9) SNOMED Code(s): 430691508, 806782806 Code(s): E66.9 - OBESITY, UNSPECIFIED Status: Acute Current Visit: Yes (2) Marijuana abuse SNOMED Code(s): 27457040 Code(s): F12.10 - CANNABIS ABUSE, UNCOMPLICATED Status: Acute Current Visit: Yes (3) Alcohol abuse SNOMED Code(s): 68543646 Code(s): F10.10 - ALCOHOL ABUSE, UNCOMPLICATED Status: Acute Current Visit: Yes (4) Upper abdominal pain SNOMED Code(s): 51658112 Code(s): R10.10 - UPPER ABDOMINAL PAIN, UNSPECIFIED Status: Acute Current Visit: No (5) Leukocytosis SNOMED Code(s): 658108065 Code(s): D72.829 - ELEVATED WHITE BLOOD CELL COUNT, UNSPECIFIED Status: Acute Current Visit: No (6) Hypokalemia SNOMED Code(s): 19447872 Code(s): E87.6 - HYPOKALEMIA Status: Acute Current Visit: Yes Annotation/Comment:: Replace IV potasium (7) Alcohol dependence SNOMED Code(s): 46504558 Code(s): F10.20 - ALCOHOL DEPENDENCE, UNCOMPLICATED Status: Acute Current Visit: No Annotation/Comment:: Needs outpatient ETOH treatment. Spoke with her about Campral (8) Gastroenteritis SNOMED Code(s): 92555814 Code(s): K52.9 - NONINFECTIVE GASTROENTERITIS AND COLITIS, UNSPECIFIED Status: Acute Current Visit: No Annotation/Comment:: Zofran (9) Dehydration SNOMED Code(s): 14092772 Code(s): E86.0 - DEHYDRATION Status: Acute Current Visit: No Annotation/Comment:: Heplock IV,encourage oral as tolerated (10) Diarrhea SNOMED Code(s): 27318416 Code(s): R19.7 - DIARRHEA, UNSPECIFIED Status: Acute Current Visit: No (11) Vomiting SNOMED Code(s): 847887809 Code(s): R11.10 - VOMITING, UNSPECIFIED Status: Acute Current Visit: Yes (12) Acute pancreatitis SNOMED Code(s): 622966625 Code(s): K85.90 - ACUTE PANCREATITIS WITHOUT NECROSIS OR INFECTION, UNSP Status: Acute Current Visit: No - Problem List Review Problem List Initiated/Reviewed/Updated: Yes - My Orders Last 24 Hours: My Active Orders 05/29/20 08:00 Sodium Chloride 0.9% [Normal Saline] 1,000 ml IV ASDIRECTED 05/29/20 09:30 polyethylene glycoL 3350 [MiraLAX] 17 gm PO DAILY 05/29/20 19:01 hydrALAZINE [Apresoline] 20 mg PO Q6H PRN 05/30/20 08:16 Abdomen Pelvis w Cont [CT] Routine LIPID PANEL [CHEM] Routine 05/30/20 08:30 Meropenem [Merrem] 1 gm IVPUSH Q8H 05/30/20 10:07 HYDROmorphone [Dilaudid] 1 mg IVPUSH Q2H PRN 05/30/20 Lunch Clear Liquid Diet [DIET] - Plan Plan:: Amylase and lipase have significantly increased likely secondary to eating solid food. Patient has significant increase in abdominal tenderness especially to palpation. Increase in leukocytosis. Stop Levaquin and start meropenem, full liquid diet, abdominal/pelvis CT with IV contrast. Increased hydralazine overnight from 10 milligrams every 6 hours to 20 mg every 6 hours with parameters of systolic blood pressure above 160 or diastolic blood pressure above 100. Blood pressure is better controlled but is still high. Stop Toradol and increase Dilaudid from 0.5 mg every 2 hours as needed to 1 milligram every 2 hours as needed. Liver enzymes and bilirubin remain normal and she may continue to use Tylenol as needed. CBC, amylase, lipase ordered for tomorrow. Patient does have hypocalcemia but when corrected for albumin calcium is in the normal range (9.22). Mild hypokalemia, patient reduced to clear liquid diet, replenish potassium. Further recommendations based on patient response to treatment and results of CT. Will consider transfer based on treatment efficacy.
[2020-05-30] MEDS: Meropenem 1 GM SDV IVPUSH SCH ×3 (08:41→23:53)
[2020-05-30] MEDS ORDERED: Potassium Chloride 20 MEQ Tab.ER PO ONE (09:01)
[2020-05-30] MEDS ORDERED: Iopamidol 755 Mg/ML 100 ML Bottle IV ONE (09:27)
[2020-05-30] MEDS: cloNIDine 0.1 MG Tab PO SCH ×2 (11:19→23:03)
[2020-05-30] MEDS ORDERED: cloNIDine 0.1 MG Tab PO ONE (12:45)
--- NOTE | 2020-05-30 13:12 | CT ---
INDICATION: Followup acute pancreatitis, increased abdominal tenderness. Amylase is increased from 279 to 1957 from 05/29/20 to 05/30/20. CT ABDOMEN AND PELVIS WITHOUT AND WITH CONTRAST: Spiral 3.75 mm axial sections were obtained through the abdomen initially without IV contrast and then through the abdomen with 100 mL Isovue-370 at 2 mL per second with sagittal and coronal reconstructions and then also with reconstructions through the abdomen and pelvis. Initial contrast portion was at 30-second delay, the second abdomen and pelvis portion was at 75-second delay. Examination was obtained 05/30/20 and is compared with 05/26/20. Total exam DLP was 1074.42 mGy-cm. There are now noted some probable subsegmental atelectatic changes at the lung bases with an appearance on the right possibly also fibrotic in nature, and on the left possibly showing some minimal patchy infiltrate. However, subsegmental atelectasis is felt to be more likely. The heart remains normal in size. No pericardial effusion was seen. The liver showed evidence of a small low-density lesion which could represent a hemangioma at the medial anterior right lobe seen on image 27 of series 8. The liver was otherwise unremarkable except to note clips compatible with cholecystectomy in the gallbladder bed. The adrenal and kidneys appeared normal. The spleen had a normal appearance. The pancreas appears grossly normal except in the head area where a low-density abnormality is again noted and appears unchanged, it may represent some cystic changes in that area, followup is recommended especially since there is now evidence of more severe pancreatic phlegmona extending from the pancreas in the midabdomen right paracolic gutter and into the pelvis with pelvic ascites to a significantly greater extent than on the previous study. At the pancreatic head low-density mass, there does not appear to be a significant degree of focal contrast enhancement. IMPRESSION: 1. Findings are compatible with continued pancreatitis with more severe pancreatic phlegmon with the phlegmon extending more prominently into the midabdomen and into the pelvis with pelvic ascites present to a greater extent than on the previous study. 2. No other change or new acute process was identified. 3. Low-density lesion in the head of the pancreas appears unchanged with no definite contrast enhancement attributable to that area. Likely it represents a benign cystic structure; however, followup is recommended. 4. Post cholecystectomy. Report was called to Dr. James at 1151 hours, 05/30/20. [facility]
[2020-05-30] MEDS: HYDROmorphone 2 MG/ML SDV IVPUSH PRN (20:35)
[2020-05-30] MEDS: Nicotine 14 MG/24 Hr Patch TRDERM SCH (20:38)
[2020-05-30] MEDS: Thiamine 100 MG Tab PO SCH (20:40)
[2020-05-31] MEDS: Sodium Chloride 0.9% 1,000 ML IV SCH ×2 (03:00→11:12)
[2020-05-31] MEDS: HYDROmorphone 2 MG/ML SDV IVPUSH PRN (05:30)
[2020-05-31] MEDS: Pantoprazole 40 MG Vial IV SCH (08:52)
[2020-05-31] MEDS: Meropenem 1 GM SDV IVPUSH SCH (08:54)
[2020-05-31] MEDS: Propranolol 40 MG Tab PO SCH ×2 (08:58→22:04)
[2020-05-31] MEDS: Polyethylene Glycol 3350 Powder 17 GM Packet PO SCH (08:58)
[2020-05-31] MEDS: Lisinopril 10 MG Tab PO SCH (08:59)
[2020-05-31] MEDS: Folic Acid 1 MG Tab PO SCH (08:59)
[2020-05-31] MEDS: Cyanocobalamin (Vitamin B12) 1,000 MCG Tab PO SCH (09:00)
[2020-05-31] MEDS: cloNIDine 0.1 MG Tab PO SCH ×2 (11:24→23:47)
[2020-05-31] MEDS: Potassium Chloride 10 MEQ Tab.ER PO SCH (11:24)
--- NOTE | 2020-05-31 12:19 | PN ---
DATE SEEN: 05/31/2020 HISTORY: Gladis is a 35-year-old woman with acute and chronic alcoholism who came in to the hospital for admission on 05/26/2020 because of abdominal pain. She was found to have acute pancreatitis. She was treated with IV fluids, IV antibiotic, blood pressure control, pain medication, and had slowly improved. She resumed a more diet in the last couple of days, but had a significant bump in her amylase and lipase yesterday. She did not feel particularly worse and maintains good appetite. She is not having fever, chills, sweats, or symptoms of acute infection. She denies severe abdominal pains and states she is hungry. She has had some loose stools. PHYSICAL EXAMINATION: GENERAL: She is alert, comfortable, and gives a straightforward history. VITAL SIGNS: Blood pressure 159/62, pulse 79 and regular, temperature 98, weight 139 pounds, respirations 20, O2 saturations 90% on room air. HEENT: Shows her mouth to be dry. LUNGS: Clear to the bases. HEART: Regular without murmur or gallop. ABDOMEN: Normoactive bowel sounds. Soft. She has mild tenderness in the epigastric area. No lower abdominal tenderness. EXTREMITIES: Show no edema. LABORATORY DATA: White count 13,500, MCV 102, hemoglobin 13.5. Potassium 3.2, creatinine 0.6. Liver enzymes normal. Amylase down to 206, lipase 521. ASSESSMENT: Pancreatitis, improving. PLAN: We will advance diet. Discontinue with her antibiotics. Continue ambulatory activity and anticipate discharge within 24 to 36 hours if continued to improve. /[id number] MISTI/LEO
[2020-05-31] MEDS: Ondansetron 4 MG/2 ML SDV IVPUSH PRN (18:39)
[2020-05-31] MEDS: Acetaminophen 325 MG Tab PO PRN (18:39)
[2020-05-31] MEDS: Sodium Chloride 0.9% 10 ML Syringe FLUSH PRN ×2 (21:00→22:05)
[2020-05-31] MEDS: Nicotine 14 MG/24 Hr Patch TRDERM SCH (21:47)
[2020-05-31] MEDS: Thiamine 100 MG Tab PO SCH (21:49)
[2020-06-01] MEDS: Sodium Chloride 0.9% 1,000 ML IV SCH (01:40)
[2020-06-01] MEDS: Acetaminophen 325 MG Tab PO PRN (04:54)
[2020-06-01] MEDS: Potassium Chloride 10 MEQ Tab.ER PO SCH (08:31)
[2020-06-01] MEDS: Propranolol 40 MG Tab PO SCH (08:31)
[2020-06-01] MEDS: Polyethylene Glycol 3350 Powder 17 GM Packet PO SCH (08:31)
[2020-06-01] MEDS: Cyanocobalamin (Vitamin B12) 1,000 MCG Tab PO SCH (08:32)
[2020-06-01] MEDS: Folic Acid 1 MG Tab PO SCH (08:32)
[2020-06-01] MEDS: Lisinopril 10 MG Tab PO SCH (08:32)
[2020-06-01 08:33] VITALS: BP 146/100
[2020-06-01 09:04] VITALS: PULSE 78
[2020-06-01] MEDS ORDERED: Pantoprazole 40 MG Tab.CR PO SCH (09:30)
--- NOTE | 2020-06-01 11:13 | DISCH ---
DISCHARGE DATE: 06/01/2020 PRIMARY FINAL DIAGNOSIS: Acute moderate pancreatitis. OTHER DIAGNOSES: [id number] alcoholism, hypertension, history of gastritis. OPERATIONS: None. COMPLICATIONS: The patient had a slow resolution of her abdominal pain and nausea. SUMMARY: Ms. Griffith is a 35-year-old woman with a history of [id number] alcoholism who came in with severe abdominal pain. She was found to have acute pancreatitis confirmed by laboratory and CT. Her renal function remained normal. Calcium dropped to 7.7 and rebounded. Liver enzymes remained normal. Amylase peaked at 1957 and lipase peaked at 11,601. By 06/01/2020, she was improved enough. She was eating a full breakfast. She was comfortable. She was anxious for discharge. She had been treated with both clonidine and lisinopril for hypertension. She is discharged in improved condition to continue medications as follows: 1. Lisinopril 20 mg p.o. daily. 2. Naltrexone 50 mg p.o. daily. 3. Omeprazole 20 mg daily. 4. Multiple vitamin 1 daily. She is to have follow up with Dr. Simons in 2 weeks for recheck of her blood pressure. She has already spoken with her AA sponsor and will get lined up with AA meetings and avoid alcohol as able. /[id number] MISTI/LEO
[2020-06-01] MEDS ORDERED: Pantoprazole 40 MG Tab.CR PO ONE (12:06)
[2020-06-01] MEDS ORDERED: cloNIDine 0.1 MG Tab PO SCH (21:00)
[2020-06-02] MEDS ORDERED: Lisinopril 20 MG Tab PO SCH (09:00)
== END 2020-06-01 12:07 | disposition home or self-care (01) | DRG 440 ==
LOC: FB.ED 15:10 → FB.MS 20:14
PROVIDERS: ADMIT Family Medicine; ATTEND Family Medicine
DX: K85.90 Acute pancreatitis without necrosis or infection, unspecified (principal); F10.20 Alcohol dependence, uncomplicated; I10 Essential (primary) hypertension; K29.70 Gastritis, unspecified, without bleeding; F17.210 Nicotine dependence, cigarettes, uncomplicated; Z79.899 Other long term (current) drug therapy; H54.7 Unspecified visual loss; G43.909 Migraine, unspecified, not intractable, without status migrainosus; J45.909 Unspecified asthma, uncomplicated; Z87.11 Personal history of peptic ulcer disease; R59.1 Generalized enlarged lymph nodes; E66.9 Obesity, unspecified; Z85.41 Personal history of malignant neoplasm of cervix uteri; Z90.49 Acquired absence of other specified parts of digestive tract; Z20.822 Contact with and (suspected) exposure to COVID-19; F12.10 Cannabis abuse, uncomplicated; E87.6 Hypokalemia; E86.0 Dehydration; K52.9 Noninfective gastroenteritis and colitis, unspecified; Z68.25 Body mass index [BMI] 25.0-25.9, adult
CPT/HCPCS: 36415; 74177; 74178; 80048; 80053; 80061; 80305-QW; 80307; 82150; 82247; 82248; 83690; 84132; 85025; 85610; 96374; 96375; 99221; 99231; 99232; 99238; 99285; 99285-25; A9270-GY; C9113; J1170; J1885; J1956; J2185; J2405; J3411; J3475; J3490; J7030; Q9967; U0002

== ENCOUNTER 2020-06-09 00:59 | Inpatient (IN) | payer OTHER ==
[2020-06-09] MEDS ORDERED: Sodium Chloride 0.9% 1,000 ML IV ONE ×2 (01:23→02:47)
[2020-06-09] MEDS ORDERED: Ondansetron 4 MG/2 ML SDV IVPUSH ONE (01:24)
[2020-06-09] MEDS ORDERED: Pantoprazole 40 MG Vial IVPUSH ONE (01:24)
--- NOTE | 2020-06-09 01:35 | EDM.PDOC ---
ED HPI GENERAL MEDICAL PROBLEM - General Chief Complaint: Abdominal Pain Stated Complaint: PANCREATITUS Time Seen by Provider: 06/09/20 01:30 Source of Information: Reports: Patient History Limitations: Reports: No Limitations - History of Present Illness INITIAL COMMENTS - FREE TEXT/NARRATIVE: Presents with generalized abdominal pain x 18 hours associated N/V. Emesis is bilious, non-bloody. She had one episode of frankly bloody stool @2 hours ago. Patient was hospitalized on 05/27/20 with alcohol induced pancreatitis, symptoms feel similar. She has abstained from alcohol consumption since discharge. Patient does have a history of PUD. Onset Date: 06/08/20 Location: Reports: Abdomen Quality: Reports: Dull Severity: Moderate Treatments SUPERVISOR DECORATING: Reports: Acetaminophen Abdominal pain radiating into back Pain Score (Numeric/FACES): 9 - Related Data Allergies Allergy/AdvReac Type Severity Reaction Status Date / Time No Known Allergies Allergy Verified 06/09/20 01:08 Home Meds: Home Meds Omeprazole Magnesium [Prilosec Otc] 20 mg PO DAILY 03/14/19 [History] Multivitamin/Iron/Folic Acid [Centrum Adults Tablet] 1 each PO DAILY #30 tablet 06/01/20 [Rx] Naltrexone 50 mg PO DAILY #30 tab 06/01/20 [Rx] lisinopriL [Prinivil] 20 mg PO DAILY #90 tablet 06/01/20 [Rx] Past Medical History HEENT History: Reports: Allergic Rhinitis, Impaired Vision Other HEENT History: Rhinorrhea, migraine. Respiratory History: Reports: Asthma Other Respiratory History: Smoker. Gastrointestinal History: Reports: Pancreatitis, PUD FORMULA MAKER History: Reports: Other (See Below) Other FORMULA MAKER History: Musculoskeletal History: Reports: Fracture Other Musculoskeletal History: History of bilateral rib fracture. Neurological History: Reports: Migraines Other Neuro History: Cervical lymphadenopathy. Psychiatric History: Reports: Addiction, Other (See Below) Other Psychiatric History: Fatigue. Endocrine/Metabolic History: Reports: Obesity/BMI 30+ Hematologic History: Reports: None Immunologic History: Oncologic (Cancer) History: Reports: Cervix Dermatologic History: Reports: None - Infectious Disease History Infectious Disease History: Reports: Chicken Pox - Past Surgical History Head Surgeries/Procedures: Reports: None HEENT Surgical History: Reports: None GI Surgical History: Reports: Appendectomy, Cholecystectomy Musculoskeletal Surgical History: Reports: None Social & Family History - Family History Family Medical History: No Pertinent Family History Respiratory: Reports: Asthma - Caffeine Use Caffeine Use: Reports: None - Living Situation & Occupation Occupation: Employed ED ROS GENERAL - Review of Systems Review Of Systems: Comprehensive ROS is negative, except as noted in HPI. ED EXAM, GI/ABD - Physical Exam Exam: See Below Exam Limited By: No Limitations General Appearance: Alert, WD/WN, No Apparent Distress Ears: Normal External Exam Throat/Mouth: No Airway Compromise Head: Atraumatic, Normocephalic Neck: Full Range of Motion Respiratory/Chest: No Respiratory Distress, Lungs Clear, Normal Breath Sounds Cardiovascular: Regular Rate, Rhythm, No Murmur GI/Abdominal Exam: Normal Bowel Sounds, Soft, No Distention, Tender (RUQ and suprapubic) Extremities: Normal Range of Motion Neurological: Alert, Normal Cognition Psychiatric: Normal Mood Skin Exam: Warm, Dry, Intact Course - Vital Signs Last Recorded V/S: Last Vital Signs Temp 36.6 C 06/09/20 01:03 Pulse 99 06/09/20 03:29 Resp 18 06/09/20 03:29 BP 157/103 H 06/09/20 03:29 Pulse Ox 98 06/09/20 03:29 - Orders/Labs/Meds Orders: Active Orders 24 hr Category Date Time Status Admission Status [Patient Status] [ADT] Routine ADT 06/09/20 04:16 Ordered Abdomen Pelvis w Cont [CT] Stat Exams 06/09/20 02:45 Taken Piperacillin/Tazobactam [Zosyn] 3.375 gm Med 06/09/20 04:16 Ordered Sodium Chloride 0.9% [Normal Saline] 50 ml IV .ONCE Sodium Chloride 0.9% [Normal Saline] 1,000 ml Med 06/09/20 04:00 Active IV ASDIRECTED Sodium Chloride 0.9% [Saline Flush] Med 06/09/20 01:23 Active 10 ml FLUSH ASDIRECTED PRN Saline Lock Insert [OM.PC] Routine Oth 06/09/20 01:23 Ordered Medication Orders Sodium Chloride (Normal Saline) 1,000 mls @ 250 mls/hr IV ASDIRECTED SRINATH Last Admin: 06/09/20 03:50 Dose: 250 mls/hr Documented by: ELISHA Piperacillin Sod/Tazobactam (Sod 3.375 gm/ Sodium Chloride) 50 mls @ 100 mls/hr IV .ONCE ONE Stop: 06/09/20 04:45 Sodium Chloride (Saline Flush) 10 ml FLUSH ASDIRECTED PRN PRN Reason: Keep Vein Open Labs: Laboratory Tests 06/09/20 06/09/20 06/09/20 Range/Units 01:18 01:18 01:18 WBC 18.2 H (3.0-10.3) x10-3/uL RBC 4.71 (3.60-5.20) x10(6)uL Hgb 15.4 D (11.4-15.5) g/dL Hct 46.6 (34.2-48.2) % MCV 99.0 (76.7-100.5) fL MCH 32.6 (23.9-33.9) pg MCHC 32.9 (31.9-34.8) g/dL RDW 16.6 H (12.3-16.5) % Plt Count 718 H (151-488) x10(3)uL MPV 9.0 (7.1-12.4) fL Add Manual Diff Yes Neutrophils % (Manual) 79 (46-82) % Band Neutrophils % 4 (0-6) % Lymphocytes % (Manual) 13 (13-37) % Monocytes % (Manual) 4 (4-12) % Sodium 137 (135-145) mmol/L Potassium 3.3 L (3.5-5.3) mmol/L Chloride 99 L (100-110) mmol/L Carbon Dioxide 28 (21-32) mmol/L BUN 9 (7-18) mg/dL Creatinine 0.7 (0.55-1.02) mg/dL Est Cr Clr Drug Dosing 84.65 mL/min Estimated GFR (MDRD) > 60 (>60) BUN/Creatinine Ratio 12.9 (9-20) Glucose 128 H (80-116) mg/dL Calcium 9.1 (8.6-10.2) mg/dL Magnesium (1.8-2.5) mg/dL Total Bilirubin 0.3 (0.1-1.3) mg/dL AST 142 H D (5-25) IU/L ALT 64 H D (12-36) U/L Alkaline Phosphatase 118 H (56-112) IU/L Total Protein 7.4 (6.0-8.0) g/dL Albumin 3.0 L (3.5-5.2) g/dL Globulin 4.4 g/dL Albumin/Globulin Ratio 0.7 Triglycerides (15-150) mg/dL Cholesterol (50-200) mg/dL LDL Cholesterol Direct (60-130) mg/dL HDL Cholesterol (40-75) mg/dL Cholesterol/HDL Ratio (0-5) Lipase 1486 H (73-393) U/L Urine Color (YELLOW) Urine Appearance (CLEAR) Urine pH (5.0-6.5) Ur Specific [place] (1.010-1.025) Urine Protein (NEGATIVE) mg/dL Urine Glucose (UA) (NORMAL) mg/dL Urine Ketones (NEGATIVE) mg/dL Urine Occult Blood (NEGATIVE) Urine Nitrite (NEGATIVE) Urine Bilirubin (NEGATIVE) Urine Urobilinogen (NEGATIVE) mg/dL Ur Leukocyte Esterase (NEGATIVE) Urine RBC (0-5) Urine WBC (0-5) Ur Squamous Epith Cells (NS,R,O) Urine Bacteria (NS) Urine HCG, Qual (NEGATIVE) Urine Opiates Screen (NEGATIVE) Ur Oxycodone Screen (NEGATIVE) Ur Propoxyphene Screen (NEGATIVE) Ur Barbituates Screen (NEGATIVE) Ur Tricyclics Screen (NEGATIVE) Ur Phencyclidine Scrn (NEGATIVE) Ur Amphetamine Screen (NEGATIVE) Urine MDMA Screen (NEGATIVE) U Benzodiazepines Scrn (NEGATIVE) U Cocaine Metab Screen (NEGATIVE) U Marijuana (THC) Screen (NEGATIVE) Ethyl Alcohol < 0.03 (<0.03) % SARS-CoV-2 RNA (JAVIER) (NEGATIVE) 06/09/20 06/09/20 06/09/20 Range/Units 01:18 01:18 01:45 WBC (3.0-10.3) x10-3/uL RBC (3.60-5.20) x10(6)uL Hgb (11.4-15.5) g/dL Hct (34.2-48.2) % MCV (76.7-100.5) fL MCH (23.9-33.9) pg MCHC (31.9-34.8) g/dL RDW (12.3-16.5) % Plt Count (151-488) x10(3)uL MPV (7.1-12.4) fL Add Manual Diff Neutrophils % (Manual) (46-82) % Band Neutrophils % (0-6) % Lymphocytes % (Manual) (13-37) % Monocytes % (Manual) (4-12) % Sodium (135-145) mmol/L Potassium (3.5-5.3) mmol/L Chloride (100-110) mmol/L Carbon Dioxide (21-32) mmol/L BUN (7-18) mg/dL Creatinine (0.55-1.02) mg/dL Est Cr Clr Drug Dosing mL/min Estimated GFR (MDRD) (>60) BUN/Creatinine Ratio (9-20) Glucose (80-116) mg/dL Calcium (8.6-10.2) mg/dL Magnesium 1.6 L (1.8-2.5) mg/dL Total Bilirubin (0.1-1.3) mg/dL AST (5-25) IU/L ALT (12-36) U/L Alkaline Phosphatase (56-112) IU/L Total Protein (6.0-8.0) g/dL Albumin (3.5-5.2) g/dL Globulin g/dL Albumin/Globulin Ratio Triglycerides 199 H (15-150) mg/dL Cholesterol 178 (50-200) mg/dL LDL Cholesterol Direct 101 (60-130) mg/dL HDL Cholesterol 37 L (40-75) mg/dL Cholesterol/HDL Ratio 4.8 (0-5) Lipase (73-393) U/L Urine Color (YELLOW) Urine Appearance (CLEAR) Urine pH (5.0-6.5) Ur Specific [place] (1.010-1.025) Urine Protein (NEGATIVE) mg/dL Urine Glucose (UA) (NORMAL) mg/dL Urine Ketones (NEGATIVE) mg/dL Urine Occult Blood (NEGATIVE) Urine Nitrite (NEGATIVE) Urine Bilirubin (NEGATIVE) Urine Urobilinogen (NEGATIVE) mg/dL Ur Leukocyte Esterase (NEGATIVE) Urine RBC (0-5) Urine WBC (0-5) Ur Squamous Epith Cells (NS,R,O) Urine Bacteria (NS) Urine HCG, Qual (NEGATIVE) Urine Opiates Screen (NEGATIVE) Ur Oxycodone Screen (NEGATIVE) Ur Propoxyphene Screen (NEGATIVE) Ur Barbituates Screen (NEGATIVE) Ur Tricyclics Screen (NEGATIVE) Ur Phencyclidine Scrn (NEGATIVE) Ur Amphetamine Screen (NEGATIVE) Urine MDMA Screen (NEGATIVE) U Benzodiazepines Scrn (NEGATIVE) U Cocaine Metab Screen (NEGATIVE) U Marijuana (THC) Screen (NEGATIVE) Ethyl Alcohol (<0.03) % SARS-CoV-2 RNA (JAVIER) Negative (NEGATIVE) 06/09/20 06/09/20 06/09/20 Range/Units 02:25 02:25 02:25 WBC (3.0-10.3) x10-3/uL RBC (3.60-5.20) x10(6)uL Hgb (11.4-15.5) g/dL Hct (34.2-48.2) % MCV (76.7-100.5) fL MCH (23.9-33.9) pg MCHC (31.9-34.8) g/dL RDW (12.3-16.5) % Plt Count (151-488) x10(3)uL MPV (7.1-12.4) fL Add Manual Diff Neutrophils % (Manual) (46-82) % Band Neutrophils % (0-6) % Lymphocytes % (Manual) (13-37) % Monocytes % (Manual) (4-12) % Sodium (135-145) mmol/L Potassium (3.5-5.3) mmol/L Chloride (100-110) mmol/L Carbon Dioxide (21-32) mmol/L BUN (7-18) mg/dL Creatinine (0.55-1.02) mg/dL Est Cr Clr Drug Dosing mL/min Estimated GFR (MDRD) (>60) BUN/Creatinine Ratio (9-20) Glucose (80-116) mg/dL Calcium (8.6-10.2) mg/dL Magnesium (1.8-2.5) mg/dL Total Bilirubin (0.1-1.3) mg/dL AST (5-25) IU/L ALT (12-36) U/L Alkaline Phosphatase (56-112) IU/L Total Protein (6.0-8.0) g/dL Albumin (3.5-5.2) g/dL Globulin g/dL Albumin/Globulin Ratio Triglycerides (15-150) mg/dL Cholesterol (50-200) mg/dL LDL Cholesterol Direct (60-130) mg/dL HDL Cholesterol (40-75) mg/dL Cholesterol/HDL Ratio (0-5) Lipase (73-393) U/L Urine Color Yellow (YELLOW) Urine Appearance Clear (CLEAR) Urine pH 8.0 H (5.0-6.5) Ur Specific [place] 1.015 (1.010-1.025) Urine Protein Negative (NEGATIVE) mg/dL Urine Glucose (UA) Normal (NORMAL) mg/dL Urine Ketones 15 H (NEGATIVE) mg/dL Urine Occult Blood Moderate H (NEGATIVE) Urine Nitrite Negative (NEGATIVE) Urine Bilirubin Negative (NEGATIVE) Urine Urobilinogen Normal (NEGATIVE) mg/dL Ur Leukocyte Esterase Negative (NEGATIVE) Urine RBC 20-30 H (0-5) Urine WBC 0-5 (0-5) Ur Squamous Epith Cells Occasional (NS,R,O) Urine Bacteria Few H (NS) Urine HCG, Qual Negative (NEGATIVE) Urine Opiates Screen Negative (NEGATIVE) Ur Oxycodone Screen Negative (NEGATIVE) Ur Propoxyphene Screen Negative (NEGATIVE) Ur Barbituates Screen Negative (NEGATIVE) Ur Tricyclics Screen Negative (NEGATIVE) Ur Phencyclidine Scrn Negative (NEGATIVE) Ur Amphetamine Screen Negative (NEGATIVE) Urine MDMA Screen Negative (NEGATIVE) U Benzodiazepines Scrn Negative (NEGATIVE) U Cocaine Metab Screen Negative (NEGATIVE) U Marijuana (THC) Screen Positive H (NEGATIVE) Ethyl Alcohol (<0.03) % SARS-CoV-2 RNA (JAVIER) (NEGATIVE) Meds: Medications Generic Name Dose Route Start Last Admin Trade Name Freq PRN Reason Stop Dose Admin Sodium Chloride 1,000 mls @ 250 mls/hr 06/09/20 04:00 06/09/20 03:50 Normal Saline IV 250 mls/hr ASDIRECTED SRINATH Administration Piperacillin Sod/Tazobactam 50 mls @ 100 mls/hr 06/09/20 04:16 Sod 3.375 gm/ Sodium Chloride IV 06/09/20 04:45 .ONCE ONE Sodium Chloride 10 ml 06/09/20 01:23 Saline Flush FLUSH ASDIRECTED PRN Keep Vein Open Discontinued Medications Generic Name Dose Route Start Last Admin Trade Name Freq PRN Reason Stop Dose Admin Hydromorphone HCl 1 mg 06/09/20 02:32 06/09/20 02:42 Dilaudid IVPUSH 06/09/20 02:33 1 mg ONETIME ONE Administration Hydromorphone HCl 1 mg 06/09/20 03:24 06/09/20 03:32 Dilaudid IVPUSH 06/09/20 03:25 1 mg ONETIME ONE Administration Hydromorphone HCl 2 mg 06/09/20 04:15 Dilaudid IVPUSH 06/09/20 04:16 ONETIME ONE Hydroxyzine HCl 50 mg 06/09/20 02:31 06/09/20 02:45 Vistaril IM 06/09/20 02:32 50 mg ONETIME ONE Administration Sodium Chloride 1,000 mls @ 999 mls/hr 06/09/20 01:23 06/09/20 01:41 Normal Saline IV 06/09/20 02:23 999 mls/hr .BOLUS ONE Administration Sodium Chloride 1,000 mls @ 999 mls/hr 06/09/20 02:47 06/09/20 02:43 Normal Saline IV 06/09/20 03:47 999 mls/hr .BOLUS ONE Administration Magnesium Sulfate 1 gm/ 52 mls @ 100 mls/hr 06/09/20 03:44 Dextrose/Water IV 06/09/20 04:15 ONETIME ONE Iopamidol 100 ml 06/09/20 02:56 06/09/20 03:16 Isovue-370 (76%) IV 06/09/20 02:57 100 ml . DIRECTED ONE Administration Ondansetron HCl 4 mg 06/09/20 01:24 06/09/20 01:42 Zofran IVPUSH 06/09/20 01:25 4 mg ONETIME ONE Administration Pantoprazole Sodium 40 mg 06/09/20 01:24 06/09/20 01:44 Protonix Iv IVPUSH 06/09/20 01:25 40 mg ONETIME ONE Administration - Radiology Interpretation Free Text/Narrative:: CT Abd/Pelvis w/ IV contrast: Impression: 1. Marked edema surrounding the pancreatic head and proximal duodenum, compatible with acute pancreatitis and duodenitis. Degree of edema and duodenal wall thickening have increased since 05/30/2020. 2. Communicating foci of heterogeneous attenuation with surrounding fat stranding in the central mesentery with [place] measurement of approximately 5 x 6 x 2 cm, likely representing phlegmonous spread from adjacent pancreatitis/duodenitis. This has also markedly worsened. 3. 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 Annual surveillance is recommended with MRI. Dictated by Jermaine Clay MD @ Jun 09 2020 3:44AM. No pancreatic necrosis per Dr. Clay. - Re-Assessments/Exams Free Text/Narrative Re-Assessment/Exam: 06/09/20 04:18 Minimal improvement of pain after Dilaudid 2mg IV, likely because patient is taking Naltrexone. Departure - Departure Time of Disposition: 04:20 Disposition: Admitted As Inpatient 66 Condition: Fair Clinical Impression: Duodenitis Acute pancreatitis Qualifiers: Pancreatitis type: unspecified pancreatitis type Acute pancreatitis complication: no infection or necrosis Qualified Code(s): K85.90 - Acute pancreatitis without necrosis or infection, unspecified - Discharge Information *PRESCRIPTION DRUG MONITORING PROGRAM REVIEWED*: No *COPY OF PRESCRIPTION DRUG MONITORING REPORT IN PATIENT NARESH: Not Applicable Referrals: Harvey Simons MD [Primary Care Provider] - Forms: ED Department Discharge Sepsis Event Note (ED) - Evaluation Sepsis Screening Result: No Definite Risk - Focused Exam Vital Signs: Vital Signs Temp Pulse Resp BP Pulse Ox 06/09/20 03:29 99 18 157/103 H 98 06/09/20 02:16 101 H 18 152/103 H 100 06/09/20 01:03 36.6 C 99 20 147/99 H 100 - My Orders Last 24 Hours: My Active Orders 06/09/20 01:23 Sodium Chloride 0.9% [Saline Flush] 10 ml FLUSH ASDIRECTED PRN Saline Lock Insert [OM.PC] Routine 06/09/20 02:45 Abdomen Pelvis w Cont [CT] Stat 06/09/20 04:00 Sodium Chloride 0.9% [Normal Saline] 1,000 ml IV ASDIRECTED 06/09/20 04:16 Admission Status [Patient Status] [ADT] Routine Piperacillin/Tazobactam [Zosyn] 3.375 gm Sodium Chloride 0.9% [Normal Saline] 50 ml IV .ONCE - Assessment/Plan Last 24 Hours: My Active Orders 06/09/20 01:23 Sodium Chloride 0.9% [Saline Flush] 10 ml FLUSH ASDIRECTED PRN Saline Lock Insert [OM.PC] Routine 06/09/20 02:45 Abdomen Pelvis w Cont [CT] Stat 06/09/20 04:00 Sodium Chloride 0.9% [Normal Saline] 1,000 ml IV ASDIRECTED 06/09/20 04:16 Admission Status [Patient Status] [ADT] Routine Piperacillin/Tazobactam [Zosyn] 3.375 gm Sodium Chloride 0.9% [Normal Saline] 50 ml IV .ONCE
[2020-06-09] MEDS ORDERED: hydrOXYzine HCl 50 MG/ML SDV IM ONE (02:31)
[2020-06-09] MEDS ORDERED: HYDROmorphone 2 MG/ML SDV IVPUSH ONE ×3 (02:32→04:15)
[2020-06-09] MEDS ORDERED: Iopamidol 755 Mg/ML 100 ML Bottle IV ONE (02:56)
[2020-06-09] MEDS: Sodium Chloride 0.9% 1,000 ML IV SCH ×3 (03:50→12:44)
[2020-06-09] MEDS ORDERED: Piperacillin/Tazobactam 3.375 GM in Sodium Chloride 0.9% 50 ML IV ONE (04:16)
[2020-06-09] MEDS: HYDROmorphone 2 MG/ML SDV IVPUSH PRN ×2 (06:44→08:37)
[2020-06-09] MEDS: Ondansetron 4 MG/2 ML SDV IV PRN (08:37)
[2020-06-09] MEDS: Lisinopril 20 MG Tab PO SCH (08:37)
[2020-06-09] MEDS: Ketorolac 30 MG/ML SDV IVPUSH SCH ×3 (10:25→21:38)
[2020-06-09] MEDS: Meropenem 1 GM SDV IVPUSH SCH ×2 (11:04→18:37)
[2020-06-09] MEDS: Acetaminophen 1,000 MG in Premix Bag 1 BAG IV SCH ×3 (11:05→21:13)
[2020-06-09] MEDS: Pantoprazole 40 MG Vial IVPUSH SCH (12:45)
--- NOTE | 2020-06-09 13:01 | PCM.HP.2 ---
H&P History of Present Illness - General Date of Service: 06/09/20 Admit Problem/Dx: Admission Diagnosis/Problem Admission Diagnosis/Problem Pancreatitis Source of Information: Patient, EMS Notes Reviewed - History of Present Illness Initial Comments - Free Text/Narative: Gladis presented with 1 day history of abdominal pain LUQ pain radiating to her back, vomiting 3 times at home, then twice in ER, has not had any emesis on the floor. Denies fevers, chills, sinus congestion, shortness of breath, chest pain. Decreased urination. Was admitted 05/26 for pancreatitis, s/p cholecystectomy, alcoholic induced pancreatitis at that visit. She has abstained from alcohol since discharge. Her alcohol level was <0.03. She had worsening pancreatitis on CT abdomen/pelvis from ER, [id number] area involving the pancreas/duodenum with fat stranding. No necrosis documented. Lipase 1486. AST 142, ALT 64. She received Dilaudid in ER but states not helping and just making her loopy, she is on Naltrexone daily, she last took yesterday. She states she had rectal bleeding from hemorrhoids a few months ago, only bleeds if she is straining. NKA. Abdominal pain radiating into back Pain Score (Numeric/FACES): 4 - Related Data Allergies/Adverse Reactions: Allergies Allergy/AdvReac Type Severity Reaction Status Date / Time No Known Allergies Allergy Verified 06/09/20 01:08 Home Medications: Home Meds Omeprazole Magnesium [Prilosec Otc] 20 mg PO DAILY 03/14/19 [History] Multivitamin/Iron/Folic Acid [Centrum Adults Tablet] 1 each PO DAILY #30 tablet 06/01/20 [Rx] Naltrexone 50 mg PO DAILY #30 tab 06/01/20 [Rx] lisinopriL [Prinivil] 20 mg PO DAILY #90 tablet 06/01/20 [Rx] Past Medical History HEENT History: Reports: Allergic Rhinitis, Impaired Vision Other HEENT History: Rhinorrhea, migraine. Cardiovascular History: Reports: Hypertension Respiratory History: Reports: Asthma Other Respiratory History: Smoker. Gastrointestinal History: Reports: Pancreatitis, [employer] History: Reports: , Other (See Below) Other OB/BYN History: Musculoskeletal History: Reports: Fracture Other Musculoskeletal History: History of bilateral rib fracture. Neurological History: Reports: Migraines Other Neuro History: Cervical lymphadenopathy. Psychiatric History: Reports: Addiction, Other (See Below) Other Psychiatric History: Fatigue, hx ETOH abuse, has been in tx for ETOH abuse 3 yrs ago. Endocrine/Metabolic History: Reports: Obesity/BMI 30+ Hematologic History: Reports: None Immunologic History: Oncologic (Cancer) History: Reports: Cervix Dermatologic History: Reports: None - Infectious Disease History Infectious Disease History: Reports: Chicken Pox - Past Surgical History Head Surgeries/Procedures: Reports: None HEENT Surgical History: Reports: None GI Surgical History: Reports: Appendectomy, Cholecystectomy Musculoskeletal Surgical History: Reports: None Social & Family History - Family History Family Medical History: No Pertinent Family History Respiratory: Reports: Asthma - Tobacco Use Tobacco Use Status *Q: Current Every Day Tobacco User Years of Tobacco use: 18 Packs/Tins Daily: 0.5 - Caffeine Use Caffeine Use: Reports: Soda Other Caffeine Use: soda once a week - Recreational Drug Use Recreational Drug Use: Yes Drug Use in Last 12 Months: Yes Recreational Drug Type: Reports: Marijuana/Hashish Recreational Drug Use Frequency: Rarely - Living Situation & Occupation Occupation: Employed H&P Review of Systems - Review of Systems: Review Of Systems: Comprehensive ROS is negative, except as noted in HPI. Exam - Exam Exam: See Below - Vital Signs Vital Signs: Last Vital Signs Temp 97.6 F 06/09/20 09:20 Pulse 98 06/09/20 09:20 Resp 18 06/09/20 09:20 BP 158/110 H 06/09/20 09:20 Pulse Ox 97 06/09/20 09:20 Weight: 135 lb 8 oz - Exam General: Alert, Oriented, Cooperative, Mild Distress HEENT: PERRLA, Conjunctiva Clear, EOMI, Hearing Intact Lungs: Clear to Auscultation, Normal Respiratory Effort Cardiovascular: Tachycardia GI/Abdominal Exam: Soft, No Distention, Guarding, Tender (LUQ TTP, mild TTP in BLQ), Abnormal Bowel Sounds (hypoactive). No: Rigid, Rebound (Female) Exam: Deferred Rectal (Female) Exam: Deferred Extremities: No Pedal Edema, Normal Capillary Refill Peripheral Pulses: 2+: Radial (L), Radial (R) - Patient Data Lab Results Last 24 hrs: Laboratory Results - last 24 hr 06/09/20 06/09/20 06/09/20 Range/Units 01:18 01:18 01:18 WBC 18.2 H (3.0-10.3) x10-3/uL RBC 4.71 (3.60-5.20) x10(6)uL Hgb 15.4 D (11.4-15.5) g/dL Hct 46.6 (34.2-48.2) % MCV 99.0 (76.7-100.5) fL MCH 32.6 (23.9-33.9) pg MCHC 32.9 (31.9-34.8) g/dL RDW 16.6 H (12.3-16.5) % Plt Count 718 H (151-488) x10(3)uL MPV 9.0 (7.1-12.4) fL Add Manual Diff Yes Neutrophils % (Manual) 79 (46-82) % Band Neutrophils % 4 (0-6) % Lymphocytes % (Manual) 13 (13-37) % Monocytes % (Manual) 4 (4-12) % Hypersegmented Neuts Toxic Granulation (NOT SEEN) Sodium 137 (135-145) mmol/L Potassium 3.3 L (3.5-5.3) mmol/L Chloride 99 L (100-110) mmol/L Carbon Dioxide 28 (21-32) mmol/L BUN 9 (7-18) mg/dL Creatinine 0.7 (0.55-1.02) mg/dL Est Cr Clr Drug Dosing 84.65 mL/min Estimated GFR (MDRD) > 60 (>60) BUN/Creatinine Ratio 12.9 (9-20) Glucose 128 H (80-116) mg/dL Calcium 9.1 (8.6-10.2) mg/dL Magnesium (1.8-2.5) mg/dL Total Bilirubin 0.3 (0.1-1.3) mg/dL AST 142 H D (5-25) IU/L ALT 64 H D (12-36) U/L Alkaline Phosphatase 118 H (56-112) IU/L Total Protein 7.4 (6.0-8.0) g/dL Albumin 3.0 L (3.5-5.2) g/dL Globulin 4.4 g/dL Albumin/Globulin Ratio 0.7 Triglycerides (15-150) mg/dL Cholesterol (50-200) mg/dL LDL Cholesterol Direct (60-130) mg/dL HDL Cholesterol (40-75) mg/dL Cholesterol/HDL Ratio (0-5) Lipase 1486 H (73-393) U/L Urine Color (YELLOW) Urine Appearance (CLEAR) Urine pH (5.0-6.5) Ur Specific Dawson (1.010-1.025) Urine Protein (NEGATIVE) mg/dL Urine Glucose (UA) (NORMAL) mg/dL Urine Ketones (NEGATIVE) mg/dL Urine Occult Blood (NEGATIVE) Urine Nitrite (NEGATIVE) Urine Bilirubin (NEGATIVE) Urine Urobilinogen (NEGATIVE) mg/dL Ur Leukocyte Esterase (NEGATIVE) Urine RBC (0-5) Urine WBC (0-5) Ur Squamous Epith Cells (NS,R,O) Urine Bacteria (NS) Urine HCG, Qual (NEGATIVE) Urine Opiates Screen (NEGATIVE) Ur Oxycodone Screen (NEGATIVE) Ur Propoxyphene Screen (NEGATIVE) Ur Barbituates Screen (NEGATIVE) Ur Tricyclics Screen (NEGATIVE) Ur Phencyclidine Scrn (NEGATIVE) Ur Amphetamine Screen (NEGATIVE) Urine MDMA Screen (NEGATIVE) U Benzodiazepines Scrn (NEGATIVE) U Cocaine Metab Screen (NEGATIVE) U Marijuana (THC) Screen (NEGATIVE) Ethyl Alcohol < 0.03 (<0.03) % SARS-CoV-2 RNA (JAVIER) (NEGATIVE) 06/09/20 06/09/20 06/09/20 Range/Units 01:18 01:18 01:45 WBC (3.0-10.3) x10-3/uL RBC (3.60-5.20) x10(6)uL Hgb (11.4-15.5) g/dL Hct (34.2-48.2) % MCV (76.7-100.5) fL MCH (23.9-33.9) pg MCHC (31.9-34.8) g/dL RDW (12.3-16.5) % Plt Count (151-488) x10(3)uL MPV (7.1-12.4) fL Add Manual Diff Neutrophils % (Manual) (46-82) % Band Neutrophils % (0-6) % Lymphocytes % (Manual) (13-37) % Monocytes % (Manual) (4-12) % Hypersegmented Neuts Toxic Granulation (NOT SEEN) Sodium (135-145) mmol/L Potassium (3.5-5.3) mmol/L Chloride (100-110) mmol/L Carbon Dioxide (21-32) mmol/L BUN (7-18) mg/dL Creatinine (0.55-1.02) mg/dL Est Cr Clr Drug Dosing mL/min Estimated GFR (MDRD) (>60) BUN/Creatinine Ratio (9-20) Glucose (80-116) mg/dL Calcium (8.6-10.2) mg/dL Magnesium 1.6 L (1.8-2.5) mg/dL Total Bilirubin (0.1-1.3) mg/dL AST (5-25) IU/L ALT (12-36) U/L Alkaline Phosphatase (56-112) IU/L Total Protein (6.0-8.0) g/dL Albumin (3.5-5.2) g/dL Globulin g/dL Albumin/Globulin Ratio Triglycerides 199 H (15-150) mg/dL Cholesterol 178 (50-200) mg/dL LDL Cholesterol Direct 101 (60-130) mg/dL HDL Cholesterol 37 L (40-75) mg/dL Cholesterol/HDL Ratio 4.8 (0-5) Lipase (73-393) U/L Urine Color (YELLOW) Urine Appearance (CLEAR) Urine pH (5.0-6.5) Ur Specific Dawson (1.010-1.025) Urine Protein (NEGATIVE) mg/dL Urine Glucose (UA) (NORMAL) mg/dL Urine Ketones (NEGATIVE) mg/dL Urine Occult Blood (NEGATIVE) Urine Nitrite (NEGATIVE) Urine Bilirubin (NEGATIVE) Urine Urobilinogen (NEGATIVE) mg/dL Ur Leukocyte Esterase (NEGATIVE) Urine RBC (0-5) Urine WBC (0-5) Ur Squamous Epith Cells (NS,R,O) Urine Bacteria (NS) Urine HCG, Qual (NEGATIVE) Urine Opiates Screen (NEGATIVE) Ur Oxycodone Screen (NEGATIVE) Ur Propoxyphene Screen (NEGATIVE) Ur Barbituates Screen (NEGATIVE) Ur Tricyclics Screen (NEGATIVE) Ur Phencyclidine Scrn (NEGATIVE) Ur Amphetamine Screen (NEGATIVE) Urine MDMA Screen (NEGATIVE) U Benzodiazepines Scrn (NEGATIVE) U Cocaine Metab Screen (NEGATIVE) U Marijuana (THC) Screen (NEGATIVE) Ethyl Alcohol (<0.03) % SARS-CoV-2 RNA (JAVIER) Negative (NEGATIVE) 02/14/21 02/14/21 02/14/21 Range/Units 02:25 02:25 02:25 WBC (3.0-10.3) x10-3/uL RBC (3.60-5.20) x10(6)uL Hgb (11.4-15.5) g/dL Hct (34.2-48.2) % MCV (76.7-100.5) fL MCH (23.9-33.9) pg MCHC (31.9-34.8) g/dL RDW (12.3-16.5) % Plt Count (151-488) x10(3)uL MPV (7.1-12.4) fL Add Manual Diff Neutrophils % (Manual) (46-82) % Band Neutrophils % (0-6) % Lymphocytes % (Manual) (13-37) % Monocytes % (Manual) (4-12) % Hypersegmented Neuts Toxic Granulation (NOT SEEN) Sodium (135-145) mmol/L Potassium (3.5-5.3) mmol/L Chloride (100-110) mmol/L Carbon Dioxide (21-32) mmol/L BUN (7-18) mg/dL Creatinine (0.55-1.02) mg/dL Est Cr Clr Drug Dosing mL/min Estimated GFR (MDRD) (>60) BUN/Creatinine Ratio (9-20) Glucose (80-116) mg/dL Calcium (8.6-10.2) mg/dL Magnesium (1.8-2.5) mg/dL Total Bilirubin (0.1-1.3) mg/dL AST (5-25) IU/L ALT (12-36) U/L Alkaline Phosphatase (56-112) IU/L Total Protein (6.0-8.0) g/dL Albumin (3.5-5.2) g/dL Globulin g/dL Albumin/Globulin Ratio Triglycerides (15-150) mg/dL Cholesterol (50-200) mg/dL LDL Cholesterol Direct (60-130) mg/dL HDL Cholesterol (40-75) mg/dL Cholesterol/HDL Ratio (0-5) Lipase (73-393) U/L Urine Color Yellow (YELLOW) Urine Appearance Clear (CLEAR) Urine pH 8.0 H (5.0-6.5) Ur Specific Dawson 1.015 (1.010-1.025) Urine Protein Negative (NEGATIVE) mg/dL Urine Glucose (UA) Normal (NORMAL) mg/dL Urine Ketones 15 H (NEGATIVE) mg/dL Urine Occult Blood Moderate H (NEGATIVE) Urine Nitrite Negative (NEGATIVE) Urine Bilirubin Negative (NEGATIVE) Urine Urobilinogen Normal (NEGATIVE) mg/dL Ur Leukocyte Esterase Negative (NEGATIVE) Urine RBC 20-30 H (0-5) Urine WBC 0-5 (0-5) Ur Squamous Epith Cells Occasional (NS,R,O) Urine Bacteria Few H (NS) Urine HCG, Qual Negative (NEGATIVE) Urine Opiates Screen Negative (NEGATIVE) Ur Oxycodone Screen Negative (NEGATIVE) Ur Propoxyphene Screen Negative (NEGATIVE) Ur Barbituates Screen Negative (NEGATIVE) Ur Tricyclics Screen Negative (NEGATIVE) Ur Phencyclidine Scrn Negative (NEGATIVE) Ur Amphetamine Screen Negative (NEGATIVE) Urine MDMA Screen Negative (NEGATIVE) U Benzodiazepines Scrn Negative (NEGATIVE) U Cocaine Metab Screen Negative (NEGATIVE) U Marijuana (THC) Screen Positive H (NEGATIVE) Ethyl Alcohol (<0.03) % SARS-CoV-2 RNA (JAVIER) (NEGATIVE) 06/09/20 06/09/20 Range/Units 06:50 06:50 WBC 19.8 H (3.0-10.3) x10-3/uL RBC 4.45 (3.60-5.20) x10(6)uL Hgb 14.5 (11.4-15.5) g/dL Hct 44.7 (34.2-48.2) % MCV 100.6 H (76.7-100.5) fL MCH 32.5 (23.9-33.9) pg MCHC 32.3 (31.9-34.8) g/dL RDW 17.2 H (12.3-16.5) % Plt Count 656 H (151-488) x10(3)uL MPV 8.4 (7.1-12.4) fL Add Manual Diff Yes Neutrophils % (Manual) 91 H (46-82) % Band Neutrophils % (0-6) % Lymphocytes % (Manual) 9 L (13-37) % Monocytes % (Manual) (4-12) % Hypersegmented Neuts Few Toxic Granulation Few H (NOT SEEN) Sodium 141 (135-145) mmol/L Potassium 3.6 (3.5-5.3) mmol/L Chloride 106 D (100-110) mmol/L Carbon Dioxide 27 (21-32) mmol/L BUN 6 L (7-18) mg/dL Creatinine 0.6 (0.55-1.02) mg/dL Est Cr Clr Drug Dosing 98.75 mL/min Estimated GFR (MDRD) > 60 (>60) BUN/Creatinine Ratio 10.0 (9-20) Glucose 124 H (80-116) mg/dL Calcium 8.4 L (8.6-10.2) mg/dL Magnesium (1.8-2.5) mg/dL Total Bilirubin (0.1-1.3) mg/dL AST (5-25) IU/L ALT (12-36) U/L Alkaline Phosphatase (56-112) IU/L Total Protein (6.0-8.0) g/dL Albumin (3.5-5.2) g/dL Globulin g/dL Albumin/Globulin Ratio Triglycerides (15-150) mg/dL Cholesterol (50-200) mg/dL LDL Cholesterol Direct (60-130) mg/dL HDL Cholesterol (40-75) mg/dL Cholesterol/HDL Ratio (0-5) Lipase (73-393) U/L Urine Color (YELLOW) Urine Appearance (CLEAR) Urine pH (5.0-6.5) Ur Specific Dawson (1.010-1.025) Urine Protein (NEGATIVE) mg/dL Urine Glucose (UA) (NORMAL) mg/dL Urine Ketones (NEGATIVE) mg/dL Urine Occult Blood (NEGATIVE) Urine Nitrite (NEGATIVE) Urine Bilirubin (NEGATIVE) Urine Urobilinogen (NEGATIVE) mg/dL Ur Leukocyte Esterase (NEGATIVE) Urine RBC (0-5) Urine WBC (0-5) Ur Squamous Epith Cells (NS,R,O) Urine Bacteria (NS) Urine HCG, Qual (NEGATIVE) Urine Opiates Screen (NEGATIVE) Ur Oxycodone Screen (NEGATIVE) Ur Propoxyphene Screen (NEGATIVE) Ur Barbituates Screen (NEGATIVE) Ur Tricyclics Screen (NEGATIVE) Ur Phencyclidine Scrn (NEGATIVE) Ur Amphetamine Screen (NEGATIVE) Urine MDMA Screen (NEGATIVE) U Benzodiazepines Scrn (NEGATIVE) U Cocaine Metab Screen (NEGATIVE) U Marijuana (THC) Screen (NEGATIVE) Ethyl Alcohol (<0.03) % SARS-CoV-2 RNA (JAVIER) (NEGATIVE) Result Diagrams: 06/09/20 06:50 06/09/20 06:50 Sepsis Event Note - Evaluation Sepsis Screening Result: No Definite Risk - Focused Exam Vital Signs: Vital Signs Temp Temp Pulse Resp BP BP BP 06/09/20 09:20 97.6 F 98 18 158/110 H 06/09/20 08:37 158/110 H 06/09/20 05:00 97.8 F 96 18 148/100 H 06/09/20 04:31 97 18 159/104 H 06/09/20 03:29 99 18 157/103 H 06/09/20 02:16 101 H 18 152/103 H 06/09/20 01:03 97.8 F 99 20 147/99 H Pulse Ox 06/09/20 09:20 97 06/09/20 08:37 06/09/20 05:00 94 L 06/09/20 04:31 98 06/09/20 03:29 98 06/09/20 02:16 100 06/09/20 01:03 100 - Problem List (1) Acute pancreatitis SNOMED Code(s): 158830089 ICD Code: K85.90 - ACUTE PANCREATITIS WITHOUT NECROSIS OR INFECTION, UNSP Status: Acute Current Visit: Yes Qualifiers: Pancreatitis type: unspecified pancreatitis type Acute pancreatitis complication: unspecified Qualified Code(s): K85.90 - Acute pancreatitis without necrosis or infection, unspecified (2) Duodenitis SNOMED Code(s): 77118094 ICD Code: K29.80 - DUODENITIS WITHOUT BLEEDING Status: Acute Current Visit: Yes (3) Abdominal pain SNOMED Code(s): 52777623 ICD Code: R10.9 - UNSPECIFIED ABDOMINAL PAIN Status: Acute Current Visit: No (4) Vomiting SNOMED Code(s): 847187218 ICD Code: R11.10 - VOMITING, UNSPECIFIED Status: Acute Current Visit: No (5) Alcohol dependence SNOMED Code(s): 47047247 ICD Code: F10.20 - ALCOHOL DEPENDENCE, UNCOMPLICATED Status: Chronic Current Visit: No Problem Details: Naltrexone 50 mg daily, will hold currently. (6) Dehydration, moderate SNOMED Code(s): 6385591809657 ICD Code: E86.0 - DEHYDRATION Status: Acute Current Visit: No Problem Details: NS at 250 ml/hr. (7) Marijuana abuse SNOMED Code(s): 29755046 ICD Code: F12.10 - CANNABIS ABUSE, UNCOMPLICATED Status: Chronic Current Visit: No (8) Hemorrhoids SNOMED Code(s): 83517566 ICD Code: K64.9 - UNSPECIFIED HEMORRHOIDS Status: Chronic Current Visit: Yes Problem List Initiated/Reviewed/Updated: Yes Orders Last 24hrs: Active Orders 24 hr Category Date Time Status Admission Status [Patient Status] [ADT] Routine ADT 06/09/20 04:16 Active Ambulate [RC] ASDIRECTED Care 06/09/20 04:34 Active Ambulate [RC] PER UNIT ROUTINE Care 06/09/20 04:36 Active CIWAA Assessment [RC] ASDIRECTED Care 06/09/20 10:13 Active Height and Weight [RC] 0600 Care 06/09/20 04:34 Active Intake and Output [RC] ,, Care 06/09/20 04:35 Active Notify Provider Vital Signs [RC] ASDIRECTED Care 06/09/20 04:35 Active Oxygen Therapy [RC] PRN Care 06/09/20 04:34 Active VTE/DVT Education [RC] Per Unit Routine Care 06/09/20 04:34 Active Vital Signs [RC] QSHIFT Care 06/09/20 04:34 Active Nothing per Oral Now Diet [DIET] Diet 06/09/20 Breakfast Active Abdomen Pelvis w Cont [CT] Stat Exams 06/09/20 02:45 Taken BASIC METABOLIC PANEL,BMP [CHEM] Routine Lab 06/10/20 06:00 Ordered CBC WITH AUTO DIFF [HEME] Routine Lab 06/10/20 06:00 Ordered OCCULT BLOOD SCREEN [OP] Routine Lab 06/09/20 09:54 Ordered Acetaminophen [Ofirmev 1000 mg/100 ml] 1,000 mg Med 06/09/20 10:00 Active Premix Bag 1 bag IV Q6H Ketorolac [Toradol] Med 06/09/20 10:00 Active 30 mg IVPUSH Q6H Meropenem [Merrem] Med 06/09/20 11:00 Active 1 gm IVPUSH Q8H Ondansetron [Zofran] Med 06/09/20 04:34 Active 4 mg IV Q6H PRN Pantoprazole [ProTONIX IV] Med 06/09/20 13:00 Active 40 mg IVPUSH Q12H Sodium Chloride 0.9% [Normal Saline] 1,000 ml Med 06/09/20 04:00 Active IV ASDIRECTED Sodium Chloride 0.9% [Saline Flush] Med 06/09/20 01:23 Active 10 ml FLUSH ASDIRECTED PRN lisinopriL [Prinivil] Med 06/09/20 09:00 Active 20 mg PO DAILY Saline Lock Insert [OM.PC] Routine Oth 06/09/20 01:23 Ordered Resuscitation Status Routine Resus Stat 06/09/20 04:34 Ordered Medication Orders Sodium Chloride (Normal Saline) 1,000 mls @ 250 mls/hr IV ASDIRECTED [facility] Last Admin: 06/09/20 12:44 Dose: 250 mls/hr Documented by: Infusion: 06/09/20 12:36 Dose: 250 mls/hr Documented by: Admin: 06/09/20 08:36 Dose: 250 mls/hr Documented by: Infusion: 06/09/20 07:50 Dose: 250 mls/hr Documented by: Admin: 06/09/20 03:50 Dose: 250 mls/hr Documented by: ELISHA Acetaminophen 1,000 mg/ Premix 100 mls @ 400 mls/hr IV Q6H [facility] Stop: 06/10/20 10:01 Last Admin: 06/09/20 11:05 Dose: 400 mls/hr Documented by: OLSOMAL Ketorolac Tromethamine (Toradol) 30 mg IVPUSH Q6H [facility] Stop: 06/14/20 09:59 Last Admin: 06/09/20 10:25 Dose: 30 mg Documented by: OLSOMAL Lisinopril (Prinivil) 20 mg PO DAILY [facility] Last Admin: 06/09/20 08:37 Dose: 20 mg Documented by: OLSOMAL Meropenem (Merrem) 1 gm IVPUSH Q8H [facility] Last Admin: 06/09/20 11:04 Dose: 1 gm Documented by: OLSOMAL Ondansetron HCl (Zofran) 4 mg IV Q6H PRN PRN Reason: Nausea/Vomiting Last Admin: 06/09/20 08:37 Dose: 4 mg Documented by: OLSOMAL Pantoprazole Sodium (Protonix Iv) 40 mg IVPUSH Q12H SRINATH Last Admin: 06/09/20 12:45 Dose: 40 mg Documented by: OLSOMAL Sodium Chloride (Saline Flush) 10 ml FLUSH ASDIRECTED PRN PRN Reason: Keep Vein Open Assessment/Plan Comment:: 1. 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 N/V. 2. Acute pancreatitis/duodenitis: after 4 L IVF her WBC went up to 19.8, added Merrem 1g IV q8h. Will switch to LR at 250 ml/hr. Repeat labs tomorrow. D/c Dilaudid. Ofirmev 1000 mg IV q6h and Toradol 30 mg IV q6h, will adjust pain medications as needed. May need to do Naltrexone IV or IM daily as she is on this chronically. MRI for tomorrow to check the focal neoplasms in pancreatic head. 3. NPO. 4. Ambulate. 5. Hemorrhoids: occult stool. 6. DVT: TEDs BLE. 7. CODE STATUS: FULL. - Mortality Measure Prognosis:: Good
[2020-06-09] MEDS: Lactated Ringers 1,000 ML IV SCH ×2 (17:07→21:15)
[2020-06-10] MEDS: Pantoprazole 40 MG Vial IVPUSH SCH ×2 (00:31→14:24)
[2020-06-10] MEDS: Lactated Ringers 1,000 ML IV SCH ×4 (01:37→18:21)
[2020-06-10] MEDS: Meropenem 1 GM SDV IVPUSH SCH ×3 (02:13→18:23)
[2020-06-10] MEDS: Ketorolac 30 MG/ML SDV IVPUSH SCH ×4 (03:51→22:56)
[2020-06-10] MEDS: Acetaminophen 1,000 MG in Premix Bag 1 BAG IV SCH ×4 (03:53→22:55)
[2020-06-10] MEDS ORDERED: Morphine 2 MG/ML SYRINGE IVPUSH PRN (09:01)
[2020-06-10] MEDS: Enalaprilat 1.25 MG/ML SDV IVPUSH SCH ×3 (10:05→20:28)
--- NOTE | 2020-06-10 14:00 | PCM.PN ---
- General Info Date of Service: 06/10/20 Subjective Update: Gladis has been sleeping on and off, nursing reported her pain was down to 3 with IV Tylenol & Toradol. She is starting to get hungry, no emesis or diarrhea. Has MRI for this afternoon, will be NPO until after this procedure. She has tolerated Morphine in the past, doesn't make her loopy. She states she takes Naltrexone for alcohol dependency. No fevers. - Patient Data Vitals - Most Recent: Last Vital Signs Temp 98.5 F 06/10/20 07:44 Pulse 79 06/10/20 07:44 Resp 16 06/10/20 07:44 BP 148/90 H 06/10/20 11:45 Pulse Ox 95 06/10/20 07:44 Weight - Most Recent: 139 lb 1 oz I&O - Last 24 Hours: Intake & Output 06/09/20 06/10/20 06/10/20 22:59 06:59 14:59 Intake Total 2340 2098 1345 Output Total 700 2100 1150 Balance 1640 -2 195 Lab Results Last 24 Hours: Laboratory Results - last 24 hr 06/10/20 06/10/20 06/10/20 Range/Units 06:35 06:35 06:35 WBC 19.0 H (3.0-10.3) x10-3/uL RBC 4.08 (3.60-5.20) x10(6)uL Hgb 13.5 (11.4-15.5) g/dL Hct 41.0 (34.2-48.2) % MCV 100.5 (76.7-100.5) fL MCH 33.0 (23.9-33.9) pg MCHC 32.8 (31.9-34.8) g/dL RDW 16.7 H (12.3-16.5) % Plt Count 601 H (151-488) x10(3)uL MPV 8.6 (7.1-12.4) fL Add Manual Diff Yes Neutrophils % (Manual) 89 H (46-82) % Lymphocytes % (Manual) 6 L (13-37) % Monocytes % (Manual) 5 (4-12) % Sodium 140 (135-145) mmol/L Potassium 3.5 (3.5-5.3) mmol/L Chloride 105 (100-110) mmol/L Carbon Dioxide 27 (21-32) mmol/L BUN 3 L (7-18) mg/dL Creatinine 0.5 L (0.55-1.02) mg/dL Est Cr Clr Drug Dosing 118.50 mL/min Estimated GFR (MDRD) > 60 (>60) BUN/Creatinine Ratio 6.0 L (9-20) Glucose 88 (80-116) mg/dL Calcium 8.0 L (8.6-10.2) mg/dL Total Bilirubin 0.4 (0.1-1.3) mg/dL AST 102 H D (5-25) IU/L ALT 77 H D (12-36) U/L Alkaline Phosphatase 136 H (56-112) IU/L Total Protein 5.5 L (6.0-8.0) g/dL Albumin 2.1 L (3.5-5.2) g/dL Globulin 3.4 g/dL Albumin/Globulin Ratio 0.6 Lipase 952 H (73-393) U/L Med Orders - Current: Current Medications Enalaprilat (Vasotec Iv) 0.625 mg IVPUSH Q6H [facility] Last Admin: 06/10/20 10:05 Dose: 0.625 mg Documented by: Lactated Ringer's (Ringers, Lactated) 1,000 mls @ 125 mls/hr IV ASDIRECTED [facility] Last Admin: 06/10/20 10:01 Dose: 125 mls/hr Documented by: Acetaminophen 1,000 mg/ Premix 100 mls @ 400 mls/hr IV Q6H [facility] Stop: 06/11/20 10:01 Last Admin: 06/10/20 09:56 Dose: 400 mls/hr Documented by: Ketorolac Tromethamine (Toradol) 30 mg IVPUSH Q6H [facility] Stop: 06/14/20 09:59 Last Admin: 06/10/20 09:32 Dose: 30 mg Documented by: Lisinopril (Prinivil) 20 mg PO DAILY [facility] Last Admin: 06/09/20 08:37 Dose: 20 mg Documented by: Meropenem (Merrem) 1 gm IVPUSH Q8H [facility] Last Admin: 06/10/20 10:52 Dose: 1 gm Documented by: Morphine Sulfate (Morphine) 2 mg IVPUSH Q4H PRN PRN Reason: Pain (severe 7-10) Last Admin: 06/10/20 13:33 Dose: 2 mg Documented by: Ondansetron HCl (Zofran) 4 mg IV Q6H PRN PRN Reason: Nausea/Vomiting Last Admin: 06/09/20 08:37 Dose: 4 mg Documented by: Pantoprazole Sodium (Protonix Iv) 40 mg IVPUSH Q12H [facility] Last Admin: 06/10/20 00:31 Dose: 40 mg Documented by: Sodium Chloride (Saline Flush) 10 ml FLUSH ASDIRECTED PRN PRN Reason: Keep Vein Open Discontinued Medications Hydromorphone HCl (Dilaudid) 1 mg IVPUSH ONETIME ONE Stop: 06/09/20 02:33 Last Admin: 06/09/20 02:42 Dose: 1 mg Documented by: Hydromorphone HCl (Dilaudid) 1 mg IVPUSH ONETIME ONE Stop: 06/09/20 03:25 Last Admin: 06/09/20 03:32 Dose: 1 mg Documented by: Hydromorphone HCl (Dilaudid) 2 mg IVPUSH ONETIME ONE Stop: 06/09/20 04:16 Last Admin: 06/09/20 04:29 Dose: 2 mg Documented by: Hydromorphone HCl (Dilaudid) 2 mg IVPUSH Q2H PRN PRN Reason: Pain (severe 7-10) Last Admin: 06/09/20 08:37 Dose: 2 mg Documented by: Hydroxyzine HCl (Vistaril) 50 mg IM ONETIME ONE Stop: 06/09/20 02:32 Last Admin: 06/09/20 02:45 Dose: 50 mg Documented by: Sodium Chloride (Normal Saline) 1,000 mls @ 999 mls/hr IV .BOLUS ONE Stop: 06/09/20 02:23 Last Admin: 06/09/20 01:41 Dose: 999 mls/hr Documented by: Sodium Chloride (Normal Saline) 1,000 mls @ 999 mls/hr IV .BOLUS ONE Stop: 06/09/20 03:47 Last Admin: 06/09/20 02:43 Dose: 999 mls/hr Documented by: Magnesium Sulfate 1 gm/ (Dextrose/Water) 52 mls @ 100 mls/hr IV ONETIME ONE Stop: 06/09/20 04:15 Last Admin: 06/09/20 04:25 Dose: 100 mls/hr Documented by: Sodium Chloride (Normal Saline) 1,000 mls @ 250 mls/hr IV ASDIRECTED [facility] Last Admin: 06/09/20 12:44 Dose: 250 mls/hr Documented by: Piperacillin Sod/Tazobactam (Sod 3.375 gm/ Sodium Chloride) 50 mls @ 100 mls/hr IV .ONCE ONE Stop: 06/09/20 04:45 Last Admin: 06/09/20 04:39 Dose: Not Given Documented by: Acetaminophen 1,000 mg/ Premix 100 mls @ 400 mls/hr IV Q6H [facility] Stop: 06/10/20 06:00 Last Admin: 06/10/20 03:53 Dose: 400 mls/hr Documented by: Iopamidol (Isovue-370 (76%)) 100 ml IV . DIRECTED ONE Stop: 06/09/20 02:57 Last Admin: 06/09/20 03:16 Dose: 100 ml Documented by: Ondansetron HCl (Zofran) 4 mg IVPUSH ONETIME ONE Stop: 06/09/20 01:25 Last Admin: 06/09/20 01:42 Dose: 4 mg Documented by: Pantoprazole Sodium (Protonix Iv) 40 mg IVPUSH ONETIME ONE Stop: 06/09/20 01:25 Last Admin: 06/09/20 01:44 Dose: 40 mg Documented by: - Exam General: Alert, Oriented, Cooperative, No Acute Distress (sleeping, wakes easily.) Lungs: Clear to Auscultation, Normal Respiratory Effort Cardiovascular: Regular Rate, Regular Rhythm GI/Abdominal Exam: Soft, No Distention, Guarding, Tender (Epigastric, LUQ), Abnormal Bowel Sounds (hypoactive BS x4). No: Rigid, Rebound Sepsis Event Note - Evaluation Sepsis Screening Result: No Definite Risk - Focused Exam Vital Signs: Vital Signs Temp Pulse Resp BP BP Pulse Ox 06/10/20 11:45 148/90 H 06/10/20 10:05 152/100 H 06/10/20 07:44 98.5 F 79 16 152/100 H 95 - Problem List & Annotations (1) Acute pancreatitis SNOMED Code(s): 714310283 Code(s): K85.90 - ACUTE PANCREATITIS WITHOUT NECROSIS OR INFECTION, UNSP Status: Acute Current Visit: Yes Qualifiers: Pancreatitis type: unspecified pancreatitis type Acute pancreatitis complication: unspecified Qualified Code(s): K85.90 - Acute pancreatitis without necrosis or infection, unspecified (2) Duodenitis SNOMED Code(s): 58715888 Code(s): K29.80 - DUODENITIS WITHOUT BLEEDING Status: Acute Current Visit: Yes (3) Abdominal pain SNOMED Code(s): 56319165 Code(s): R10.9 - UNSPECIFIED ABDOMINAL PAIN Status: Acute Current Visit: No (4) Vomiting SNOMED Code(s): 395852067 Code(s): R11.10 - VOMITING, UNSPECIFIED Status: Resolved Current Visit: No (5) Alcohol dependence SNOMED Code(s): 56928863 Code(s): F10.20 - ALCOHOL DEPENDENCE, UNCOMPLICATED Status: Chronic Current Visit: No Annotation/Comment:: Naltrexone 50 mg daily, will hold currently. (6) Dehydration, moderate SNOMED Code(s): 7425858312532 Code(s): E86.0 - DEHYDRATION Status: Acute Current Visit: No Annotation/Comment:: NS decrease to 125 ml/hr, now that she is urinating better. (7) Marijuana abuse SNOMED Code(s): 85646660 Code(s): F12.10 - CANNABIS ABUSE, UNCOMPLICATED Status: Chronic Current Visit: No (8) Hemorrhoids SNOMED Code(s): 05447243 Code(s): K64.9 - UNSPECIFIED HEMORRHOIDS Status: Chronic Current Visit: Yes - Problem List Review Problem List Initiated/Reviewed/Updated: Yes - My Orders Last 24 Hours: My Active Orders 06/09/20 14:30 Lactated Ringers [Ringers, Lactated] 1,000 ml IV ASDIRECTED 06/10/20 08:00 Abdomen wo Cont [MR] Routine 06/10/20 09:00 Enalaprilat [Vasotec IV] 0.625 mg IVPUSH Q6H 06/10/20 09:01 Morphine 2 mg IVPUSH Q4H PRN 06/10/20 10:00 Acetaminophen [Ofirmev 1000 mg/100 ml] 1,000 mg Premix Bag 1 bag IV Q6H 02/16/21 06:00 CBC WITH AUTO DIFF [HEME] Routine COMPREHENSIVE METABOLIC PN,CMP [CHEM] Routine LIPASE [CHEM] Routine - Plan Plan:: 1. Acute pancreatitis/duodenitis: WBC down to 19.0 from 19.8, Merrem 1g IV q8h, day 2. LR at 125 ml/hr. Repeat labs tomorrow. Ofirmev 1000 mg IV q6h and Toradol 30 mg IV q6h, plan to advance diet this afternoon after MRI abdomen. Hope to switch to oral pain medications. Morphine 2 mg IV q2h as needed breakthrough pain. Once on orals will restart Home Lisinopril and Naltrexone. 2. HTN: Enalaprilat 0.625 mg IV q6h while NPO. 3. NPO. 4. Ambulate. 5. Hemorrhoids: occult stool.
[2020-06-10] MEDS ORDERED: Gadoteridol 279.3 MG/ML 10 ML SDV IVPUSH ONE (14:06)
[2020-06-10] MEDS: Sodium Chloride 0.9% 10 ML Syringe FLUSH PRN ×2 (14:23→20:35)
[2020-06-10] MEDS: Morphine 2 MG/ML SYRINGE IVPUSH PRN ×2 (17:06→19:47)
[2020-06-11] MEDS: Pantoprazole 40 MG Vial IVPUSH SCH ×2 (01:30→13:42)
[2020-06-11] MEDS: Morphine 2 MG/ML SYRINGE IVPUSH PRN ×2 (02:38→05:28)
[2020-06-11] MEDS: Enalaprilat 1.25 MG/ML SDV IVPUSH SCH ×4 (02:44→20:57)
[2020-06-11] MEDS: Meropenem 1 GM SDV IVPUSH SCH ×3 (02:50→18:58)
[2020-06-11] MEDS: Sodium Chloride 0.9% 10 ML Syringe FLUSH PRN ×2 (02:50→22:17)
[2020-06-11] MEDS: Acetaminophen 1,000 MG in Premix Bag 1 BAG IV SCH (04:45)
[2020-06-11] MEDS: Ketorolac 30 MG/ML SDV IVPUSH SCH ×4 (04:51→22:13)
[2020-06-11] MEDS: Ondansetron 4 MG/2 ML SDV IV PRN (04:57)
[2020-06-11] MEDS ORDERED: Bisacodyl 10 MG Supp RECTAL PRN (08:54)
[2020-06-11] MEDS: Morphine 4 MG/ML VIAL IVPUSH PRN ×4 (09:25→21:00)
[2020-06-11] MEDS: Lisinopril 20 MG Tab PO SCH ×2 (09:27→09:51)
--- NOTE | 2020-06-11 09:30 | PCM.PN ---
- General Info Date of Service: 06/11/20 Subjective Update: Gladis states pain is about same, morphine is not lasting the 2 hours but does help. She states she feels she has to have bowel movement but hurts to push. She normally has issues with constipation even when she feels good. This is her 2nd bout of pancreatitis within a month otherwise never had before. No nausea or vomiting. No diarrhea. Abdominal pain is worst in RLQ/RUQ, guarding. - Patient Data Vitals - Most Recent: Last Vital Signs Temp 98.6 F 06/11/20 00:00 Pulse 90 06/11/20 00:00 Resp 18 06/11/20 00:00 BP 156/109 H 06/11/20 02:44 Pulse Ox 99 06/11/20 00:00 Weight - Most Recent: 142 lb 1 oz I&O - Last 24 Hours: Intake & Output 06/10/20 06/11/20 06/11/20 22:59 06:59 14:59 Intake Total 600 1475 Output Total 1350 Balance -750 1475 Lab Results Last 24 Hours: Laboratory Results - last 24 hr 06/11/20 06/11/20 06/11/20 Range/Units 06:20 06:20 06:20 WBC 18.0 H (3.0-10.3) x10-3/uL RBC 4.18 (3.60-5.20) x10(6)uL Hgb 13.4 (11.4-15.5) g/dL Hct 41.9 (34.2-48.2) % MCV 100.4 (76.7-100.5) fL MCH 32.0 (23.9-33.9) pg MCHC 31.8 L (31.9-34.8) g/dL RDW 16.3 (12.3-16.5) % Plt Count 559 H (151-488) x10(3)uL MPV 8.7 (7.1-12.4) fL Add Manual Diff Yes Neutrophils % (Manual) 89 H (46-82) % Lymphocytes % (Manual) 7 L (13-37) % Monocytes % (Manual) 4 (4-12) % Sodium 140 (135-145) mmol/L Potassium 3.3 L (3.5-5.3) mmol/L Chloride 103 (100-110) mmol/L Carbon Dioxide 27 (21-32) mmol/L BUN 3 L (7-18) mg/dL Creatinine 0.5 L (0.55-1.02) mg/dL Est Cr Clr Drug Dosing 118.50 mL/min Estimated GFR (MDRD) > 60 (>60) BUN/Creatinine Ratio 6.0 L (9-20) Glucose 77 L (80-116) mg/dL Calcium 8.3 L (8.6-10.2) mg/dL Total Bilirubin 0.4 (0.1-1.3) mg/dL AST 43 H D (5-25) IU/L ALT 53 H D (12-36) U/L Alkaline Phosphatase 153 H (56-112) IU/L Total Protein 5.6 L (6.0-8.0) g/dL Albumin 2.1 L (3.5-5.2) g/dL Globulin 3.5 g/dL Albumin/Globulin Ratio 0.6 Lipase 907 H (73-393) U/L Med Orders - Current: Current Medications Acetaminophen (Tylenol) 650 mg RECTAL Q4H [facility] Bisacodyl (Dulcolax) 10 mg RECTAL DAILY PRN PRN Reason: Constipation Enalaprilat (Vasotec Iv) 0.625 mg IVPUSH Q6H [facility] Last Admin: 06/11/20 02:44 Dose: 0.625 mg Documented by: Potassium Cl/Dextrose/Lact Ringer's (D5 Lr With 20 Meq Kcl) 1,000 mls @ 125 mls/hr IV Q8H [facility] Ketorolac Tromethamine (Toradol) 30 mg IVPUSH Q6H [facility] Stop: 06/14/20 09:59 Last Admin: 06/11/20 04:51 Dose: 30 mg Documented by: Lisinopril (Prinivil) 20 mg PO DAILY [facility] Last Admin: 06/09/20 08:37 Dose: 20 mg Documented by: Meropenem (Merrem) 1 gm IVPUSH Q8H [facility] Last Admin: 06/11/20 02:50 Dose: 1 gm Documented by: Morphine Sulfate (Morphine) 4 mg IVPUSH Q2H PRN PRN Reason: Pain (severe 7-10) Ondansetron HCl (Zofran) 4 mg IV Q6H PRN PRN Reason: Nausea/Vomiting Last Admin: 06/11/20 04:57 Dose: 4 mg Documented by: Pantoprazole Sodium (Protonix Iv) 40 mg IVPUSH Q12H [facility] Last Admin: 06/11/20 01:30 Dose: 40 mg Documented by: Sodium Chloride (Saline Flush) 10 ml FLUSH ASDIRECTED PRN PRN Reason: Keep Vein Open Last Admin: 06/11/20 02:50 Dose: 10 ml Documented by: Discontinued Medications Gadoteridol (Prohance) 10 ml IVPUSH ONETIME ONE Stop: 06/10/20 14:07 Last Admin: 06/10/20 14:27 Dose: 10 ml Documented by: Hydromorphone HCl (Dilaudid) 1 mg IVPUSH ONETIME ONE Stop: 06/09/20 02:33 Last Admin: 06/09/20 02:42 Dose: 1 mg Documented by: Hydromorphone HCl (Dilaudid) 1 mg IVPUSH ONETIME ONE Stop: 06/09/20 03:25 Last Admin: 06/09/20 03:32 Dose: 1 mg Documented by: Hydromorphone HCl (Dilaudid) 2 mg IVPUSH ONETIME ONE Stop: 06/09/20 04:16 Last Admin: 06/09/20 04:29 Dose: 2 mg Documented by: Hydromorphone HCl (Dilaudid) 2 mg IVPUSH Q2H PRN PRN Reason: Pain (severe 7-10) Last Admin: 06/09/20 08:37 Dose: 2 mg Documented by: Hydroxyzine HCl (Vistaril) 50 mg IM ONETIME ONE Stop: 06/09/20 02:32 Last Admin: 06/09/20 02:45 Dose: 50 mg Documented by: Sodium Chloride (Normal Saline) 1,000 mls @ 999 mls/hr IV .BOLUS ONE Stop: 06/09/20 02:23 Last Admin: 06/09/20 01:41 Dose: 999 mls/hr Documented by: Sodium Chloride (Normal Saline) 1,000 mls @ 999 mls/hr IV .BOLUS ONE Stop: 06/09/20 03:47 Last Admin: 06/09/20 02:43 Dose: 999 mls/hr Documented by: Magnesium Sulfate 1 gm/ (Dextrose/Water) 52 mls @ 100 mls/hr IV ONETIME ONE Stop: 06/09/20 04:15 Last Admin: 06/09/20 04:25 Dose: 100 mls/hr Documented by: Sodium Chloride (Normal Saline) 1,000 mls @ 250 mls/hr IV ASDIRECTED [facility] Last Admin: 06/09/20 12:44 Dose: 250 mls/hr Documented by: Piperacillin Sod/Tazobactam (Sod 3.375 gm/ Sodium Chloride) 50 mls @ 100 mls/hr IV .ONCE ONE Stop: 06/09/20 04:45 Last Admin: 06/09/20 04:39 Dose: Not Given Documented by: Acetaminophen 1,000 mg/ Premix 100 mls @ 400 mls/hr IV Q6H [facility] Stop: 06/10/20 06:00 Last Admin: 06/10/20 03:53 Dose: 400 mls/hr Documented by: Lactated Ringer's (Ringers, Lactated) 1,000 mls @ 125 mls/hr IV ASDIRECTED [facility] Last Admin: 06/10/20 18:21 Dose: 125 mls/hr Documented by: Acetaminophen 1,000 mg/ Premix 100 mls @ 400 mls/hr IV Q6H [facility] Stop: 06/11/20 10:01 Last Admin: 06/11/20 04:45 Dose: 400 mls/hr Documented by: Iopamidol (Isovue-370 (76%)) 100 ml IV . DIRECTED ONE Stop: 06/09/20 02:57 Last Admin: 06/09/20 03:16 Dose: 100 ml Documented by: Morphine Sulfate (Morphine) 2 mg IVPUSH Q4H PRN PRN Reason: Pain (severe 7-10) Last Admin: 06/10/20 13:33 Dose: 2 mg Documented by: Morphine Sulfate (Morphine) 2 mg IVPUSH Q2H PRN PRN Reason: Pain (severe 7-10) Last Admin: 06/11/20 05:28 Dose: 2 mg Documented by: Ondansetron HCl (Zofran) 4 mg IVPUSH ONETIME ONE Stop: 06/09/20 01:25 Last Admin: 06/09/20 01:42 Dose: 4 mg Documented by: Pantoprazole Sodium (Protonix Iv) 40 mg IVPUSH ONETIME ONE Stop: 06/09/20 01:25 Last Admin: 06/09/20 01:44 Dose: 40 mg Documented by: - Exam General: Alert, Oriented, Cooperative, Mild Distress Lungs: Clear to Auscultation, Normal Respiratory Effort Cardiovascular: Regular Rate, Regular Rhythm GI/Abdominal Exam: Soft, No Distention, Guarding, Tender (RUQ/RLQ>LUQ), Abnormal Bowel Sounds (hypoactive). No: Rigid, Rebound Extremities: No Pedal Edema, Pallor Sepsis Event Note - Evaluation Sepsis Screening Result: No Definite Risk - Focused Exam Vital Signs: Vital Signs Temp Pulse Resp BP BP Pulse Ox 06/11/20 02:44 156/109 H 06/11/20 00:00 98.6 F 90 18 150/104 H 99 - Problem List & Annotations (1) Acute pancreatitis SNOMED Code(s): 791627587 Code(s): K85.90 - ACUTE PANCREATITIS WITHOUT NECROSIS OR INFECTION, UNSP Status: Acute Current Visit: Yes Qualifiers: Pancreatitis type: unspecified pancreatitis type Acute pancreatitis complication: unspecified Qualified Code(s): K85.90 - Acute pancreatitis without necrosis or infection, unspecified (2) Duodenitis SNOMED Code(s): 73352897 Code(s): K29.80 - DUODENITIS WITHOUT BLEEDING Status: Acute Current Visit: Yes (3) Abdominal pain SNOMED Code(s): 76126492 Code(s): R10.9 - UNSPECIFIED ABDOMINAL PAIN Status: Acute Current Visit: No (4) Alcohol dependence SNOMED Code(s): 31338098 Code(s): F10.20 - ALCOHOL DEPENDENCE, UNCOMPLICATED Status: Chronic Current Visit: No Annotation/Comment:: Naltrexone 50 mg daily, will hold curr ently. (5) Dehydration, moderate SNOMED Code(s): 3353847329881 Code(s): E86.0 - DEHYDRATION Status: Acute Current Visit: No Annotation/Comment:: Changed to D5LR at 125 ml/hr, still NPO. (6) Marijuana abuse SNOMED Code(s): 09235917 Code(s): F12.10 - CANNABIS ABUSE, UNCOMPLICATED Status: Chronic Current Visit: No (7) Hemorrhoids SNOMED Code(s): 51704186 Code(s): K64.9 - UNSPECIFIED HEMORRHOIDS Status: Chronic Current Visit: Yes - Problem List Review Problem List Initiated/Reviewed/Updated: Yes - My Orders Last 24 Hours: My Active Orders 06/10/20 09:00 Enalaprilat [Vasotec IV] 0.625 mg IVPUSH Q6H 06/11/20 08:54 bisacodyL [Dulcolax] 10 mg RECTAL DAILY PRN 06/11/20 08:57 Morphine 4 mg IVPUSH Q2H PRN 06/11/20 09:00 Dextrose 5%-Lact Ringers w/KCl [D5 LR with 20 mEq KCl] 1,000 ml IV Q8H 06/11/20 10:00 Acetaminophen [Tylenol] 650 mg RECTAL Q4H 06/12/20 06:00 CBC WITH AUTO DIFF [HEME] Routine COMPREHENSIVE METABOLIC PN,CMP [CHEM] Routine LIPASE [CHEM] Routine - Plan Plan:: 1. Acute pancreatitis/duodenitis: WBC down to 18.0 from 19.0, Merrem 1g IV q8h, day 2. D5LR at 125 ml/hr. Repeat labs tomorrow. Discontinue Ofirmev 1000 mg IV q6h, start Tylenol 650 mg [place] q6h and Toradol 30 mg IV q6h, MRI report still pending. Lipase 907, will continue NPO. Morphine 4 mg IV q2h as needed breakthrough pain. Once on orals will restart Home Lisinopril and Naltrexone. 2. HTN: Enalaprilat 0.625 mg IV q6h while NPO. 3. NPO. 4. Ambulate. 5. Hemorrhoids: occult stool. Biscodyl 10 mg supp [place] daily as needed.
[2020-06-11] MEDS: Dextrose 5%-Lact Ringers w/KCl 1,000 ML IV SCH ×2 (09:33→17:54)
[2020-06-11] MEDS: Acetaminophen 650 MG Supp RECTAL SCH ×4 (10:01→22:13)
[2020-06-12] MEDS: Dextrose 5%-Lact Ringers w/KCl 1,000 ML IV SCH ×3 (01:43→18:38)
[2020-06-12] MEDS: Pantoprazole 40 MG Vial IVPUSH SCH (01:44)
[2020-06-12] MEDS: Enalaprilat 1.25 MG/ML SDV IVPUSH SCH ×2 (01:45→10:34)
[2020-06-12] MEDS: Acetaminophen 650 MG Supp RECTAL SCH ×2 (01:45→05:48)
[2020-06-12] MEDS: Morphine 4 MG/ML VIAL IVPUSH PRN ×2 (01:58→09:20)
[2020-06-12] MEDS: Sodium Chloride 0.9% 10 ML Syringe FLUSH PRN ×2 (02:00→16:36)
[2020-06-12] MEDS: Meropenem 1 GM SDV IVPUSH SCH ×3 (02:10→18:43)
[2020-06-12] MEDS: Ketorolac 30 MG/ML SDV IVPUSH SCH ×4 (04:30→22:18)
[2020-06-12] MEDS: Lisinopril 20 MG Tab PO SCH (09:22)
[2020-06-12] MEDS ORDERED: Fluconazole 150 MG Tab PO ONE ×2 (09:22→09:30)
[2020-06-12] MEDS: Multivitamins with Iron/Calcium/Folic Acid/Minerals Tab PO SCH (09:23)
[2020-06-12] MEDS ORDERED: Promethazine 12.5 MG in Sodium Chloride 0.9% 50 ML IV PRN (09:31)
[2020-06-12] MEDS: Enoxaparin 40 MG/0.4 ML Syringe SUBCUT SCH (10:08)
--- NOTE | 2020-06-12 10:54 | PCM.PN ---
- General Info Date of Service: 06/12/20 Subjective Update: Gladis's pain is improved today, had bowel movement yesterday. Urinating better. Had blood in urine yesterday so collected UA/UC. Occult stool negative. - Patient Data Vitals - Most Recent: Last Vital Signs Temp 98.6 F 06/12/20 02:20 Pulse 95 06/12/20 02:20 Resp 18 06/12/20 02:20 BP 154/98 H 06/12/20 09:22 Pulse Ox 94 L 06/12/20 00:00 Weight - Most Recent: 136 lb 11.2 oz I&O - Last 24 Hours: Intake & Output 06/11/20 06/12/20 06/12/20 22:59 06:59 14:59 Intake Total 300 1340 Output Total 900 Balance 300 440 Lab Results Last 24 Hours: Laboratory Results - last 24 hr 06/11/20 06/12/20 06/12/20 Range/Units 11:40 06:40 06:40 WBC 15.8 H (3.0-10.3) x10-3/uL RBC 3.96 (3.60-5.20) x10(6)uL Hgb 13.0 (11.4-15.5) g/dL Hct 39.7 (34.2-48.2) % MCV 100.2 (76.7-100.5) fL MCH 32.8 (23.9-33.9) pg MCHC 32.7 (31.9-34.8) g/dL RDW 16.6 H (12.3-16.5) % Plt Count 542 H (151-488) x10(3)uL MPV 8.7 (7.1-12.4) fL Add Manual Diff Yes Neutrophils % (Manual) 79 (46-82) % Lymphocytes % (Manual) 12 L (13-37) % Monocytes % (Manual) 6 (4-12) % Eosinophils % (Manual) 3 (0-5) % Sodium 140 (135-145) mmol/L Potassium 3.7 (3.5-5.3) mmol/L Chloride 105 (100-110) mmol/L Carbon Dioxide 30 (21-32) mmol/L BUN 2 L (7-18) mg/dL Creatinine 0.6 (0.55-1.02) mg/dL Est Cr Clr Drug Dosing 98.75 mL/min Estimated GFR (MDRD) > 60 (>60) BUN/Creatinine Ratio 3.3 L (9-20) Glucose 121 H (80-116) mg/dL Calcium 8.7 (8.6-10.2) mg/dL Total Bilirubin 0.5 (0.1-1.3) mg/dL AST 176 H* D (5-25) IU/L ALT 104 H D (12-36) U/L Alkaline Phosphatase 297 H (56-112) IU/L Total Protein 5.6 L (6.0-8.0) g/dL Albumin 2.0 L (3.5-5.2) g/dL Globulin 3.6 g/dL Albumin/Globulin Ratio 0.6 Lipase (73-393) U/L Urine Color Yellow (YELLOW) Urine Appearance Slightly cloudy (CLEAR) Urine pH 7.0 H (5.0-6.5) Ur Specific Xenia 1.015 (1.010-1.025) Urine Protein Negative (NEGATIVE) mg/dL Urine Glucose (UA) Normal (NORMAL) mg/dL Urine Ketones 50 H (NEGATIVE) mg/dL Urine Occult Blood Large H (NEGATIVE) Urine Nitrite Negative (NEGATIVE) Urine Bilirubin Negative (NEGATIVE) Urine Urobilinogen Normal (NEGATIVE) mg/dL Ur Leukocyte Esterase Negative (NEGATIVE) Urine RBC 50-75 H (0-5) Urine WBC 0-5 (0-5) Ur Squamous Epith Cells Few H (NS,R,O) Urine Bacteria Few H (NS) 06/12/20 Range/Units 06:40 WBC (3.0-10.3) x10-3/uL RBC (3.60-5.20) x10(6)uL Hgb (11.4-15.5) g/dL Hct (34.2-48.2) % MCV (76.7-100.5) fL MCH (23.9-33.9) pg MCHC (31.9-34.8) g/dL RDW (12.3-16.5) % Plt Count (151-488) x10(3)uL MPV (7.1-12.4) fL Add Manual Diff Neutrophils % (Manual) (46-82) % Lymphocytes % (Manual) (13-37) % Monocytes % (Manual) (4-12) % Eosinophils % (Manual) (0-5) % Sodium (135-145) mmol/L Potassium (3.5-5.3) mmol/L Chloride (100-110) mmol/L Carbon Dioxide (21-32) mmol/L BUN (7-18) mg/dL Creatinine (0.55-1.02) mg/dL Est Cr Clr Drug Dosing mL/min Estimated GFR (MDRD) (>60) BUN/Creatinine Ratio (9-20) Glucose (80-116) mg/dL Calcium (8.6-10.2) mg/dL Total Bilirubin (0.1-1.3) mg/dL AST (5-25) IU/L ALT (12-36) U/L Alkaline Phosphatase (56-112) IU/L Total Protein (6.0-8.0) g/dL Albumin (3.5-5.2) g/dL Globulin g/dL Albumin/Globulin Ratio Lipase 385 (73-393) U/L Urine Color (YELLOW) Urine Appearance (CLEAR) Urine pH (5.0-6.5) Ur Specific Xenia (1.010-1.025) Urine Protein (NEGATIVE) mg/dL Urine Glucose (UA) (NORMAL) mg/dL Urine Ketones (NEGATIVE) mg/dL Urine Occult Blood (NEGATIVE) Urine Nitrite (NEGATIVE) Urine Bilirubin (NEGATIVE) Urine Urobilinogen (NEGATIVE) mg/dL Ur Leukocyte Esterase (NEGATIVE) Urine RBC (0-5) Urine WBC (0-5) Ur Squamous Epith Cells (NS,R,O) Urine Bacteria (NS) Bertrand Results Last 24 Hours: Microbiology 06/11/20 11:40 Urine Culture - Preliminary Urine, Voided YEAST 06/11/20 10:54 Occult Blood - Preliminary Stool / Feces Med Orders - Current: Current Medications Acetaminophen (Tylenol) 650 mg PO Q4H PRN PRN Reason: Pain/Fever Bisacodyl (Dulcolax) 10 mg RECTAL DAILY PRN PRN Reason: Constipation Last Admin: 06/11/20 09:32 Dose: 10 mg Documented by: Enoxaparin Sodium (Lovenox) 40 mg SUBCUT DAILY [facility] Last Admin: 06/12/20 10:08 Dose: 40 mg Documented by: Potassium Cl/Dextrose/Lact Ringer's (D5 Lr With 20 Meq Kcl) 1,000 mls @ 125 mls/hr IV Q8H [facility] Last Admin: 06/12/20 09:34 Dose: 125 mls/hr Documented by: Promethazine HCl 12.5 mg/ (Sodium Chloride) 50.5 mls @ 200 mls/hr IV Q6H PRN PRN Reason: Nausea/Vomiting Ketorolac Tromethamine (Toradol) 30 mg IVPUSH Q6H [facility] Stop: 06/14/20 09:59 Last Admin: 06/12/20 10:17 Dose: 30 mg Documented by: Lisinopril (Prinivil) 20 mg PO DAILY [facility] Last Admin: 06/12/20 09:22 Dose: 20 mg Documented by: Meropenem (Merrem) 1 gm IVPUSH Q8H [facility] Stop: 06/19/20 11:01 Last Admin: 06/12/20 10:23 Dose: 1 gm Documented by: Morphine Sulfate (Morphine) 2 mg IVPUSH Q2H PRN PRN Reason: SEVERE PAIN Multivitamins/Minerals (Thera M Plus) 1 tab PO DAILY [facility] Last Admin: 06/12/20 09:23 Dose: 1 tab Documented by: Pantoprazole Sodium (Protonix) 40 mg PO DAILY@0600 [facility] Polyethylene Glycol (Miralax) 17 gm PO DAILY PRN PRN Reason: Constipation Sodium Chloride (Saline Flush) 10 ml FLUSH ASDIRECTED PRN PRN Reason: Keep Vein Open Last Admin: 06/12/20 02:00 Dose: 10 ml Documented by: Discontinued Medications Acetaminophen (Tylenol) 650 mg RECTAL Q4H [facility] Last Admin: 06/12/20 05:48 Dose: 650 mg Documented by: Enalaprilat (Vasotec Iv) 0.625 mg IVPUSH Q6H [facility] Last Admin: 06/11/20 09:28 Dose: 0.625 mg Documented by: Enalaprilat (Vasotec Iv) 1.25 mg IVPUSH Q6H [facility] Last Admin: 06/12/20 10:34 Dose: Not Given Documented by: Fluconazole (Diflucan) 150 mg PO ONETIME ONE Stop: 06/12/20 09:31 Last Admin: 06/12/20 10:08 Dose: 150 mg Documented by: Gadoteridol (Prohance) 10 ml IVPUSH ONETIME ONE Stop: 06/10/20 14:07 Last Admin: 06/10/20 14:27 Dose: 10 ml Documented by: Hydromorphone HCl (Dilaudid) 1 mg IVPUSH ONETIME ONE Stop: 06/09/20 02:33 Last Admin: 06/09/20 02:42 Dose: 1 mg Documented by: Hydromorphone HCl (Dilaudid) 1 mg IVPUSH ONETIME ONE Stop: 06/09/20 03:25 Last Admin: 06/09/20 03:32 Dose: 1 mg Documented by: Hydromorphone HCl (Dilaudid) 2 mg IVPUSH ONETIME ONE Stop: 06/09/20 04:16 Last Admin: 06/09/20 04:29 Dose: 2 mg Documented by: Hydromorphone HCl (Dilaudid) 2 mg IVPUSH Q2H PRN PRN Reason: Pain (severe 7-10) Last Admin: 06/09/20 08:37 Dose: 2 mg Documented by: Hydroxyzine HCl (Vistaril) 50 mg IM ONETIME ONE Stop: 06/09/20 02:32 Last Admin: 06/09/20 02:45 Dose: 50 mg Documented by: Sodium Chloride (Normal Saline) 1,000 mls @ 999 mls/hr IV .BOLUS ONE Stop: 06/09/20 02:23 Last Admin: 06/09/20 01:41 Dose: 999 mls/hr Documented by: Sodium Chloride (Normal Saline) 1,000 mls @ 999 mls/hr IV .BOLUS ONE Stop: 06/09/20 03:47 Last Admin: 06/09/20 02:43 Dose: 999 mls/hr Documented by: Magnesium Sulfate 1 gm/ (Dextrose/Water) 52 mls @ 100 mls/hr IV ONETIME ONE Stop: 06/09/20 04:15 Last Admin: 06/09/20 04:25 Dose: 100 mls/hr Documented by: Sodium Chloride (Normal Saline) 1,000 mls @ 250 mls/hr IV ASDIRECTED [facility] Last Admin: 06/09/20 12:44 Dose: 250 mls/hr Documented by: Piperacillin Sod/Tazobactam (Sod 3.375 gm/ Sodium Chloride) 50 mls @ 100 mls/hr IV .ONCE ONE Stop: 06/09/20 04:45 Last Admin: 06/09/20 04:39 Dose: Not Given Documented by: Acetaminophen 1,000 mg/ Premix 100 mls @ 400 mls/hr IV Q6H [facility] Stop: 06/10/20 06:00 Last Admin: 06/10/20 03:53 Dose: 400 mls/hr Documented by: Lactated Ringer's (Ringers, Lactated) 1,000 mls @ 125 mls/hr IV ASDIRECTED [facility] Last Admin: 06/10/20 18:21 Dose: 125 mls/hr Documented by: Acetaminophen 1,000 mg/ Premix 100 mls @ 400 mls/hr IV Q6H [facility] Stop: 06/11/20 10:01 Last Admin: 06/11/20 04:45 Dose: 400 mls/hr Documented by: Iopamidol (Isovue-370 (76%)) 100 ml IV . DIRECTED ONE Stop: 06/09/20 02:57 Last Admin: 06/09/20 03:16 Dose: 100 ml Documented by: Lisinopril (Prinivil) 20 mg PO DAILY [facility] Last Admin: 06/11/20 09:51 Dose: Not Given Documented by: Morphine Sulfate (Morphine) 2 mg IVPUSH Q4H PRN PRN Reason: Pain (severe 7-10) Last Admin: 06/10/20 13:33 Dose: 2 mg Documented by: Morphine Sulfate (Morphine) 2 mg IVPUSH Q2H PRN PRN Reason: Pain (severe 7-10) Last Admin: 06/11/20 05:28 Dose: 2 mg Documented by: Morphine Sulfate (Morphine) 4 mg IVPUSH Q2H PRN PRN Reason: Pain (severe 7-10) Last Admin: 06/12/20 09:20 Dose: 4 mg Documented by: Ondansetron HCl (Zofran) 4 mg IVPUSH ONETIME ONE Stop: 06/09/20 01:25 Last Admin: 06/09/20 01:42 Dose: 4 mg Documented by: Ondansetron HCl (Zofran) 4 mg IV Q6H PRN PRN Reason: Nausea/Vomiting Last Admin: 06/11/20 04:57 Dose: 4 mg Documented by: Pantoprazole Sodium (Protonix Iv) 40 mg IVPUSH ONETIME ONE Stop: 06/09/20 01:25 Last Admin: 06/09/20 01:44 Dose: 40 mg Documented by: Pantoprazole Sodium (Protonix Iv) 40 mg IVPUSH Q12H [facility] Last Admin: 06/12/20 01:44 Dose: 40 mg Documented by: - Exam General: Alert, Oriented, Cooperative, No Acute Distress Lungs: Clear to Auscultation, Normal Respiratory Effort Cardiovascular: Regular Rate, Regular Rhythm GI/Abdominal Exam: Normal Bowel Sounds, Soft, No Distention, Guarding, Tender (diffuse). No: Rigid, Rebound (Female) Exam: Deferred Extremities: No Pedal Edema Peripheral Pulses: 2+: Radial (L), Radial (R) Skin: Warm, Dry, Intact Sepsis Event Note - Evaluation Sepsis Screening Result: No Definite Risk - Focused Exam Vital Signs: Vital Signs Temp Pulse Resp BP BP Pulse Ox 06/12/20 09:22 154/98 H 06/12/20 02:20 98.6 F 95 18 149/91 H 06/12/20 01:45 149/91 H 06/12/20 00:00 98.4 F 92 18 155/100 H 94 L - Problem List & Annotations (1) Acute pancreatitis SNOMED Code(s): 569497649 Code(s): K85.90 - ACUTE PANCREATITIS WITHOUT NECROSIS OR INFECTION, UNSP Status: Acute Current Visit: Yes Qualifiers: Pancreatitis type: unspecified pancreatitis type Acute pancreatitis complication: unspecified Qualified Code(s): K85.90 - Acute pancreatitis without necrosis or infection, unspecified (2) Duodenitis SNOMED Code(s): 39430877 Code(s): K29.80 - DUODENITIS WITHOUT BLEEDING Status: Acute Current Visit: Yes (3) Abdominal pain SNOMED Code(s): 43215482 Code(s): R10.9 - UNSPECIFIED ABDOMINAL PAIN Status: Acute Current Visit: No (4) Alcohol dependence SNOMED Code(s): 28937377 Code(s): F10.20 - ALCOHOL DEPENDENCE, UNCOMPLICATED Status: Chronic Current Visit: No Annotation/Comment:: Naltrexone 50 mg daily, will hold currently. (5) Dehydration, moderate SNOMED Code(s): 7624934129563 Code(s): E86.0 - DEHYDRATION Status: Resolved Current Visit: No Annotation/Comment:: D5LR at 125 ml/hr, clears. (6) Marijuana abuse SNOMED Code(s): 23840968 Code(s): F12.10 - CANNABIS ABUSE, UNCOMPLICATED Status: Chronic Current Visit: No (7) Hemorrhoids SNOMED Code(s): 26412279 Code(s): K64.9 - UNSPECIFIED HEMORRHOIDS Status: Chronic Current Visit: Yes - Problem List Review Problem List Initiated/Reviewed/Updated: Yes - My Orders Last 24 Hours: My Active Orders 06/11/20 10:54 OCCULT BLOOD SCREEN [OP] Routine 06/11/20 11:40 CULTURE URINE [RM] Routine 06/12/20 Breakfast Clear Liquid Diet [DIET] 06/12/20 08:24 Acetaminophen [TylenoL] 650 mg PO Q4H PRN 06/12/20 08:25 polyethylene glycoL 3350 [MiraLAX] 17 gm PO DAILY PRN 06/12/20 09:00 Multivitamins w-Iron/Ca/FA/Min [Thera M Plus] 1 tab PO DAILY lisinopriL [Prinivil] 20 mg PO DAILY 06/12/20 09:30 Enoxaparin [Lovenox] 40 mg SUBCUT DAILY 06/12/20 09:31 Promethazine [Phenergan] 12.5 mg Sodium Chloride 0.9% [Normal Saline] 50 ml IV Q6H 06/12/20 09:44 Morphine 2 mg IVPUSH Q2H PRN 06/12/20 11:00 Pantoprazole [ProTONIX] 40 mg PO DAILY@0600 06/13/20 06:00 CBC WITH AUTO DIFF [HEME] Routine COMPREHENSIVE METABOLIC PN,CMP [CHEM] Routine - Plan Plan:: 1. Acute pancreatitis/duodenitis: WBC down to 15.8 from 18.0, Merrem 1g IV q8h, day 4. D5LR at 125 ml/hr. Repeat labs tomorrow. Tylenol 650 mg PO q4h as needed and Toradol 30 mg IV q6h, MRI severe pancreatitis/duodenitis, 2 cysts, no necrosis. Lipase down to 385, advance to clears. Morphine 2 mg IV q2h as needed breakthrough pain. LFTs bumped up today but will recheck tomorrow, may be delay since her lipase is now in normal range. 2. HTN: Restart Lisinopril 20 mg daily. 3. Clears, then advance as tolerated. 4. Ambulate. 5. Hematuria: yeast on Urine culture, fluconazole 150 mg x 1.
[2020-06-12] MEDS: Pantoprazole 40 MG Tab.CR PO SCH (11:29)
[2020-06-12] MEDS: Dextrose 5%-Lactated Ringers 1,000 ML IV SCH (18:16)
[2020-06-12] MEDS ORDERED: Miconazole 2% Vaginal Crm 45 GM Tube TOP SCH (21:00)
[2020-06-13] MEDS: Dextrose 5%-Lactated Ringers 1,000 ML IV SCH ×2 (02:20→10:33)
[2020-06-13] MEDS: Meropenem 1 GM SDV IVPUSH SCH ×3 (03:30→18:57)
[2020-06-13] MEDS: Ketorolac 30 MG/ML SDV IVPUSH SCH ×4 (03:34→21:25)
[2020-06-13] MEDS: Morphine 2 MG/ML SYRINGE IVPUSH PRN ×2 (05:48→10:33)
[2020-06-13] MEDS: Pantoprazole 40 MG Tab.CR PO SCH (05:48)
[2020-06-13] MEDS: Lisinopril 20 MG Tab PO SCH (09:32)
[2020-06-13] MEDS: Multivitamins with Iron/Calcium/Folic Acid/Minerals Tab PO SCH (09:33)
[2020-06-13] MEDS: Polyethylene Glycol 3350 Powder 17 GM Packet PO PRN (09:39)
[2020-06-13] MEDS: Enoxaparin 40 MG/0.4 ML Syringe SUBCUT SCH (12:20)
--- NOTE | 2020-06-13 14:35 | PCM.PN ---
- General Info Date of Service: 06/13/20 Subjective Update: Gladis had an emesis yesterday morning, resolved without medication, tolerated lunch and supper yesterday, advanced her diet to soft. She denies worsening abdominal pain. Required 1 dose of Morphine overnight. Ambulated 4-5 times yesterday, states a little sore from the walking. No fevers, chills. Had small bowel movement yesterday, would like MiraLax this morning. Functional Status: Reports: Pain Controlled, Tolerating Diet, Ambulating, Urinating. Denies: New Symptoms - Patient Data Vitals - Most Recent: Last Vital Signs Temp 98.6 F 06/13/20 08:00 Pulse 90 06/13/20 08:00 Resp 16 06/13/20 08:00 BP 154/100 H 06/13/20 09:32 Pulse Ox 96 06/13/20 08:00 Weight - Most Recent: 137 lb 14.4 oz I&O - Last 24 Hours: Intake & Output 06/12/20 06/13/20 06/13/20 22:59 06:59 14:59 Intake Total 837 1166 Output Total 1400 Balance 837 -234 Lab Results Last 24 Hours: Laboratory Results - last 24 hr 06/13/20 06/13/20 Range/Units 05:55 05:55 WBC 19.4 H (3.0-10.3) x10-3/uL RBC 4.01 (3.60-5.20) x10(6)uL Hgb 13.0 (11.4-15.5) g/dL Hct 39.2 (34.2-48.2) % MCV 97.8 (76.7-100.5) fL MCH 32.3 (23.9-33.9) pg MCHC 33.1 (31.9-34.8) g/dL RDW 16.7 H (12.3-16.5) % Plt Count 501 H (151-488) x10(3)uL MPV 8.7 (7.1-12.4) fL Add Manual Diff Yes Neutrophils % (Manual) 79 (46-82) % Lymphocytes % (Manual) 15 (13-37) % Monocytes % (Manual) 4 (4-12) % Eosinophils % (Manual) 2 (0-5) % Sodium 141 (135-145) mmol/L Potassium 3.7 (3.5-5.3) mmol/L Chloride 105 (100-110) mmol/L Carbon Dioxide 30 (21-32) mmol/L BUN 1 L (7-18) mg/dL Creatinine 0.6 (0.55-1.02) mg/dL Est Cr Clr Drug Dosing 98.75 mL/min Estimated GFR (MDRD) > 60 (>60) BUN/Creatinine Ratio 1.7 L (9-20) Glucose 98 (80-116) mg/dL Calcium 8.1 L (8.6-10.2) mg/dL Total Bilirubin 0.3 (0.1-1.3) mg/dL AST 43 H D (5-25) IU/L ALT 61 H D (12-36) U/L Alkaline Phosphatase 238 H (56-112) IU/L Total Protein 5.7 L (6.0-8.0) g/dL Albumin 2.0 L (3.5-5.2) g/dL Globulin 3.7 g/dL Albumin/Globulin Ratio 0.5 Bertrand Results Last 24 Hours: Microbiology 06/11/20 11:40 Urine Culture - Final Urine, Voided YEAST Med Orders - Current: Current Medications Acetaminophen (Tylenol) 650 mg PO Q4H PRN PRN Reason: Pain/Fever Bisacodyl (Dulcolax) 10 mg RECTAL DAILY PRN PRN Reason: Constipation Last Admin: 06/11/20 09:32 Dose: 10 mg Documented by: Promethazine HCl 12.5 mg/ (Sodium Chloride) 50.5 mls @ 200 mls/hr IV Q6H PRN PRN Reason: Nausea/Vomiting Dextrose/Lactated Ringer's (Dextrose 5%-Lactated Ringers) 1,000 mls @ 75 mls/hr IV ASDIRECTED [facility] Last Admin: 06/13/20 10:33 Dose: 125 mls/hr Documented by: Ketorolac Tromethamine (Toradol) 30 mg IVPUSH Q6H [facility] Stop: 06/14/20 09:59 Last Admin: 06/13/20 09:33 Dose: 30 mg Documented by: Lisinopril (Prinivil) 20 mg PO DAILY [facility] Last Admin: 06/13/20 09:32 Dose: 20 mg Documented by: Meropenem (Merrem) 1 gm IVPUSH Q8H [facility] Stop: 06/19/20 11:01 Last Admin: 06/13/20 11:51 Dose: 1 gm Documented by: Morphine Sulfate (Morphine) 2 mg IVPUSH Q2H PRN PRN Reason: SEVERE PAIN Last Admin: 06/13/20 10:33 Dose: 2 mg Documented by: Multivitamins/Minerals (Thera M Plus) 1 tab PO DAILY [facility] Last Admin: 06/13/20 09:33 Dose: 1 tab Documented by: Pantoprazole Sodium (Protonix) 40 mg PO DAILY@0600 [facility] Last Admin: 06/13/20 05:48 Dose: 40 mg Documented by: Polyethylene Glycol (Miralax) 17 gm PO DAILY PRN PRN Reason: Constipation Last Admin: 06/13/20 09:39 Dose: 17 gm Documented by: Sodium Chloride (Saline Flush) 10 ml FLUSH ASDIRECTED PRN PRN Reason: Keep Vein Open Last Admin: 06/12/20 16:36 Dose: 10 ml Documented by: Discontinued Medications Acetaminophen (Tylenol) 650 mg RECTAL Q4H [facility] Last Admin: 06/12/20 05:48 Dose: 650 mg Documented by: Enalaprilat (Vasotec Iv) 0.625 mg IVPUSH Q6H [facility] Last Admin: 06/11/20 09:28 Dose: 0.625 mg Documented by: Enalaprilat (Vasotec Iv) 1.25 mg IVPUSH Q6H [facility] Last Admin: 06/12/20 10:34 Dose: Not Given Documented by: Enoxaparin Sodium (Lovenox) 40 mg SUBCUT DAILY [facility] Last Admin: 06/13/20 12:20 Dose: Not Given Documented by: Fluconazole (Diflucan) 150 mg PO ONETIME ONE Stop: 06/12/20 09:31 Last Admin: 06/12/20 10:08 Dose: 150 mg Documented by: Gadoteridol (Prohance) 10 ml IVPUSH ONETIME ONE Stop: 06/10/20 14:07 Last Admin: 06/10/20 14:27 Dose: 10 ml Documented by: Hydromorphone HCl (Dilaudid) 1 mg IVPUSH ONETIME ONE Stop: 06/09/20 02:33 Last Admin: 06/09/20 02:42 Dose: 1 mg Documented by: Hydromorphone HCl (Dilaudid) 1 mg IVPUSH ONETIME ONE Stop: 06/09/20 03:25 Last Admin: 06/09/20 03:32 Dose: 1 mg Documented by: Hydromorphone HCl (Dilaudid) 2 mg IVPUSH ONETIME ONE Stop: 06/09/20 04:16 Last Admin: 06/09/20 04:29 Dose: 2 mg Documented by: Hydromorphone HCl (Dilaudid) 2 mg IVPUSH Q2H PRN PRN Reason: Pain (severe 7-10) Last Admin: 06/09/20 08:37 Dose: 2 mg Documented by: Hydroxyzine HCl (Vistaril) 50 mg IM ONETIME ONE Stop: 06/09/20 02:32 Last Admin: 06/09/20 02:45 Dose: 50 mg Documented by: Sodium Chloride (Normal Saline) 1,000 mls @ 999 mls/hr IV .BOLUS ONE Stop: 06/09/20 02:23 Last Admin: 06/09/20 01:41 Dose: 999 mls/hr Documented by: Sodium Chloride (Normal Saline) 1,000 mls @ 999 mls/hr IV .BOLUS ONE Stop: 06/09/20 03:47 Last Admin: 06/09/20 02:43 Dose: 999 mls/hr Documented by: Magnesium Sulfate 1 gm/ (Dextrose/Water) 52 mls @ 100 mls/hr IV ONETIME ONE Stop: 06/09/20 04:15 Last Admin: 06/09/20 04:25 Dose: 100 mls/hr Documented by: Sodium Chloride (Normal Saline) 1,000 mls @ 250 mls/hr IV ASDIRECTED [facility] Last Admin: 06/09/20 12:44 Dose: 250 mls/hr Documented by: Piperacillin Sod/Tazobactam (Sod 3.375 gm/ Sodium Chloride) 50 mls @ 100 mls/hr IV .ONCE ONE Stop: 06/09/20 04:45 Last Admin: 06/09/20 04:39 Dose: Not Given Documented by: Acetaminophen 1,000 mg/ Premix 100 mls @ 400 mls/hr IV Q6H [facility] Stop: 06/10/20 06:00 Last Admin: 06/10/20 03:53 Dose: 400 mls/hr Documented by: Lactated Ringer's (Ringers, Lactated) 1,000 mls @ 125 mls/hr IV ASDIRECTED [facility] Last Admin: 06/10/20 18:21 Dose: 125 mls/hr Documented by: Acetaminophen 1,000 mg/ Premix 100 mls @ 400 mls/hr IV Q6H [facility] Stop: 06/11/20 10:01 Last Admin: 06/11/20 04:45 Dose: 400 mls/hr Documented by: Potassium Cl/Dextrose/Lact Ringer's (D5 Lr With 20 Meq Kcl) 1,000 mls @ 125 mls/hr IV Q8H [facility] Stop: 06/12/20 17:00 Last Admin: 06/12/20 18:38 Dose: Not Given Documented by: Iopamidol (Isovue-370 (76%)) 100 ml IV . DIRECTED ONE Stop: 06/09/20 02:57 Last Admin: 06/09/20 03:16 Dose: 100 ml Documented by: Lisinopril (Prinivil) 20 mg PO DAILY [facility] Last Admin: 06/11/20 09:51 Dose: Not Given Documented by: Morphine Sulfate (Morphine) 2 mg IVPUSH Q4H PRN PRN Reason: Pain (severe 7-10) Last Admin: 06/10/20 13:33 Dose: 2 mg Documented by: Morphine Sulfate (Morphine) 2 mg IVPUSH Q2H PRN PRN Reason: Pain (severe 7-10) Last Admin: 06/11/20 05:28 Dose: 2 mg Documented by: Morphine Sulfate (Morphine) 4 mg IVPUSH Q2H PRN PRN Reason: Pain (severe 7-10) Last Admin: 06/12/20 09:20 Dose: 4 mg Documented by: Ondansetron HCl (Zofran) 4 mg IVPUSH ONETIME ONE Stop: 06/09/20 01:25 Last Admin: 06/09/20 01:42 Dose: 4 mg Documented by: Ondansetron HCl (Zofran) 4 mg IV Q6H PRN PRN Reason: Nausea/Vomiting Last Admin: 06/11/20 04:57 Dose: 4 mg Documented by: Pantoprazole Sodium (Protonix Iv) 40 mg IVPUSH ONETIME ONE Stop: 06/09/20 01:25 Last Admin: 06/09/20 01:44 Dose: 40 mg Documented by: Pantoprazole Sodium (Protonix Iv) 40 mg IVPUSH Q12H [facility] Last Admin: 06/12/20 01:44 Dose: 40 mg Documented by: - Exam General: Alert, Oriented, Cooperative, No Acute Distress Lungs: Clear to Auscultation, Normal Respiratory Effort Cardiovascular: Regular Rate, Regular Rhythm GI/Abdominal Exam: Normal Bowel Sounds, Soft, No Distention, Guarding, Tender (diffuse TTP, greatest RUQ; improved). No: Rigid, Rebound (Female) Exam: Deferred Extremities: No Pedal Edema Peripheral Pulses: 2+: Radial (L), Radial (R) Sepsis Event Note - Evaluation Sepsis Screening Result: No Definite Risk - Focused Exam Vital Signs: Vital Signs Temp Pulse Resp BP BP Pulse Ox 06/13/20 09:32 154/100 H 06/13/20 08:00 98.6 F 90 16 156/100 H 96 - Problem List & Annotations (1) Acute pancreatitis SNOMED Code(s): 887009711 Code(s): K85.90 - ACUTE PANCREATITIS WITHOUT NECROSIS OR INFECTION, UNSP Status: Acute Current Visit: Yes Qualifiers: Pancreatitis type: unspecified pancreatitis type Acute pancreatitis complication: unspecified Qualified Code(s): K85.90 - Acute pancreatitis without necrosis or infection, unspecified (2) Duodenitis SNOMED Code(s): 70382838 Code(s): K29.80 - DUODENITIS WITHOUT BLEEDING Status: Acute Current Visit: Yes (3) Abdominal pain SNOMED Code(s): 97851053 Code(s): R10.9 - UNSPECIFIED ABDOMINAL PAIN Status: Acute Current Visit: No (4) Alcohol dependence SNOMED Code(s): 34477959 Code(s): F10.20 - ALCOHOL DEPENDENCE, UNCOMPLICATED Status: Chronic Current Visit: No Annotation/Comment:: Naltrexone 50 mg daily, will hold currently. (5) Dehydration, moderate SNOMED Code(s): 9335245993502 Code(s): E86.0 - DEHYDRATION Status: Acute Current Visit: No Annotation/Comment:: Decreased to 75 ml/hr (6) Marijuana abuse SNOMED Code(s): 27837069 Code(s): F12.10 - CANNABIS ABUSE, UNCOMPLICATED Status: Chronic Current Visit: No (7) Hemorrhoids SNOMED Code(s): 82535560 Code(s): K64.9 - UNSPECIFIED HEMORRHOIDS Status: Chronic Current Visit: Yes - Problem List Review Problem List Initiated/Reviewed/Updated: Yes - My Orders Last 24 Hours: My Active Orders 06/12/20 Dinner Soft Diet [DIET] 06/12/20 17:00 Dextrose 5%-Lactated Ringers 1,000 ml IV ASDIRECTED 06/14/20 06:00 CBC WITH AUTO DIFF [HEME] Routine COMPREHENSIVE METABOLIC PN,CMP [CHEM] Routine LIPASE [CHEM] Routine - Plan Plan:: 1. Acute pancreatitis/duodenitis: WBC up to 19.4 from 15.8, Merrem 1g IV q8h, day 5. D5LR at 75 ml/hr. Repeat labs tomorrow. Tylenol 650 mg PO q4h as needed and Toradol 30 mg IV q6h, MRI severe pancreatitis/duodenitis, 2 cysts, no necrosis. Lipase down to 385, advance to soft. Morphine 2 mg IV q2h as needed breakthrough pain. LFTs and platelets are down today, clinically she is improved even with advancement of diet, will recheck labs tomorrow, adjust treatment as needed. 2. HTN: Restart Lisinopril 20 mg daily. 3. Soft diet, advance as tolerated. 4. Ambulate. 5. If tolerating diet and not requiring pain medications, possible discharge Wednesday or Wednesday.
[2020-06-14] MEDS: Dextrose 5%-Lactated Ringers 1,000 ML IV SCH ×2 (00:20→14:05)
[2020-06-14] MEDS: Meropenem 1 GM SDV IVPUSH SCH (02:36)
[2020-06-14] MEDS: Morphine 2 MG/ML SYRINGE IVPUSH PRN ×2 (02:40→09:26)
[2020-06-14] MEDS: Acetaminophen 325 MG Tab PO PRN ×2 (02:46→09:28)
[2020-06-14] MEDS: Ketorolac 30 MG/ML SDV IVPUSH SCH (04:32)
[2020-06-14] MEDS: Pantoprazole 40 MG Tab.CR PO SCH (05:01)
[2020-06-14] MEDS: Lisinopril 20 MG Tab PO SCH (09:29)
[2020-06-14] MEDS ORDERED: Ibuprofen 200 MG Tab PO SCH (09:30)
[2020-06-14] MEDS: Multivitamins with Iron/Calcium/Folic Acid/Minerals Tab PO SCH (09:30)
[2020-06-14] MEDS: Polyethylene Glycol 3350 Powder 17 GM Packet PO PRN (09:33)
[2020-06-14] MEDS: Ibuprofen 400 MG Tab PO SCH ×5 (10:56→23:31)
[2020-06-14] MEDS: Ciprofloxacin 500 MG Tab PO SCH ×2 (10:56→21:14)
[2020-06-14] MEDS: metroNIDAZOLE 500 MG Tab PO SCH ×3 (10:56→21:14)
--- NOTE | 2020-06-14 14:31 | PCM.PN ---
- General Info Date of Service: 06/14/20 Subjective Update: Gladis is improving, abdominal pain improving. Did have worsening pain around 2-3 am, she hadn't had any morphine since 10 am yesterday but required another dose at 245 am. No nausea, vomiting. No diarrhea or constipation. She is tolerating her diet. Functional Status: Reports: Pain Controlled, Tolerating Diet, Ambulating, Urinating - Patient Data Vitals - Most Recent: Last Vital Signs Temp 98.3 F 06/14/20 07:30 Pulse 83 06/14/20 07:30 Resp 18 06/14/20 07:30 BP 139/100 H 06/14/20 09:29 Pulse Ox 98 06/14/20 07:30 Weight - Most Recent: 142 lb 4 oz I&O - Last 24 Hours: Intake & Output 06/13/20 06/14/20 06/14/20 22:59 06:59 14:59 Intake Total 1250 886 670 Output Total 650 1000 Balance 600 -114 670 Lab Results Last 24 Hours: Laboratory Results - last 24 hr 06/14/20 06/14/20 06/14/20 Range/Units 06:07 06:07 06:07 WBC 15.8 H (3.0-10.3) x10-3/uL RBC 3.88 (3.60-5.20) x10(6)uL Hgb 12.5 (11.4-15.5) g/dL Hct 37.9 (34.2-48.2) % MCV 97.7 (76.7-100.5) fL MCH 32.3 (23.9-33.9) pg MCHC 33.1 (31.9-34.8) g/dL RDW 16.6 H (12.3-16.5) % Plt Count 520 H (151-488) x10(3)uL MPV 8.0 (7.1-12.4) fL Neut % (Auto) 66.6 (30.8-76.2) % Lymph % (Auto) 21.8 (18.4-52.1) % [place] % (Auto) 4.3 L (4.4-15.7) % Eos % (Auto) 5.5 (0.6-8.1) % Baso % (Auto) 1.8 H (0.2-1.5) % Neut # (Auto) 10.5 H (1.5-6.3) x10-3/uL Lymph # (Auto) 3.4 (1.0-4.4) x10-3/uL [place] # (Auto) 0.7 (0.3-1.0) x10-3/uL Eos # (Auto) 0.9 H (0.0-0.8) x10-3/uL Baso # (Auto) 0.3 H (0.0-0.1) x10-3/uL Sodium 141 (135-145) mmol/L Potassium 3.8 (3.5-5.3) mmol/L Chloride 105 (100-110) mmol/L Carbon Dioxide 30 (21-32) mmol/L BUN 3 L (7-18) mg/dL Creatinine 0.5 L (0.55-1.02) mg/dL Est Cr Clr Drug Dosing 118.50 mL/min Estimated GFR (MDRD) > 60 (>60) BUN/Creatinine Ratio 6.0 L (9-20) Glucose 98 (80-116) mg/dL Calcium 8.1 L (8.6-10.2) mg/dL Total Bilirubin 0.3 (0.1-1.3) mg/dL AST 20 D (5-25) IU/L ALT 44 H D (12-36) U/L Alkaline Phosphatase 195 H (56-112) IU/L Total Protein 5.9 L (6.0-8.0) g/dL Albumin 2.1 L (3.5-5.2) g/dL Globulin 3.8 g/dL Albumin/Globulin Ratio 0.6 Lipase 432 H (73-393) U/L Med Orders - Current: Current Medications Acetaminophen (Tylenol) 650 mg PO Q4H [facility] Bisacodyl (Dulcolax) 10 mg RECTAL DAILY PRN PRN Reason: Constipation Last Admin: 06/11/20 09:32 Dose: 10 mg Documented by: Ciprofloxacin (Ciprofloxacin Hcl) 500 mg PO BID@0600,1800 [facility] Stop: 06/19/20 23:00 Last Admin: 06/14/20 10:56 Dose: 500 mg Documented by: Promethazine HCl 12.5 mg/ (Sodium Chloride) 50.5 mls @ 200 mls/hr IV Q6H PRN PRN Reason: Nausea/Vomiting Dextrose/Lactated Ringer's (Dextrose 5%-Lactated Ringers) 1,000 mls @ 75 mls/hr IV ASDIRECTED [facility] Last Admin: 06/14/20 14:05 Dose: 75 mls/hr Documented by: Ibuprofen (Motrin) 400 mg PO Q4H [facility] Lisinopril (Prinivil) 20 mg PO DAILY [facility] Last Admin: 06/14/20 09:29 Dose: 20 mg Documented by: Metronidazole (Flagyl) 500 mg PO TID [facility] Stop: 06/19/20 10:01 Last Admin: 06/14/20 10:56 Dose: 500 mg Documented by: Morphine Sulfate (Morphine) 2 mg IVPUSH Q2H PRN PRN Reason: SEVERE PAIN Last Admin: 06/14/20 09:26 Dose: 2 mg Documented by: Multivitamins/Minerals (Thera M Plus) 1 tab PO DAILY [facility] Last Admin: 06/14/20 09:30 Dose: 1 tab Documented by: Pantoprazole Sodium (Protonix) 40 mg PO DAILY@0600 [facility] Last Admin: 06/14/20 05:01 Dose: 40 mg Documented by: Polyethylene Glycol (Miralax) 17 gm PO DAILY PRN PRN Reason: Constipation Last Admin: 06/14/20 09:33 Dose: 17 gm Documented by: Sodium Chloride (Saline Flush) 10 ml FLUSH ASDIRECTED PRN PRN Reason: Keep Vein Open Last Admin: 06/12/20 16:36 Dose: 10 ml Documented by: Discontinued Medications Acetaminophen (Tylenol) 650 mg RECTAL Q4H [facility] Last Admin: 06/12/20 05:48 Dose: 650 mg Documented by: Acetaminophen (Tylenol) 650 mg PO Q4H PRN PRN Reason: Pain/Fever Last Admin: 06/14/20 09:28 Dose: 650 mg Documented by: Enalaprilat (Vasotec Iv) 0.625 mg IVPUSH Q6H [facility] Last Admin: 06/11/20 09:28 Dose: 0.625 mg Documented by: Enalaprilat (Vasotec Iv) 1.25 mg IVPUSH Q6H [facility] Last Admin: 06/12/20 10:34 Dose: Not Given Documented by: Enoxaparin Sodium (Lovenox) 40 mg SUBCUT DAILY [facility] Last Admin: 06/13/20 12:20 Dose: Not Given Documented by: Fluconazole (Diflucan) 150 mg PO ONETIME ONE Stop: 06/12/20 09:31 Last Admin: 06/12/20 10:08 Dose: 150 mg Documented by: Gadoteridol (Prohance) 10 ml IVPUSH ONETIME ONE Stop: 06/10/20 14:07 Last Admin: 06/10/20 14:27 Dose: 10 ml Documented by: Hydromorphone HCl (Dilaudid) 1 mg IVPUSH ONETIME ONE Stop: 06/09/20 02:33 Last Admin: 06/09/20 02:42 Dose: 1 mg Documented by: Hydromorphone HCl (Dilaudid) 1 mg IVPUSH ONETIME ONE Stop: 06/09/20 03:25 Last Admin: 06/09/20 03:32 Dose: 1 mg Documented by: Hydromorphone HCl (Dilaudid) 2 mg IVPUSH ONETIME ONE Stop: 06/09/20 04:16 Last Admin: 06/09/20 04:29 Dose: 2 mg Documented by: Hydromorphone HCl (Dilaudid) 2 mg IVPUSH Q2H PRN PRN Reason: Pain (severe 7-10) Last Admin: 06/09/20 08:37 Dose: 2 mg Documented by: Hydroxyzine HCl (Vistaril) 50 mg IM ONETIME ONE Stop: 06/09/20 02:32 Last Admin: 06/09/20 02:45 Dose: 50 mg Documented by: Sodium Chloride (Normal Saline) 1,000 mls @ 999 mls/hr IV .BOLUS ONE Stop: 06/09/20 02:23 Last Admin: 06/09/20 01:41 Dose: 999 mls/hr Documented by: Sodium Chloride (Normal Saline) 1,000 mls @ 999 mls/hr IV .BOLUS ONE Stop: 06/09/20 03:47 Last Admin: 06/09/20 02:43 Dose: 999 mls/hr Documented by: Magnesium Sulfate 1 gm/ (Dextrose/Water) 52 mls @ 100 mls/hr IV ONETIME ONE Stop: 06/09/20 04:15 Last Admin: 06/09/20 04:25 Dose: 100 mls/hr Documented by: Sodium Chloride (Normal Saline) 1,000 mls @ 250 mls/hr IV ASDIRECTED [facility] Last Admin: 06/09/20 12:44 Dose: 250 mls/hr Documented by: Piperacillin Sod/Tazobactam (Sod 3.375 gm/ Sodium Chloride) 50 mls @ 100 mls/hr IV .ONCE ONE Stop: 06/09/20 04:45 Last Admin: 06/09/20 04:39 Dose: Not Given Documented by: Acetaminophen 1,000 mg/ Premix 100 mls @ 400 mls/hr IV Q6H [facility] Stop: 06/10/20 06:00 Last Admin: 06/10/20 03:53 Dose: 400 mls/hr Documented by: Lactated Ringer's (Ringers, Lactated) 1,000 mls @ 125 mls/hr IV ASDIRECTED [facility] Last Admin: 06/10/20 18:21 Dose: 125 mls/hr Documented by: Acetaminophen 1,000 mg/ Premix 100 mls @ 400 mls/hr IV Q6H [facility] Stop: 06/11/20 10:01 Last Admin: 06/11/20 04:45 Dose: 400 mls/hr Documented by: Potassium Cl/Dextrose/Lact Ringer's (D5 Lr With 20 Meq Kcl) 1,000 mls @ 125 mls/hr IV Q8H [facility] Stop: 06/12/20 17:00 Last Admin: 06/12/20 18:38 Dose: Not Given Documented by: Ibuprofen (Motrin) 200 mg PO Q4H [facility] Last Admin: 06/14/20 11:03 Dose: Not Given Documented by: Ibuprofen (Motrin) 400 mg PO Q4H [facility] Last Admin: 06/14/20 14:00 Dose: Not Given Documented by: Iopamidol (Isovue-370 (76%)) 100 ml IV . DIRECTED ONE Stop: 06/09/20 02:57 Last Admin: 06/09/20 03:16 Dose: 100 ml Documented by: Ketorolac Tromethamine (Toradol) 30 mg IVPUSH Q6H [facility] Stop: 06/14/20 09:59 Last Admin: 06/14/20 04:32 Dose: 30 mg Documented by: Lisinopril (Prinivil) 20 mg PO DAILY [facility] Last Admin: 06/11/20 09:51 Dose: Not Given Documented by: Meropenem (Merrem) 1 gm IVPUSH Q8H [facility] Stop: 06/19/20 11:01 Last Admin: 06/14/20 02:36 Dose: 1 gm Documented by: Morphine Sulfate (Morphine) 2 mg IVPUSH Q4H PRN PRN Reason: Pain (severe 7-10) Last Admin: 06/10/20 13:33 Dose: 2 mg Documented by: Morphine Sulfate (Morphine) 2 mg IVPUSH Q2H PRN PRN Reason: Pain (severe 7-10) Last Admin: 06/11/20 05:28 Dose: 2 mg Documented by: Morphine Sulfate (Morphine) 4 mg IVPUSH Q2H PRN PRN Reason: Pain (severe 7-10) Last Admin: 06/12/20 09:20 Dose: 4 mg Documented by: Ondansetron HCl (Zofran) 4 mg IVPUSH ONETIME ONE Stop: 06/09/20 01:25 Last Admin: 06/09/20 01:42 Dose: 4 mg Documented by: Ondansetron HCl (Zofran) 4 mg IV Q6H PRN PRN Reason: Nausea/Vomiting Last Admin: 06/11/20 04:57 Dose: 4 mg Documented by: Pantoprazole Sodium (Protonix Iv) 40 mg IVPUSH ONETIME ONE Stop: 06/09/20 01:25 Last Admin: 06/09/20 01:44 Dose: 40 mg Documented by: Pantoprazole Sodium (Protonix Iv) 40 mg IVPUSH Q12H [facility] Last Admin: 06/12/20 01:44 Dose: 40 mg Documented by: - Exam General: Alert, Oriented, Cooperative, No Acute Distress Lungs: Clear to Auscultation, Normal Respiratory Effort Cardiovascular: Regular Rate, Regular Rhythm GI/Abdominal Exam: Normal Bowel Sounds, Soft, No Distention, Tender (RUQ, improved over LUQ) Extremities: No Pedal Edema - Patient Data Lab Results Last 24 hrs: Laboratory Results - last 24 hr 06/14/20 06/14/20 06/14/20 Range/Units 06:07 06:07 06:07 WBC 15.8 H (3.0-10.3) x10-3/uL RBC 3.88 (3.60-5.20) x10(6)uL Hgb 12.5 (11.4-15.5) g/dL Hct 37.9 (34.2-48.2) % MCV 97.7 (76.7-100.5) fL MCH 32.3 (23.9-33.9) pg MCHC 33.1 (31.9-34.8) g/dL RDW 16.6 H (12.3-16.5) % Plt Count 520 H (151-488) x10(3)uL MPV 8.0 (7.1-12.4) fL Neut % (Auto) 66.6 (30.8-76.2) % Lymph % (Auto) 21.8 (18.4-52.1) % [place] % (Auto) 4.3 L (4.4-15.7) % Eos % (Auto) 5.5 (0.6-8.1) % Baso % (Auto) 1.8 H (0.2-1.5) % Neut # (Auto) 10.5 H (1.5-6.3) x10-3/uL Lymph # (Auto) 3.4 (1.0-4.4) x10-3/uL [place] # (Auto) 0.7 (0.3-1.0) x10-3/uL Eos # (Auto) 0.9 H (0.0-0.8) x10-3/uL Baso # (Auto) 0.3 H (0.0-0.1) x10-3/uL Sodium 141 (135-145) mmol/L Potassium 3.8 (3.5-5.3) mmol/L Chloride 105 (100-110) mmol/L Carbon Dioxide 30 (21-32) mmol/L BUN 3 L (7-18) mg/dL Creatinine 0.5 L (0.55-1.02) mg/dL Est Cr Clr Drug Dosing 118.50 mL/min Estimated GFR (MDRD) > 60 (>60) BUN/Creatinine Ratio 6.0 L (9-20) Glucose 98 (80-116) mg/dL Calcium 8.1 L (8.6-10.2) mg/dL Total Bilirubin 0.3 (0.1-1.3) mg/dL AST 20 D (5-25) IU/L ALT 44 H D (12-36) U/L Alkaline Phosphatase 195 H (56-112) IU/L Total Protein 5.9 L (6.0-8.0) g/dL Albumin 2.1 L (3.5-5.2) g/dL Globulin 3.8 g/dL Albumin/Globulin Ratio 0.6 Lipase 432 H (73-393) U/L Result Diagrams: 06/14/20 06:07 06/14/20 06:07 Sepsis Event Note - Evaluation Sepsis Screening Result: No Definite Risk - Focused Exam Vital Signs: Vital Signs Temp Pulse Resp BP BP Pulse Ox 06/14/20 09:29 139/100 H 06/14/20 07:30 98.3 F 83 18 139/100 H 98 - Problem List & Annotations (1) Acute pancreatitis SNOMED Code(s): 657483212 Code(s): K85.90 - ACUTE PANCREATITIS WITHOUT NECROSIS OR INFECTION, UNSP Status: Acute Current Visit: Yes Qualifiers: Pancreatitis type: unspecified pancreatitis type Acute pancreatitis complication: unspecified Qualified Code(s): K85.90 - Acute pancreatitis without necrosis or infection, unspecified (2) Duodenitis SNOMED Code(s): 03996458 Code(s): K29.80 - DUODENITIS WITHOUT BLEEDING Status: Acute Current Visit: Yes (3) Abdominal pain SNOMED Code(s): 64010921 Code(s): R10.9 - UNSPECIFIED ABDOMINAL PAIN Status: Acute Current Visit: No (4) Alcohol dependence SNOMED Code(s): 03284838 Code(s): F10.20 - ALCOHOL DEPENDENCE, UNCOMPLICATED Status: Chronic Current Visit: No Annotation/Comment:: Naltrexone 50 mg daily, will hold currently. (5) Dehydration, moderate SNOMED Code(s): 6431143908527 Code(s): E86.0 - DEHYDRATION Status: Resolved Current Visit: No Annotation/Comment:: saline lock (6) Marijuana abuse SNOMED Code(s): 31417841 Code(s): F12.10 - CANNABIS ABUSE, UNCOMPLICATED Status: Chronic Current Visit: No (7) Hemorrhoids SNOMED Code(s): 63075231 Code(s): K64.9 - UNSPECIFIED HEMORRHOIDS Status: Chronic Current Visit: Yes - Problem List Review Problem List Initiated/Reviewed/Updated: Yes - My Orders Last 24 Hours: My Active Orders 06/14/20 Breakfast Regular Diet [DIET] 06/14/20 10:00 metroNIDAZOLE [Flagyl] 500 mg PO TID 06/14/20 11:00 Ciprofloxacin [Ciprofloxacin HCl] 500 mg PO BID@0600,1800 06/14/20 15:30 Acetaminophen [TylenoL] 650 mg PO Q4H Ibuprofen [Motrin] 400 mg PO Q4H 06/15/20 06:00 BASIC METABOLIC PANEL,BMP [CHEM] Routine CBC WITH AUTO DIFF [HEME] Routine - Plan Plan:: 1. Acute pancreatitis/duodenitis: WBC down to 15.8 today, Lipase 432, slightly up from 385. Discontinue Merrem, start Ciprofloxacin & Metronidazole. Saline lock. Repeat labs tomorrow. Tylenol 650 mg PO q4h; Discontinue Toradol 30 mg. Ibuprofen 400 mg q4h. Morphine 2 mg IV q2h as needed breakthrough pain. clinically she is improved even with advancement of diet, will recheck labs tomorrow, adjust treatment as needed. 2. HTN: Lisinopril 20 mg daily. 3. Regular diet. 4. Ambulate. 5. If tolerates oral Cipro & Metronidazole, oral pain medications then plan to discharge tomorrow.
[2020-06-14] MEDS: Sodium Chloride 0.9% 10 ML Syringe FLUSH PRN (16:13)
[2020-06-14] MEDS: Acetaminophen 325 MG Tab PO SCH ×3 (16:17→23:32)
[2020-06-15] MEDS: Acetaminophen 325 MG Tab PO SCH ×3 (03:32→12:00)
[2020-06-15] MEDS: Ibuprofen 400 MG Tab PO SCH ×3 (03:33→12:00)
[2020-06-15] MEDS: Pantoprazole 40 MG Tab.CR PO SCH (06:36)
[2020-06-15] MEDS: Ciprofloxacin 500 MG Tab PO SCH (06:36)
[2020-06-15] MEDS: Polyethylene Glycol 3350 Powder 17 GM Packet PO PRN (06:49)
[2020-06-15 09:31] VITALS: BP 139/83; PULSE 84
[2020-06-15] MEDS: metroNIDAZOLE 500 MG Tab PO SCH ×2 (09:34→13:26)
[2020-06-15] MEDS: Lisinopril 20 MG Tab PO SCH (09:35)
[2020-06-15] MEDS: Multivitamins with Iron/Calcium/Folic Acid/Minerals Tab PO SCH (09:36)
--- NOTE | 2020-06-15 13:55 | PCM.DCSUM1 ---
Discharge Summary - Hospital Course HPI Initial Comments: Gladis presented with 1 day history of abdominal pain LUQ pain radiating to her back, vomiting 3 times at home, then twice in ER, has not had any emesis on the floor. Denies fevers, chills, sinus congestion, shortness of breath, chest pain. Decreased urination. Was admitted 05/26 for pancreatitis, s/p cholecystectomy, alcoholic induced pancreatitis at that visit. She has abstained from alcohol since discharge. Her alcohol level was <0.03. She had worsening pancreatitis on CT abdomen/pelvis from ER, [id number] area involving the pancreas/duodenum with fat stranding. No necrosis documented. Lipase 1486. AST 142, ALT 64. She received Dilaudid in ER but states not helping and just making her loopy, she is on Naltrexone daily, she last took yesterday. She states she had rectal bleeding from hemorrhoids a few months ago, only bleeds if she is straining. NKA. Diagnosis: Stroke: No - Discharge Data Discharge Date: 06/15/20 Discharge Disposition: Home, Self-Care 01 Condition: Good - Referral to Home Health Primary Care Physician: Harvey Simons MD - Discharge Diagnosis/Problem(s) (1) Acute pancreatitis SNOMED Code(s): 325382393 ICD Code: K85.90 - ACUTE PANCREATITIS WITHOUT NECROSIS OR INFECTION, UNSP Status: Acute Current Visit: Yes Qualifiers: Pancreatitis type: unspecified pancreatitis type Acute pancreatitis complication: unspecified Qualified Code(s): K85.90 - Acute pancreatitis without necrosis or infection, unspecified (2) Duodenitis SNOMED Code(s): 44830772 ICD Code: K29.80 - DUODENITIS WITHOUT BLEEDING Status: Acute Current Visit: Yes (3) Abdominal pain SNOMED Code(s): 62074717 ICD Code: R10.9 - UNSPECIFIED ABDOMINAL PAIN Status: Acute Current Visit: No (4) Alcohol dependence SNOMED Code(s): 09529107 ICD Code: F10.20 - ALCOHOL DEPENDENCE, UNCOMPLICATED Status: Chronic Current Visit: No Problem Details: Naltrexone 50 mg daily, will hold currently. (5) Marijuana abuse SNOMED Code(s): 45185967 ICD Code: F12.10 - CANNABIS ABUSE, UNCOMPLICATED Status: Chronic Current Visit: No (6) Hemorrhoids SNOMED Code(s): 32211310 ICD Code: K64.9 - UNSPECIFIED HEMORRHOIDS Status: Chronic Current Visit: Yes (7) Hematuria SNOMED Code(s): 13348508 ICD Code: R31.9 - HEMATURIA, UNSPECIFIED Status: Acute Current Visit: Yes Problem Details: yeast on culture, treated with Fluconazole 150 mg x1, repeat as outpatient - Patient Summary/Data Hospital Course: Gladis admitted for second bout of pancreatitis in the past month, CT showed duodenitis as well. Two mucoid cysts present in pancreatic head. MRI abdomen showed severe pancreatitis with duodenitis, two cyst present but could not tell due to the severity of inflammation if malignant or not. She initially was placed on IV fluids and pain control with Hydromorphone, Tylenol but WBC went up to 19.8. Merrem was started on 06/09, white count slowly came down to 15.8, jumped back up to 19.4 then back down to 15.8 and then 14.2 today. Her lipase was 1486 on admission, trended down to normal at 385, bumped a little bit with advancement of diet to 432. Her LFTs trended down. Hydromorphone was making her loopy but not helping with pain so discontinued on 06/09 and started Morphine 2 mg IV q2h. She had history of rectal hemorrhoids, occult stool was negative. Toradol 30 mg IV q6h scheduled, received for 5 days. She had two days of Ofirmev until diet was advanced. Tylenol ID & Toradol then changed to Tylenol oral with Ibuprofen scheduled every 6 hours with resumption of oral intake. Morphine was increased to 4 mg q2h then with diet advancement her pain was improving so decreased to 2 mg q2h. She had decreased use of Morphine over the past 48 hours, last dose was 06/14 at 929 am. Pain controlled with Tylenol & Ibuprofen at time of discharge. Her magnesium and potassium were low and these corrected during hospital stay with supplementation. She had hematuria, UA was checked large blood & RBCs but negative nitrites & LE, bacteria present, urine culture grew yeast. She did not have any vaginal discharge, received 1 dose of Fluconazole 150 mg. Advanced to regular diet by day of discharge. Ciprofloxacin & Metronidazole was started 06/14, Merrem discontinued. Received 5 days of Merrem with 1.5 days of Cipro & Metronidazole. Will go home with 8 more days of Cipro & Metronidazole. Lisinopril was restarted with oral diet, Naltrexone will be restarted at discharge. - Patient Instructions Diet: GI Soft/Low Residue/Low Fiber Activity: As Tolerated Driving: Do Not Drive Showering/Bathing: May Shower Notify Provider of: Fever, Increased Pain, Nausea and/or Vomiting Other/Special Instructions: Follow up with Dr Simons next week for recheck of your pancreatitis, recheck UA as you had blood present, you were treated for yeast in urine(fluconazole x 1). - Discharge Plan *PRESCRIPTION DRUG MONITORING PROGRAM REVIEWED*: No *COPY OF PRESCRIPTION DRUG MONITORING REPORT IN PATIENT NARESH: Not Applicable Prescriptions/Med Rec: Ciprofloxacin [Ciprofloxacin HCl] 500 mg PO BID@0600,1800 8 Days #15 tablet metroNIDAZOLE [Flagyl] 500 mg PO TID 8 Days #23 tablet Ibuprofen 400 mg PO Q4H 7 Days #84 tab Home Medications: Home Meds Omeprazole Magnesium [Prilosec Otc] 20 mg PO DAILY 03/14/19 [History] Multivitamin/Iron/Folic Acid [Centrum Adults Tablet] 1 each PO DAILY #30 tablet 06/01/20 [Rx] Naltrexone 50 mg PO DAILY #30 tab 06/01/20 [Rx] lisinopriL [Prinivil] 20 mg PO DAILY #90 tablet 06/01/20 [Rx] Acetaminophen [Tylenol] 650 mg PO Q4H tablet 06/15/20 [Rx] Ciprofloxacin [Ciprofloxacin HCl] 500 mg PO BID@0600,1800 8 Days #15 tablet 06/15/20 [Rx] Ibuprofen 400 mg PO Q4H 7 Days #84 tab 06/15/20 [Rx] metroNIDAZOLE [Flagyl] 500 mg PO TID 8 Days #23 tablet 06/15/20 [Rx] polyethylene glycoL 3350 [MiraLAX] 17 gm PO DAILY PRN packet 06/15/20 [Rx] Oxygen Therapy Mode: Room Air Patient Handouts: Acute Pancreatitis, [id number], Fall Prevention in Hospitals, Adult, Venous Thromboembolism Prevention Forms: ED Department Discharge Referrals: Harvey Simons MD [Primary Care Provider] - - Discharge Summary/Plan Comment DC Time >30 min.: Yes - General Info Date of Service: 06/15/20 Subjective Update: Pricila is feeling better today. Pain improved, has not had any morphine since 930 yesterday morning. Tolerated advancement to regular diet. Having bowel movements. No fevers, chills. Tolerated ciprofloxacin & metronidazole yesterday. Functional Status: Reports: Pain Controlled, Tolerating Diet, Ambulating, Urinating. Denies: New Symptoms - Patient Data Vitals - Most Recent: Last Vital Signs Temp 98 F 06/15/20 08:00 Pulse 84 06/15/20 08:00 Resp 18 06/15/20 08:00 BP 139/83 06/15/20 09:35 Pulse Ox 97 06/15/20 08:00 Weight - Most Recent: 136 lb 6 oz I&O - Last 24 hours: Intake & Output 06/14/20 06/15/20 06/15/20 22:59 06:59 14:59 Intake Total 160 Balance 160 Lab Results - Last 24 hrs: Laboratory Results - last 24 hr 06/15/20 06/15/20 Range/Units 06:15 06:15 WBC 14.2 H (3.0-10.3) x10-3/uL RBC 3.83 (3.60-5.20) x10(6)uL Hgb 12.2 (11.4-15.5) g/dL Hct 37.4 (34.2-48.2) % MCV 97.7 (76.7-100.5) fL MCH 31.8 (23.9-33.9) pg MCHC 32.6 (31.9-34.8) g/dL RDW 15.9 (12.3-16.5) % Plt Count 487 (151-488) x10(3)uL MPV 8.3 (7.1-12.4) fL Add Manual Diff Yes Neutrophils % (Manual) 70 (46-82) % Lymphocytes % (Manual) 17 (13-37) % Monocytes % (Manual) 8 (4-12) % Eosinophils % (Manual) 5 (0-5) % Sodium 142 (135-145) mmol/L Potassium 3.7 (3.5-5.3) mmol/L Chloride 106 (100-110) mmol/L Carbon Dioxide 28 (21-32) mmol/L BUN 5 L (7-18) mg/dL Creatinine 0.6 (0.55-1.02) mg/dL Est Cr Clr Drug Dosing 98.75 mL/min Estimated GFR (MDRD) > 60 (>60) BUN/Creatinine Ratio 8.3 L (9-20) Glucose 94 (80-116) mg/dL Calcium 8.0 L (8.6-10.2) mg/dL Med Orders - Current: Current Medications Acetaminophen (Tylenol) 650 mg PO Q4H [facility] Last Admin: 06/15/20 12:00 Dose: 650 mg Documented by: Bisacodyl (Dulcolax) 10 mg RECTAL DAILY PRN PRN Reason: Constipation Last Admin: 06/11/20 09:32 Dose: 10 mg Documented by: Ciprofloxacin (Ciprofloxacin Hcl) 500 mg PO BID@0600,1800 [facility] Stop: 06/19/20 23:00 Last Admin: 06/15/20 06:36 Dose: 500 mg Documented by: Promethazine HCl 12.5 mg/ (Sodium Chloride) 50.5 mls @ 200 mls/hr IV Q6H PRN PRN Reason: Nausea/Vomiting Ibuprofen (Motrin) 400 mg PO Q4H [facility] Last Admin: 06/15/20 12:00 Dose: 400 mg Documented by: Lisinopril (Prinivil) 20 mg PO DAILY [facility] Last Admin: 06/15/20 09:35 Dose: 20 mg Documented by: Metronidazole (Flagyl) 500 mg PO TID [facility] Stop: 06/19/20 10:01 Last Admin: 06/15/20 13:26 Dose: 500 mg Documented by: Morphine Sulfate (Morphine) 2 mg IVPUSH Q2H PRN PRN Reason: SEVERE PAIN Last Admin: 06/14/20 09:26 Dose: 2 mg Documented by: Multivitamins/Minerals (Thera M Plus) 1 tab PO DAILY [facility] Last Admin: 06/15/20 09:36 Dose: 1 tab Documented by: Pantoprazole Sodium (Protonix) 40 mg PO DAILY@0600 [facility] Last Admin: 06/15/20 06:36 Dose: 40 mg Documented by: Polyethylene Glycol (Miralax) 17 gm PO DAILY PRN PRN Reason: Constipation Last Admin: 06/15/20 06:49 Dose: 17 gm Documented by: Sodium Chloride (Saline Flush) 10 ml FLUSH ASDIRECTED PRN PRN Reason: Keep Vein Open Last Admin: 06/14/20 16:13 Dose: 10 ml Documented by: Discontinued Medications Acetaminophen (Tylenol) 650 mg RECTAL Q4H [facility] Last Admin: 06/12/20 05:48 Dose: 650 mg Documented by: Acetaminophen (Tylenol) 650 mg PO Q4H PRN PRN Reason: Pain/Fever Last Admin: 06/14/20 09:28 Dose: 650 mg Documented by: Enalaprilat (Vasotec Iv) 0.625 mg IVPUSH Q6H [facility] Last Admin: 06/11/20 09:28 Dose: 0.625 mg Documented by: Enalaprilat (Vasotec Iv) 1.25 mg IVPUSH Q6H [facility] Last Admin: 06/12/20 10:34 Dose: Not Given Documented by: Enoxaparin Sodium (Lovenox) 40 mg SUBCUT DAILY [facility] Last Admin: 06/13/20 12:20 Dose: Not Given Documented by: Fluconazole (Diflucan) 150 mg PO ONETIME ONE Stop: 06/12/20 09:31 Last Admin: 06/12/20 10:08 Dose: 150 mg Documented by: Gadoteridol (Prohance) 10 ml IVPUSH ONETIME ONE Stop: 06/10/20 14:07 Last Admin: 06/10/20 14:27 Dose: 10 ml Documented by: Hydromorphone HCl (Dilaudid) 1 mg IVPUSH ONETIME ONE Stop: 06/09/20 02:33 Last Admin: 06/09/20 02:42 Dose: 1 mg Documented by: Hydromorphone HCl (Dilaudid) 1 mg IVPUSH ONETIME ONE Stop: 06/09/20 03:25 Last Admin: 06/09/20 03:32 Dose: 1 mg Documented by: Hydromorphone HCl (Dilaudid) 2 mg IVPUSH ONETIME ONE Stop: 06/09/20 04:16 Last Admin: 06/09/20 04:29 Dose: 2 mg Documented by: Hydromorphone HCl (Dilaudid) 2 mg IVPUSH Q2H PRN PRN Reason: Pain (severe 7-10) Last Admin: 06/09/20 08:37 Dose: 2 mg Documented by: Hydroxyzine HCl (Vistaril) 50 mg IM ONETIME ONE Stop: 06/09/20 02:32 Last Admin: 06/09/20 02:45 Dose: 50 mg Documented by: Sodium Chloride (Normal Saline) 1,000 mls @ 999 mls/hr IV .BOLUS ONE Stop: 06/09/20 02:23 Last Admin: 06/09/20 01:41 Dose: 999 mls/hr Documented by: Sodium Chloride (Normal Saline) 1,000 mls @ 999 mls/hr IV .BOLUS ONE Stop: 06/09/20 03:47 Last Admin: 06/09/20 02:43 Dose: 999 mls/hr Documented by: Magnesium Sulfate 1 gm/ (Dextrose/Water) 52 mls @ 100 mls/hr IV ONETIME ONE Stop: 06/09/20 04:15 Last Admin: 06/09/20 04:25 Dose: 100 mls/hr Documented by: Sodium Chloride (Normal Saline) 1,000 mls @ 250 mls/hr IV ASDIRECTED [facility] Last Admin: 06/09/20 12:44 Dose: 250 mls/hr Documented by: Piperacillin Sod/Tazobactam (Sod 3.375 gm/ Sodium Chloride) 50 mls @ 100 mls/hr IV .ONCE ONE Stop: 06/09/20 04:45 Last Admin: 06/09/20 04:39 Dose: Not Given Documented by: Acetaminophen 1,000 mg/ Premix 100 mls @ 400 mls/hr IV Q6H [facility] Stop: 06/10/20 06:00 Last Admin: 06/10/20 03:53 Dose: 400 mls/hr Documented by: Lactated Ringer's (Ringers, Lactated) 1,000 mls @ 125 mls/hr IV ASDIRECTED [facility] Last Admin: 06/10/20 18:21 Dose: 125 mls/hr Documented by: Acetaminophen 1,000 mg/ Premix 100 mls @ 400 mls/hr IV Q6H [facility] Stop: 06/11/20 10:01 Last Admin: 06/11/20 04:45 Dose: 400 mls/hr Documented by: Potassium Cl/Dextrose/Lact Ringer's (D5 Lr With 20 Meq Kcl) 1,000 mls @ 125 mls/hr IV Q8H [facility] Stop: 06/12/20 17:00 Last Admin: 06/12/20 18:38 Dose: Not Given Documented by: Dextrose/Lactated Ringer's (Dextrose 5%-Lactated Ringers) 1,000 mls @ 75 mls/hr IV ASDIRECTED [facility] Last Admin: 06/14/20 14:05 Dose: 75 mls/hr Documented by: Ibuprofen (Motrin) 200 mg PO Q4H [facility] Last Admin: 06/14/20 11:03 Dose: Not Given Documented by: Ibuprofen (Motrin) 400 mg PO Q4H [facility] Last Admin: 06/14/20 14:00 Dose: Not Given Documented by: Iopamidol (Isovue-370 (76%)) 100 ml IV . DIRECTED ONE Stop: 06/09/20 02:57 Last Admin: 06/09/20 03:16 Dose: 100 ml Documented by: Ketorolac Tromethamine (Toradol) 30 mg IVPUSH Q6H [facility] Stop: 06/14/20 09:59 Last Admin: 06/14/20 04:32 Dose: 30 mg Documented by: Lisinopril (Prinivil) 20 mg PO DAILY [facility] Last Admin: 06/11/20 09:51 Dose: Not Given Documented by: Meropenem (Merrem) 1 gm IVPUSH Q8H [facility] Stop: 06/19/20 11:01 Last Admin: 06/14/20 02:36 Dose: 1 gm Documented by: Morphine Sulfate (Morphine) 2 mg IVPUSH Q4H PRN PRN Reason: Pain (severe 7-10) Last Admin: 06/10/20 13:33 Dose: 2 mg Documented by: Morphine Sulfate (Morphine) 2 mg IVPUSH Q2H PRN PRN Reason: Pain (severe 7-10) Last Admin: 06/11/20 05:28 Dose: 2 mg Documented by: Morphine Sulfate (Morphine) 4 mg IVPUSH Q2H PRN PRN Reason: Pain (severe 7-10) Last Admin: 06/12/20 09:20 Dose: 4 mg Documented by: Ondansetron HCl (Zofran) 4 mg IVPUSH ONETIME ONE Stop: 06/09/20 01:25 Last Admin: 06/09/20 01:42 Dose: 4 mg Documented by: Ondansetron HCl (Zofran) 4 mg IV Q6H PRN PRN Reason: Nausea/Vomiting Last Admin: 06/11/20 04:57 Dose: 4 mg Documented by: Pantoprazole Sodium (Protonix Iv) 40 mg IVPUSH ONETIME ONE Stop: 06/09/20 01:25 Last Admin: 06/09/20 01:44 Dose: 40 mg Documented by: Pantoprazole Sodium (Protonix Iv) 40 mg IVPUSH Q12H [facility] Last Admin: 06/12/20 01:44 Dose: 40 mg Documented by: - Exam General: Reports: Alert, Oriented, Cooperative, No Acute Distress Lungs: Reports: Clear to Auscultation Cardiovascular: Reports: Regular Rate, Regular Rhythm GI/Abdominal Exam: Normal Bowel Sounds, Soft, No Distention, Tender (RUQ/epigastric, improved, mild TTP). No: Guarding, Rigid, Rebound Extremities: No Pedal Edema Skin: Reports: Warm, Dry, Intact
== END 2020-06-15 14:00 | disposition home or self-care (01) | DRG 440 ==
LOC: FB.ED 00:59 → FB.MS 04:19
PROVIDERS: ADMIT Emergency Medicine; ATTEND Family Medicine
DX: K85.90 Acute pancreatitis without necrosis or infection, unspecified (principal); K29.80 Duodenitis without bleeding; F10.20 Alcohol dependence, uncomplicated; F12.10 Cannabis abuse, uncomplicated; K64.9 Unspecified hemorrhoids; Z79.899 Other long term (current) drug therapy; H54.7 Unspecified visual loss; G43.909 Migraine, unspecified, not intractable, without status migrainosus; J45.909 Unspecified asthma, uncomplicated; F17.210 Nicotine dependence, cigarettes, uncomplicated; Z87.11 Personal history of peptic ulcer disease; E66.9 Obesity, unspecified; Z90.49 Acquired absence of other specified parts of digestive tract; Z20.822 Contact with and (suspected) exposure to COVID-19; E86.0 Dehydration; Z68.25 Body mass index [BMI] 25.0-25.9, adult
CPT/HCPCS: 36415; 74177; 74183; 80048; 80053; 80061; 80305-QW; 80307; 81001; 81025; 82270; 83690; 83735; 85025; 87086; 96361; 96372; 96374; 96375; 96376; 99285; 99285-25; A9270-GY; A9579; C9113; J0131; J1170; J1650; J1885; J2185; J2270; J2405; J3410; J3475; J3480; J7030; J7120; J7121; Q9967; U0002

== ENCOUNTER 2024-09-10 07:34 | Emergency (ER) | payer MEDICAID, OTHER ==
[2024-09-10] MEDS: Sodium Chloride 0.9% 1,000 ML IV SCH (08:17)
[2024-09-10] MEDS: Sodium Chloride 0.9% 10 ML Syringe FLUSH PRN (08:17)
[2024-09-10] MEDS: Ondansetron 4 MG/2 ML SDV IVPUSH ONE (08:17)
[2024-09-10 08:24] LABS: HEMATOCRIT 43.5 % (34.2-48.2); HEMOGLOBIN 15.1 g/dL (11.4-15.5); MEAN CORPUSCULAR HEMOGLOBIN 32.8 pg (23.9-33.9); MEAN CORPUSCULAR HGB CONC 34.7 g/dL (31.9-34.8); MEAN CORPUSCULAR VOLUME 94.4 fL (76.7-100.5); MEAN PLATELET VOLUME 9.3 fL (7.1-12.4); PLATELET COUNT,PLT 243 x10(3)uL (151-488); RED BLOOD CELL COUNT 4.61 x10(6)uL (3.60-5.20); RED CELL DISTRIBUTION WIDTH 13.3 % (12.3-16.5); WHITE BLOOD CELL COUNT,WBC 13.2 x10-3/uL (3.0-10.3)
[2024-09-10 08:26] LABS: BLOOD UREA NITROGEN,BUN 22 mg/dL (7-18); BUN/CREATININE RATIO 27.5 (9-20); CARBON DIOXIDE,CO2 28 mmol/L (21-32); CHLORIDE,CL 104 mmol/L (100-110); CREATININE 0.8 mg/dL (0.55-1.02); EST CRCL DRUG DOSING (CG) 67.61 mL/min; ESTIMATED GFR 96 mL/min (>60); GLUCOSE RANDOM 132 mg/dL (80-116); LIPASE 21 U/L (16-77); POTASSIUM,K 3.2 mmol/L (3.5-5.3); SODIUM,NA 141 mmol/L (135-145)
[2024-09-10 08:28] LABS: C-REACTIVE PROTEIN < 0.50 mg/dL (<0.50)
[2024-09-10 08:32] LABS: A/G RATIO 1.1; ALANINE AMINOTRANSFERASE,ALT 24 U/L (12-36); ALBUMIN 3.9 g/dL (3.5-5.2); ALKALINE PHOSPHATASE 53 IU/L (56-112); ASPARTATE AMNIOTRANSFERASE,AST 22 IU/L (5-25); BILIRUBIN TOTAL 0.5 mg/dL (0.1-1.3); PROTEIN TOTAL,TP 7.6 g/dL (6.0-8.0)
[2024-09-10 08:35] LABS: LYMPHOCYTES PERCENT MAN 8 % (13-37); MONOCYTES PERCENT MAN 2 % (4-12); SEG NEUTROPHILS PERCENT MAN 90 % (46-82)
[2024-09-10] MEDS: Pantoprazole 40 MG Vial IVPUSH ONE (08:35)
[2024-09-10] MEDS: Metoclopramide 10 MG/2 ML SDV IVPUSH ONE (09:06)
[2024-09-10 09:24] LABS: BILIRUBIN,URINE NEGATIVE (NEGATIVE); GLUCOSE,URINE NORMAL (NORMAL); KETONES,URINE 150 mg/dL (NEGATIVE); LEUKOCYTE ESTERASE,URINE NEGATIVE (NEGATIVE); NITRITE,URINE NEGATIVE (NEGATIVE); OCCULT BLOOD,URINE MODERATE (NEGATIVE); PROTEIN,URINE NEGATIVE (NEGATIVE); UROBILINOGEN,URINE NORMAL (NEGATIVE)
[2024-09-10] MEDS: Ketorolac 30 MG/ML SDV IVPUSH ONE (09:26)
[2024-09-10] MEDS: diphenhydrAMINE 50 MG/ML SDV IVPUSH ONE (09:27)
[2024-09-10 09:28] LABS: APPEARANCE,URINE CLEAR (CLEAR); BACTERIA,URINE OCCASIONAL (NS); COLOR,URINE YELLOW (YELLOW); RBC,URINE 0-5 (0-5); SQUAMOUS EPITHELIAL CELLS,UR FEW (NS,R,O); WBC,URINE 0-5 (0-5)
[2024-09-10 09:30] LABS: AMPHETAMINES SCREEN, URINE NEGATIVE (NEGATIVE); BARBITURATE SCREEN,URINE NEGATIVE (NEGATIVE); BENZODIAZEPINES SCREEN,URINE NEGATIVE (NEGATIVE); BUPRENORPHINE SCREEN,URINE NEGATIVE (NEGATIVE); METHADONE SCREEN, URINE NEGATIVE (NEGATIVE); METHAMPHETAMINE SCREEN, URINE NEGATIVE (NEGATIVE); OXYCODONE SCREEN,URINE NEGATIVE (NEGATIVE); THC SCREEN,URINE POSITIVE (NEGATIVE)
[2024-09-10] MEDS ORDERED: Sodium Chloride 0.9% 1,000 ML IV SCH (09:30)
[2024-09-10] MEDS: Prochlorperazine 5 MG Tab PO PRN (12:19)
[2024-09-10 12:43] VITALS: BP 153/84; PULSE 72
== END 2024-09-10 12:55 | disposition home or self-care (01) ==
LOC: FB.ED 07:34
DX: K86.1 Other chronic pancreatitis (principal); R11.2 Nausea with vomiting, unspecified; I10 Essential (primary) hypertension; J45.909 Unspecified asthma, uncomplicated; Z90.49 Acquired absence of other specified parts of digestive tract; Z79.899 Other long term (current) drug therapy
CPT/HCPCS: 80053; 80307; 81001; 83605; 83690; 85025; 86140; 96361; 96374; 96375; 99284-25; J1200; J1885; J2405; J2470; J2765; J7030; Q0164